=== PATIENT | male | born 1955 | race Caucasian/White ===

== ENCOUNTER 2017-06-11 03:39 | Emergency (ER) | payer OTHER ==
[~2017-06-11] VITALS: Ht 165.1 cm; Wt 54.0 kg
[2017-06-11 03:49] VITALS: TEMP 36.5; Ht 165.1 cm; Wt 54.0 kg
[2017-06-11] MEDS ORDERED: ASPCH81X PO (04:34)
[2017-06-11] MEDS ORDERED: [UNRECOGNIZED DRUG - CODE] PO (04:34)
[2017-06-11] MEDS ORDERED: BND25 PO (04:35)
[2017-06-11] MEDS ORDERED: ATOR10TA88 PO (04:35)
[2017-06-11] MEDS ORDERED: ALBUT/IPRATROP 3MG/0.5MG NEB 3 ML VIAL INH STA (04:45)
[2017-06-11 05:01] VITALS: O2SAT 94
[2017-06-11] MEDS ORDERED: [UNRECOGNIZED DRUG - CODE] IV (05:02)
[2017-06-11] MEDS ORDERED: SPRIN/30 INH (05:06)
[2017-06-11] MEDS ORDERED: VNTHFA/IN INH (05:06)
[2017-06-11] MEDS ORDERED: RISP1TAB68 PO (05:06)
[2017-06-11] MEDS ORDERED: IPRASOL4 INH (05:07)
[2017-06-11 05:33] LABS: COMPLETE YES; HEMATOCRIT 39.1 % (42-52); IG% 0.2 %; LYMPH % 8.8 %; LYMPH ABS # 0.38 K/uL (1.2-3.4); MEAN CELL VOLUME 86.1 fL (80-100); MEAN CORPUSCULAR HEMOGLOBIN 30.2 pg (25-34); MEAN PLATELET VOLUME 10.6 fL (7.4-10.4); MONO % 1.6 %; NEUT % 89.4 %; PLATELET COUNT 135 K/uL (130-400); RED BLOOD COUNT 4.54 M/uL (4.7-6.1); WHITE BLOOD COUNT 4.34 K/uL (4.8-10.8)
[2017-06-11 05:40] LABS: ALT/SGPT 36 U/L (12-78); AST/SGOT 21 U/L (15-37); BLOOD UREA NITROGEN 17 mg/dl (7-18); BUN/CREATININE RATIO 24.4 (10-20); CALCIUM 8.3 mg/dl (8.5-10.1); CARBON DIOXIDE 24 mmol/L (21-32); CHLORIDE 104 mmol/L (98-107); CREATININE 0.68 mg/dl (0.60-1.40); GLUCOSE 225 mg/dl (70-99); INR 1.1 (0.9-1.1); PARTIAL THROMBOPLASTIN RATIO 1.2; POTASSIUM 4.2 mmol/L (3.5-5.1); PROTHROMBIN TIME (PATIENT) 11.4 SECONDS (9.0-12.0); SODIUM 135 mmol/L (136-145)
[2017-06-11 05:47] LABS: ALB/GLOB RATIO 0.7 (0.9-2); ALKALINE PHOSPHATASE 70 U/L (45-117); CKMB/CK RATIO 1.5 (0-3.0)
--- NOTE | 2017-06-11 06:32 | EMERGENCY ROOM VISIT NOTE ---
History Report prepared by Burke: Gavin Gilman Under the Supervision of: Dr. Zhang Velazquez D.O. First contact with patient: 03:48 Chief Complaint: RESPIRATORY PROBLEMS Stated Complaint: BREATHING DIFFICULTY Nursing Triage Summary: Patient arrived via EMS from [facility]. EMS reports patient complaining of SOB and difficulty breathing with cough. Patient has hx of copd, asthma, and is a current smoker. Patient given duoneb and solumedrol in the [facility] prior to ems arrival. History of Present Illness The patient is a 62 year old male who presents to the Emergency Room with complaints of worsening shortness of breath beginning two days ago. The patient states that he also is experiencing right arm discomfort and a rough cough. He denies any other symptoms. Nursing staff states the patient has a history of asthma and COPD. They report the patient still smokes and received Duoneb and Solu-Medrol in the ambulance. Source of History: patient Onset: two days ago Position: chest Quality: other (SOB) Timing: worsening Associated Symptoms: + cough Note: Associated symptoms: right arm pain Denies all other symptoms Review of Systems See HPI for pertinent positives & negatives. A total of 10 systems reviewed and were otherwise negative. Past Medical & Surgical Medical Problems: (1) Asthma (2) COPD (chronic obstructive pulmonary disease) Family History Patient reports no known family medical history. Social History Smoking Status: Current Every Day Smoker Housing Status: other (shelter) Current/Historical Medications Scheduled Albuterol Sulf (Albuterol Sulfate), 2 MG PO TID Aspirin (Aspirin Chewable), 162 MG PO DAILY Atorvastatin (Lipitor), 10 MG PO HS Diphenhydramine Hcl (Benadryl), 50 MG PO HS Methylprednisolone Sod Succ (Solu-Medrol), 125 MG IV Q6 Risperidone (Risperdal), 1 MG PO HS Tiotropium [place] (Spiriva Handihaler), 1 CAP INH DAILY Scheduled PRN Albuterol Hfa (Ventolin Hfa), 2 PUFFS INH QID PRN for Shortness of Breath Ipratropium-Albuterol (Duoneb), 1 TREATMENT INH QID PRN for UNDECIDED Allergies Coded Allergies: No Known Allergies (Unverified , 06/11/17) Physical Exam Vital Signs Date Time Temp Pulse Resp B/P (MAP) Pulse Ox O2 Delivery O2 Flow Rate FiO2 06/11/17 06:00 71 20 113/62 94 Nasal Cannula 4.0 06/11/17 05:01 94 Nasal Cannula 2.0 06/11/17 03:53 92 Room Air 06/11/17 03:49 92 Room Air 06/11/17 03:49 88 06/11/17 03:49 36.5 86 20 162/106 92 Room Air Physical Exam CONSTITUTIONAL/VITAL SIGNS: Reviewed / noted above. GENERAL: Non-toxic in appearance. INTEGUMENTARY: Warm, dry, and Sells. HEAD: Normocephalic. EYES: without scleral icterus or trauma. ENT/OROPHARYNX: clear and moist. LYMPHADENOPATHY/NECK: Is supple without lymphadenopathy or meningismus. RESPIRATORY: Lungs clear and equal. CARDIOVASCULAR: Regular rate and rhythm. GI/ABDOMEN: Soft and nontender. No organomegaly or pulsatile mass. No rebound or guarding. Normal bowel sounds. EXTREMITIES: Warm and well perfused. BACK: No CVA tenderness. NEUROLOGICAL: Intact without focal deficits. PSYCHIATRIC: normal affect. MUSCULOSKELETAL: Normally developed with good muscle tone. Medical Decision & Procedures ER Provider Diagnostic Interpretation: X ray results and stated below per my interpretation and radiology interpretation. One view chest: Diffuse interstitial changes might be related to chronic lung disease, less likely CHF or diffuse pneumonia. No previous available for comparison. Laboratory Results 06/11/17 04:02 Red Blood Count 4.54, Mean Corpuscular Volume 86.1, Mean Corpuscular Hemoglobin 30.2, Mean Corpuscular Hemoglobin Concent 35.0, Mean Platelet Volume 10.6, Neutrophils (%) (Auto) 89.4, Lymphocytes (%) (Auto) 8.8, Monocytes (%) (Auto) 1.6, Eosinophils (%) (Auto) 0.0, Basophils (%) (Auto) 0.0, Neutrophils # (Auto) 3.88, Lymphocytes # (Auto) 0.38, Monocytes # (Auto) 0.07, Eosinophils # (Auto) 0.00, Basophils # (Auto) 0.00 06/11/17 04:02 Test 06/11/17 04:02 White Blood Count 4.34 K/uL (4.8-10.8) Red Blood Count 4.54 M/uL (4.7-6.1) Hemoglobin 13.7 g/dL (14.0-18.0) Hematocrit 39.1 % (42-52) Mean Corpuscular Volume 86.1 fL (80-100) Mean Corpuscular Hemoglobin 30.2 pg (25-34) Mean Corpuscular Hemoglobin Concent 35.0 g/dl (32-36) Platelet Count 135 K/uL (130-400) Mean Platelet Volume 10.6 fL (7.4-10.4) Neutrophils (%) (Auto) 89.4 % Lymphocytes (%) (Auto) 8.8 % Monocytes (%) (Auto) 1.6 % Eosinophils (%) (Auto) 0.0 % Basophils (%) (Auto) 0.0 % Neutrophils # (Auto) 3.88 K/uL (1.4-6.5) Lymphocytes # (Auto) 0.38 K/uL (1.2-3.4) Monocytes # (Auto) 0.07 K/uL (0.11-0.59) Eosinophils # (Auto) 0.00 K/uL (0-0.5) Basophils # (Auto) 0.00 K/uL (0-0.2) RDW Standard Deviation 43.6 fL (36.4-46.3) RDW Coefficient of Variation 13.9 % (11.5-14.5) Immature Granulocyte % (Auto) 0.2 % Immature Granulocyte # (Auto) 0.01 K/uL (0.00-0.02) Prothrombin Time 11.4 SECONDS (9.0-12.0) Prothromb Time International Ratio 1.1 (0.9-1.1) Activated Partial Thromboplast Time 31.1 SECONDS (21.0-31.0) Partial Thromboplastin Ratio 1.2 Anion Gap 7.0 mmol/L (3-11) Est Creatinine Clear Calc Drug Dose 84.9 ml/min Estimated GFR () 117.8 Estimated GFR (Non- 101.6 BUN/Creatinine Ratio 24.4 (10-20) Calcium Level 8.3 mg/dl (8.5-10.1) Total Bilirubin 0.4 mg/dl (0.2-1) Aspartate Amino Transf (AST/SGOT) 21 U/L (15-37) Alanine Aminotransferase (ALT/SGPT) 36 U/L (12-78) Alkaline Phosphatase 70 U/L (45-117) Total Creatine Kinase 133 U/L (39-308) Creatine Kinase MB 2.0 ng/ml (0.5-3.6) Creatine Kinase MB Ratio 1.5 (0-3.0) Troponin I < 0.015 ng/ml (0-0.045) Total Protein 7.2 gm/dl (6.4-8.2) Albumin 2.9 gm/dl (3.4-5.0) Globulin 4.3 gm/dl (2.5-4.0) Albumin/Globulin Ratio 0.7 (0.9-2) Laboratory results as stated above per my review. Medications Administered Medications (Trade) Dose Ordered Sig/Princess Route Start Time Stop Time Status Last Admin Dose Admin Albuterol/ Ipratropium (Duoneb) 3 ml NOW STAT INH 06/11/17 04:45 06/11/17 04:47 DC 06/11/17 05:04 3 ML ECG Indication: SOB/dyspnea Rate (beats per minute): 77 Rhythm: sinus with SA Findings: T-wave inversion (Anterior), no acute ischemic change ED Course 0352: Previous medical records were reviewed. The patient was evaluated in room B08. A complete history and physical examination was performed. 0445: Ordered Duoneb 3ml INH 0626: On reevaluation, the patient is resting. I discussed the results and findings with the patient. He verbalized agreement of the treatment plan. The patient was discharged. Medical Decision Differentials considered include acute myocardial infarction, acute coronary syndrome, myocarditis, pericarditis, pericardial effusions /tamponade, esophageal perforation, pulmonary embolism, pneumonia, pneumothorax, cardiomyopathy, congestive heart, anemia, and COPD/asthma exacerbation. This is a 62-year-old male who presents to the ED with a chief complaint of shortness of breath. The patient is a poor historian. He states that he has had the symptoms for the couple days. EMS provided DuoNeb treatment and some Solu-Medrol. He also reported some right arm pain. The patient's vital signs are stable. He is afebrile. Lungs reveal some scattered wheezes. The patient is a chronic smoker. A chest x-ray reveals what I believe are likely chronic interstitial changes. His exam does not suggest acute process such as CHF or acute pneumonia. He has not had symptoms of a cough or fever. An EKG shows a normal sinus rhythm at a rate of 77 with T-wave inversions. Troponin was negative. Glucose is 225. CBC is normal. The patient was treated with a DuoNeb treatment. He was resting comfortably at this time and disposition and discharge. He is felt to be stable for discharge back to shelter for continued assessment. Impression Primary Impression: COPD (chronic obstructive pulmonary disease) Scribe Attestation The scribe's documentation has been prepared under my direction and personally reviewed by me in its entirety. I confirm that the note above accurately reflects all work, treatment, procedures, and medical decision making performed by me. Departure Information Dispostion Home / Self-Care Referrals Magnus PARDO (PCP) Forms HOME CARE DOCUMENTATION FORM, IMPORTANT VISIT INFORMATION, WORK / SCHOOL INSTRUCTIONS Patient Instructions My [facility] Additional Instructions Follow-up with your doctor for further care and evaluation in 1-2 days. Return to the emergency department for worsening or new symptoms or any concerns. You have been examined and treated today on an emergency basis only. This is not a substitute for, or an effort to provide, complete comprehensive medical care. It is impossible to recognize and treat all injuries or illnesses in a single emergency department visit. It is therefore important that you follow up closely with your doctor. Call as soon as possible for an appointment.
[2017-06-11 06:42] VITALS: BP 100/68; PULSE 60; O2SAT 98
--- NOTE | 2017-06-11 07:39 | DIAGNOSTIC IMAGING REPORT ---
CHEST ONE VIEW PORTABLE HISTORY: Short of breath. COMPARISON: None. FINDINGS: No pneumothorax. No pleural effusions. The heart is mildly enlarged with prominence of the central pulmonary arteries suggesting pulmonary arterial hypertension. There is diffuse interstitial thickening. This is consistent with chronic interstitial lung disease. IMPRESSION: 1. Diffuse interstitial thickening consistent with a chronic interstitial lung disease. 2. Mild cardiomegaly. 3. Pulmonary arterial hypertension. Electronically signed by: Garrett Taveras M.D. 06/11/2017 7:38 AM Dictated Date/Time: 06/11/2017 7:36 AM
== END 2017-06-11 06:38 | disposition home or self-care (01) ==
LOC: C.EDB 03:45
DX: J44.9 Chronic obstructive pulmonary disease, unspecified (principal); R06.00 Dyspnea, unspecified; F17.210 Nicotine dependence, cigarettes, uncomplicated

== ENCOUNTER 2017-08-12 10:45 | Inpatient (IN) | payer OTHER ==
[~2017-08-12] VITALS: Ht 160 cm; Wt 130.2 kg
[2017-08-12] VITALS (8 sets, daily range): BP systolic 91–106; BP diastolic 52–67; PULSE 74–122; TEMP 34.7–36.7; O2SAT 94–98; Ht 160 cm; Wt 130.2 kg
[~2017-08-12 10:45] MED LIST: ASPCH81X PO; ATOR10TA82 PO; DIPH25CA5 PO; IPRASOL4 INH; RISP1TAB68 PO; SPRIN/30 INH; VNTHFA/IN INH; [UNRECOGNIZED DRUG - CODE] IV; [UNRECOGNIZED DRUG - CODE] PO
[2017-08-12] MEDS ORDERED: SODIUM CHLORIDE 0.9% 1000ML 1,000 ML IV STA (10:58)
--- NOTE | 2017-08-12 11:11 | DIAGNOSTIC IMAGING REPORT ---
SINGLE VIEW CHEST CLINICAL HISTORY: Generalized weakness. FINDINGS: An AP, portable, upright chest radiograph is compared to study dated 06/11/2017. The examination is degraded by portable technique and patient rotation. The heart is enlarged and there is atherosclerotic calcification of the thoracic aorta. The pulmonary vasculature is noncongested. Enlargement of the central pulmonary arteries suggests pulmonary artery hypertension. Extensive/diffuse chronic interstitial thickening is similar to previous. There is no convincing evidence of superimposed airspace consolidation. No large pleural effusion or pneumothorax is seen. The skeletal structures are osteopenic. The bony thorax is grossly intact. IMPRESSION: 1. Cardiomegaly without radiographic evidence of congestive failure. 2. Changes of chronic interstitial lung disease are similar to previous. No superimposed airspace consolidation or large pleural effusion is identified. Electronically signed by: Samir Monet M.D. 08/12/2017 11:09 AM Dictated Date/Time: 08/12/2017 11:07 AM
[2017-08-12 11:15] LABS: BASO % 0.1 %; BASO ABS # 0.01 K/uL (0-0.2); COMPLETE YES; IG% 0.4 %; LYMPH % 1.9 %; LYMPH ABS # 0.19 K/uL (1.2-3.4); MEAN CELL VOLUME 89.3 fL (80-100); MEAN CORPUSCULAR HEMOGLOBIN 29.8 pg (25-34); MEAN CORPUSCULAR HGB CONC 33.4 g/dl (32-36); MEAN PLATELET VOLUME 10.9 fL (7.4-10.4); MONO % 3.2 %; NEUT % 94.4 %; PLATELET COUNT 127 K/uL (130-400); RED BLOOD COUNT 4.59 M/uL (4.7-6.1); WHITE BLOOD COUNT 10.24 K/uL (4.8-10.8)
[2017-08-12 11:24] LABS: INR 1.1 (0.9-1.1); PARTIAL THROMBOPLASTIN RATIO 1.1; PROTHROMBIN TIME (PATIENT) 11.9 SECONDS (9.0-12.0)
[2017-08-12 11:29] LABS: BUN/CREATININE RATIO 34.1 (10-20); CREATININE 0.87 mg/dl (0.60-1.40); POTASSIUM 3.8 mmol/L (3.5-5.1)
[2017-08-12] MEDS ORDERED: PRED10TA PO (11:29)
[2017-08-12] MEDS ORDERED: AMOX875T PO (11:29)
[2017-08-12] MEDS ORDERED: IPRASOL4 INH (11:30)
--- NOTE | 2017-08-12 11:30 | EMERGENCY ROOM VISIT NOTE ---
History Report prepared by Burke: Gordon Hensley Under the Supervision of: Dr. Sheng Shepard M.D. First contact with patient: 10:51 Chief Complaint: RAPID HEART RATE Stated Complaint: TACHYCARDIA History of Present Illness The patient is a 62 year old white male with a past medical history of COPD, asthma who presents to the ED with a cc of persistent heart palpitations beginning today. He is a prisoner. COPD currently being treated with high dose steroids. Found to be in atrial fibrillation at the assisted today. Positive SOB and chest pain. He is on a mood stabilizer and Statin. Denies passing out. Source of History: patient Onset: Today Quality: other (heart palpitations) Timing: other (persistent) Associated Symptoms: + chest pain, + SOB, No LOC Note: The patient denies passing out. Review of Systems See HPI for pertinent positives and negatives. A total of ten systems were reviewed and were otherwise negative. Past Medical & Surgical Medical Problems: (1) Asthma (2) COPD (chronic obstructive pulmonary disease) (3) New onset a-fib Family History Patient reports no known family medical history. Social History Smoking Status: Current Every Day Smoker Housing Status: other Current/Historical Medications Scheduled Amoxicillin & Pot Clavulanate (Augmentin 875-125 mg), 1 TAB PO BID Aspirin (Aspirin Chewable), 162 MG PO DAILY Atorvastatin (Lipitor), 10 MG PO HS Diphenhydramine Hcl (Benadryl), 50 MG PO HS Methylprednisolone Sod Succ (Solu-Medrol), 125 MG IV Q6 Prednisone (Prednisone), 10 MG PO DIRECTED Risperidone (Risperdal), 1 MG PO HS Tiotropium [place] (Spiriva Handihaler), 1 CAP INH DAILY Scheduled PRN Albuterol Hfa (Ventolin Hfa), 2 PUFFS INH QID PRN for Shortness of Breath Ipratropium-Albuterol (Duoneb), 1 TREATMENT INH Q4H PRN for Shortness of Breath Allergies Coded Allergies: No Known Allergies (Unverified , 08/12/17) Physical Exam Vital Signs Date Time Temp Pulse Resp B/P (MAP) Pulse Ox O2 Delivery O2 Flow Rate FiO2 08/12/17 14:15 113 24 90/61 97 Nasal Cannula 3.0 08/12/17 13:12 128 20 96/63 96 Nasal Cannula 4.0 08/12/17 13:00 102 20 81/60 96 Nasal Cannula 3.0 08/12/17 12:45 101 24 97/57 97 Nasal Cannula 3.0 08/12/17 12:30 120 20 82/68 97 Nasal Cannula 3.0 08/12/17 12:15 87 26 97/60 97 Nasal Cannula 3.0 08/12/17 12:00 90 24 95/64 97 Room Air 08/12/17 11:45 117 24 84/64 97 Nasal Cannula 3.0 08/12/17 11:30 117 24 112/54 Nasal Cannula 3.0 08/12/17 11:19 95 22 91/64 99 Nasal Cannula 3.0 08/12/17 11:17 99 Nasal Cannula 3.0 08/12/17 11:13 36.7 129 24 78/60 99 Nasal Cannula 3.0 08/12/17 11:13 99 Nasal Cannula 3.0 08/12/17 11:00 119 Physical Exam GENERAL: Awake, alert, well-appearing, NAD HENT: Normocephalic, atraumatic. EYES: Normal conjunctiva. Sclera non-icteric. NECK: Supple. No nuchal rigidity. FROM. RESPIRATORY: rhonchus breath sounds in left chest. Wheezing in the right lung huang. CARDIAC: Tachycardic, irregular heart rhythm. ABDOMEN: Soft, NTND, BS+ MSK: No chest wall TTP, no LE edema, no calf pain. Incisional scar to the distal RUE. NEURO: GCS 15, CN 2-12 intact, moves all 4s on command SKIN: No rash or jaundice noted. Excoriations to the skin. Medical Decision & Procedures ER Provider Diagnostic Interpretation: X-ray: Per my interpretation, radiologist review. SINGLE VIEW CHEST FINDINGS: An AP, portable, upright chest radiograph is compared to study dated 06/11/2017. The examination is degraded by portable technique and patient rotation. The heart is enlarged and there is atherosclerotic calcification of the thoracic aorta. The pulmonary vasculature is noncongested. Enlargement of the central pulmonary arteries suggests pulmonary artery hypertension. Extensive/diffuse chronic interstitial thickening is similar to previous. There is no convincing evidence of superimposed airspace consolidation. No large pleural effusion or pneumothorax is seen. The skeletal structures are osteopenic. The bony thorax is grossly intact. IMPRESSION: 1. Cardiomegaly without radiographic evidence of congestive failure. 2. Changes of chronic interstitial lung disease are similar to previous. No superimposed airspace consolidation or large pleural effusion is identified. Electronically signed by: Samir Monet M.D. 08/12/2017 11:09 AM Laboratory Results 08/12/17 11:00 Red Blood Count 4.59, Mean Corpuscular Volume 89.3, Mean Corpuscular Hemoglobin 29.8, Mean Corpuscular Hemoglobin Concent 33.4, Mean Platelet Volume 10.9, Neutrophils (%) (Auto) 94.4, Lymphocytes (%) (Auto) 1.9, Monocytes (%) (Auto) 3.2, Eosinophils (%) (Auto) 0.0, Basophils (%) (Auto) 0.1, Neutrophils # (Auto) 9.67, Lymphocytes # (Auto) 0.19, Monocytes # (Auto) 0.33, Eosinophils # (Auto) 0.00, Basophils # (Auto) 0.01 08/12/17 11:00 Test 08/12/17 11:00 08/12/17 13:40 White Blood Count 10.24 K/uL (4.8-10.8) Red Blood Count 4.59 M/uL (4.7-6.1) Hemoglobin 13.7 g/dL (14.0-18.0) Hematocrit 41.0 % (42-52) Mean Corpuscular Volume 89.3 fL (80-100) Mean Corpuscular Hemoglobin 29.8 pg (25-34) Mean Corpuscular Hemoglobin Concent 33.4 g/dl (32-36) Platelet Count 127 K/uL (130-400) Mean Platelet Volume 10.9 fL (7.4-10.4) Neutrophils (%) (Auto) 94.4 % Lymphocytes (%) (Auto) 1.9 % Monocytes (%) (Auto) 3.2 % Eosinophils (%) (Auto) 0.0 % Basophils (%) (Auto) 0.1 % Neutrophils # (Auto) 9.67 K/uL (1.4-6.5) Lymphocytes # (Auto) 0.19 K/uL (1.2-3.4) Monocytes # (Auto) 0.33 K/uL (0.11-0.59) Eosinophils # (Auto) 0.00 K/uL (0-0.5) Basophils # (Auto) 0.01 K/uL (0-0.2) RDW Standard Deviation 46.7 fL (36.4-46.3) RDW Coefficient of Variation 14.3 % (11.5-14.5) Immature Granulocyte % (Auto) 0.4 % Immature Granulocyte # (Auto) 0.04 K/uL (0.00-0.02) Prothrombin Time 11.9 SECONDS (9.0-12.0) Prothromb Time International Ratio 1.1 (0.9-1.1) Activated Partial Thromboplast Time 28.3 SECONDS (21.0-31.0) Partial Thromboplastin Ratio 1.1 Anion Gap 6.0 mmol/L (3-11) Est Creatinine Clear Calc Drug Dose 72.8 ml/min Estimated GFR () 106.5 Estimated GFR (Non- 91.9 BUN/Creatinine Ratio 34.1 (10-20) Calcium Level 8.0 mg/dl (8.5-10.1) Magnesium Level 2.0 mg/dl (1.8-2.4) Total Bilirubin 0.3 mg/dl (0.2-1) Direct Bilirubin 0.1 mg/dl (0-0.2) Aspartate Amino Transf (AST/SGOT) 25 U/L (15-37) Alanine Aminotransferase (ALT/SGPT) 44 U/L (12-78) Alkaline Phosphatase 57 U/L (45-117) Troponin I 0.017 ng/ml (0-0.045) Pro-B-Type Natriuretic Peptide 3849 pg/ml (0-900) Total Protein 6.4 gm/dl (6.4-8.2) Albumin 2.7 gm/dl (3.4-5.0) Lipase 85 U/L (73-393) Thyroid Stimulating Hormone (TSH) 0.726 uIu/ml (0.300-4.500) Urine Color YELLOW Urine Appearance CLEAR (CLEAR) Urine pH 6.0 (4.5-7.5) Urine Specific [place] 1.029 (1.000-1.030) Urine Protein NEG (NEG) Urine Glucose (UA) NEG (NEG) Urine Ketones NEG (NEG) Urine Occult Blood NEG (NEG) Urine Nitrite NEG (NEG) Urine Bilirubin NEG (NEG) Urine Urobilinogen NEG (NEG) Urine Leukocyte Esterase NEG (NEG) Laboratory results reviewed by dc Medications Administered Medications (Trade) Dose Ordered Sig/Princess Route Start Time Stop Time Status Last Admin Dose Admin Sodium Chloride 1,000 ml @ 999 mls/hr Q1H1M STAT IV 08/12/17 10:58 08/12/17 11:58 DC 08/12/17 10:58 999 MLS/HR Sodium Chloride 1,000 ml @ 100 mls/hr Q10H IV 08/12/17 14:25 09/11/17 14:24 08/12/17 15:38 100 MLS/HR ECG Indication: palpitations Rate (beats per minute): 126 Rhythm: atrial fibrillation (RVR) Findings: other (RAD. T-wave flattening inferiorly. No other STS or TWI. ) ED Course 1052: The patient was evaluated in room C4. A complete history and physical exam was performed. 1220: I reassessed the patient. He feels better, but would like something to drink. 1310: Upon reexamination, the patient was resting comfortably. I discussed the test results and treatment plan with him. The patient will be evaluated for further management. Medical Decision The patient is a 62 year old white male with a past medical history of COPD, asthma who presents to the ED with a cc of persistent heart palpitations beginning today. Differential diagnosis includes etiologies such as premature contractions, electrolyte abnormality, cardiac dysrhythmia, thyroid dysfunction , pulmonary embolism, infection, gastrointestinal, as well as others were entertained. Patient was seen and evaluated at the bedside. Patient does have a known history of COPD and was being given high-dose steroids. Patient was complaining of a fast heart rate in addition to some shortness of breath and mild chest pain. Patient is no documented prior history of DVT or PE. Patient is a known prisoner [facility]. On exam patient did have some mild wheezing as well as some rhonchorous sounds in the right chest. Patient denied any recent cough. Patient's EKG did show some atrial fibrillation with RVR although the patient may have some P waves is difficult to tell. Patient did have a chest x- ray and blood work that was completed. Patient's blood pressure was a little soft and thus pads were placed on the chest although the patient was not have any altered mental status at this time. Patient was given IV fluids. Patient' s heart rate improved after being being given IV fluids. Patient's labwork fairly unremarkable. Patient did have trace elevations in BMP and this shows some cardiomegaly but without any overt additional pulmonary edema on chest x-ray. The patient is otherwise a symptomatically is been able to get up and walk to the bathroom without feeling dizzy. I believe the patient is very dehydrated and dry and that he would most benefit from fluids given his softer blood pressures and thus now rate medication was given at the time of admission. Patient also has been getting Solu-Medrol 150 every 8 which may also be contributory. I did speak with the hospitalist who agreed to admit the patient for further workup and treatment. Medication Reconcilliation Current Medication List: was personally reviewed by me Blood Pressure Screening Patient's blood pressure: Low blood pressure Blood pressure disposition: Did not require urgent referral Consults Time Called: 1300 Consulting Physician: Dr. Tere MENDIETA Returned Call: 1310 Discussed the patient's case. The patient will be evaluated for further treatment and disposition. Impression Primary Impression: COPD (chronic obstructive pulmonary disease) Additional Impression: A-fib Scribe Attestation The scribe's documentation has been prepared under my direction and personally reviewed by me in its entirety. I confirm that the note above accurately reflects all work, treatment, procedures, and medical decision making performed by me. Departure Information Dispostion Being Evaluated By Hospitalist Referrals Magnus PARDO (PCP) Patient Instructions My [facility] Problem Qualifiers Primary Impression: COPD (chronic obstructive pulmonary disease) COPD type: unspecified COPD Qualified Codes: J44.9 - Chronic obstructive pulmonary disease, unspecified Additional Impression: A-fib Atrial fibrillation type: paroxysmal Qualified Codes: I48.0 - Paroxysmal atrial fibrillation
[2017-08-12 11:40] LABS: THYROID STIMULATING HORMONE 0.726 uIu/ml (0.300-4.500)
[2017-08-12 13:50] LABS: URINE APPEARANCE CLEAR (CLEAR); URINE BILIRUBIN NEG (NEG); URINE COLOR YELLOW; URINE NITRITE NEG (NEG); URINE SPECIFIC GRAVITY 1.029 (1.000-1.030); UROBILINOGEN NEG (NEG)
[2017-08-12 13:54] LABS: MANUAL MICROSCOPIC REQUIRED? NO; REVIEW REQ? NO
[2017-08-12] MEDS ORDERED: ONDANSETRON INJ 2 MG/ML 2 ML VIAL IV PRN (14:30)
[2017-08-12] MEDS ORDERED: MAGNESIUM HYDROXIDE SUSP 30 ML UDC PO PRN (14:30)
[2017-08-12] MEDS ORDERED: ALUMINUM/MAGNESIUM/SIMETH (MAALOX MAX) 30 ML UDC PO PRN (14:30)
[2017-08-12] MEDS ORDERED: POLYETHYLENE (MIRALAX) 17 GM PACK PO PRN (14:30)
[2017-08-12] MEDS ORDERED: ACETAMINOPHEN 325 MG TAB PO PRN (14:30)
[2017-08-12] MEDS ORDERED: METOPROLOL TARTRATE 1 MG/ML VIAL IV PRN (14:30)
[2017-08-12] MEDS ORDERED: DIGOXIN 0.125 MG TAB PO ONE (14:45)
[2017-08-12] MEDS ORDERED: LEVALBUTEROL/IPRATROPIUM NEB INH SCH (15:00)
[2017-08-12] MEDS ORDERED: GLUCOSE 40% GEL 15 GM TUBE PO PRN (15:00)
[2017-08-12] MEDS ORDERED: GLUCOSE 10 TABS/TUBE PO PRN (15:00)
[2017-08-12] MEDS ORDERED: DEXTROSE 50% 50 ML SYR IV PRN (15:00)
[2017-08-12] MEDS ORDERED: GLUCAGON FOR INJ 1 MG VIAL SQ PRN (15:00)
--- NOTE | 2017-08-12 15:01 | History and Physical ---
History & Physical Date & Time of Service: Aug 12, 2017 at 14:43 Chief Complaint: Tachycardia Primary Care Physician: Magnus PARDO History of Present Illness Source: patient, hospital records, other ([facility] records) This is a 62 y/o male with a history of COPD, asthma, HLD, schizophrenia, anxiety, and HCV who presented to the ED on 08/12 from [facility] with palpitations, shortness of breath and chest pain. The patient states that his symptoms started today. He was seen in the [facility] and was found to be in a- fib with RVR, with HR in 130s. This is a new diagnosis. The patient complains of a sharp pain in the center of his chest but is unable to quantify the pain intensity. He also complains of a productive cough and wheezing. The patient was being treated for a COPD exacerbation/bronchitis at [facility] with Augmentin (08/09-08/16) and Solu-Medrol 125 mg IV QID with Prednisone 60 mg taper. The patient denies fevers, chills, sweats, claudication, nausea, vomiting, abdominal pain, dysuria, hematuria, urinary retention, paralysis, weakness, numbness and tingling. Past Medical/Surgical History Medical Problems: (1) Asthma Status: Chronic (2) COPD (chronic obstructive pulmonary disease) Status: Chronic HLD Schizophrenia Anxiety HCV Family History Patient reports no known family medical history. Patient denies any known family history. Social History Smoking Status: Current Every Day Smoker (chain smoker) Alcohol Use: none Drug Use: none Marital Status: single Housing status: other (half-way) Occupational Status: other (prisoner) Allergies Coded Allergies: No Known Allergies (Unverified , 08/12/17) Home Medications Scheduled Amoxicillin & Pot Clavulanate (Augmentin 875-125 mg), 1 TAB PO BID Aspirin (Aspirin Chewable), 162 MG PO DAILY Atorvastatin (Lipitor), 10 MG PO HS Diphenhydramine Hcl (Benadryl), 50 MG PO HS Methylprednisolone Sod Succ (Solu-Medrol), 125 MG IV Q6 Prednisone (Prednisone), 10 MG PO DIRECTED Risperidone (Risperdal), 1 MG PO HS Tiotropium [place] (Spiriva [place]), 1 CAP INH DAILY Scheduled PRN Albuterol Hfa (Ventolin Hfa), 2 PUFFS INH QID PRN for Shortness of Breath Ipratropium-Albuterol (Duoneb), 1 TREATMENT INH Q4H PRN for Shortness of Breath Review of Systems Constitutional: No fever, No chills, No sweats Eyes: No worsening of vision, No eye pain, No diplopia ENT: No hearing loss, No nasal symptoms, No trouble swallowing Respiratory: +Productive cough. Wheezing. Shortness of breath. Cardiovascular: +Chest pain. Palpitations. No claudication Abdomen: No pain, No nausea, No vomiting Musculoskeletal: No joint pain, No muscle pain, No swelling Genitourinary - Male: +Trouble starting stream. No dysuria, No urinary retention, No hematuria Neurologic: No paralysis, No weakness, No numbness/tingling Integumentary: No rash, No itch, No color change Physical Exam Vital Signs Date Time Temp Pulse Resp B/P (MAP) Pulse Ox O2 Delivery O2 Flow Rate FiO2 08/12/17 14:15 113 24 90/61 97 Nasal Cannula 3.0 08/12/17 13:12 128 20 96/63 96 Nasal Cannula 4.0 08/12/17 13:00 102 20 81/60 96 Nasal Cannula 3.0 08/12/17 12:45 101 24 97/57 97 Nasal Cannula 3.0 08/12/17 12:30 120 20 82/68 97 Nasal Cannula 3.0 08/12/17 12:15 87 26 97/60 97 Nasal Cannula 3.0 08/12/17 12:00 90 24 95/64 97 Room Air 08/12/17 11:45 117 24 84/64 97 Nasal Cannula 3.0 08/12/17 11:30 117 24 112/54 Nasal Cannula 3.0 08/12/17 11:19 95 22 91/64 99 Nasal Cannula 3.0 08/12/17 11:17 99 Nasal Cannula 3.0 08/12/17 11:13 36.7 129 24 78/60 99 Nasal Cannula 3.0 08/12/17 11:13 99 Nasal Cannula 3.0 08/12/17 11:00 119 General appearance: +Appears disheveled. Well-developed, well-nourished, no apparent distress Head: Normocephalic, atraumatic Eyes: Normal inspection, PERRL, EOMI ENT: +Dry oral mucosa. Very hard of hearing. Normal ENT inspection, pharynx normal Neck: Supple, no JVD, trachea midline Respiratory/Chest: +Wheezing. Normal breath sounds, no respiratory distress Cardiovascular: +Irregularly irregular, tachycardic. No gallop, no murmur Abdomen/GI: +Mild diffuse tenderness. Normal bowel sounds, soft Extremities/Musculoskeletal: Normal inspection, no calf tenderness, no pedal edema Neurological/Psych: Alert, normal mood/affect, oriented x 3 Skin: Normal color, warm/dry, no rash Diagnostics Laboratory Results Results Past 24 Hours Test 08/12/17 11:00 08/12/17 13:40 Range/Units White Blood Count 10.24 4.8-10.8 K/uL Red Blood Count 4.59 4.7-6.1 M/uL Hemoglobin 13.7 14.0-18.0 g/dL Hematocrit 41.0 42-52 % Mean Corpuscular Volume 89.3 80-100 fL Mean Corpuscular Hemoglobin 29.8 25-34 pg Mean Corpuscular Hemoglobin Concent 33.4 32-36 g/dl Platelet Count 127 130-400 K/uL Mean Platelet Volume 10.9 7.4-10.4 fL Neutrophils (%) (Auto) 94.4 % Lymphocytes (%) (Auto) 1.9 % Monocytes (%) (Auto) 3.2 % Eosinophils (%) (Auto) 0.0 % Basophils (%) (Auto) 0.1 % Neutrophils # (Auto) 9.67 1.4-6.5 K/uL Lymphocytes # (Auto) 0.19 1.2-3.4 K/uL Monocytes # (Auto) 0.33 0.11-0.59 K/uL Eosinophils # (Auto) 0.00 0-0.5 K/uL Basophils # (Auto) 0.01 0-0.2 K/uL RDW Standard Deviation 46.7 36.4-46.3 fL RDW Coefficient of Variation 14.3 11.5-14.5 % Immature Granulocyte % (Auto) 0.4 % Immature Granulocyte # (Auto) 0.04 0.00-0.02 K/uL Prothrombin Time 11.9 9.0-12.0 SECONDS Prothromb Time International Ratio 1.1 0.9-1.1 Activated Partial Thromboplast Time 28.3 21.0-31.0 SECONDS Partial Thromboplastin Ratio 1.1 Sodium Level 136 136-145 mmol/L Potassium Level 3.8 3.5-5.1 mmol/L Chloride Level 104 98-107 mmol/L Carbon Dioxide Level 26 21-32 mmol/L Anion Gap 6.0 3-11 mmol/L Blood Urea Nitrogen 30 7-18 mg/dl Creatinine 0.87 0.60-1.40 mg/dl Est Creatinine Clear Calc Drug Dose 72.8 ml/min Estimated GFR () 106.5 Estimated GFR (Non- 91.9 BUN/Creatinine Ratio 34.1 10-20 Random Glucose 290 70-99 mg/dl Calcium Level 8.0 8.5-10.1 mg/dl Magnesium Level 2.0 1.8-2.4 mg/dl Total Bilirubin 0.3 0.2-1 mg/dl Direct Bilirubin 0.1 0-0.2 mg/dl Aspartate Amino Transf (AST/SGOT) 25 15-37 U/L Alanine Aminotransferase (ALT/SGPT) 44 12-78 U/L Alkaline Phosphatase 57 45-117 U/L Troponin I 0.017 0-0.045 ng/ml Pro-B-Type Natriuretic Peptide 3849 0-900 pg/ml Total Protein 6.4 6.4-8.2 gm/dl Albumin 2.7 3.4-5.0 gm/dl Lipase 85 73-393 U/L Thyroid Stimulating Hormone (TSH) 0.726 0.300-4.500 uIu/ml Urine Color YELLOW Urine Appearance CLEAR CLEAR Urine pH 6.0 4.5-7.5 Urine Specific [place] 1.029 1.000-1.030 Urine Protein NEG NEG Urine Glucose (UA) NEG NEG Urine Ketones NEG NEG Urine Occult Blood NEG NEG Urine Nitrite NEG NEG Urine Bilirubin NEG NEG Urine Urobilinogen NEG NEG Urine Leukocyte Esterase NEG NEG Microbiology Results 08/12/17 Urine Culture, Received Pending Diagnostic Radiology Reviewed the following studies and agree with interpretation as follows: SINGLE VIEW CHEST CLINICAL HISTORY: Generalized weakness. FINDINGS: An AP, portable, upright chest radiograph is compared to study dated 06/11/2017. The examination is degraded by portable technique and patient rotation. The heart is enlarged and there is atherosclerotic calcification of the thoracic aorta. The pulmonary vasculature is noncongested. Enlargement of the central pulmonary arteries suggests pulmonary artery hypertension. Extensive/diffuse chronic interstitial thickening is similar to previous. There is no convincing evidence of superimposed airspace consolidation. No large pleural effusion or pneumothorax is seen. The skeletal structures are osteopenic. The bony thorax is grossly intact. IMPRESSION: 1. Cardiomegaly without radiographic evidence of congestive failure. 2. Changes of chronic interstitial lung disease are similar to previous. No superimposed airspace consolidation or large pleural effusion is identified. EKG Reviewed EKG and agree with interpretation as follows: 126 bpm, a-fib with RVR Impression Assessment and Plan 62 y/o male with a history of COPD, asthma, HLD, schizophrenia, anxiety, and HCV who presented to the ED on 08/12 from [facility] with palpitations, shortness of breath and chest pain. Patient found to have new onset of a-fib with RVR. HR up to 129 in ED. Pt hypotensive, BP down to 78/60. BP improved after receiving 1L NSS bolus. Potassium and magnesium WNL. TSH WNL. BSG 290, no history of DM. Labs otherwise grossly unremarkable. New onset a-fib with RVR -Admit to telemetry -Consult cardiology, appreciate recs -Lopressor 5 mg IV q4h prn HR > 120. Hold if SBP less than 100 -Digoxin 0.125 mg PO x 1 now -Echo ordered -Continue aspirin -May be related to hypotension and/or very high dose IV steroids he was receiving in [facility] Chest pain -Trend cardiac enzymes q8h x 3. First troponin negative COPD w/recent exacerbation/bronchitis -D/C outpt Solu-Medrol -Prednisone 60 mg PO taper. Pt had received 2 days prednisone 60 mg qd (on top of Solu-Medrol). Give one more dose 60 mg 08/13, then decrease by 20 mg q 3 days -Continue Augmentin BID. Started 08/09, last dose 08/16 morning -Xopenex/Atrovent nebs QIDR -O2 by protocol. Pt is supposed to be on O2 as outpt but non-compliant due to heavy smoking -Nicoderm patch -Hold Spiriva due to Atrovent nebs Hyperglycemia -BSG 290. No known history of diabetes -Insulin sliding scale -Check BSGs q ac and qhs -Check HgbA1c HLD -Continue Lipitor 10 mg PO qd Schizophrenia -Continue Risperdal 1 mg PO hs DVT prophylaxis -Enoxaparin 40 mg SC q24h -RONEY reese and JERRYs Code Status -Level I, FULL RESUSCITATION STATUS Level of Care Telemetry Resuscitation Status FULL RESUSCITATION VTE Prophylaxis VTE Risk Assessment Done? Y/N: Yes Risk Level: High Given or contraindicated: Enoxaparin (Lovenox)SQ, T.E.D. Stockings, SCD's
[2017-08-12] MEDS ORDERED: ALBUT/IPRATROP 3MG/0.5MG NEB 3 ML VIAL ONE (15:30)
[2017-08-12] MEDS: SODIUM CHLORIDE 0.9% 1000ML 1,000 ML IV SCH (15:38)
[2017-08-12] MEDS: LEVALBUTEROL 1.25MG/0.5ML NEB INH SCH ×2 (15:38→20:51)
[2017-08-12] MEDS: IPRATROPIUM BROMIDE NEB SOLN 0.02% 2.5 ML VIAL INH SCH ×2 (15:43→20:51)
[2017-08-12] MEDS: NICOTINE 21 MG/24 HR TDSY TD SCH (15:44)
[2017-08-12] MEDS ORDERED: ALBUT/IPRATROP 3MG/0.5MG NEB 3 ML VIAL INH SCH (16:00)
[2017-08-12] MEDS: INSULIN ASPART 100 UNITS/ML 3 ML PEN SC SCH ×2 (17:06→20:40)
[2017-08-12] MEDS: AMOXICILLIN/CLAVULANATE TAB 875 MG TAB PO SCH (17:56)
[2017-08-12] MEDS ORDERED: ENOXAPARIN 40 MG/0.4 ML SYR SC SCH (18:00)
[2017-08-12 19:28] LABS: CKMB/CK RATIO 4.2 (0-3.0)
[2017-08-12] MEDS ORDERED: PNEUMOCOCCAL ADMINISTRATION CHARGE ONE (19:45)
[2017-08-12] MEDS ORDERED: PNEUMOCOCCAL POLYSACCHARIDES 25 MCG/0.5 ML VIAL/SYR IM. ONE (19:45)
[2017-08-12] MEDS: RISPERIDONE 1 MG TAB PO SCH (21:10)
[2017-08-12] MEDS: ATORVASTATIN 10 MG TAB PO SCH (21:10)
[2017-08-13] VITALS (17 sets, daily range): BP systolic 72–119; BP diastolic 39–73; PULSE 58–128; TEMP 36.3–37.1; O2SAT 91–100
[2017-08-13] MEDS: SODIUM CHLORIDE 0.9% 1000ML 1,000 ML IV SCH ×3 (00:26→22:56)
[2017-08-13] MEDS: IPRATROPIUM BROMIDE NEB SOLN 0.02% 2.5 ML VIAL INH SCH ×4 (02:12→19:35)
[2017-08-13] MEDS: LEVALBUTEROL 1.25MG/0.5ML NEB INH SCH ×4 (02:12→19:34)
[2017-08-13 03:16] LABS: HEMATOCRIT 40.3 % (42-52); MEAN CORPUSCULAR HEMOGLOBIN 29.2 pg (25-34); MEAN CORPUSCULAR HGB CONC 32.5 g/dl (32-36); MEAN PLATELET VOLUME 10.9 fL (7.4-10.4); PLATELET COUNT 113 K/uL (130-400); RED BLOOD COUNT 4.48 M/uL (4.7-6.1); WHITE BLOOD COUNT 10.69 K/uL (4.8-10.8)
[2017-08-13] MEDS ORDERED: SODIUM CHLORIDE 0.9% 500ML 500 ML IV STA (03:28)
[2017-08-13 03:33] LABS: CALCIUM 7.8 mg/dl (8.5-10.1); CREATININE 0.76 mg/dl (0.60-1.40); MAGNESIUM 1.9 mg/dl (1.8-2.4); POTASSIUM 3.9 mmol/L (3.5-5.1)
[2017-08-13 03:38] LABS: CKMB/CK RATIO 4.5 (0-3.0)
[2017-08-13 07:19] LABS: ESTIMATED AVERAGE GLUCOSE 134 mg/dl; HA1C FLAG Normal (Normal)
[2017-08-13] MEDS: ASPIRIN 81 MG CHEW PO SCH (08:00)
[2017-08-13] MEDS: INSULIN ASPART 100 UNITS/ML 3 ML PEN SC SCH ×4 (08:02→21:00)
[2017-08-13] MEDS: AMOXICILLIN/CLAVULANATE TAB 875 MG TAB PO SCH ×2 (09:32→17:53)
[2017-08-13] MEDS ORDERED: METOPROLOL TARTRATE 25 MG TAB PO SCH ×2 (09:45→21:00)
[2017-08-13] MEDS ORDERED: SODIUM CHLORIDE 0.9% 1000ML 1,000 ML IV SCH (10:00)
--- NOTE | 2017-08-13 10:47 | ECHOCARDIOGRAM REPORT ---
*NOTICE TO RECEIVING [employer] This information is strictly Confidential and protected under [place] law. [place] law prohibits you from making any further disclosure of this information unless further disclosure is expressly permitted by the written consent of the person to whom it pertains or is authorized by law. A general authorization for the release of medical or other information is not sufficient for this purpose. Hospital accepts no responsibility if the information is made available to any other person, INCLUDING THE PATIENT. Interpretation Summary * Name: LUCILA ONTIVEROS [id number] Study Date: 08/13/2017 07:31 AM BP: 105/61 mmHg * Patient Location: C.2T\S\S232\S\1 HR: 65 * : 1955 (M/d/yyyy) Gender: Male Height: 64 in * Age: 62 yrs Ethnicity: CA Weight: 132 lb * Ordering Physician: Iwona Rodriguez * Referring Physician: Magnus PARDO * Performed By: Jessica Javier RDCS * * Reason For Study: Atrial Fibrillation * BSA: 1.6 m2 * -- Conclusions -- * 1. Normal LV size and borderline LVH. * 2. Normal LV systolic function. LVEF 55-60%. Flattened septum consistent with RV volume overload. * 3. Mild RV dilation, normal RV function. * 4. Severe anterior leaflet mitral valve prolapse with eccentric suspected moderate mitral regurgitation. * 5. Normal estimated PA and RA pressures. * 6. No prior studies for comparison. Procedure Details * A complete two-dimensional transthoracic echocardiogram was performed (2D, M-mode, Doppler and color flow Doppler). Left Ventricle * The left ventricle is grossly normal size. * There is borderline concentric left ventricular hypertrophy. * Ejection Fraction = 55-60%. * Flattened septum is consistent with RV volume overload. Right Ventricle * The right ventricle is mildly dilated. * The right ventricular systolic function is normal as assessed by tricuspid annular plane systolic excursion (TAPSE) (normal >1.5 cm). Atria * The left atrial size is normal. * The right atrium is mildly dilated. * No ASD detected; PFO is not assessed. Mitral Valve * Prolapse of the anterior mitral leaflet. * The mitral regurgitant jet is eccentrically directed. Tricuspid Valve * The tricuspid valve is not well visualized, but is grossly normal. * There is trace tricuspid regurgitation. Aortic Valve * The aortic valve opens well. * The aortic valve is trileaflet. * No hemodynamically significant valvular aortic stenosis. * There is no significant aortic regurgitation. Pulmonic Valve * The pulmonic valve is not well seen, but is grossly normal. * There is no pulmonic valvular stenosis. * Trace pulmonic valvular regurgitation. Great Vessels * The aortic root and proximal ascending aorta are normal sized. Pericardium/Pleural * There is no pericardial effusion. Great Vessels * Normal inferior vena cava size and collapsability with sniff indicates a normal right atrial pressure of 3 mmHg * There is no evidence of pulmonary hypertension. The PA systolic pressure is less than 36 mmHg. MMode 2D Measurements and Calculations IVSd 0.88 cm IVSs 1.3 cm LVIDd 5.0 cm LVIDs 3.4 cm LVPWd 1.2 cm LVPWs 2.2 cm IVS/LVPW 0.76 FS 32.1 % EDV(Teich) 118.0 ml ESV(Teich) 47.1 ml EF(Teich) 60.1 % EDV(cubed) 124.7 ml ESV(cubed) 39.0 ml EF(cubed) 68.7 % % IVS thick 45.9 % % LVPW thick 93.2 % LV mass(C)d 185.7 grams LV mass(C)dI 113.3 grams/m\S\2 LV mass(C)s 241.7 grams LV mass(C)sI 147.4 grams/m\S\2 SV(Teich) 70.9 ml SI(Teich) 43.2 ml/m\S\2 SV(cubed) 85.7 ml SI(cubed) 52.3 ml/m\S\2 Ao root diam 3.2 cm Ao root area 7.9 cm\S\2 ACS 2.0 cm LA dimension 4.0 cm LA/Ao 1.3 LVAd ap4 26.3 cm\S\2 LVLd ap4 7.7 cm EDV(MOD-sp4) 75.8 ml EDV(sp4-el) 77.0 ml LVAs ap4 16.9 cm\S\2 LVLs ap4 7.2 cm ESV(MOD-sp4) 35.2 ml ESV(sp4-el) 33.7 ml EF(MOD-sp4) 53.6 % EF(sp4-el) 56.2 % LVAd ap2 21.2 cm\S\2 LVLd ap2 6.5 cm EDV(MOD-sp2) 61.3 ml EDV(sp2-el) 58.5 ml LVAs ap2 13.6 cm\S\2 LVLs ap2 6.6 cm ESV(MOD-sp2) 27.8 ml ESV(sp2-el) 23.8 ml EF(MOD-sp2) 54.6 % EF(sp2-el) 59.3 % LVLd %diff -17.14 % EDV(MOD-bp) 71.7 ml LVLs %diff -8.63 % ESV(MOD-bp) 31.4 ml EF(MOD-bp) 56.3 % SV(MOD-sp4) 40.6 ml SI(MOD-sp4) 24.8 ml/m\S\2 SV(MOD-sp2) 33.4 ml SI(MOD-sp2) 20.4 ml/m\S\2 SV(MOD-bp) 40.3 ml SI(MOD-bp) 24.6 ml/m\S\2 SV(sp4-el) 43.2 ml SI(sp4-el) 26.4 ml/m\S\2 SV(sp2-el) 34.7 ml SI(sp2-el) 21.1 ml/m\S\2 Doppler Measurements and Calculations MV E max herve 107.0 cm/sec MV dec time 0.20 sec Ao V2 max 122.9 cm/sec Ao max PG 6.0 mmHg Ao max PG (full) 3.5 mmHg LV V1 max PG 2.6 mmHg LV V1 max 80.2 cm/sec PA V2 max 73.3 cm/sec PA max PG 2.2 mmHg PI max herve 178.6 cm/sec PI max PG 12.8 mmHg PI dec slope 226.9 cm/sec\S\2 PI P1/2t 230.6 msec TR max herve 189.2 cm/sec
[2017-08-13] MEDS ORDERED: DIGOXIN 0.25 MG TAB PO ONE (11:00)
--- NOTE | 2017-08-13 11:28 | Cardiology Consultation ---
Cardiology Consultation Date of Consultation: Aug 13, 2017. Requesting Physician: Dr. Rodriguez Reason for Consultation: New-onset atrial fibrillation Pt evaluation today including: conversation w/ patient, physical exam, lab review, review of studies, review of inpatient medication list History of Present Illness This is a 62-year-old incarcerated gentleman who has a history of COPD and asthma as well as schizophrenia who presented to the emergency room on 2016 with palpitations, shortness of breath and chest discomfort. The symptoms evidently started on that day. At [facility] [place] he was found to be in atrial fibrillation with a rapid heart rate in the 130s, he evidently does not have a history of that. He was describing sharp central chest discomfort and also a productive cough and wheezing. He had been treated for a COPD exacerbation from August 09 through August 16 with antibiotics, as well as IV steroids subsequently switched to oral. He was observed to be in rapid atrial fibrillation and was given metoprolol, he also seems to have a labile blood pressure and currently that is discontinued and he is on digoxin. Today he has no complaints. He is lying supine in bed, he denies shortness of breath or chest discomfort. He does not have palpitations currently. Past Medical/Surgical History (1) COPD (chronic obstructive pulmonary disease) (2) Asthma Family History Patient reports no known family medical history. Social History Smoking Status: Current Every Day Smoker History of Alcohol Use: No Review of Systems Constitutional: No fever, No weight loss, No weakness Respiratory: + see HPI, No cough, No wheezing, No shortness of breath, No dyspnea on exertion Cardiac: + see HPI, + palpitations, No chest pain, No orthopnea, No PND, No edema Abdomen: No pain, No nausea, No vomiting, No diarrhea, No GI bleeding Male : No urinary frequency, No nocturia more than once/night, No slowing stream, No sexual dysfunction Neurologic: No paralysis, No weakness, No numbness/tingling, No balance problems Heme: No abnormal bleeding/bruising, No clotting problems Endo: No fatigue Skin: No problem reported All Other Systems: Reviewed and Negative Allergies Coded Allergies: No Known Allergies (Unverified , 08/12/17) Medications Current Inpatient Medications Medications (Trade) Dose Ordered Sig/Princess Route Start Time Stop Time Status Last Admin Dose Admin Sodium Chloride 1,000 ml @ 100 mls/hr Q10H IV 08/12/17 14:25 09/11/17 14:24 08/13/17 09:32 100 MLS/HR Acetaminophen (Tylenol Tab) 650 mg Q4H PRN PO 08/12/17 14:30 09/11/17 14:29 Al Hydrox/Mg Hydrox/Simethicone (Maalox Max Susp) 15 ml Q4H PRN PO 08/12/17 14:30 09/11/17 14:29 Magnesium Hydroxide (Milk Of Magnesia Susp) 30 ml Q12H PRN PO 08/12/17 14:30 09/11/17 14:29 Ondansetron HCl (Zofran Inj) 4 mg Q6H PRN IV 08/12/17 14:30 09/11/17 14:29 Polyethylene (Miralax Powder Packet) 17 gm DAILY PRN PO 08/12/17 14:30 09/11/17 14:29 Metoprolol Tartrate (Lopressor Iv) 5 mg Q4 PRN IV 08/12/17 14:30 09/11/17 14:29 08/12/17 17:55 5 MG Prednisone (PredniSONE TAB) 40 mg DAILY PO 08/14/17 09:00 08/16/17 09:01 Prednisone (PredniSONE TAB) 20 mg DAILY PO 08/17/17 09:00 08/19/17 09:01 Nicotine (Nicoderm Cq 21MG Patch) 1 patch QAM TD 08/13/17 09:00 09/12/17 08:59 08/12/17 15:44 1 PATCH Miscellaneous (Remove Nicoderm Patch) 1 ea HS N/A 08/12/17 21:00 09/11/17 20:59 08/12/17 21:11 1 EA Amoxicillin/ Clavulanate Potassium (Augmentin Tab) 875 mg BIDM PO 08/12/17 17:30 08/16/17 09:01 08/13/17 09:32 875 MG Aspirin (Aspirin Chew) 162 mg DAILY PO 08/13/17 09:00 09/12/17 08:59 08/13/17 08:00 162 MG Atorvastatin Calcium (Lipitor Tab) 10 mg HS PO 08/12/17 21:00 09/11/17 20:59 08/12/17 21:10 10 MG Diphenhydramine HCl (Benadryl Cap) 50 mg HS PO 08/12/17 21:00 09/11/17 20:59 08/12/17 21:11 50 MG Risperidone (Risperdal Tab) 1 mg HS PO 08/12/17 21:00 09/11/17 20:59 08/12/17 21:10 1 MG Glucose (Glucose 40% Gel) 15-30 GRAMS 15 GRAMS... UD PRN PO 08/12/17 15:00 09/11/17 14:59 Glucose (Glucose Chew Tab) 4-8 Tablets 4 Tabl... UD PRN PO 08/12/17 15:00 09/11/17 14:59 Dextrose (Dextrose 50% 50ML Syringe) 25-50ML OF 50% DW IV FOR... UD PRN IV 08/12/17 15:00 09/11/17 14:59 Glucagon (Glucagon Inj) 1 mg UD PRN SQ 08/12/17 15:00 09/11/17 14:59 Insulin Aspart (novoLOG ASPART) SLIDING SCALE G... ACHS SC 08/12/17 16:00 09/11/17 15:59 08/13/17 08:02 1 UNITS Ipratropium [place] (Atrovent 0.02% 0.5MG/2.5ML Neb) 0.5 mg Q6R INH 08/12/17 16:00 09/11/17 15:59 08/13/17 06:57 0.5 MG Levalbuterol (Xopenex 1.25MG/ 0.5ML Neb) 1.25 mg Q6R INH 08/12/17 16:00 09/11/17 15:59 08/13/17 06:57 1.25 MG Enoxaparin Sodium (Lovenox Inj) 60 mg Q12H SQ 08/13/17 11:00 09/12/17 09:44 Digoxin (Lanoxin Tab) 0.25 mg DAILY@16 PO 08/13/17 16:00 09/12/17 15:59 Sodium Chloride 1,000 ml @ 500 mls/hr Q2H IV 08/13/17 10:00 08/13/17 11:59 08/13/17 10:32 500 MLS/HR Physical Exam Vital Signs Past 12 Hours Date Time Temp Pulse Resp B/P (MAP) Pulse Ox O2 Delivery O2 Flow Rate FiO2 08/13/17 08:35 94 Room Air 2.0 08/13/17 08:12 128 101/61 (74) 08/13/17 07:14 36.3 78 19 72/39 (50) 94 Room Air 08/13/17 06:57 74 18 99 Room Air 08/13/17 04:34 65 105/61 (76) 08/13/17 03:26 Nasal Cannula 2.0 08/13/17 03:16 36.4 70 20 77/52 (60) 98 Nasal Cannula 2.0 08/13/17 02:13 58 18 96 Nasal Cannula 2.0 08/13/17 00:00 Nasal Cannula 2.0 08/12/17 23:51 36.4 89 18 91/61 (71) 97 Nasal Cannula 2.0 Constitutional: General Apperance: heathly-appearing Level of Distress: NAD Psychiatric: Mental Status: active & alert Head: normocephalic Eyes: EOM: EOMI ENMT: normal ENT inspection, pertinent finding (hard of hearing) Neck: supple, no masses Lungs: Respiratory effort: no dyspnea, good air movement Auscultation: expiratory wheezing Cardiovascular: Heart Auscultation: no rubs, no gallops, II/ WSM, irregular rate rhythm Peripheral Pulses: Bruits: none appreciated Abdomen: Bowel Sounds: normal Inspection & Palpation: soft, no tenderness, guarding & rebound, no masses Musculoskeletal: normal strength (5/5 throughout) Extremities: no edema Neurologic: Cranial Nerves: grossly intact Sensation: grossly intact Data Laboratory Results: Last 24 Hours Test 08/12/17 13:40 08/12/17 16:45 08/12/17 18:38 08/12/17 20:38 Urine Color YELLOW Urine Appearance CLEAR Urine pH 6.0 Urine Specific [place] 1.029 Urine Protein NEG Urine Glucose (UA) NEG Urine Ketones NEG Urine Occult Blood NEG Urine Nitrite NEG Urine Bilirubin NEG Urine Urobilinogen NEG Urine Leukocyte Esterase NEG Bedside Glucose 123 mg/dl 151 mg/dl Total Creatine Kinase 45 U/L Creatine Kinase MB 1.9 ng/ml Creatine Kinase MB Ratio 4.2 Troponin I 0.021 ng/ml Test 08/13/17 03:03 08/13/17 07:09 White Blood Count 10.69 K/uL Red Blood Count 4.48 M/uL Hemoglobin 13.1 g/dL Hematocrit 40.3 % Mean Corpuscular Volume 90.0 fL Mean Corpuscular Hemoglobin 29.2 pg Mean Corpuscular Hemoglobin Concent 32.5 g/dl RDW Standard Deviation 47.8 fL RDW Coefficient of Variation 14.5 % Platelet Count 113 K/uL Mean Platelet Volume 10.9 fL Sodium Level 138 mmol/L Potassium Level 3.9 mmol/L Chloride Level 105 mmol/L Carbon Dioxide Level 28 mmol/L Anion Gap 5.0 mmol/L Blood Urea Nitrogen 25 mg/dl Creatinine 0.76 mg/dl Est Creatinine Clear Calc Drug Dose 80.0 ml/min Estimated GFR () 112.5 Estimated GFR (Non- 97.1 BUN/Creatinine Ratio 33.0 Random Glucose 133 mg/dl Calcium Level 7.8 mg/dl Magnesium Level 1.9 mg/dl Total Creatine Kinase 49 U/L Creatine Kinase MB 2.2 ng/ml Creatine Kinase MB Ratio 4.5 Troponin I 0.024 ng/ml Bedside Glucose 186 mg/dl Imaging: Chest x-ray shows COPD, no congestive heart failure EKG: An electrocardiogram on arrival yesterday shows atrial fibrillation with a heart rate of 126 bpm, right axis deviation. An electrocardiogram this morning shows atrial fibrillation heart rate of 80 bpm, right axis deviation. No acute changes. Echocardiography: An echocardiogram done this morning shows normal left ventricular size and function with ejection fraction of 55-60%. Mild right ventricular dilatation, severe mitral valve prolapse of the anterior leaflet with moderate mitral regurgitation. The left atrial size however is normal. Telemetry reviewed: Atrial fibrillation, rate better controlled than on admission but still elevated at times. Assessment & Plan #1. Atrial fibrillation: This appears to be of new onset, his symptoms started yesterday and is likely that the rhythm started yesterday. Today he does not feel it however so it is possible he had it longer and only became aware of it yesterday. He has mitral regurgitation is left atrial size is normal, this could be contributing however. He should be anticoagulated, for the moment I would consider heart rate management and anticoagulation, for the future we may want to consider cardioversion if he remains in atrial fibrillation. Digoxin by itself is probably not adequate for rate control. Beta blockade may not be a good idea with his lung disease as well as his hypotension. I will add a low dose of diltiazem as well, hopefully his blood pressure can support that. #2. Mitral regurgitation: He seems to have quite severe mitral valve prolapse and significant MR, a transesophageal echocardiogram should be considered. This is not necessarily need to be done this admission (this is not an acute process ) and could be done as an outpatient. The mitral regurgitation might contribute to his atrial fibrillation although his left atrial size remains normal. #3. Elevated BNP: I don't believe he has significant congestive heart failure although he could've had a little bit of elevated pressures with his rapid heart rate and his MR. I would not pursue further evaluation. Thank you for allowing me to participate in his care.
[2017-08-13] MEDS ORDERED: DILTIAZEM SR 60 MG CAP PO STA (11:29)
--- NOTE | 2017-08-13 11:45 | Progress Note ---
Subjective Date of Service: Aug 13, 2017. Subjective pt is laying in bed covered with a blanket, upon awakening his he says hes tired. he offers no complaints, although his blood pressure being low may account for his fatigue, Problem List Medical Problems: (1) A-fib Status: Acute (2) COPD (chronic obstructive pulmonary disease) Status: Chronic Review of Systems Constitutional: + fatigue, No fever, No chills, No weakness Respiratory: No cough, No sputum, No shortness of breath, No dyspnea on exertion Cardiac: No chest pain, No orthopnea, No edema, No palpitations Abdomen: No pain, No nausea, No vomiting, No diarrhea Neurologic: No memory loss, No weakness Objective Vital Signs Date Time Temp Pulse Resp B/P (MAP) Pulse Ox O2 Delivery O2 Flow Rate FiO2 08/13/17 08:12 128 101/61 (74) 08/13/17 07:14 36.3 78 19 72/39 (50) 94 Room Air 08/13/17 06:57 74 18 99 Room Air 08/13/17 04:34 65 105/61 (76) 08/13/17 03:26 Nasal Cannula 2.0 08/13/17 03:16 36.4 70 20 77/52 (60) 98 Nasal Cannula 2.0 08/13/17 02:13 58 18 96 Nasal Cannula 2.0 08/13/17 00:00 Nasal Cannula 2.0 08/12/17 23:51 36.4 89 18 91/61 (71) 97 Nasal Cannula 2.0 08/12/17 20:54 77 24 98 Nasal Cannula 2.0 08/12/17 20:40 74 26 106/52 (70) 96 Room Air 08/12/17 19:11 36.7 122 16 95/58 (70) 94 Room Air 08/12/17 19:10 Room Air 08/12/17 17:55 130 103/73 08/12/17 17:32 96 Nasal Cannula 4.0 08/12/17 17:22 34.7 96 18 103/67 08/12/17 17:00 96 Nasal Cannula 4.0 08/12/17 17:00 34.7 95 18 103/67 (79) 96 Nasal Cannula 4.0 08/12/17 17:00 96 Nasal Cannula 08/12/17 16:33 36.7 110 24 81/60 97 08/12/17 16:24 110 24 81/60 97 Nasal Cannula 3.0 08/12/17 15:53 91 18 96 Nasal Cannula 4.0 08/12/17 15:37 123 08/12/17 15:15 118 24 97/69 97 Nasal Cannula 3.0 08/12/17 14:15 113 24 90/61 97 Nasal Cannula 3.0 08/12/17 13:12 128 20 96/63 96 Nasal Cannula 4.0 08/12/17 13:00 102 20 81/60 96 Nasal Cannula 3.0 08/12/17 12:45 101 24 97/57 97 Nasal Cannula 3.0 08/12/17 12:30 120 20 82/68 97 Nasal Cannula 3.0 08/12/17 12:15 87 26 97/60 97 Nasal Cannula 3.0 08/12/17 12:00 90 24 95/64 97 Room Air 08/12/17 11:45 117 24 84/64 97 Nasal Cannula 3.0 08/12/17 11:30 117 24 112/54 Nasal Cannula 3.0 08/12/17 11:19 95 22 91/64 99 Nasal Cannula 3.0 08/12/17 11:17 99 Nasal Cannula 3.0 08/12/17 11:13 36.7 129 24 78/60 99 Nasal Cannula 3.0 08/12/17 11:13 99 Nasal Cannula 3.0 08/12/17 11:00 119 Physical Exam General Appearance: no apparent distress, + thin Eyes: PERRL, EOMI Neck: supple, no JVD Respiratory/Chest: chest non-tender, lungs clear, normal breath sounds Cardiovascular: no murmur, + irregularly irregular Abdomen: normal bowel sounds, non tender, soft Extremities: no pedal edema, no calf tenderness Laboratory Results Last 24 Hours Test 08/12/17 11:00 08/12/17 13:40 08/12/17 16:45 08/12/17 18:38 White Blood Count 10.24 K/uL Red Blood Count 4.59 M/uL Hemoglobin 13.7 g/dL Hematocrit 41.0 % Mean Corpuscular Volume 89.3 fL Mean Corpuscular Hemoglobin 29.8 pg Mean Corpuscular Hemoglobin Concent 33.4 g/dl Platelet Count 127 K/uL Mean Platelet Volume 10.9 fL Neutrophils (%) (Auto) 94.4 % Lymphocytes (%) (Auto) 1.9 % Monocytes (%) (Auto) 3.2 % Eosinophils (%) (Auto) 0.0 % Basophils (%) (Auto) 0.1 % Neutrophils # (Auto) 9.67 K/uL Lymphocytes # (Auto) 0.19 K/uL Monocytes # (Auto) 0.33 K/uL Eosinophils # (Auto) 0.00 K/uL Basophils # (Auto) 0.01 K/uL RDW Standard Deviation 46.7 fL RDW Coefficient of Variation 14.3 % Immature Granulocyte % (Auto) 0.4 % Immature Granulocyte # (Auto) 0.04 K/uL Prothrombin Time 11.9 SECONDS Prothromb Time International Ratio 1.1 Activated Partial Thromboplast Time 28.3 SECONDS Partial Thromboplastin Ratio 1.1 Sodium Level 136 mmol/L Potassium Level 3.8 mmol/L Chloride Level 104 mmol/L Carbon Dioxide Level 26 mmol/L Anion Gap 6.0 mmol/L Blood Urea Nitrogen 30 mg/dl Creatinine 0.87 mg/dl Est Creatinine Clear Calc Drug Dose 72.8 ml/min Estimated GFR () 106.5 Estimated GFR (Non- 91.9 BUN/Creatinine Ratio 34.1 Random Glucose 290 mg/dl Estimated Average Glucose 134 mg/dl Hemoglobin A1c 6.3 % Calcium Level 8.0 mg/dl Magnesium Level 2.0 mg/dl Total Bilirubin 0.3 mg/dl Direct Bilirubin 0.1 mg/dl Aspartate Amino Transf (AST/SGOT) 25 U/L Alanine Aminotransferase (ALT/SGPT) 44 U/L Alkaline Phosphatase 57 U/L Troponin I 0.017 ng/ml 0.021 ng/ml Pro-B-Type Natriuretic Peptide 3849 pg/ml Total Protein 6.4 gm/dl Albumin 2.7 gm/dl Lipase 85 U/L Thyroid Stimulating Hormone (TSH) 0.726 uIu/ml Urine Color YELLOW Urine Appearance CLEAR Urine pH 6.0 Urine Specific [place] 1.029 Urine Protein NEG Urine Glucose (UA) NEG Urine Ketones NEG Urine Occult Blood NEG Urine Nitrite NEG Urine Bilirubin NEG Urine Urobilinogen NEG Urine Leukocyte Esterase NEG Bedside Glucose 123 mg/dl Total Creatine Kinase 45 U/L Creatine Kinase MB 1.9 ng/ml Creatine Kinase MB Ratio 4.2 Test 08/12/17 20:38 08/13/17 03:03 08/13/17 07:09 Bedside Glucose 151 mg/dl 186 mg/dl White Blood Count 10.69 K/uL Red Blood Count 4.48 M/uL Hemoglobin 13.1 g/dL Hematocrit 40.3 % Mean Corpuscular Volume 90.0 fL Mean Corpuscular Hemoglobin 29.2 pg Mean Corpuscular Hemoglobin Concent 32.5 g/dl RDW Standard Deviation 47.8 fL RDW Coefficient of Variation 14.5 % Platelet Count 113 K/uL Mean Platelet Volume 10.9 fL Sodium Level 138 mmol/L Potassium Level 3.9 mmol/L Chloride Level 105 mmol/L Carbon Dioxide Level 28 mmol/L Anion Gap 5.0 mmol/L Blood Urea Nitrogen 25 mg/dl Creatinine 0.76 mg/dl Est Creatinine Clear Calc Drug Dose 80.0 ml/min Estimated GFR () 112.5 Estimated GFR (Non- 97.1 BUN/Creatinine Ratio 33.0 Random Glucose 133 mg/dl Calcium Level 7.8 mg/dl Magnesium Level 1.9 mg/dl Total Creatine Kinase 49 U/L Creatine Kinase MB 2.2 ng/ml Creatine Kinase MB Ratio 4.5 Troponin I 0.024 ng/ml Assessment and Plan 62 y/o male presents with new onset Afib RVR, some associated chest pain although sharp, history of COPD, asthma, HLD, schizophrenia, anxiety, and HCV New onset a-fib with RVR-Consult cardiology, -Lopressor 5 mg IV q4h prn HR > 120. Hold if SBP less than 100 will attempt to use diltiazem and digoxin, full AC with lovenox and consider coumadin -Echo with preserved EF, MR but also preserved LA size, continue aspirin Chest pain cardiac enzymes negative, doubt CP is cardiac ischemia COPD w/recent exacerbation/bronchitis was on high dose steroids prehospital-D/C outpt Solu-Medrol -Prednisone 60 mg PO taper, had received 2 days prednisone 60 mg qd (on top of Solu-Medrol). -Augmentin BID. Started 08/09, last dose 08/16 morning -Xopenex/Atrovent nebs QIDR -O2 by protocol. Pt is supposed to be on O2 as outpt but non-compliant due to heavy smoking -Nicoderm patch -Hold Spiriva due to Atrovent nebs Hyperglycemia-BSG 290. No known history of diabetes, a1c is 6.3, likely from steroids, will add carb count also -Insulin sliding scale HLD Lipitor 10 mg PO qd Schizophrenia Risperdal 1 mg PO hs DVT prophylaxis-Enoxaparin 40 mg SC q24h -RONEY Fermin Code Status -Level I, FULL RESUSCITATION STATUS
[2017-08-13] MEDS: ENOXAPARIN 60 MG/0.6 ML SYR SQ SCH ×2 (11:59→22:57)
[2017-08-13] MEDS ORDERED: DIGOXIN 0.25 MG TAB PO SCH (16:00)
[2017-08-13] MEDS ORDERED: NURSING VERBAL MED ORDER ONE (17:15)
[2017-08-13] MEDS ORDERED: INSULIN GLARGINE SOLOSTAR 100 UNITS/ML 3 ML PEN SC ONE (17:30)
[2017-08-13] MEDS: RISPERIDONE 1 MG TAB PO SCH (21:29)
[2017-08-13] MEDS: ATORVASTATIN 10 MG TAB PO SCH (21:30)
[2017-08-13] MEDS: DILTIAZEM SR 60 MG CAP PO SCH (22:12)
[2017-08-14] VITALS (8 sets, daily range): BP systolic 100–118; BP diastolic 52–64; PULSE 60–74; TEMP 36.8–36.9; O2SAT 91–99
[2017-08-14] MEDS: LEVALBUTEROL 1.25MG/0.5ML NEB INH SCH ×2 (01:55→07:10)
[2017-08-14] MEDS: IPRATROPIUM BROMIDE NEB SOLN 0.02% 2.5 ML VIAL INH SCH ×2 (01:55→07:10)
[2017-08-14 06:14] LABS: HEMATOCRIT 37.6 % (42-52); MEAN CELL VOLUME 88.5 fL (80-100); MEAN CORPUSCULAR HEMOGLOBIN 29.4 pg (25-34); MEAN CORPUSCULAR HGB CONC 33.2 g/dl (32-36); MEAN PLATELET VOLUME 11.4 fL (7.4-10.4); PLATELET COUNT 108 K/uL (130-400); RED BLOOD COUNT 4.25 M/uL (4.7-6.1)
[2017-08-14 07:40] LABS: CREATININE 0.57 mg/dl (0.60-1.40); POTASSIUM 3.8 mmol/L (3.5-5.1)
[2017-08-14 07:41] LABS: BUN/CREATININE RATIO 34.7 (10-20); CALCIUM 7.5 mg/dl (8.5-10.1); MAGNESIUM 1.9 mg/dl (1.8-2.4)
[2017-08-14] MEDS: ASPIRIN 81 MG CHEW PO SCH (08:13)
[2017-08-14] MEDS: AMOXICILLIN/CLAVULANATE TAB 875 MG TAB PO SCH (08:13)
[2017-08-14] MEDS: NICOTINE 21 MG/24 HR TDSY TD SCH (08:16)
[2017-08-14] MEDS: INSULIN ASPART 100 UNITS/ML 3 ML PEN SC SCH ×2 (08:22→12:28)
[2017-08-14] MEDS: SODIUM CHLORIDE 0.9% 1000ML 1,000 ML IV SCH (09:11)
[2017-08-14] MEDS: DILTIAZEM SR 60 MG CAP PO SCH (09:12)
[2017-08-14] MEDS ORDERED: LNX25 PO (11:20)
[2017-08-14] MEDS ORDERED: CRDSR60 PO (11:20)
[2017-08-14] MEDS ORDERED: CMD5 PO (11:20)
[2017-08-14] MEDS ORDERED: PRED10TA PO (11:20)
--- NOTE | 2017-08-14 11:25 | Discharge Instructions ---
Discharge Instructions Date of Service Aug 14, 2017. Admission Reason for Admission: New Onset A-Fib Discharge Discharge Diagnosis / Problem: afib RVR, diabetes Discharge Goals Goal(s): Diagnostic testing, Therapeutic intervention Activity Recommendations Activity Limitations: resume your previous activity . Current Hospital Diet Patient's current hospital diet: AHA Diet (Heart Healthy) Discharge Diet Recommended Diet: Diabetes Type 2 Diet Pending Studies Studies pending at discharge: no Laboratory Results Hemoglobin A1c Test 08/12/17 11:00 Range/Units Estimated Average Glucose 134 mg/dl Hemoglobin A1c 6.3 H 4.5-5.6 % Medical Emergencies . Who to Call and When: Medical Emergencies: If at any time you feel your situation is an emergency, please call 911 immediately. . Non-Emergent Contact Non-Emergency issues call your: Primary Care Provider, Transcribing Operators Supervisor (follow up for outpt SPENSER) . . "Provider Documentation" section prepared by Antoni Werner. . Signal Inspector Recommendations Signal Inspector Recommendations: 62 y/o male presents with new onset Afib RVR, some associated chest pain although sharp, history of COPD, asthma, HLD, schizophrenia, anxiety, and HCV New onset a-fib with RVR-Consult cardiology,recommends use of diltiazem and digoxin, full AC with new start coumadin -Echo with preserved EF, significant MR but also preserved LA size, continue aspirin Cardiology recommends outpt Trans esophageal echo and cardiology follow up for mitral regurgitation COPD w/recent exacerbation/bronchitis was on high dose steroids prehospital-D/C outpt Solu-Medrol -Prednisone taper, augmentin thru this week -Nicoderm patch if able continue to reinforce smoking cessation spiriva and combivent Hyperglycemia- No known history of diabetes, a1c is 6.3, will use insulin sliding scale but hopes that glucose will improve as steroids are tapered HLD Lipitor 10 mg PO qd Schizophrenia Risperdal 1 mg PO hs VTE Core Measure Inpt VTE Proph given/why not?: Enoxaparin (Lovenox)SQ, Warfarin (Coumadin), SCD 's
--- NOTE | 2017-08-14 11:27 | Discharge Summary ---
Discharge Summary Date of Service Aug 14, 2017. Discharge Summary Admission Date: Aug 12, 2017 at 14:39 Discharge Date: Aug 14, 2017 Discharge Disposition: Home Principal Diagnosis: afib rvr, elevated glucose, copd Problems/Secondary Diagnoses: (1) COPD (chronic obstructive pulmonary disease) Status: Chronic Consultations: Dr Shah did see for afib Medication Reconciliation New Medications: Digoxin (Digoxin) 0.25 Mg Tab 0.25 MG PO DAILY@16, #30 TAB this is a new start levels need to be followed Diltiazem HCl (Diltiazem HCl ER) 60 Mg Capcr 60 MG PO BID, #60 DOSE 6 Refills Insulin Aspart (Novolog Flexpen) 100 Units/Ml Inj 0 UNITS SC ACHS, #1 PEN Warfarin Sod (Coumadin) 5 Mg Tab 5 MG PO DAILY@16, #0.5 TAB please follow INR closely this is a new start Changed Medications: Prednisone (Prednisone) 10 Mg Tab 10 MG PO DIRECTED, #42 TAB (Medication details modified) 4 a day for 4 days then 3 a day for 4 days then 2 a day for 4 days then 1 a day Continued Medications: Albuterol Hfa (Ventolin Hfa) 200 Puffs/12051 Mcg Aers 2 PUFFS INH QID PRN for Shortness of Breath Amoxicillin & Pot Clavulanate (Augmentin 875-125 mg) 1 Tab Tab 1 TAB PO BID, #14 TAB Aspirin (Aspirin Chewable) 81 Mg Chew 162 MG PO DAILY Atorvastatin (Lipitor) 10 Mg Tab 10 MG PO HS Diphenhydramine Hcl (Benadryl) 25 Mg Cap 50 MG PO HS Ipratropium-Albuterol (Duoneb) 3 Ml Nebu 1 TREATMENT INH Q4H PRN for Shortness of Breath, INHA Risperidone (Risperdal) 1 Mg Tab 1 MG PO HS Tiotropium [place] (Spiriva Handihaler) 30 Puff/540 Mcg Aerp 1 CAP INH DAILY 1 capsule = 2 inhalations Discontinued Medications: Methylprednisolone Sod Succ (Solu-Medrol) 125 Mg Inj 125 MG IV Q6 last dose on 06/17/17 @ 0030 Discharge Exam Review of Systems: Constitutional: No fever, No chills Respiratory: No cough, No sputum, No shortness of breath Cardiovascular: No chest pain, No orthopnea, No edema Musculoskeletal: No joint pain, No muscle pain, No swelling Physical Exam: General Appearance: + mild distress, + thin Eyes: PERRL, EOMI Neck: supple, no JVD Respiratory/Chest: chest non-tender, lungs clear, normal breath sounds Cardiovascular: regular rate, rhythm (converted to sinus), no murmur Abdomen / GI: normal bowel sounds, non tender, soft Neurologic/Psychiatric: alert, oriented x 3 Hospital Course 62 y/o male presents with new onset Afib RVR, some associated chest pain although sharp, history of COPD, asthma, HLD, schizophrenia, anxiety, and HCV New onset a-fib with RVR-Consult cardiology,recommends use of diltiazem and digoxin, full AC with new start coumadin -Echo with preserved EF, significant MR but also preserved LA size, continue aspirin Cardiology recommends outpt Trans esophageal echo and cardiology follow up for mitral regurgitation COPD w/recent exacerbation/bronchitis was on high dose steroids prehospital-D/C outpt Solu-Medrol -Prednisone taper, augmentin thru this week -Nicoderm patch if able continue to reinforce smoking cessation spiriva and combivent Hyperglycemia- No known history of diabetes, a1c is 6.3, will use insulin sliding scale but hopes that glucose will improve as steroids are tapered HLD Lipitor 10 mg PO qd Schizophrenia Risperdal 1 mg PO hs Total Time Spent: Greater than 30 minutes This includes examination of the patient, discharge planning, medication reconciliation, and communication with other providers. Discharge Instructions Please refer to the electronic Patient Visit Report (Discharge Instructions) for additional information.
[2017-08-14] MEDS ORDERED: NVLGIPEN SC (11:28)
[2017-08-14] MEDS: ENOXAPARIN 60 MG/0.6 ML SYR SQ SCH (12:28)
[2017-08-14] MEDS ORDERED: DILTIAZEM SR 60 MG CAP PO SCH (14:00)
[2017-08-14] MEDS ORDERED: WARFARIN SOD 5 MG TAB PO SCH (16:00)
== END 2017-08-14 13:30 | disposition home or self-care (01) | DRG 310 ==
LOC: EDBD 10:45 → C.EDC 10:46 → C.2T 14:39 → ENRESERV 14:51
PROVIDERS: ADMIT Hospitalist; ATTEND Internal Medicine
DX: I48.0 Paroxysmal atrial fibrillation (principal); J44.9 Chronic obstructive pulmonary disease, unspecified; J45.909 Unspecified asthma, uncomplicated; F20.9 Schizophrenia, unspecified; R73.9 Hyperglycemia, unspecified; F17.200 Nicotine dependence, unspecified, uncomplicated; Z79.82 Long term (current) use of aspirin

== ENCOUNTER → 2017-09-29 | Outpatient (CLI) | payer OTHER ==
[~2017-09-29] MED LIST changes: +AMOX875T PO; +CMD5 PO; +CRDSR60 PO; +LNX25 PO; +NVLGIPEN SC; +PRED10TA PO; -[UNRECOGNIZED DRUG - CODE] IV; -[UNRECOGNIZED DRUG - CODE] PO
== END | disposition home or self-care (01) ==
LOC: C.MAMM 08:22
PROVIDERS: ATTEND Family Medicine
DX: M85.80 Other specified disorders of bone density and structure, unspecified site (principal); M81.0 Age-related osteoporosis without current pathological fracture

== ENCOUNTER → 2017-10-18 | Outpatient (CLI) | payer OTHER ==
[~2017-10-18] VITALS: Ht 165.1 cm; Wt 62.0 kg
[~2017-10-18] MED LIST changes: -AMOX875T PO; +BENZOCAIN/TETRACA/BUTAM SPRAY 200 APPLN/20 GM SPRY ONE; +CANNULA ONE; +CICL160A INH; +FENTANYL CITRATE INJ 50 MCG/1 ML 2 ML VIAL ONE; +MIDAZOLAM HCL 1 MG/ML 2ML VIAL ONE
[2017-10-18 07:45] VITALS: BP 122/68; PULSE 72; TEMP 36.6; O2SAT 92; Ht 165.1 cm; Wt 62.0 kg
--- NOTE | 2017-10-18 08:01 | Pre Sedation Assessment ---
Pre Sedation Assessment General Date of Sedation: Oct 18, 2017. Review Cardiovascular: regular rate, rhythm, no edema Lungs: normal breath sounds, no respiratory distress Pre-Sedation Airway Assessment Smoking Status: Current Every Day Smoker Hx of Sleep Apnea: No Hx of difficult intubation: No Short Thick Neck: No Thyro-mental Distance: > 3 Finger Breadths Mallampati Classification: Class II ASA Classification: Class III Procedure Planning Contraindications for Sedation: None Current Medications Reviewed: Yes Notes The planned sedation has been discussed with the patient. Informed Consent was obtained. I have identified the patient, determined the appropriateness of sedation and have assessed the patient immediately prior to the procedure. All medicine(s) and interventions are by my order.
[2017-10-18 08:21] VITALS: BP 120/69; PULSE 58; O2SAT 95
[2017-10-18 08:25] VITALS: BP 112/60; PULSE 59; O2SAT 97
[2017-10-18 08:30] VITALS: BP 111/60; PULSE 60; O2SAT 95
[2017-10-18 08:35] VITALS: BP 111/63; PULSE 63; O2SAT 96
--- NOTE | 2017-10-18 08:46 | Discharge Instructions ---
Discharge Instructions Procedure Procedure Date: Oct 18, 2017. Reason for Visit: Mitrovalve Regurgitation *. Discharge Discharge Date: Oct 18, 2017. Discharge Diagnosis: Mitral regurgitation Last Recorded Wt (Kilograms): 62 Anesthesia Post Anesthesia Instructions: If you have had General Anesthesia or IV Sedation: * Do not drive today. * Resume driving when surgeon permits. * Do not make important decisions or sign legal documents today. * Call surgeon for: 1. Temperature elevations greater than 101 degrees F. 2. Uncontrollable pain. 3. Excessive bleeding. 4. Persistent nausea and vomiting. 5. Medication intolerance (nausea, vomiting or rash). * For nausea and vomiting use only clear liquids such as: tea, soda, bouillon until nausea subsides, then gradually increase diet as tolerated. * If you have any concerns or questions, call your surgeon's office. If physician is unavailable and it is an emergency, call 911 or go to the nearest emergency room. Instructions Activity Recommendations: driving or machine use limit Return to School/Work: with the following limitations Recommended Home Diet: resume previous diet Allergies: Coded Allergies: No Known Allergies (Unverified , 08/12/17) Provider Instructions No operating equipment for 24 hours. Follow Up [facility] Recommendations: Call your doctor if: * Temperature above 101 degrees * Pain not relieved by pain medicine ordered * There is increased drainage or redness from any incision * You have any unanswered questions or concerns. Your Doctors Instructions noted above were prepared by provider Jose Carlos Thibodeaux. Patient Signature Section: Patient Instructions Signature Page Victor Hugo Graham Patient (or Guardian) Signature/Date: I have read and understand the instructions given to me by my caregivers. Caregiver/RN/Doctor Signature/Date: The above-named patient and/or guardian has received patient instructions on this date. + Original Patient Signature Page (only) stays with chart. Please make copy for patient.
[2017-10-18 09:19] VITALS: BP 110/56; PULSE 59; O2SAT 92
--- NOTE | 2017-10-23 14:26 | TEE ---
*NOTICE TO RECEIVING [employer]Y This information is strictly Confidential and protected under [place] law. [place] law prohibits you from making any further disclosure of this information unless further disclosure is expressly permitted by the written consent of the person to whom it pertains or is authorized by law. A general authorization for the release of medical or other information is not sufficient for this purpose. Hospital accepts no responsibility if the information is made available to any other person, INCLUDING THE PATIENT. Interpretation Summary * Name: LUCILA ONTIVEROS [id number] Study Date: 10/18/2017 07:48 AM BP: 120/69 mmHg * Patient Location: [facility] HR: 70 * : 1955 (M/d/yyyy) Gender: Male Height: 65 in * Age: 62 yrs Ethnicity: CA Weight: 135 lb * Ordering Physician: Christopher. Thibodeaux MD * Performed By: Danica Riddle RCS * * Reason For Study: MITRAL VALVE REGURGITATION * BSA: 1.7 m2 * -- Conclusions -- * There is moderate mitral regurgitation. * There is a prolapsed segment of the anterior mitral leaflet with very eccentric mitral regurgitation Procedure Details * SPENSER Probe #2 utilized for procedure. * The study was performed in Cardiopulmonary Department. * Time out was conducted by the physician, nurse, and cath lab radiological technologist with positive identification of patient and procedure. * Informed consent for Transesophageal Echocardiogram was obtained prior to the procedure. * An intravenous line was placed. A topical anesthetic agent was used for oropharangeal anesthesia. A bite block was inserted. * Fentanyl 50 mcg was administered for procedural sedation. * Midazolam 2 mg administered for sedation. * The posterior oropharynx was anesthetized using a topical anesthetic spray. A bite guard was inserted. * A multifrequency, multiplane transesopheageal echocardiographic endoscope was inserted and manipulated in the standard fashion to achieve multiplane views. * The transesophageal probe was passed without difficulty. * The usual views were obtained; basal, mid-esophageal, transgastric and aortic views. * The patient tolerated the procedure well without evidence of orophangeal or esophageal trauma. * A 2D transesophageal echocardiogram with spectral and color flow Doppler was performed. * START TIME: 820 END TIME: 836 * A 2D transesophageal echocardiogram with Doppler and color flow Doppler was performed. Left Ventricle * The left ventricle is grossly normal size. Atria * The left atrium is mildly dilated. Mitral Valve * There is moderate mitral regurgitation. * There is a prolapsed segment of the anterior mitral leaflet with very eccentric mitral regurgitation Aortic Valve * The aortic valve is normal in structure and function. * The aortic valve is trileaflet. * There is no significant aortic regurgitation. Pericardium * There is no pericardial effusion.
== END | disposition home or self-care (01) ==
LOC: C.CPL 07:08
PROVIDERS: ATTEND Internal Medicine Clinical Cardiac Electrophysiology
DX: I48.91 Unspecified atrial fibrillation (principal); Z79.01 Long term (current) use of anticoagulants; R01.1 Cardiac murmur, unspecified; I34.0 Nonrheumatic mitral (valve) insufficiency; E78.5 Hyperlipidemia, unspecified; F29 Unspecified psychosis not due to a substance or known physiological condition; J44.9 Chronic obstructive pulmonary disease, unspecified; M81.0 Age-related osteoporosis without current pathological fracture

== ENCOUNTER 2018-04-22 12:39 | Inpatient (IN) | payer OTHER ==
[~2018-04-22] VITALS: Ht 160 cm; Wt 47.8 kg
[~2018-04-22 12:39] MED LIST changes: -BENZOCAIN/TETRACA/BUTAM SPRAY 200 APPLN/20 GM SPRY ONE; -CANNULA ONE; -FENTANYL CITRATE INJ 50 MCG/1 ML 2 ML VIAL ONE; +IPRA-64 INH; -IPRASOL4 INH; -MIDAZOLAM HCL 1 MG/ML 2ML VIAL ONE
[2018-04-22] MEDS ORDERED: METHYLPREDNISOLONE 125 MG VIAL IV STA (12:50)
[2018-04-22] MEDS ORDERED: MAGNESIUM SULFATE 1GM / D5W 1 GM BAG IV STA (12:56)
[2018-04-22] MEDS ORDERED: SODIUM CHLORIDE 0.9% 500ML 500 ML IV STA (12:56)
[2018-04-22 12:59] VITALS: PULSE 101; O2SAT 94
[2018-04-22 13:00] VITALS: PULSE 101; O2SAT 92
[2018-04-22] MEDS ORDERED: ALBUT/IPRATROP 3MG/0.5MG NEB 3 ML VIAL INH ONE (13:00)
--- NOTE | 2018-04-22 13:00 | EMERGENCY ROOM VISIT NOTE ---
History Report prepared by Burke: Antoni Ge Under the Supervision of: Dr. Gorge Rowland M.D. First contact with patient: 12:44 Stated Complaint: RESPIRATORY DISTRESS / [place] History of Present Illness The patient is a 62 year old male who presents to the Emergency Room via EMS with complaints of worsening SOB that began 5 hours ago. EMS states the patient normally eats his breakfast but didn't touch it this morning. They state the patient's oxygen saturation levels were in the "60's" when they then used a DuoNeb treatment and albuterol which brought the patient up to the "80's". EMS adds the patient was then placed on BiPAP which brought his oxygen levels up to "95". EMS states the patient is on oxygen chronically. Patient states that he has had similar symptoms for the past couple of days. Past medical history includes asthma, COPD, and anxiety. Patient states his symptoms feel like a COPD flare. Patient adds he is a former smoker. Source of History: patient, EMS Onset: 5 hours ago Position: chest Timing: worsening Modifying Factors (Worsening): other (None) Modifying Factors (Relieving): other (duoneb, albuterol, BiPAP) Associated Symptoms: + fatigue Review of Systems See HPI for pertinent positives and negatives. A total of ten systems were reviewed and were otherwise negative. Past Medical & Surgical Medical Problems: (1) Acute and chronic respiratory failure (2) ADRIANO (acute kidney injury) (3) Asthma (4) COPD (chronic obstructive pulmonary disease) (5) New onset a-fib Family History Patient reports no known family medical history. Social History Smoking Status: Former Smoker Drug Use: none Marital Status: single Housing Status: other Occupation Status: other Current/Historical Medications Scheduled Alendronate Sodium (Alendronate Sodium), 70 MG PO WK Aspirin (Aspirin Chewable), 162 MG PO DAILY Atorvastatin (Lipitor), 10 MG PO HS Calcium Carbonate-Vitamin D (Calcium + D), 1 TAB PO BID Ciclesonide (Alvesco), 1 PUFF INH BID Digoxin (Digox), 250 MCG PO DAILY Diltiazem Hcl (Diltiazem Hcl Er), 60 MG PO TID Diphenhydramine Hcl (Diphenhydramine Hcl), 50 MG PO HS Hydrocortisone (Topical) (Hydrocortisone), 1 APPLN TOP TID Ipratropium-Albuterol (Duoneb), 1 TREATMENT INH Q4HWA Risperidone (Risperdal), 1 MG PO HS Tiotropium [place] (Spiriva Handihaler), 1 CAP INH DAILY Warfarin Sod (Jantoven), 5 MG PO HS Scheduled PRN Levalbuterol Tartrate (Levalbuterol Tartrate Hfa), 2 PUFFS INH QID PRN for Shortness of Breath Allergies Coded Allergies: No Known Allergies (Unverified , 04/22/18) Physical Exam Vital Signs Date Time Temp Pulse Resp B/P (MAP) Pulse Ox O2 Delivery O2 Flow Rate FiO2 04/22/18 16:07 97 18 101/72 94 CPAP 04/22/18 14:32 88 18 105/70 95 Room Air 04/22/18 13:54 90 04/22/18 13:09 94 CPAP 04/22/18 13:09 36.6 101 24 103/76 95 CPAP 04/22/18 13:09 95 CPAP 04/22/18 13:09 94 CPAP 04/22/18 13:00 101 92 40 04/22/18 12:59 101 28 94 BiPAP/CPAP 40 Physical Exam GENERAL: Awake, alert, fatigued, uncomfortable, anxious-appearing, in no distress HENT: Normocephalic, atraumatic. Oropharynx unremarkable. Mucous membranes are dry. EYES: Normal conjunctiva. Sclera non-icteric. NECK: Supple. No nuchal rigidity. FROM. No JVD. RESPIRATORY: Diffuse wheezing throughout otherwise clear to auscultation. CARDIAC: Regular rate, normal rhythm. Extremities warm and well perfused. Pulses equal. ABDOMEN: Soft, non-distended. No tenderness to palpation. No rebound or guarding. No masses. RECTAL: Deferred. MUSCULOSKELETAL: Chest examination reveals no tenderness. The back is symmetrical on inspection without obvious abnormality. There is no CVA tenderness to palpation. No joint edema. LOWER EXTREMITIES: Calves are equal size bilaterally and non-tender. No edema. No discoloration. NEURO: Normal sensorium. No sensory or motor deficits noted. SKIN: No rash or jaundice noted. Medical Decision & Procedures ER Provider Diagnostic Interpretation: Radiology results as stated below per my review and radiologist interpretation: CT ANGIOGRAM OF THE CHEST CLINICAL HISTORY: Atypical chest pain. Dyspnea. COMPARISON STUDY: Chest x-ray dated 04/22/2018 and 08/12/2017. TECHNIQUE: Following the IV administration of 91 cc of Optiray 320, CT angiogram of the chest was performed from the upper abdomen to the thoracic inlet utilizing the pulmonary embolus protocol. Images are reviewed in the axial, sagittal, and coronal planes. 3-D MIPS images are created and assessed. IV contrast was administered without complication. A dose lowering technique was utilized adhering to the principles of ALARA. The examination is significantly compromised by motion artifact. CT DOSE: 203.09 mGy.cm FINDINGS: Thyroid: Imaged portions of the thyroid gland are normal in size and attenuation. Thoracic aorta: There is mild atherosclerotic calcification of the thoracic aorta, which is normal in caliber and demonstrates standard 3-vessel arch anatomy. The thoracic aorta is not well opacified. Pulmonary vasculature: The pulmonary trunk is markedly dilated measuring 4.2 cm in transverse diameter. This indicates pulmonary artery hypertension. There are linear filling defects identified within the right lower lobar pulmonary artery which extensive into subsegmental branches. This is seen on axial image #138 and #103. The remainder of the central pulmonary vessels are clear. Evaluation of the peripheral vessels is severely compromised by motion artifact. Heart: The heart is markedly enlarged and there is a small pericardial effusion. There are scattered coronary artery calcifications. Reflux of contrast into the IVC and hepatic veins suggests cardiac dysfunction. Lungs and pleural spaces: There are findings of advanced chronic interstitial lung disease, likely with superimposed emphysematous change. Diffuse subpleural reticulation is identified and there is honeycombing with an upper lobe predominance. There is associated traction bronchiectasis. Mild diffuse groundglass change is noted. There is a 1.6 cm pleural-based nodule in the anterior right middle lobe seen on image #113. The trachea and central airways are patent. No pleural effusion is seen. Mediastinum: There are mildly enlarged mediastinal lymph nodes. Lisa: There are prominent hilar lymph nodes. Axillae: There is no axillary lymphadenopathy. Upper abdomen: Partially visualized upper abdominal viscera is within normal limits. Skeletal structures: The skeletal structures are osteopenic. No lytic or blastic bony lesions are seen. There is a mild and age indeterminant superior endplate compression deformity of T10. Degenerative change is noted in the shoulders. There are healed bilateral rib fractures. IMPRESSION: 1. Severely motion compromised examination. 2. Cardiomegaly and small pericardial effusion. Marked dilatation of the pulmonary trunk indicates pulmonary artery hypertension. 3. There are linear filling defects identified within the right lower lobe pulmonary artery which extend into segmental branches. Although some of this could represent mixing artifact, this is concerning for age indeterminant and likely chronic pulmonary embolus. 4. The remaining central pulmonary vessels are clear. Evaluation of the peripheral vessels is severely degraded by motion artifact. 5. There are changes of advanced chronic interstitial lung disease, likely with superimposed emphysema. 6. Diffuse groundglass change is noted. This has worsened between today's x-ray and the 08/12/2017 examination, and this could represent a component of superimposed congestive failure versus and/or an infectious/inflammatory pneumonitis. Clinical correlation will be required. 7. There is a 1.6 cm pleural-based nodule in the anterior right middle lobe. This is pathologically indeterminant, and although this could be on an inflammatory basis neoplasm is the diagnosis of exclusion. A 2-3 month follow-up chest CT is recommended for reassessment. 8. Additional findings as above. Electronically signed by: Samir Monet M.D. 04/22/2018 3:11 PM SINGLE VIEW CHEST CLINICAL HISTORY: Atypical chest pain. Respiratory distress. FINDINGS: An AP, portable, upright chest radiograph is compared to study dated 08/12/2017. The examination is degraded by portable technique and patient rotation. The heart is enlarged and there is atherosclerotic calcification of the thoracic aorta. There is prominence of the pulmonary vasculature. Enlargement of the central pulmonary arteries suggests pulmonary artery hypertension. Extensive/diffuse chronic interstitial thickening is similar to previous. There are diffusely increased airspace opacities throughout both lungs as compared to 08/12/2017. No large pleural effusion or pneumothorax is seen. The skeletal structures are osteopenic. The bony thorax is grossly intact. IMPRESSION: 1. Cardiomegaly. The pulmonary vessels appear engorged. Correlate clinically for evidence of congestive failure. 2. Changes of chronic interstitial lung disease are similar to previous. 3. There are increased bilateral airspace opacities throughout both lungs as compared to 08/12/2017. Differential considerations include pulmonary interstitial edema and/or multifocal pneumonia. Clinical correlation will be essential. Radiographic follow-up to resolution is recommended. 4. No large pleural effusion is identified Electronically signed by: Samir Monet M.D. 04/22/2018 2:17 PM Laboratory Results 04/22/18 13:20 Red Blood Count 5.27, Mean Corpuscular Volume 84.1, Mean Corpuscular Hemoglobin 28.1, Mean Corpuscular Hemoglobin Concent 33.4, Mean Platelet Volume 10.2, Neutrophils (%) (Auto) 79.3, Lymphocytes (%) (Auto) 9.7, Monocytes (%) (Auto) 10.1, Eosinophils (%) (Auto) 0.1, Basophils (%) (Auto) 0.3, Neutrophils # (Auto ) 7.57, Lymphocytes # (Auto) 0.93, Monocytes # (Auto) 0.96, Eosinophils # (Auto ) 0.01, Basophils # (Auto) 0.03 04/22/18 13:02 Test 04/22/18 13:00 04/22/18 13:02 04/22/18 13:17 04/22/18 13:20 Prothrombin Time > 100.0 SECONDS Prothromb Time International Ratio > 10.0 (0.9-1.1) Activated Partial Thromboplast Time 83.9 SECONDS (21.0-31.0) Partial Thromboplastin Ratio 3.2 Anion Gap 7.0 mmol/L (3-11) Est Creatinine Clear Calc Drug Dose 57.5 ml/min Estimated GFR () 73.4 Estimated GFR (Non- 63.3 BUN/Creatinine Ratio 25.4 (10-20) Calcium Level 8.7 mg/dl (8.5-10.1) Magnesium Level 2.0 mg/dl (1.8-2.4) Total Bilirubin 1.0 mg/dl (0.2-1) Direct Bilirubin mg/dl (0-0.2) Aspartate Amino Transf (AST/SGOT) 30 U/L (15-37) Alanine Aminotransferase (ALT/SGPT) 24 U/L (12-78) Alkaline Phosphatase 61 U/L (45-117) Pro-B-Type Natriuretic Peptide > 72277 pg/ml (0-900) Total Protein 8.0 gm/dl (6.4-8.2) Albumin 2.9 gm/dl (3.4-5.0) Lipase 76 U/L (73-393) Chemistry Specimen Hemolysis Venous Blood pH 7.40 (7.36-7.41) Venous Blood Partial Pressure CO2 37 mmHg (38.0-50.0) Venous Blood Partial Pressure O2 37 mmHg Venous Blood HCO3 22 mmol/L Venous Blood Oxygen Saturation 66.2 % Venous Blood Base Excess -2.1 mEq/L White Blood Count 9.55 K/uL (4.8-10.8) Red Blood Count 5.27 M/uL (4.7-6.1) Hemoglobin 14.8 g/dL (14.0-18.0) Hematocrit 44.3 % (42-52) Mean Corpuscular Volume 84.1 fL (80-100) Mean Corpuscular Hemoglobin 28.1 pg (25-34) Mean Corpuscular Hemoglobin Concent 33.4 g/dl (32-36) Platelet Count 253 K/uL (130-400) Mean Platelet Volume 10.2 fL (7.4-10.4) Neutrophils (%) (Auto) 79.3 % Lymphocytes (%) (Auto) 9.7 % Monocytes (%) (Auto) 10.1 % Eosinophils (%) (Auto) 0.1 % Basophils (%) (Auto) 0.3 % Neutrophils # (Auto) 7.57 K/uL (1.4-6.5) Lymphocytes # (Auto) 0.93 K/uL (1.2-3.4) Monocytes # (Auto) 0.96 K/uL (0.11-0.59) Eosinophils # (Auto) 0.01 K/uL (0-0.5) Basophils # (Auto) 0.03 K/uL (0-0.2) RDW Standard Deviation 48.5 fL (36.4-46.3) RDW Coefficient of Variation 16.0 % (11.5-14.5) Immature Granulocyte % (Auto) 0.5 % Immature Granulocyte # (Auto) 0.05 K/uL (0.00-0.02) Digoxin Level 2.1 ng/ml (0.8-2.0) Laboratory results reviewed by me Medications Administered Medications (Trade) Dose Ordered Sig/Princess Route Start Time Stop Time Status Last Admin Dose Admin Albuterol/ Ipratropium (Duoneb) 12 ml ONE ONCE INH 04/22/18 13:00 04/22/18 13:01 DC 04/22/18 12:59 12 ML Methylprednisolone Sodium Succinate (Solu-Medrol IV) 125 mg NOW STAT IV 04/22/18 12:50 8/4/18 12:53 DC 04/22/18 13:18 125 MG Sodium Chloride 500 ml @ 999 mls/hr Q31M STAT IV 04/22/18 12:56 04/22/18 13:26 DC 04/22/18 13:20 999 MLS/HR Magnesium Sulfate (Magnesium Sulfate 1gm / D5W) 2 gm NOW STAT IV 04/22/18 12:56 04/22/18 12:58 DC 04/22/18 13:19 2 GM Aspirin (Aspirin Chew) 162 mg NOW STAT PO 04/22/18 15:02 04/22/18 15:03 DC 04/22/18 15:02 162 MG ECG Per My Interpretation Indication: SOB/dyspnea Rate (beats per minute): 101 Rhythm: sinus tachycardia Findings: PAC, T-wave inversion (Lead 3 and AVF), other (Right axis deviation) Comparison ECG Date: 08/14/2017 Change: T-wave inversion in lead 3 and AVF is new compared to prior. ED Course 1245: The patient was evaluated in room B7. A complete history and physical exam was performed. 1400: I performed a bedside echo. 1552: Upon reexamination, the patient will be further evaluated. I discussed the test results and treatment plan with him. The patient will be evaluated for further management. Medical Decision I reviewed the patient's past medical history, medications, and the nursing notes as described above. Differential diagnosis: Etiologies such as infections, reactive airway disease, pneumonia, pneumothorax , COPD, CHF, cardiac ischemia, pulmonary embolism, musculoskeletal, gastrointestinal, as well as others were entertained. 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 On arrival the patient is fatigued and uncomfortable dyspneic, anxious appearing but no acute distress, afebrile stable vital signs. Continued on Bipap on arrival. On exam the patient has diffuse wheezes throughout. EKG demonstrates sinus tachycardia with T-wave inversions 3 and aVF that are new from July 2017. Troponin 0.1 newly elevated from prior baseline of 0.02, BNP greater than 35,000 increased from 3800 in July 2017. WBC and H/H within normal limits. VBG unremarkable. No evidence of acidosis at this time, although patient was tachypneic on arrival possibly compensating. Bedside echo performed and demonstrates gross RV dilation with septum bulging into LV. Otherwise LV and RV size and function appear grossly normal. Chest x- ray with question new pulmonary vascular congestion. CT PE performed and limited due to artifact from motion however with linear filling defects that could be consistent with chronic PE. Round glass opacities equivocal between pulmonary edema versus infection. Given that the patient's WBC is within normal limits and he is afebrile with clear new right heart failure, will defer antibiotics at this time. Otherwise the patient is feeling improved after steroids, DuoNeb's, magnesium, IV fluid hydration. INR supratherapeutic greater than 10 and so will defer heparin at this time. No evidence of acute bleeding in the setting of question PEs will allow to drift for now and defer any reversal to admitting team. Case was discussed with [facility] [place] hospitalist, will evaluate the patient for admission. Medication Reconcilliation Current Medication List: was personally reviewed by me Blood Pressure Screening Patient's blood pressure: Normal blood pressure Blood pressure disposition: Did not require urgent referral Consults Time Called: 1518 Consulting Physician: Dr. Tere ROBLES Returned Call: 1521 I discussed the patient with Dr. Tere ROBLES will evaluate the patient for further treatment. Impression Primary Impression: Acute and chronic respiratory failure with hypoxia Additional Impressions: Chronic pulmonary embolism CHF (congestive heart failure) Critical Care I have personally spent greater than 35 minutes of critical care time in the direct management of this patient. This includes bedside care, interpretation of diagnostic studies, and testing, discussion with consultants, patient, and family members, and other required patient management activities. This 35 minutes is in excess of all separately billable procedures. Scribe Attestation The scribe's documentation has been prepared under my direction and personally reviewed by me in its entirety. I confirm that the note above accurately reflects all work, treatment, procedures, and medical decision making performed by me. Departure Information Dispostion Being Evaluated By Hospitalist Referrals Magnus PARDO (PCP) Forms HOME CARE DOCUMENTATION FORM, IMPORTANT VISIT INFORMATION Patient Instructions Asthma - [facility], COPD - [facility], Croup - [facility], My [facility] Problem Qualifiers
[2018-04-22 13:18] LABS: BASO % 0.3 %; BASO ABS # 0.03 K/uL (0-0.2); EOS % 0.1 %; EOS ABS # 0.01 K/uL (0-0.5); HEMATOCRIT 44.3 % (42-52); HEMOGLOBIN 14.8 g/dL (14.0-18.0); IG# 0.05 K/uL (0.00-0.02); LYMPH % 9.7 %; LYMPH ABS # 0.93 K/uL (1.2-3.4); MEAN CELL VOLUME 84.1 fL (80-100); MEAN CORPUSCULAR HEMOGLOBIN 28.1 pg (25-34); MEAN CORPUSCULAR HGB CONC 33.4 g/dl (32-36); MEAN PLATELET VOLUME 10.2 fL (7.4-10.4); MONO % 10.1 %; MONO ABS # 0.96 K/uL (0.11-0.59); NEUT % 79.3 %; NEUT ABS # 7.57 K/uL (1.4-6.5); PLATELET COUNT 253 K/uL (130-400); RED CELL DISTRIBUTION WIDTH SD 48.5 fL (36.4-46.3); WHITE BLOOD COUNT 9.55 K/uL (4.8-10.8)
[2018-04-22] MEDS ORDERED: FSM70 PO (13:35)
[2018-04-22] MEDS ORDERED: RISP1TAB68 PO (13:35)
[2018-04-22] MEDS ORDERED: DIPH1CAP34 PO (13:35)
[2018-04-22] MEDS ORDERED: CALC600T9 PO (13:35)
[2018-04-22] MEDS ORDERED: CICL160A INH (13:35)
[2018-04-22] MEDS ORDERED: IPRA-64 INH (13:35)
[2018-04-22] MEDS ORDERED: DILT60CA PO (13:35)
[2018-04-22] MEDS ORDERED: WARF5TAB7 PO (13:35)
[2018-04-22] MEDS ORDERED: ASPCH81X PO (13:35)
[2018-04-22] MEDS ORDERED: LEVA45AE INH (13:35)
[2018-04-22] MEDS ORDERED: DIGO0.2519 PO (13:35)
[2018-04-22] MEDS ORDERED: SPRIN/30 INH (13:35)
[2018-04-22] MEDS ORDERED: HYDR2.5L TOP (13:35)
[2018-04-22] MEDS ORDERED: ATOR10TA82 PO (13:35)
--- NOTE | 2018-04-22 13:43 | DIAGNOSTIC IMAGING REPORT ---
ADDENDUM DISREGARD THIS REPORT. THIS WAS PLACED UNDER THE WRONG PATIENT'S JACKET. Electronically signed by: Samir Monet M.D. 04/22/2018 2:13 PM Dictated Date/Time: 04/22/2018 2:12 PM ORIGINAL REPORT SINGLE VIEW CHEST CLINICAL HISTORY: Atypical chest pain. FINDINGS: 2 AP, portable, upright chest radiographs are compared to study dated 08/12/2017. The examination is degraded by portable technique and patient rotation. The cardiomediastinal silhouette is unremarkable noting mild atherosclerotic calcification of the thoracic aorta. There is mild elevation of left hemidiaphragm. No airspace consolidation or pleural effusion is identified. A nipple shadow projects over the left lung base. No pneumothorax is seen. The bony thorax is grossly intact. IMPRESSION: No acute cardiopulmonary abnormality. Electronically signed by: Samir Monet M.D. 04/22/2018 1:42 PM Dictated Date/Time: 04/22/2018 1:41 PM
[2018-04-22 13:50] LABS: ALBUMIN 2.9 gm/dl (3.4-5.0); ALKALINE PHOSPHATASE 61 U/L (45-117); ALT/SGPT 24 U/L (12-78); AST/SGOT 30 U/L (15-37); BLOOD UREA NITROGEN 31 mg/dl (7-18); CALCIUM 8.7 mg/dl (8.5-10.1); CARBON DIOXIDE 23 mmol/L (21-32); CREATININE 1.21 mg/dl (0.60-1.40); GLUCOSE 195 mg/dl (70-99); LIPASE 76 U/L (73-393); POTASSIUM 4.5 mmol/L (3.5-5.1); SODIUM 136 mmol/L (136-145)
--- NOTE | 2018-04-22 14:19 | DIAGNOSTIC IMAGING REPORT ---
SINGLE VIEW CHEST CLINICAL HISTORY: Atypical chest pain. Respiratory distress. FINDINGS: An AP, portable, upright chest radiograph is compared to study dated 08/12/2017. The examination is degraded by portable technique and patient rotation. The heart is enlarged and there is atherosclerotic calcification of the thoracic aorta. There is prominence of the pulmonary vasculature. Enlargement of the central pulmonary arteries suggests pulmonary artery hypertension. Extensive/diffuse chronic interstitial thickening is similar to previous. There are diffusely increased airspace opacities throughout both lungs as compared to 08/12/2017. No large pleural effusion or pneumothorax is seen. The skeletal structures are osteopenic. The bony thorax is grossly intact. IMPRESSION: 1. Cardiomegaly. The pulmonary vessels appear engorged. Correlate clinically for evidence of congestive failure. 2. Changes of chronic interstitial lung disease are similar to previous. 3. There are increased bilateral airspace opacities throughout both lungs as compared to 08/12/2017. Differential considerations include pulmonary interstitial edema and/or multifocal pneumonia. Clinical correlation will be essential. Radiographic follow-up to resolution is recommended. 4. No large pleural effusion is identified Electronically signed by: Samir Monet M.D. 04/22/2018 2:17 PM Dictated Date/Time: 04/22/2018 2:15 PM
[2018-04-22] MEDS ORDERED: OPTIRAY 320 IV PRN (14:30)
[2018-04-22] MEDS ORDERED: ASPIRIN 81 MG CHEW PO STA (15:02)
--- NOTE | 2018-04-22 15:12 | DIAGNOSTIC IMAGING REPORT ---
CT ANGIOGRAM OF THE CHEST CLINICAL HISTORY: Atypical chest pain. Dyspnea. COMPARISON STUDY: Chest x-ray dated 04/22/2018 and 08/12/2017. TECHNIQUE: Following the IV administration of 91 cc of Optiray 320, CT angiogram of the chest was performed from the upper abdomen to the thoracic inlet utilizing the pulmonary embolus protocol. Images are reviewed in the axial, sagittal, and coronal planes. 3-D MIPS images are created and assessed. IV contrast was administered without complication. A dose lowering technique was utilized adhering to the principles of ALARA. The examination is significantly compromised by motion artifact. CT DOSE: 203.09 mGy.cm FINDINGS: Thyroid: Imaged portions of the thyroid gland are normal in size and attenuation. Thoracic aorta: There is mild atherosclerotic calcification of the thoracic aorta, which is normal in caliber and demonstrates standard 3-vessel arch anatomy. The thoracic aorta is not well opacified. Pulmonary vasculature: The pulmonary trunk is markedly dilated measuring 4.2 cm in transverse diameter. This indicates pulmonary artery hypertension. There are linear filling defects identified within the right lower lobar pulmonary artery which extensive into subsegmental branches. This is seen on axial image #138 and #103. The remainder of the central pulmonary vessels are clear. Evaluation of the peripheral vessels is severely compromised by motion artifact. Heart: The heart is markedly enlarged and there is a small pericardial effusion. There are scattered coronary artery calcifications. Reflux of contrast into the IVC and hepatic veins suggests cardiac dysfunction. Lungs and pleural spaces: There are findings of advanced chronic interstitial lung disease, likely with superimposed emphysematous change. Diffuse subpleural reticulation is identified and there is honeycombing with an upper lobe predominance. There is associated traction bronchiectasis. Mild diffuse groundglass change is noted. There is a 1.6 cm pleural-based nodule in the anterior right middle lobe seen on image #113. The trachea and central airways are patent. No pleural effusion is seen. Mediastinum: There are mildly enlarged mediastinal lymph nodes. Lisa: There are prominent hilar lymph nodes. Axillae: There is no axillary lymphadenopathy. Upper abdomen: Partially visualized upper abdominal viscera is within normal limits. Skeletal structures: The skeletal structures are osteopenic. No lytic or blastic bony lesions are seen. There is a mild and age indeterminant superior endplate compression deformity of T10. Degenerative change is noted in the shoulders. There are healed bilateral rib fractures. IMPRESSION: 1. Severely motion compromised examination. 2. Cardiomegaly and small pericardial effusion. Marked dilatation of the pulmonary trunk indicates pulmonary artery hypertension. 3. There are linear filling defects identified within the right lower lobe pulmonary artery which extend into segmental branches. Although some of this could represent mixing artifact, this is concerning for age indeterminant and likely chronic pulmonary embolus. 4. The remaining central pulmonary vessels are clear. Evaluation of the peripheral vessels is severely degraded by motion artifact. 5. There are changes of advanced chronic interstitial lung disease, likely with superimposed emphysema. 6. Diffuse groundglass change is noted. This has worsened between today's x-ray and the 08/12/2017 examination, and this could represent a component of superimposed congestive failure versus and/or an infectious/inflammatory pneumonitis. Clinical correlation will be required. 7. There is a 1.6 cm pleural-based nodule in the anterior right middle lobe. This is pathologically indeterminant, and although this could be on an inflammatory basis neoplasm is the diagnosis of exclusion. A 2-3 month follow-up chest CT is recommended for reassessment. 8. Additional findings as above. Electronically signed by: Samir Monet M.D. 04/22/2018 3:11 PM Dictated Date/Time: 04/22/2018 2:59 PM
[2018-04-22 15:24] LABS: INR > 10.0 (0.9-1.1); PTT PATIENT 83.9 SECONDS (21.0-31.0)
[2018-04-22] MEDS ORDERED: ALUMINUM/MAGNESIUM/SIMETH (MAALOX MAX) 30 ML UDC PO PRN (16:30)
[2018-04-22] MEDS ORDERED: POLYETHYLENE (MIRALAX) 17 GM PACK PO PRN (16:30)
[2018-04-22] MEDS ORDERED: ACETAMINOPHEN 325 MG TAB PO PRN (16:30)
[2018-04-22] MEDS ORDERED: ONDANSETRON INJ 2 MG/ML 2 ML VIAL IV PRN (16:30)
[2018-04-22] MEDS ORDERED: MAGNESIUM HYDROXIDE SUSP 30 ML UDC PO PRN (16:30)
--- NOTE | 2018-04-22 17:00 | History and Physical ---
History & Physical Date & Time of Service: Apr 22, 2018 at 16:56 Chief Complaint: Respiratory Distress / Sci [facility] Primary Care Physician: Magnus PARDO History of Present Illness Source: patient, clinic records, other ([facility] records) This is a 62 y/o male with a history of a-fib, HLD, asthma/COPD, prediabetes, schizophrenia, anxiety, intellectual disability, HCV and osteoporosis who presented to the ED from [facility] on 04/22 with acute on chronic hypoxic respiratory failure. The patient is currently on BiPAP and very difficult to understand. He has intellectual disability at baseline, and per guards at bedside is not a reliable historian. Per [facility] records, pt wears 2L NC continuously. He developed acute shortness of breath this morning during breakfast and became hypoxic. The patient was escorted back to room and oxygen increased up to 5L NC but no relief. DuoNeb attempted but pt could not keep in mouth. Pt placed on non-rebreather at 10L and sats were back in 90s. Per EMS, pt desated as low as 60s but improved with more nebs, and back to 90s with CPAP. The patient states currently that his SOB feels improved. Past Medical/Surgical History Medical Problems: (1) A-fib (2) Acute and chronic respiratory failure (3) Asthma (4) COPD (chronic obstructive pulmonary disease) (5) New onset a-fib A-fib HLD Asthma/COPD Prediabetes Schizophrenia Anxiety Intellectual disability HCV Osteoporosis Family History Patient reports no known family medical history. Unable to obtain family history due to pt condition. Social History Smoking Status: Former Smoker Drug Use: none Marital Status: single Housing status: other ([facility]) Occupational Status: other (inmate) Allergies Coded Allergies: No Known Allergies (Unverified , 04/22/18) Home Medications Scheduled Alendronate Sodium (Alendronate Sodium), 70 MG PO WK Aspirin (Aspirin Chewable), 162 MG PO DAILY Atorvastatin (Lipitor), 10 MG PO HS Calcium Carbonate-Vitamin D (Calcium + D), 1 TAB PO BID Ciclesonide (Alvesco), 1 PUFF INH BID Digoxin (Digox), 250 MCG PO DAILY Diltiazem Hcl (Diltiazem Hcl Er), 60 MG PO TID Diphenhydramine Hcl (Diphenhydramine Hcl), 50 MG PO HS Hydrocortisone (Topical) (Hydrocortisone), 1 APPLN TOP TID Ipratropium-Albuterol (Duoneb), 1 TREATMENT INH Q4HWA Risperidone (Risperdal), 1 MG PO HS Tiotropium [place] (Spiriva [place]), 1 CAP INH DAILY Warfarin Sod (Jantoven), 5 MG PO HS Scheduled PRN Levalbuterol Tartrate (Levalbuterol Tartrate Hfa), 2 PUFFS INH QID PRN for Shortness of Breath Review of Systems Unable to obtain reliable, comprehensive ROS due to pt condition. Pt very hard of hearing, also unable to understand speech with BiPAP in place. Per guards, not reliable historian. Physical Exam Vital Signs Date Time Temp Pulse Resp B/P (MAP) Pulse Ox O2 Delivery O2 Flow Rate FiO2 04/22/18 16:07 97 18 101/72 94 CPAP 04/22/18 14:32 88 18 105/70 95 Room Air 04/22/18 13:54 90 04/22/18 13:09 94 CPAP 04/22/18 13:09 36.6 101 24 103/76 95 CPAP 04/22/18 13:09 95 CPAP 04/22/18 13:09 94 CPAP 04/22/18 13:00 101 92 40 04/22/18 12:59 101 28 94 BiPAP/CPAP 40 General appearance: Well-developed, well-nourished, no apparent distress Head: Normocephalic, atraumatic Eyes: Normal inspection, PERRL, EOMI ENT: +Hard of hearing. Exam limited by BiPAP Normal ENT inspection, pharynx normal Neck: Supple, no JVD, trachea midline Respiratory/Chest: +Crackles in bases bilaterally. Currently on BiPAP. Normal breath sounds, no respiratory distress Cardiovascular: +Systolic murmur. Regular rate & rhythm, no gallop Abdomen/GI: Normal bowel sounds, non-tender, soft Extremities/Musculoskeletal: Normal inspection, no calf tenderness, no pedal edema Neurological/Psych: +Unable to assess orientation. Alert, normal mood/affect Skin: Normal color, warm/dry, no rash Diagnostics Laboratory Results Results Past 24 Hours Test 04/22/18 13:00 04/22/18 13:02 04/22/18 13:17 04/22/18 13:20 Range/Units Prothrombin Time > 100.0 9.0-12.0 SECONDS Prothromb Time International Ratio > 10.0 0.9-1.1 Activated Partial Thromboplast Time 83.9 21.0-31.0 SECONDS Partial Thromboplastin Ratio 3.2 Sodium Level 136 136-145 mmol/L Potassium Level 4.5 3.5-5.1 mmol/L Chloride Level 106 98-107 mmol/L Carbon Dioxide Level 23 21-32 mmol/L Anion Gap 7.0 3-11 mmol/L Blood Urea Nitrogen 31 7-18 mg/dl Creatinine 1.21 0.60-1.40 mg/dl Est Creatinine Clear Calc Drug Dose 57.5 ml/min Estimated GFR () 73.4 Estimated GFR (Non- 63.3 BUN/Creatinine Ratio 25.4 10-20 Random Glucose 195 70-99 mg/dl Calcium Level 8.7 8.5-10.1 mg/dl Magnesium Level 2.0 1.8-2.4 mg/dl Total Bilirubin 1.0 0.2-1 mg/dl Direct Bilirubin 0-0.2 mg/dl Aspartate Amino Transf (AST/SGOT) 30 15-37 U/L Alanine Aminotransferase (ALT/SGPT) 24 12-78 U/L Alkaline Phosphatase 61 45-117 U/L Troponin I 0.102 0-0.045 ng/ml Pro-B-Type Natriuretic Peptide > 39627 0-900 pg/ml Total Protein 8.0 6.4-8.2 gm/dl Albumin 2.9 3.4-5.0 gm/dl Lipase 76 73-393 U/L Chemistry Specimen Hemolysis Venous Blood pH 7.40 7.36-7.41 Venous Blood Partial Pressure CO2 37 38.0-50.0 mmHg Venous Blood Partial Pressure O2 37 mmHg Venous Blood HCO3 22 mmol/L Venous Blood Oxygen Saturation 66.2 % Venous Blood Base Excess -2.1 mEq/L White Blood Count 9.55 4.8-10.8 K/uL Red Blood Count 5.27 4.7-6.1 M/uL Hemoglobin 14.8 14.0-18.0 g/dL Hematocrit 44.3 42-52 % Mean Corpuscular Volume 84.1 80-100 fL Mean Corpuscular Hemoglobin 28.1 25-34 pg Mean Corpuscular Hemoglobin Concent 33.4 32-36 g/dl Platelet Count 253 130-400 K/uL Mean Platelet Volume 10.2 7.4-10.4 fL Neutrophils (%) (Auto) 79.3 % Lymphocytes (%) (Auto) 9.7 % Monocytes (%) (Auto) 10.1 % Eosinophils (%) (Auto) 0.1 % Basophils (%) (Auto) 0.3 % Neutrophils # (Auto) 7.57 1.4-6.5 K/uL Lymphocytes # (Auto) 0.93 1.2-3.4 K/uL Monocytes # (Auto) 0.96 0.11-0.59 K/uL Eosinophils # (Auto) 0.01 0-0.5 K/uL Basophils # (Auto) 0.03 0-0.2 K/uL RDW Standard Deviation 48.5 36.4-46.3 fL RDW Coefficient of Variation 16.0 11.5-14.5 % Immature Granulocyte % (Auto) 0.5 % Immature Granulocyte # (Auto) 0.05 0.00-0.02 K/uL Digoxin Level 2.1 0.8-2.0 ng/ml Test 04/22/18 15:52 Range/Units Arterial Blood pH 7.41 7.35-7.45 Arterial Blood Partial Pressure CO2 33 35-46 mmHg Arterial Blood Partial Pressure O2 78 80-95 mm/Hg Arterial Blood HCO3 20 19-24 mmol/L Arterial Blood Oxygen Saturation 94.8 90-95 % Arterial Blood Base Excess -3.4 -9-1.8 mEq/L Arterial Blood Gas Delivery 40% Cedric Test POS POS Diagnostic Radiology Reviewed the following studies and agree with interpretation as follows: SINGLE VIEW CHEST CLINICAL HISTORY: Atypical chest pain. Respiratory distress. FINDINGS: An AP, portable, upright chest radiograph is compared to study dated 08/12/2017. The examination is degraded by portable technique and patient rotation. The heart is enlarged and there is atherosclerotic calcification of the thoracic aorta. There is prominence of the pulmonary vasculature. Enlargement of the central pulmonary arteries suggests pulmonary artery hypertension. Extensive/diffuse chronic interstitial thickening is similar to previous. There are diffusely increased airspace opacities throughout both lungs as compared to 08/12/2017. No large pleural effusion or pneumothorax is seen. The skeletal structures are osteopenic. The bony thorax is grossly intact. IMPRESSION: 1. Cardiomegaly. The pulmonary vessels appear engorged. Correlate clinically for evidence of congestive failure. 2. Changes of chronic interstitial lung disease are similar to previous. 3. There are increased bilateral airspace opacities throughout both lungs as compared to 08/12/2017. Differential considerations include pulmonary interstitial edema and/or multifocal pneumonia. Clinical correlation will be essential. Radiographic follow-up to resolution is recommended. 4. No large pleural effusion is identified CT ANGIOGRAM OF THE CHEST CLINICAL HISTORY: Atypical chest pain. Dyspnea. COMPARISON STUDY: Chest x-ray dated 04/22/2018 and 08/12/2017. TECHNIQUE: Following the IV administration of 91 cc of Optiray 320, CT angiogram of the chest was performed from the upper abdomen to the thoracic inlet utilizing the pulmonary embolus protocol. Images are reviewed in the axial, sagittal, and coronal planes. 3-D MIPS images are created and assessed. IV contrast was administered without complication. A dose lowering technique was utilized adhering to the principles of ALARA. The examination is significantly compromised by motion artifact. CT DOSE: 203.09 mGy.cm FINDINGS: Thyroid: Imaged portions of the thyroid gland are normal in size and attenuation. Thoracic aorta: There is mild atherosclerotic calcification of the thoracic aorta, which is normal in caliber and demonstrates standard 3-vessel arch anatomy. The thoracic aorta is not well opacified. Pulmonary vasculature: The pulmonary trunk is markedly dilated measuring 4.2 cm in transverse diameter. This indicates pulmonary artery hypertension. There are linear filling defects identified within the right lower lobar pulmonary artery which extensive into subsegmental branches. This is seen on axial image #138 and #103. The remainder of the central pulmonary vessels are clear. Evaluation of the peripheral vessels is severely compromised by motion artifact. Heart: The heart is markedly enlarged and there is a small pericardial effusion. There are scattered coronary artery calcifications. Reflux of contrast into the IVC and hepatic veins suggests cardiac dysfunction. Lungs and pleural spaces: There are findings of advanced chronic interstitial lung disease, likely with superimposed emphysematous change. Diffuse subpleural reticulation is identified and there is honeycombing with an upper lobe predominance. There is associated traction bronchiectasis. Mild diffuse groundglass change is noted. There is a 1.6 cm pleural-based nodule in the anterior right middle lobe seen on image #113. The trachea and central airways are patent. No pleural effusion is seen. Mediastinum: There are mildly enlarged mediastinal lymph nodes. Lisa: There are prominent hilar lymph nodes. Axillae: There is no axillary lymphadenopathy. Upper abdomen: Partially visualized upper abdominal viscera is within normal limits. Skeletal structures: The skeletal structures are osteopenic. No lytic or blastic bony lesions are seen. There is a mild and age indeterminant superior endplate compression deformity of T10. Degenerative change is noted in the shoulders. There are healed bilateral rib fractures. IMPRESSION: 1. Severely motion compromised examination. 2. Cardiomegaly and small pericardial effusion. Marked dilatation of the pulmonary trunk indicates pulmonary artery hypertension. 3. There are linear filling defects identified within the right lower lobe pulmonary artery which extend into segmental branches. Although some of this could represent mixing artifact, this is concerning for age indeterminant and likely chronic pulmonary embolus. 4. The remaining central pulmonary vessels are clear. Evaluation of the peripheral vessels is severely degraded by motion artifact. 5. There are changes of advanced chronic interstitial lung disease, likely with superimposed emphysema. 6. Diffuse groundglass change is noted. This has worsened between today's x-ray and the 08/12/2017 examination, and this could represent a component of superimposed congestive failure versus and/or an infectious/inflammatory pneumonitis. Clinical correlation will be required. 7. There is a 1.6 cm pleural-based nodule in the anterior right middle lobe. This is pathologically indeterminant, and although this could be on an inflammatory basis neoplasm is the diagnosis of exclusion. A 2-3 month follow-up chest CT is recommended for reassessment. 8. Additional findings as above. EKG Reviewed EKG and agree with interpretation as follows: 101 bpm, sinus tachycardia with PACs with aberrant conduction, possible left atrial enlargement, right axis deviation, new inferior TWI in leads III and aVF compared to previous Impression Assessment and Plan 62 y/o male with a history of a-fib, HLD, asthma/COPD, prediabetes, schizophrenia, anxiety, intellectual disability, HCV and osteoporosis who presented to the ED from [facility] on 04/22 with acute on chronic hypoxic respiratory failure. Pt tachycardic and tachypneic on arrival, improved on BiPAP. Saturating in 90s. CXR showed engorged pulmonary vessels suggestive for congestive failure, chronic stable interstitial lung disease, and increased bilateral airspace opacities likely representing pulmonary edema and/or multifocal PNA. CTA of chest compromised by motion but is concerning for an age indeterminant but likely chronic PE, a 1.6 cm pleural based nodule in RML, as well as worsening diffuse ground glass changes which could represent superimposed CHF and/or infectious/inflammatory pneumonitis. ABG grossly unremarkable. Troponin mildly elevated at 0.102. BNP over 35,000. Acute on chronic hypoxic respiratory failure -Admit to telemetry -Continue BiPAP for now -Consult dsp engineer for ICU evaluation, although pt currently stable enough for PCU -CTA shows possible chronic PE but study compromised by pt motion -Pt appears to be in acute CHF Acute congestive heart failure, unknown diastolic vs systolic--no h/o this -Daily weights, strict I's & O's -Lasix 40 mg IV BID -Echocardiogram ordered -Consult cardiology Supratherapeutic INR, PAF--currently in sinus -INR over 10 -Due to possible age indeterminate PE, will hold off on INR reversal at this time. No signs of bleeding -Check head CT to r/o hemorrhage. Pt not reliably providing history at this time, may be at baseline but could have some element AMS -Hold warfarin, continue to monitor -Hold ASA for now -Continue diltiazem 60 mg PO TID and digoxin 250 mcg PO qd -Digoxin level very mildly elevated at 2.1, repeat in am ?Age indeterminate PE, likely chronic -Hold anticoagulation due to supratherapeutic INR as above, continue to monitor Pulmonary nodule -1.6 cm pleural based nodule anterior right middle lobe. Recommend f/u chest CT in 2-3 months Elevated troponin, likely demand ischemia or related to possible PE -Pt denies chest pain to me but unreliable. New TWI on EKG -Trend cardiac enzymes q8h x 2 more set -EKG q am and prn HLD -Continue Lipitor 10 mg PO qd Asthma/COPD, ILD--no wheezing heard on my exam Continue Alvesco BID, Spiriva, DuoNebs q4hWA Prediabetes--last HgbA1c was 6.3 on 08/12/17 -BSG 195 -Insulin sliding scale -Check BSGs q ac and qhs -Recheck HgbA1c Schizophrenia -Continue Risperdal 1 mg PO hs DVT prophylaxis -Warfarin supratherapeutic -RONEY hose and SCDs Code Status -Level I, FULL RESUSCITATION STATUS Resuscitation Status VTE Prophylaxis Will order VTE Prophylaxis: Yes Reason for no VTE drug order: Contraindicated (INR over 10)
[2018-04-22 17:30] VITALS: BP 96/62; PULSE 100; TEMP 36.5; O2SAT 85; Ht 160 cm; Wt 47.8 kg
[2018-04-22] MEDS ORDERED: GLUCAGON FOR INJ 1 MG VIAL SQ PRN (18:15)
[2018-04-22] MEDS ORDERED: DEXTROSE 50% 50 ML SYR IV PRN (18:15)
[2018-04-22] MEDS ORDERED: GLUCOSE 10 TABS/TUBE PO PRN (18:15)
[2018-04-22] MEDS ORDERED: GLUCOSE 40% GEL 15 GM TUBE PO PRN (18:15)
[2018-04-22] MEDS ORDERED: CARBOHYDRATES FOR HYPOGLYCEMIA PO PRN (18:15)
[2018-04-22] MEDS: FUROSEMIDE INJ 40 MG in SYRINGE 0 ML IV SCH (18:37)
[2018-04-22 18:58] VITALS: PULSE 97; O2SAT 92
[2018-04-22] MEDS: ALBUT/IPRATROP 3MG/0.5MG NEB 3 ML VIAL INH SCH (18:58)
[2018-04-22 19:32] VITALS: BP 97/63; PULSE 101; TEMP 36.6; O2SAT 92
[2018-04-22 20:00] VITALS: O2SAT 92
[2018-04-22] MEDS ORDERED: PHYTONADIONE 5 MG TAB PO STA (20:09)
--- NOTE | 2018-04-22 20:18 | DIAGNOSTIC IMAGING REPORT ---
CT SCAN OF THE BRAIN WITHOUT IV CONTRAST CLINICAL HISTORY: Change in mental status. COMPARISON STUDY: No priors. TECHNIQUE: Unenhanced axial CT scan of the brain is performed from the vertex to the skull base. A dose lowering technique was utilized adhering to the principles of ALARA. CT DOSE: 844.62 mGy.cm FINDINGS: Brain parenchyma: There are age-related involutional changes noting mild subcortical and periventricular microangiopathic change. Left temporal encephalomalacia is consistent with a remote insult. There is no hemorrhage, mass effect, or evidence of acute territorial ischemia by CT criteria. Simms-white matter is preserved. No extra-axial fluid collection is seen. Ventricles, sulci, cisterns: Prominent secondary to involutional change. Intracranial vasculature: There is atherosclerotic calcification of the cavernous carotid arteries. Calvarium: The calvarium appears intact. A metallic foreign body is noted in the left frontal bone. There are chronic-appearing nasal bone fractures. Soft tissues: Metallic foreign bodies are present in the right occipital and suboccipital scalp. Sinuses and mastoids: There is trace mucosal thickening in the right maxillary antrum. The remaining visualized paranasal sinuses are clear. The mastoid air cells are well pneumatized. Orbits: The bony orbits are grossly intact. IMPRESSION: There is no hemorrhage, mass effect, or evidence of acute territorial ischemia by CT criteria. Electronically signed by: Samir Monet M.D. 04/22/2018 8:16 PM Dictated Date/Time: 04/22/2018 8:13 PM
[2018-04-22] MEDS: ATORVASTATIN 10 MG TAB PO SCH (21:03)
[2018-04-22] MEDS: RISPERIDONE 1 MG TAB PO SCH (21:03)
[2018-04-22] MEDS: DILTIAZEM SR 60 MG CAP PO SCH (21:03)
[2018-04-22] MEDS: INSULIN ASPART 100 UNITS/ML 3 ML PEN SC SCH (21:07)
[2018-04-22 22:00] LABS: CKMB 3.9 ng/ml (0.5-3.6)
[2018-04-22] MEDS ORDERED: AZITHROMYCIN 250 MG TAB PO ONE (23:00)
--- NOTE | 2018-04-22 23:05 | Critical Care Consultation ---
Critical Care Consultation Date of Consultation: Apr 22, 2018. Attending Physician: Isaiah Carranza MD, PhD Reason for Consultation: Acute on chronic hypoxic respiratory failure History of Present Illness Patient is a 62-year-old male who has a significant past medical history for severe COPD, atrial fibrillation, long-term anticoagulation use, reported developmental disabilities confirmed by Mary Kate who works at the [facility], purported pulmonary embolism: I am unable to find the definitive diagnosis at this time who presents with increasing exertional dyspnea and shortness of breath. Patient was started on BiPAP via EMS and brought his oxygen saturation from the 80s into the 90s. The ED he was found to have EKG changes compared to prior, his BNP is significantly increased from prior. Patient underwent CT scan with limited results secondary to motion artifact however there were filling defects that could be consistent with chronic pulmonary emboli. Groundglass opacities were noted. Patient was also found to be supratherapeutic and his INR and he was admitted to the hospital for further evaluation and treatment. During my evaluation the patient is having subjective dyspnea in the room. He denies chest pain. He is able to speak in 4-5 word sentences. He does exhibit pursed lip breathing. Past Medical/Surgical History As noted above Family History Patient reports no known family medical history. Social History Smoking Status: Former Smoker Drug Use: none Marital Status: single Housing Status: other Occupation Status: other (inmate) Allergies Coded Allergies: No Known Allergies (Unverified , 04/22/18) Home Medications Scheduled Alendronate Sodium (Alendronate Sodium), 70 MG PO WK Aspirin (Aspirin Chewable), 162 MG PO DAILY Atorvastatin (Lipitor), 10 MG PO HS Calcium Carbonate-Vitamin D (Calcium + D), 1 TAB PO BID Ciclesonide (Alvesco), 1 PUFF INH BID Digoxin (Digox), 250 MCG PO DAILY Diltiazem Hcl (Diltiazem Hcl Er), 60 MG PO TID Diphenhydramine Hcl (Diphenhydramine Hcl), 50 MG PO HS Hydrocortisone (Topical) (Hydrocortisone), 1 APPLN TOP TID Ipratropium-Albuterol (Duoneb), 1 TREATMENT INH Q4HWA Risperidone (Risperdal), 1 MG PO HS Tiotropium [place] (Spiriva Handihaler), 1 CAP INH DAILY Warfarin Sod (Jantoven), 5 MG PO HS Scheduled PRN Levalbuterol Tartrate (Levalbuterol Tartrate Hfa), 2 PUFFS INH QID PRN for Shortness of Breath Current Inpatient Medications Current Inpatient Medications Medications (Trade) Dose Ordered Sig/Princess Route Start Time Stop Time Status Last Admin Dose Admin Ioversol (Optiray 320) 100 ml UD PRN IV 04/22/18 14:30 04/26/18 14:29 Acetaminophen (Tylenol Tab) 650 mg Q4H PRN PO 04/22/18 16:30 05/22/18 16:29 Al Hydrox/Mg Hydrox/Simethicone (Maalox Max Susp) 15 ml Q4H PRN PO 04/22/18 16:30 05/22/18 16:29 Magnesium Hydroxide (Milk Of Magnesia Susp) 30 ml Q12H PRN PO 04/22/18 16:30 05/22/18 16:29 Ondansetron HCl (Zofran Inj) 4 mg Q6H PRN IV 04/22/18 16:30 05/22/18 16:29 Polyethylene (Miralax Powder Packet) 17 gm DAILY PRN PO 04/22/18 16:30 05/22/18 16:29 Furosemide 40 mg/ Syringe 4 ml @ 4 mls/min BID17 IV 04/22/18 19:00 05/22/18 18:59 04/22/18 18:37 4 MLS/MIN Atorvastatin Calcium (Lipitor Tab) 10 mg HS PO 04/22/18 21:00 05/22/18 20:59 04/22/18 21:03 10 MG Digoxin (Lanoxin Tab) 0.25 mg DAILY@1600 PO 04/23/18 16:00 05/23/18 15:59 Diltiazem HCl (Cardizem Sr) 60 mg TID PO 04/22/18 21:00 05/22/18 20:59 04/22/18 21:03 60 MG Albuterol/ Ipratropium (Duoneb) 3 ml Q4RWA INH 04/22/18 20:00 05/22/18 19:59 04/22/18 18:58 3 ML Risperidone (Risperdal Tab) 1 mg HS PO 04/22/18 21:00 05/22/18 20:59 04/22/18 21:03 1 MG Tiotropium [place] (Spiriva Handihaler Inhaler) 1 puff DAILY INH 04/23/18 09:00 05/23/18 08:59 Miscellaneous Information (Order Awaiting Action) 1 ea BID N/A 04/22/18 21:00 05/22/18 20:59 Insulin Aspart (novoLOG ASPART) SLIDING SCALE G... ACHS SC 04/22/18 21:00 05/22/18 20:59 04/22/18 21:07 2 UNITS Glucose (Glucose 40% Gel) 15-30 GRAMS 15 GRAMS... UD PRN PO 04/22/18 18:15 05/22/18 18:14 Glucose (Glucose Chew Tab) 4-8 Tablets 4 Tabl... UD PRN PO 04/22/18 18:15 05/22/18 18:14 Dextrose (Dextrose 50% 50ML Syringe) 25-50ML 25ML FOR ... UD PRN IV 04/22/18 18:15 05/22/18 18:14 Glucagon (Glucagon Inj) 1 mg UD PRN SQ 04/22/18 18:15 05/22/18 18:14 Carbohydrates (Carbohydrates For Hypoglycemia) 15-30 GRAMS 15 grams if BSG 54-69... UD PRN PO 04/22/18 18:15 05/22/18 18:14 Review of Systems A 10 point review of systems has been obtained and is otherwise negative. Constitutional: No fever, No weight loss, No weakness Respiratory: + cough, + wheezing, + shortness of breath, + dyspnea on exertion , + dyspnea at rest, No sputum, No hemoptysis Cardiovascular: No chest pain, No orthopnea Abdomen: No pain, No nausea, No problem reported Genitourinary - Male: No hematuria Physical Exam Date Time Temp Pulse Resp B/P (MAP) Pulse Ox O2 Delivery O2 Flow Rate FiO2 04/22/18 19:32 36.6 101 28 97/63 (74) 92 High Flow Oxygen 04/22/18 18:58 97 30 92 Nasal Cannula 45.0 60 04/22/18 17:30 36.5 100 20 96/62 85 Mask 13.0 04/22/18 16:07 97 18 101/72 94 CPAP 04/22/18 14:32 88 18 105/70 95 Room Air 04/22/18 13:54 90 04/22/18 13:09 94 CPAP 04/22/18 13:09 36.6 101 24 103/76 95 CPAP 04/22/18 13:09 95 CPAP 04/22/18 13:09 94 CPAP 04/22/18 13:00 101 92 40 04/22/18 12:59 101 28 94 BiPAP/CPAP 40 General Appearance: thin, cachetic Head: normocephalic Eyes: PERRLA Neck: normal range of motion, no tenderness, trachea midline Respiratory: rhonchi (Scattered bilaterally), wheezing (Occasional wheezes), other (Mild pursed lip breathing) Cardiovasular: systolic murmur Abdomen: non tender, normal bowel sounds Back: normal inspection Upper Extremities: no edema, other (Significant clubbing) Pulses: radial (R) (2+), radial (L) (2+) Neuro: alert Laboratory Results Last 24 Hours Test 04/22/18 13:00 04/22/18 13:02 04/22/18 13:17 04/22/18 13:20 Prothrombin Time > 100.0 SECONDS Prothromb Time International Ratio > 10.0 Activated Partial Thromboplast Time 83.9 SECONDS Partial Thromboplastin Ratio 3.2 Sodium Level 136 mmol/L Potassium Level 4.5 mmol/L Chloride Level 106 mmol/L Carbon Dioxide Level 23 mmol/L Anion Gap 7.0 mmol/L Blood Urea Nitrogen 31 mg/dl Creatinine 1.21 mg/dl Est Creatinine Clear Calc Drug Dose 57.5 ml/min Estimated GFR () 73.4 Estimated GFR (Non- 63.3 BUN/Creatinine Ratio 25.4 Random Glucose 195 mg/dl Calcium Level 8.7 mg/dl Magnesium Level 2.0 mg/dl Total Bilirubin 1.0 mg/dl Direct Bilirubin mg/dl Aspartate Amino Transf (AST/SGOT) 30 U/L Alanine Aminotransferase (ALT/SGPT) 24 U/L Alkaline Phosphatase 61 U/L Troponin I 0.102 ng/ml Pro-B-Type Natriuretic Peptide > 75072 pg/ml Total Protein 8.0 gm/dl Albumin 2.9 gm/dl Lipase 76 U/L Chemistry Specimen Hemolysis Venous Blood pH 7.40 Venous Blood Partial Pressure CO2 37 mmHg Venous Blood Partial Pressure O2 37 mmHg Venous Blood HCO3 22 mmol/L Venous Blood Oxygen Saturation 66.2 % Venous Blood Base Excess -2.1 mEq/L White Blood Count 9.55 K/uL Red Blood Count 5.27 M/uL Hemoglobin 14.8 g/dL Hematocrit 44.3 % Mean Corpuscular Volume 84.1 fL Mean Corpuscular Hemoglobin 28.1 pg Mean Corpuscular Hemoglobin Concent 33.4 g/dl Platelet Count 253 K/uL Mean Platelet Volume 10.2 fL Neutrophils (%) (Auto) 79.3 % Lymphocytes (%) (Auto) 9.7 % Monocytes (%) (Auto) 10.1 % Eosinophils (%) (Auto) 0.1 % Basophils (%) (Auto) 0.3 % Neutrophils # (Auto) 7.57 K/uL Lymphocytes # (Auto) 0.93 K/uL Monocytes # (Auto) 0.96 K/uL Eosinophils # (Auto) 0.01 K/uL Basophils # (Auto) 0.03 K/uL RDW Standard Deviation 48.5 fL RDW Coefficient of Variation 16.0 % Immature Granulocyte % (Auto) 0.5 % Immature Granulocyte # (Auto) 0.05 K/uL Digoxin Level 2.1 ng/ml Test 04/22/18 15:52 04/22/18 17:50 04/22/18 18:13 04/22/18 20:41 Arterial Blood pH 7.41 7.43 Arterial Blood Partial Pressure CO2 33 mmHg 31 mmHg Arterial Blood Partial Pressure O2 78 mm/Hg 74 mm/Hg Arterial Blood HCO3 20 mmol/L 20 mmol/L Arterial Blood Oxygen Saturation 94.8 % 93.9 % Arterial Blood Base Excess -3.4 mEq/L -3.1 mEq/L Arterial Blood Gas Delivery 40% 10L Cedric Test POS POS Bedside Glucose 166 mg/dl 237 mg/dl Test 04/22/18 21:11 Total Creatine Kinase 42 U/L Creatine Kinase MB 3.9 ng/ml Creatine Kinase MB Ratio 9.3 Troponin I 0.082 ng/ml Diagnostic Results Reviewing prior records, obtained from department of corrections: Prior x-ray demonstrating extensive bilateral interstitial fibrosis and changes consistent with chronic obstructive pulmonary disease, patient previously seen for atrial fibrillation with rapid ventricular response. Baseline mitral regurgitation: Severe Echocardiogram from August 13, 2017 reviewed Reviewed preop cardiology evaluation dated October 18, 2017 patient did not demonstrate insight into the significance of heart surgery,, there was a plan to perform a transesophageal echo and discussion about possible surgical correction however patient was at significantly increased risk for aspects of pulmonary disease. I have reviewed all scripts as well as [employer] insert of evaluation of pulmonary disease. Assessment & Plan PLAN: Neuro: Developmental disabilities -Reaching out to [facility] for information regarding additional family members who can help with end-of-life medical decision-making Resp: Acute on chronic hypoxic respiratory failure Changes suggestive of chronic interstitial fibrosis -High flow nasal cannula for goal oxygen saturation 88-92 -IV steroids -Aggressive pulmonary toilet CV: History atrial fibrillation Significant mitral valve regurgitation -Echo pending -Cardiology consult pending Significantly elevated BNP -Likely secondary to progression of MR as well as significant pulmonary hypertension secondary to underlying structural lung disease Elevated troponins -Currently decreasing -Could be related to sub-endocardial ischemia secondary to volume overload versus significant pulmonary hypertension versus pulmonary embolism -I think a more likely diagnosis is progression of pulmonary disease as well as motion artifact, patient has significantly supratherapeutic INR however chronic thromboembolic disease would be a diagnosis of exclusion Fluids/Renal: Acute kidney injury -Baseline creatinine ranging 0.6-0.8 on last admission, currently 1.21 -Aggressive diuresis, follow-up creatinine Elevated digoxin level -Holding digoxin in setting of ADRIANO ID: 5 day course of Zithromax for COPD exacerbation -QTc 386 -Check pro-Bang GI/Nutrition: Regular diet Heme: Long-term use of anticoagulation -Secondary to atrial fibrillation Filling defect seen on CT scan concerning for possible pulmonary embolism -Venous duplex Supratherapeutic INR -INR greater than 10, no evidence of acute bleeding at this time -5 mg vitamin K orally Endocrine: Elevated blood sugar -Glycemic control Vascular access: Peripheral IVs Code Status: Full code I believe the patient has significant underlying structural lung disease and probable interstitial fibrosis. Patient has significant clinical signs of clubbing and chronic cyanosis. Additionally he has significant valvular disease. I am not able to find formal PFTs, however I believe the patient is an end-stage COPD. I would consider to be very prudent to discuss end-of-life decision-making. Patient is purported to have developmental disabilities, I contacted the [facility] [place] and spoke to Mary Kate, she will be attempting to find a healthcare surrogate. Additionally I would place a social service liaison consult to assist in finding his healthcare surrogate and whether that is a court appointed surrogate or additional family members. I would also consult pulmonology. I believe the patient is in an end-stage terminal condition without meaningful chance of recovery of lung function. If it was felt in the best interests of the patient to not undergo intubation and mechanical ventilation in event of respiratory insufficiency I would be in agreement with this. I would consider pulmonary consultation as the patient will require a second physician to certify an end-stage medical condition. At the present time the patient has adequate blood pressure, is saturating adequately on high flow nasal cannula and is rate controlled. I would continue to treat him as a COPD exacerbation and agree with cardiology consultation as there may be a significant valvular component as well. A significant question will be is would surgical correction of this valvular component produce any significant change given the chronicity of the underlying valvular issues as well as his underlying pulmonary disease. Please reconsult if the patient requires additional aggressive interventions or should he decompensate.
[2018-04-23] VITALS (13 sets, daily range): BP systolic 88–105; BP diastolic 59–69; PULSE 80–94; TEMP 36.3–37.1; O2SAT 88–100
[2018-04-23 05:42] LABS: HEMATOCRIT 41.4 % (42-52); HEMOGLOBIN 13.7 g/dL (14.0-18.0); MEAN CELL VOLUME 83.6 fL (80-100); MEAN CORPUSCULAR HEMOGLOBIN 27.7 pg (25-34); MEAN CORPUSCULAR HGB CONC 33.1 g/dl (32-36); MEAN PLATELET VOLUME 10.8 fL (7.4-10.4); PLATELET COUNT 221 K/uL (130-400); RED CELL DISTRIBUTION WIDTH CV 15.9 % (11.5-14.5); RED CELL DISTRIBUTION WIDTH SD 48.2 fL (36.4-46.3); WHITE BLOOD COUNT 7.73 K/uL (4.8-10.8)
[2018-04-23 06:18] LABS: CALCIUM 7.3 mg/dl (8.5-10.1); CKMB 2.7 ng/ml (0.5-3.6); CREATININE 0.79 mg/dl (0.60-1.40); POTASSIUM 3.8 mmol/L (3.5-5.1)
[2018-04-23] MEDS: ALBUT/IPRATROP 3MG/0.5MG NEB 3 ML VIAL INH SCH ×4 (07:03→20:11)
[2018-04-23] MEDS: FUROSEMIDE INJ 40 MG in SYRINGE 0 ML IV SCH ×2 (08:09→16:44)
[2018-04-23] MEDS: TIOTROPIUM BROMIDE 5 PUFF/90 MCG INH INH SCH (08:09)
[2018-04-23] MEDS: DILTIAZEM SR 60 MG CAP PO SCH ×3 (08:09→20:58)
[2018-04-23] MEDS: INSULIN ASPART 100 UNITS/ML 3 ML PEN SC SCH ×4 (08:12→20:57)
[2018-04-23 09:16] LABS: INR 8.1 (0.9-1.1)
--- NOTE | 2018-04-23 09:42 | Critical Care Progress Note ---
Critical Care Progress Note Date of Service Apr 23, 2018. Critical Care Progress Note I discussed the case with Dr. Enrique Walls press room supervisor of the ethics committee. [facility] staff reported to nursing staff the patient does not have family nor healthcare appointed surrogate. In summary the patient lacks capacity and medical decision making patient does not have a healthcare surrogate nor healthcare agent nor living will. I believe from a cardio-pulmonary status the patient is an end-stage medical condition that if the patient were to have respiratory insufficiency would require intubation and permanent mechanical ventilation with subsequent tracheostomy, and would prolong a dying process. The risks and benefits of mechanical ventilation and its associated complications and morbidity and mortality of surgical tracheostomy need to be weighed against the patient's dignity, autonomy, equality, while also acknowledging the principles of autonomy, beneficence, non-maleficence, and Justice. Mechanical ventilation poses increased risk of infections and likely dramatically changes the patient's functional status to the point of being bedridden which the patient has had an active life for the last 63 years. Accordingly I believe intubation and mechanical ventilation would likely be futile as the patient would gain minimal benefit and drastically change the patient's functional status to one that he has not experienced throughout his life and thus poses significant mental and physical duress to the patient. Dr. Walls is in agreement and in the immediate setting it appears that intubation mechanical ventilation would be contraindicated for the patient. Concomitantly we are arranging an ethics committee meeting to fully vet the patient's situation and also engage the long-term system and hospital administration to move towards court appointed healthcare surrogate.
--- NOTE | 2018-04-23 11:47 | Pulmonary Consultation ---
History General Date of Service: Apr 23, 2018. Stated Complaint: Acute And Chronic Respiratory Failure,Chf HPI The patient is a 62 year old male who presents to [facility] with complaints of Acute And Chronic Respiratory Failure,Chf. The patient's primary care provider is Magnus PARDO. 62-year-old male admitted with acute on chronic hypoxic respiratory insufficiency. He has a significant PmHx: COPD, asthma, atrial fibrillation/ RVR, possible ILD, mitral regurgitation, diabetes, hyperlipidemia, history of hepatitis C virus infection, history of schizophrenia and chronic oxygen dependence. He was admitted through the emergency room brought in by EMS from [facility]. My interview was obtained through the EMS system as the patient was notably non compliant during my interview. The EMS system did report that the patient has been complaining of increasing respiratory insufficiency for multiple days but notably progressed 5 hours prior to his ED presentation. EMS notes state that his saturations initially were in the 60s but after treatment with duo nebs, albuterol his saturations increased into the 80s and started on BiPAP at that time with his SaO2 levels at 95%. Patient does have a long history of smoking but I am unable to obtain full details. In the emergency room department the patient was notably tachypneic with an FiO2 support up to 60 % and respiratory rate up to 30 breaths per minute with pulse oximetry ranging between 90-97%. In the emergency room the patient was started on duo nebs, methylprednisolone 125mg IV as well as magnesium 2 grams IV and chewable aspirin 162 mg. He was then transferred to the floor on high-flow oxygen supplementation system. Current inpatient work-up EKG: Sinus tachycardia rate 101, P-wave enlargement, PAC, right axis deviation, anterior T-wave flattening EKG: Sinus rhythm rate 82, P-wave enlargement, right axis deviation, possible RBBB WBC10K (Neutro#: >7.57)8K VB.40/37 corrected to 7.44/31 AB.41/33/78/20 (FiO2: 40%) A-a: 166 AB.43/31/74/20 (FiO2: 50%) A-a: 244 INR: >10--8.1 Troponin: 0.102--0.082--0.076 Procalcitonin: 0.05 Pro=BNP: >94570 BUN/Cr: 31/1.21 Albumin: 2.9 Digoxin: 2.1--1.7 CXR: Cardiomegaly, hilar fullness, cephalization, peribronchial cuffing, chronic ILD changes, increased bilateral airspace opacifications CTA: Increased BOBBIN WINDER TENDER ratio, diffuse traction bronchiectasis, possible honeycombing, possible mosaic pattern but notable motion artifact appreciated, possible chronic pulmonary emboli appreciated right lower lobe, 1.6 cm pleural based nodule RML CT head: No acute intracranial process noted Pending: Venous Dopplers Weight history 06/11/2017: 54 kilograms 08/12/2017: 60.2 kilograms 08/13/2017: 56.7 kilograms 08/14/2017: 130.2 kilograms 10/18/2017: 62 kilograms 04/22/2018: 65.1 kilogram Patient's weight is up 3.1 kilograms or 6.8 pounds Previous workup: Echocardiogram 08/13/2017 LV: EF=55-60%, borderline LVH, flattened septum consistent with RV volume of RV: Mildly dilated, TAPSE > 1.5cm Right atrium: Mildly dilated Mitral valve: Prolapse of the anterior leaflet/from mitral regurgitation eccentrically directed IVC: Normal sniff PASP: 36mmHg Echocardiogram 10/18/2017 (SPENSER) LV: Grossly within normal limits Left atrium: Mildly dilated MV: Moderate regurgitation, prolapse segment of the anterior mitral leaflet with very eccentric mitral regurgitation CXR 06/11/2017: Diffuse interstitial changes, cardiomegaly, hilar fullness PmHx: 1. Asthma 2. COPD 3. Atrial fibrillation/RVR/paroxysmal atrial fibrillation 4. Mitral regurgitation 5. Diabetes mellitus 6. Hyperlipidemia 7. History of adult idiopathic generalized osteoporosis 8. History of hepatitis C virus infection 9. History of schizophrenia 10. History of pulmonary interstitial fibrosis 11. Oxygen-dependent PsHx: Social History: Tobacco: Alcohol: Mental status: Living situation: Prisoner at [facility] Family History: Patient reports no known family medical history Current Outpatient Medications: Alendronate Sodium (Alendronate Sodium), 70 MG PO WK Aspirin (Aspirin Chewable), 162 MG PO DAILY Atorvastatin (Lipitor), 10 MG PO HS Calcium Carbonate-Vitamin D (Calcium + D), 1 TAB PO BID Ciclesonide (Alvesco), 1 PUFF INH BID Digoxin (Digox), 250 MCG PO DAILY Diltiazem Hcl (Diltiazem Hcl Er), 60 MG PO TID Diphenhydramine Hcl (Diphenhydramine Hcl), 50 MG PO HS Hydrocortisone (Topical) (Hydrocortisone), 1 APPLN TOP TID Ipratropium-Albuterol (Duoneb), 1 TREATMENT INH Q4HWA Risperidone (Risperdal), 1 MG PO HS Tiotropium [place] (Spiriva Handihaler), 1 CAP INH DAILY Warfarin Sod (Jantoven), 5 MG PO HS Levalbuterol Tartrate (Levalbuterol Tartrate Hfa), 2 PUFFS INH QID PRN for Shortness of Breath Allergies: No known drug allergies Historian: police, EMS Review of Systems Patient was uncooperative at this time and I was unable to perform proper 15 point review of systems Past Medical History Past Medical History: Please refer to HPI Past Surgical History: Please refer to HPI Family History Patient reports no known family medical history. Please refer to HPI Social History Please refer to HPI Hx Tobacco Use In Past Year?: Yes Smoking Status: Former Smoker Marital status: single Housing status: other ([facility]) Occupational Status: other (inmate) Allergies Coded Allergies: No Known Allergies (Unverified , 04/22/18) Current Medications Reported Home Medications Medications Dose Route/Sig Max Daily Dose Days Date Category Dose Instructions Levalbuterol Tartrate Hfa (Levalbuterol Tartrate) 45 Mcg/Act Aer 2 Puffs INH QID PRN 04/22/18 Reported Jantoven (Warfarin Sodium) 5 Mg Tab 5 Mg PO HS 04/22/18 Reported Spiriva Handihaler (Tiotropium [place]) 30 Puff/540 Mcg Aerp 1 Cap INH DAILY 04/22/18 Reported Risperdal (Risperidone) 1 Mg Tab 1 Mg PO HS 04/22/18 Reported Duoneb (Ipratropium-Albuterol) 3 Ml Nebu 1 Treatment INH Q4HWA 04/22/18 Reported Hydrocortisone (Hydrocortisone (Topical)) 2.5 % Lot 1 Appln TOP TID 04/22/18 Reported Diphenhydramine Hcl 50 Mg Cap 50 Mg PO HS 04/22/18 Reported Diltiazem Hcl Er (Diltiazem Hcl) 60 Mg Cap 60 Mg PO TID 04/22/18 Reported Digox (Digoxin) 250 Mcg Tab 250 Mcg PO DAILY 04/22/18 Reported Calcium + D (Calcium Carbonate-Vitamin D) 1 Tab Tab 1 Tab PO BID 04/22/18 Reported Lipitor (Atorvastatin Calcium) 10 Mg Tab 10 Mg PO HS 04/22/18 Reported Aspirin Chewable (Aspirin) 81 Mg Chew 162 Mg PO DAILY 04/22/18 Reported Alvesco (Ciclesonide) 160 Mcg/Act Aer 1 Puff INH BID 04/22/18 Reported Alendronate Sodium 70 Mg Tab 70 Mg PO WK 04/22/18 Reported TAKES ON THURSDAYS Physical Physical Exam Vital Signs: Date Time Temp Pulse Resp B/P (MAP) Pulse Ox O2 Delivery O2 Flow Rate FiO2 04/23/18 10:44 80 28 92 Nasal Cannula 45.0 60 04/23/18 08:00 90 High Flow Oxygen 04/23/18 07:40 36.4 80 20 103/65 (78) 91 High Flow Oxygen 04/23/18 07:03 80 24 90 Nasal Cannula 45.0 60 04/23/18 00:08 36.5 91 18 88/61 (70) 97 04/22/18 20:00 92 High Flow Oxygen 04/22/18 19:32 36.6 101 28 97/63 (74) 92 High Flow Oxygen 04/22/18 18:58 97 30 92 Nasal Cannula 45.0 60 04/22/18 17:30 36.5 100 20 96/62 85 Mask 13.0 04/22/18 16:07 97 18 101/72 94 CPAP 04/22/18 14:32 88 18 105/70 95 Room Air 04/22/18 13:54 90 04/22/18 13:09 94 CPAP 04/22/18 13:09 36.6 101 24 103/76 95 CPAP 04/22/18 13:09 95 CPAP 04/22/18 13:09 94 CPAP 04/22/18 13:00 101 92 40 04/22/18 12:59 101 28 94 BiPAP/CPAP 40 General Appearance: severe distress, cachetic Head: NORMOCEPHALIC, ATRAUMATIC Eyes: PERRLA, NO DISCHARGE, EOMI, SCLERAE NORMAL ENT: NORMAL EAR EXAM, NORMAL NASAL EXAM, other (Dry mucous membranes) Neck: NORMAL RANGE OF MOTION, NO TENDERNESS, TRACHEA MIDLINE, NO STRIDOR Respiratory: other (Tachypneic with decreased breath sounds bilaterally Velcro rales appreciated on expiration bilaterally) Cardiovasular: other (S1-S2 tachycardiac, systolic murmur best appreciated left upper sternal border) Abdomen: NON TENDER, NORMAL BOWEL SOUNDS, NO REBOUND, NO MASSES, NO GUARDING, NO ORGANOMEGALY Genitourinary - Male: EXTERNAL GENITALIA NORMAL Back: NORMAL INSPECTION, NO MIDLINE TENDERNESS, NO CVA TENDERNESS, NO PARAVERTEBRAL TTP Upper Extremities: NO EDEMA, NORMAL ROM, other (Bilateral digital clubbing) Lower Extremities: NO EDEMA, NO DEFORMITY, NORMAL ROM Pulses: carotid (R) (1+), carotid (L) (1+), dorsalis pedis (R) (1+), dorsalis pedis (L) (1+) Neuro: confused, other Reflexes: biceps (R) (2+), bicpes (L) (2+), patellar (R) (2+), patellar (L) (2+ ) Babinski Testing: right (downgoing), left (downgoing) Psychiatric: other (Patient notably removing his high-flow oxygen supplementation showing signs of confusion verses combative nature difficult to determine) Diagnostics Labs Results Past 24 Hours Test 04/22/18 13:00 04/22/18 13:02 04/22/18 13:17 04/22/18 13:20 Range/Units Prothrombin Time > 100.0 9.0-12.0 SECONDS Prothromb Time International Ratio > 10.0 0.9-1.1 Activated Partial Thromboplast Time 83.9 21.0-31.0 SECONDS Partial Thromboplastin Ratio 3.2 Sodium Level 136 136-145 mmol/L Potassium Level 4.5 3.5-5.1 mmol/L Chloride Level 106 98-107 mmol/L Carbon Dioxide Level 23 21-32 mmol/L Anion Gap 7.0 3-11 mmol/L Blood Urea Nitrogen 31 7-18 mg/dl Creatinine 1.21 0.60-1.40 mg/dl Est Creatinine Clear Calc Drug Dose 57.5 ml/min Estimated GFR () 73.4 Estimated GFR (Non- 63.3 BUN/Creatinine Ratio 25.4 10-20 Random Glucose 195 70-99 mg/dl Calcium Level 8.7 8.5-10.1 mg/dl Magnesium Level 2.0 1.8-2.4 mg/dl Total Bilirubin 1.0 0.2-1 mg/dl Direct Bilirubin 0-0.2 mg/dl Aspartate Amino Transf (AST/SGOT) 30 15-37 U/L Alanine Aminotransferase (ALT/SGPT) 24 12-78 U/L Alkaline Phosphatase 61 45-117 U/L Troponin I 0.102 0-0.045 ng/ml Pro-B-Type Natriuretic Peptide > 76012 0-900 pg/ml Total Protein 8.0 6.4-8.2 gm/dl Albumin 2.9 3.4-5.0 gm/dl Lipase 76 73-393 U/L Chemistry Specimen Hemolysis Venous Blood pH 7.40 7.36-7.41 Venous Blood Partial Pressure CO2 37 38.0-50.0 mmHg Venous Blood Partial Pressure O2 37 mmHg Venous Blood HCO3 22 mmol/L Venous Blood Oxygen Saturation 66.2 % Venous Blood Base Excess -2.1 mEq/L White Blood Count 9.55 4.8-10.8 K/uL Red Blood Count 5.27 4.7-6.1 M/uL Hemoglobin 14.8 14.0-18.0 g/dL Hematocrit 44.3 42-52 % Mean Corpuscular Volume 84.1 80-100 fL Mean Corpuscular Hemoglobin 28.1 25-34 pg Mean Corpuscular Hemoglobin Concent 33.4 32-36 g/dl Platelet Count 253 130-400 K/uL Mean Platelet Volume 10.2 7.4-10.4 fL Neutrophils (%) (Auto) 79.3 % Lymphocytes (%) (Auto) 9.7 % Monocytes (%) (Auto) 10.1 % Eosinophils (%) (Auto) 0.1 % Basophils (%) (Auto) 0.3 % Neutrophils # (Auto) 7.57 1.4-6.5 K/uL Lymphocytes # (Auto) 0.93 1.2-3.4 K/uL Monocytes # (Auto) 0.96 0.11-0.59 K/uL Eosinophils # (Auto) 0.01 0-0.5 K/uL Basophils # (Auto) 0.03 0-0.2 K/uL RDW Standard Deviation 48.5 36.4-46.3 fL RDW Coefficient of Variation 16.0 11.5-14.5 % Immature Granulocyte % (Auto) 0.5 % Immature Granulocyte # (Auto) 0.05 0.00-0.02 K/uL Digoxin Level 2.1 0.8-2.0 ng/ml Test 04/22/18 15:52 04/22/18 17:50 04/22/18 18:13 04/22/18 20:41 Range/Units Arterial Blood pH 7.41 7.43 7.35-7.45 Arterial Blood Partial Pressure CO2 33 31 35-46 mmHg Arterial Blood Partial Pressure O2 78 74 80-95 mm/Hg Arterial Blood HCO3 20 20 19-24 mmol/L Arterial Blood Oxygen Saturation 94.8 93.9 90-95 % Arterial Blood Base Excess -3.4 -3.1 -9-1.8 mEq/L Arterial Blood Gas Delivery 40% 10L Cedric Test POS POS POS Bedside Glucose 166 237 70-99 mg/dl Test 04/22/18 21:11 04/23/18 05:22 04/23/18 07:39 04/23/18 08:12 Range/Units Total Creatine Kinase 42 35 39-308 U/L Creatine Kinase MB 3.9 2.7 0.5-3.6 ng/ml Creatine Kinase MB Ratio 9.3 7.7 0-3.0 Troponin I 0.082 0.076 0-0.045 ng/ml White Blood Count 7.73 4.8-10.8 K/uL Red Blood Count 4.95 4.7-6.1 M/uL Hemoglobin 13.7 14.0-18.0 g/dL Hematocrit 41.4 42-52 % Mean Corpuscular Volume 83.6 80-100 fL Mean Corpuscular Hemoglobin 27.7 25-34 pg Mean Corpuscular Hemoglobin Concent 33.1 32-36 g/dl RDW Standard Deviation 48.2 36.4-46.3 fL RDW Coefficient of Variation 15.9 11.5-14.5 % Platelet Count 221 130-400 K/uL Mean Platelet Volume 10.8 7.4-10.4 fL Sodium Level 135 136-145 mmol/L Potassium Level 3.8 3.5-5.1 mmol/L Chloride Level 104 98-107 mmol/L Carbon Dioxide Level 24 21-32 mmol/L Anion Gap 7.0 3-11 mmol/L Blood Urea Nitrogen 26 7-18 mg/dl Creatinine 0.79 0.60-1.40 mg/dl Est Creatinine Clear Calc Drug Dose 77.0 ml/min Estimated GFR () 110.8 Estimated GFR (Non- 95.6 BUN/Creatinine Ratio 33.1 10-20 Random Glucose 156 70-99 mg/dl Calcium Level 7.3 8.5-10.1 mg/dl Procalcitonin 0.05 0-0.5 ng/ml Digoxin Level 1.7 0.8-2.0 ng/ml Bedside Glucose 180 70-99 mg/dl Prothrombin Time 81.6 9.0-12.0 SECONDS Prothromb Time International Ratio 8.1 0.9-1.1 Test 04/23/18 11:21 Range/Units Bedside Glucose 205 70-99 mg/dl Diagnostic Radiology Please refer to HPI EKG Please refer to HPI Impression Assessment and Plan 62-year-old gentleman admitted with acute on chronic hypoxic respiratory insufficiency: 1. Hypoxemia: Patient's hypoxemia is most likely primarily secondary to his underlying interstitial lung disease based off CT findings at this time. I do believe he is having an acute onset secondary to volume overload status with acute on chronic CHF exacerbation. Patient should continue on high-flow system. 2. ILD: Patient will require repeat CT evaluation after his acute respiratory distress has resolved as there is a great deal of motion artifact on his current CTA. It is highly likely that the patient has an underlying ILD but of unknown etiology/origin at this time. To be aggressive I would like to start the patient on prednisone 1.0 mg/kg daily which would be approximately 48 mg of methylprednisolone daily. Do this I will place the patient on 20 mg methylprednisolone IV t.i.d.. After the patient's stable eyes further workup with surgical lung biopsy may be warranted. I will send off for a QuantiFERON GOLD level on this patient as well as an Zenon level. As the patient is currently been treated with steroids sending off for a connective tissue disease and/or vasculitic panel for etiology of as ILD would be less sensitive. Further workup/serum workup is warranted when the patient is off steroids. 3. COPD: Patient has no defined history of COPD but I do believe we should continue his current nebulizer treatment and I will discontinue his inhalers as I do not believe the patient could possibly perform proper inhaler technique at this time. 4. Patient Care: Patient will require advanced nursing level of care as he is continually removing his high-flow oxygen system lipases him at risk for possible mechanical intubation. As the patient has elevated right ventricular pressures/pulmonary hypertension secondary to group 2 group 3 intubating this patient will increases his intra-thoracic pressure possibly decreasing his preload and create hemodynamic instability. To avoid this possibility at all cost increasing the patient's nursing care would be appropriate. I have spoken to the dye house vat worker and she is taking appropriate matters/steps at this time. 5. Infectious Disease: This time I will stop the patient's antibiotics as he has notably etiologies for shortness of breath and is procalcitonin was within normal limits. 6. VTE: I have discontinued the venous Doppler study as this patient's INR was greater than 10. Is highly unlikely that a venous thrombosis could occur with such an elevated INR level. Further evaluation with repeat CT angiogram/high- resolution CT scan to determine if the right lower lobe occlusive areas actually chronic clot and/or artifact will be warranted. Keeping the patient chronically anticoagulated at a therapeutic dose with either Lovenox or a NOAQ will be appropriate for long-term care. Would not initiate therapy at this time until his INR is less than 2.5. 7. Pulmonary Nodule: From the history I can gather would have to place this patient had a high risk for primary lung CA. He does have a 1.6 cm nodule pleural based in the right middle lobe. When the patient is stable repeat high- resolution CT scan as well as further evaluation is warranted. This may be via PET scan, bronchoscopy ache and/or transthoracic needle aspiration.
--- NOTE | 2018-04-23 11:53 | Cardiology Consultation ---
Cardiology Consultation Date of Consultation: Apr 23, 2018. Requesting Physician: Dr. Montoya Reason for Consultation: SOB Pt evaluation today including: conversation w/ patient, physical exam, lab review, review of studies, review of inpatient medication list, conversation w/ attending History of Present Illness This is a 62-year-old incarcerated gentleman who has a history of hypoxia as well as schizophrenia who presented to the emergency room on 08/12/2017 with palpitations, shortness of breath and chest discomfort. The symptoms evidently started on that day. At [facility] he was found to be in atrial fibrillation with a rapid heart rate in the 130s, he evidently did not have a history of that. He was describing sharp central chest discomfort and also a productive cough and wheezing. He had been treated for a COPD exacerbation from August 09 through August 16 with antibiotics, as well as IV steroids subsequently switched to oral. He was observed to be in rapid atrial fibrillation and was given metoprolol, he also seems to have a labile blood pressure and the beta-ayala was discontinued and he was started on digoxin. By August 14, 2017 he had return to sinus rhythm. Echocardiography that admission shows normal left ventricular size and function with mild right ventricular dilatation and severe mitral valve prolapse with moderate MR. A transesophageal echocardiogram was then performed to evaluate his mitral valve, that was done on October 18, 2017 and showed moderate mitral regurgitation with anterior mitral leaflet prolapse and eccentric mitral regurgitation. He now presents with acute respiratory distress, he presented to the emergency room and was placed on BiPAP. Apparently he wears oxygen continuously at the present, but continues to smoke. When he developed shortness of breath at the present initially attempts were made to control that they are however he continued to have low oxygen saturation and he was brought to the emergency room. At the time of my evaluation he is clearly uncomfortable, he is communicative but difficult to talk to (in part due to his mental status baseline and in part due to his respiratory distress) although he does not seem to be complaining much about shortness of breath. He is mostly complaining about his shackles, etc. and he keeps tugging at his pulmonary apparatus and disconnecting it. He denies chest discomfort. He is alert and awake. Past Medical/Surgical History (1) COPD (chronic obstructive pulmonary disease) (2) Asthma (3) A-fib Family History Patient reports no known family medical history. Social History Smoking Status: Former Smoker History of Alcohol Use: No Review of Systems Constitutional: No fever, No weight loss, No weakness Respiratory: + see HPI, + shortness of breath, + dyspnea on exertion, No cough , No wheezing Cardiac: No chest pain, No orthopnea, No PND, No edema, No palpitations Abdomen: No pain, No nausea, No vomiting, No diarrhea, No GI bleeding Male : No urinary frequency, No nocturia more than once/night, No slowing stream, No sexual dysfunction Neurologic: No paralysis, No weakness, No numbness/tingling, No balance problems Heme: No abnormal bleeding/bruising, No clotting problems Endo: No fatigue Skin: No problem reported All Other Systems: Reviewed and Negative Allergies Coded Allergies: No Known Allergies (Unverified , 04/22/18) Medications Current Inpatient Medications Medications (Trade) Dose Ordered Sig/Princess Route Start Time Stop Time Status Last Admin Dose Admin Ioversol (Optiray 320) 100 ml UD PRN IV 04/22/18 14:30 04/26/18 14:29 Acetaminophen (Tylenol Tab) 650 mg Q4H PRN PO 04/22/18 16:30 05/22/18 16:29 Al Hydrox/Mg Hydrox/Simethicone (Maalox Max Susp) 15 ml Q4H PRN PO 04/22/18 16:30 05/22/18 16:29 Magnesium Hydroxide (Milk Of Magnesia Susp) 30 ml Q12H PRN PO 04/22/18 16:30 05/22/18 16:29 Ondansetron HCl (Zofran Inj) 4 mg Q6H PRN IV 04/22/18 16:30 05/22/18 16:29 Polyethylene (Miralax Powder Packet) 17 gm DAILY PRN PO 04/22/18 16:30 05/22/18 16:29 Furosemide 40 mg/ Syringe 4 ml @ 4 mls/min BID17 IV 04/22/18 19:00 05/22/18 18:59 04/23/18 08:09 4 MLS/MIN Atorvastatin Calcium (Lipitor Tab) 10 mg HS PO 04/22/18 21:00 05/22/18 20:59 04/22/18 21:03 10 MG Digoxin (Lanoxin Tab) 0.25 mg DAILY@1600 PO 04/23/18 16:00 05/23/18 15:59 Future Hold Diltiazem HCl (Cardizem Sr) 60 mg TID PO 04/22/18 21:00 05/22/18 20:59 04/23/18 08:09 60 MG Albuterol/ Ipratropium (Duoneb) 3 ml Q4RWA INH 04/22/18 20:00 05/22/18 19:59 04/23/18 10:53 3 ML Risperidone (Risperdal Tab) 1 mg HS PO 04/22/18 21:00 05/22/18 20:59 04/22/18 21:03 1 MG Tiotropium [place] (Spiriva Handihaler Inhaler) 1 puff DAILY INH 04/23/18 09:00 05/23/18 08:59 Miscellaneous Information (Order Awaiting Action) 1 ea BID N/A 04/22/18 21:00 05/22/18 20:59 Insulin Aspart (novoLOG ASPART) SLIDING SCALE G... ACHS SC 04/22/18 21:00 05/22/18 20:59 04/23/18 08:12 5 UNITS Glucose (Glucose 40% Gel) 15-30 GRAMS 15 GRAMS... UD PRN PO 04/22/18 18:15 05/22/18 18:14 Glucose (Glucose Chew Tab) 4-8 Tablets 4 Tabl... UD PRN PO 04/22/18 18:15 05/22/18 18:14 Dextrose (Dextrose 50% 50ML Syringe) 25-50ML 25ML FOR ... UD PRN IV 04/22/18 18:15 05/22/18 18:14 Glucagon (Glucagon Inj) 1 mg UD PRN SQ 04/22/18 18:15 05/22/18 18:14 Carbohydrates (Carbohydrates For Hypoglycemia) 15-30 GRAMS 15 grams if BSG 54-69... UD PRN PO 04/22/18 18:15 05/22/18 18:14 Azithromycin (Zithromax Tab) 250 mg QD@16 PO 04/23/18 16:00 04/26/18 16:01 Physical Exam Vital Signs Past 12 Hours Date Time Temp Pulse Resp B/P (MAP) Pulse Ox O2 Delivery O2 Flow Rate FiO2 04/23/18 10:44 80 28 92 Nasal Cannula 45.0 60 04/23/18 08:00 90 High Flow Oxygen 04/23/18 07:40 36.4 80 20 103/65 (78) 91 High Flow Oxygen 04/23/18 07:03 80 24 90 Nasal Cannula 45.0 60 04/23/18 00:08 36.5 91 18 88/61 (70) 97 Constitutional: General Apperance: cachectic Level of Distress: moderate distress Psychiatric: Mental Status: active & alert Head: normocephalic Eyes: EOM: EOMI ENMT: normal ENT inspection, hearing grossly normal Neck: supple, no masses Lungs: Respiratory effort: dyspneic Auscultation: no wheezing, dry rales/crackles Cardiovascular: Heart Auscultation: RRR, no murmurs, no rubs, no gallops Peripheral Pulses: Bruits: none appreciated Abdomen: Bowel Sounds: normal Inspection & Palpation: soft, no tenderness, guarding & rebound, no masses Musculoskeletal: normal strength (5/5 throughout) Extremities: no edema Neurologic: Cranial Nerves: grossly intact Sensation: grossly intact Data Laboratory Results: Last 24 Hours Test 04/22/18 13:00 04/22/18 13:02 04/22/18 13:17 04/22/18 13:20 Prothrombin Time > 100.0 SECONDS Prothromb Time International Ratio > 10.0 Activated Partial Thromboplast Time 83.9 SECONDS Partial Thromboplastin Ratio 3.2 Sodium Level 136 mmol/L Potassium Level 4.5 mmol/L Chloride Level 106 mmol/L Carbon Dioxide Level 23 mmol/L Anion Gap 7.0 mmol/L Blood Urea Nitrogen 31 mg/dl Creatinine 1.21 mg/dl Est Creatinine Clear Calc Drug Dose 57.5 ml/min Estimated GFR () 73.4 Estimated GFR (Non- 63.3 BUN/Creatinine Ratio 25.4 Random Glucose 195 mg/dl Calcium Level 8.7 mg/dl Magnesium Level 2.0 mg/dl Total Bilirubin 1.0 mg/dl Direct Bilirubin mg/dl Aspartate Amino Transf (AST/SGOT) 30 U/L Alanine Aminotransferase (ALT/SGPT) 24 U/L Alkaline Phosphatase 61 U/L Troponin I 0.102 ng/ml Pro-B-Type Natriuretic Peptide > 64620 pg/ml Total Protein 8.0 gm/dl Albumin 2.9 gm/dl Lipase 76 U/L Chemistry Specimen Hemolysis Venous Blood pH 7.40 Venous Blood Partial Pressure CO2 37 mmHg Venous Blood Partial Pressure O2 37 mmHg Venous Blood HCO3 22 mmol/L Venous Blood Oxygen Saturation 66.2 % Venous Blood Base Excess -2.1 mEq/L White Blood Count 9.55 K/uL Red Blood Count 5.27 M/uL Hemoglobin 14.8 g/dL Hematocrit 44.3 % Mean Corpuscular Volume 84.1 fL Mean Corpuscular Hemoglobin 28.1 pg Mean Corpuscular Hemoglobin Concent 33.4 g/dl Platelet Count 253 K/uL Mean Platelet Volume 10.2 fL Neutrophils (%) (Auto) 79.3 % Lymphocytes (%) (Auto) 9.7 % Monocytes (%) (Auto) 10.1 % Eosinophils (%) (Auto) 0.1 % Basophils (%) (Auto) 0.3 % Neutrophils # (Auto) 7.57 K/uL Lymphocytes # (Auto) 0.93 K/uL Monocytes # (Auto) 0.96 K/uL Eosinophils # (Auto) 0.01 K/uL Basophils # (Auto) 0.03 K/uL RDW Standard Deviation 48.5 fL RDW Coefficient of Variation 16.0 % Immature Granulocyte % (Auto) 0.5 % Immature Granulocyte # (Auto) 0.05 K/uL Digoxin Level 2.1 ng/ml Test 04/22/18 15:52 04/22/18 17:50 04/22/18 18:13 04/22/18 20:41 Arterial Blood pH 7.41 7.43 Arterial Blood Partial Pressure CO2 33 mmHg 31 mmHg Arterial Blood Partial Pressure O2 78 mm/Hg 74 mm/Hg Arterial Blood HCO3 20 mmol/L 20 mmol/L Arterial Blood Oxygen Saturation 94.8 % 93.9 % Arterial Blood Base Excess -3.4 mEq/L -3.1 mEq/L Arterial Blood Gas Delivery 40% 10L Cedric Test POS POS Bedside Glucose 166 mg/dl 237 mg/dl Test 04/22/18 21:11 04/23/18 05:22 04/23/18 07:39 04/23/18 08:12 Total Creatine Kinase 42 U/L 35 U/L Creatine Kinase MB 3.9 ng/ml 2.7 ng/ml Creatine Kinase MB Ratio 9.3 7.7 Troponin I 0.082 ng/ml 0.076 ng/ml White Blood Count 7.73 K/uL Red Blood Count 4.95 M/uL Hemoglobin 13.7 g/dL Hematocrit 41.4 % Mean Corpuscular Volume 83.6 fL Mean Corpuscular Hemoglobin 27.7 pg Mean Corpuscular Hemoglobin Concent 33.1 g/dl RDW Standard Deviation 48.2 fL RDW Coefficient of Variation 15.9 % Platelet Count 221 K/uL Mean Platelet Volume 10.8 fL Sodium Level 135 mmol/L Potassium Level 3.8 mmol/L Chloride Level 104 mmol/L Carbon Dioxide Level 24 mmol/L Anion Gap 7.0 mmol/L Blood Urea Nitrogen 26 mg/dl Creatinine 0.79 mg/dl Est Creatinine Clear Calc Drug Dose 77.0 ml/min Estimated GFR () 110.8 Estimated GFR (Non- 95.6 BUN/Creatinine Ratio 33.1 Random Glucose 156 mg/dl Calcium Level 7.3 mg/dl Procalcitonin 0.05 ng/ml Digoxin Level 1.7 ng/ml Bedside Glucose 180 mg/dl Prothrombin Time 81.6 SECONDS Prothromb Time International Ratio 8.1 Test 04/23/18 11:21 Bedside Glucose 205 mg/dl Imaging: chest x-ray shows chronic interstitial lung disease EKG: Sinus rhythm, nonspecific ST-T abnormalities Telemetry reviewed: Sinus rhythm and sinus tachycardia Echocardiogram: I reviewed his echocardiogram, it will be formally read later. He has a very enlarged right heart, with evidence of pressure overload with left ventricular septal collapse. The left ventricle appears to function well. Assessment & Plan 1. Shortness of breath: This appears to be primary pulmonary process, I suspect he does have elevated left ventricular end-diastolic pressures due to mitral regurgitation and right ventricular pressure overload collapsing his left ventricle. I do not think there is much we can do about it, he certainly is not a candidate for surgical intervention and I do not think he is in a lot of heart failure although gentle diuresis may be in order. Gentle diuresis to see whether we can remove some fluid (he is very thin and he does not seem to have a lot of excess fluid) could be performed, closely watching for signs of poor cardiac output from decreased preload (low blood pressure and elevated creatinine). I have not attempted to do this. 2. Atrial fibrillation: We have not observed atrial fibrillation this visit but I would continue digoxin and diltiazem if possible, if he becomes hypotensive we could discontinue the diltiazem but he may decompensate if he goes into atrial fibrillation at a rapid heart rate. 3. Elevated troponin: He did have a slightly elevated troponin on admission with a descending pattern, this is consistent with demand ischemia and I would not pursue coronary evaluation. Thank you for allowing me to participate in his care.
--- NOTE | 2018-04-23 14:13 | Progress Note ---
Subjective Date of Service: Apr 23, 2018. Subjective Pt evaluation today including: conversation w/ patient, physical exam, chart review, lab review, review of studies, conversation w/ system sales consultant, review of inpatient medication list Mildly anxious, urination by himself , awake and alert orientated, know name, birthday, and place, Problem List Medical Problems: (1) Acute and chronic respiratory failure with hypoxia Status: Acute (2) CHF (congestive heart failure) Status: Acute (3) Chronic pulmonary embolism Status: Acute (4) Pulmonary embolism Status: Acute Review of Systems Constitutional: + weakness, + fatigue ENT: No hearing loss, No unusual epistaxis Respiratory: + shortness of breath, + dyspnea at rest (Mild), No cough, No sputum Cardiac: No chest pain, No orthopnea Abdomen: No see HPI, No pain, No nausea, No vomiting, No diarrhea, No constipation, No GI bleeding, No problem reported Male : No see HPI, No dysuria, No urinary frequency, No incontinence, No nocturia more than once/night, No slowing stream, No hematuria, No sexual dysfunction, No problem reported Psychiatric: No see HPI, No depression symptoms, No anhedonism, No anxiety, No insomnia, No substance abuse, No problem reported Heme: No see HPI, No abnormal bleeding/bruising, No clotting problems, No swollen lymph nodes, No night sweats, No problem reported Endo: No see HPI, No fatigue, No excessive thirst, No excessive urination, No problem reported Objective Vital Signs Date Time Temp Pulse Resp B/P (MAP) Pulse Ox O2 Delivery O2 Flow Rate FiO2 04/23/18 12:00 91 High Flow Oxygen 04/23/18 12:00 36.6 94 28 105/67 (80) 91 High Flow Oxygen 45.0 65 04/23/18 11:22 36.3 91 20 99/65 (76) 92 Room Air 04/23/18 10:44 80 28 92 Nasal Cannula 45.0 60 04/23/18 08:00 90 High Flow Oxygen 04/23/18 07:40 36.4 80 20 103/65 (78) 91 High Flow Oxygen 04/23/18 07:03 80 24 90 Nasal Cannula 45.0 60 04/23/18 00:08 36.5 91 18 88/61 (70) 97 04/22/18 20:00 92 High Flow Oxygen 04/22/18 19:32 36.6 101 28 97/63 (74) 92 High Flow Oxygen 04/22/18 18:58 97 30 92 Nasal Cannula 45.0 60 04/22/18 17:30 36.5 100 20 96/62 85 Mask 13.0 04/22/18 16:07 97 18 101/72 94 CPAP 04/22/18 14:32 88 18 105/70 95 Room Air Physical Exam General Appearance: WD/WN, + thin, + pertinent finding (Pale frail, chronically ill looking,) Eyes: normal inspection, PERRL, EOMI, sclerae normal ENT: normal ENT inspection, hearing grossly normal, pharynx normal Neck: supple, no adenopathy, thyroid normal, no JVD, no carotid bruits, trachea midline Respiratory/Chest: normal breath sounds, no respiratory distress, no accessory muscle use, + decreased breath sounds Cardiovascular: regular rate, rhythm, no edema, no gallop, no JVD, no murmur Abdomen: normal bowel sounds, non tender, soft, no organomegaly, no pulsatile mass Extremities: normal range of motion, non-tender, normal inspection, no pedal edema, no calf tenderness, normal capillary refill, pelvis stable Neurologic/Psychiatric: division operations specialist II-XII nml as tested, no motor/sensory deficits Skin: normal color, warm/dry, no rash Laboratory Results Last 24 Hours Test 04/22/18 15:52 04/22/18 17:50 04/22/18 18:13 04/22/18 20:41 Arterial Blood pH 7.41 7.43 Arterial Blood Partial Pressure CO2 33 mmHg 31 mmHg Arterial Blood Partial Pressure O2 78 mm/Hg 74 mm/Hg Arterial Blood HCO3 20 mmol/L 20 mmol/L Arterial Blood Oxygen Saturation 94.8 % 93.9 % Arterial Blood Base Excess -3.4 mEq/L -3.1 mEq/L Arterial Blood Gas Delivery 40% 10L Cedric Test POS POS Bedside Glucose 166 mg/dl 237 mg/dl Test 04/22/18 21:11 04/23/18 05:22 04/23/18 07:39 04/23/18 08:12 Total Creatine Kinase 42 U/L 35 U/L Creatine Kinase MB 3.9 ng/ml 2.7 ng/ml Creatine Kinase MB Ratio 9.3 7.7 Troponin I 0.082 ng/ml 0.076 ng/ml White Blood Count 7.73 K/uL Red Blood Count 4.95 M/uL Hemoglobin 13.7 g/dL Hematocrit 41.4 % Mean Corpuscular Volume 83.6 fL Mean Corpuscular Hemoglobin 27.7 pg Mean Corpuscular Hemoglobin Concent 33.1 g/dl RDW Standard Deviation 48.2 fL RDW Coefficient of Variation 15.9 % Platelet Count 221 K/uL Mean Platelet Volume 10.8 fL Sodium Level 135 mmol/L Potassium Level 3.8 mmol/L Chloride Level 104 mmol/L Carbon Dioxide Level 24 mmol/L Anion Gap 7.0 mmol/L Blood Urea Nitrogen 26 mg/dl Creatinine 0.79 mg/dl Est Creatinine Clear Calc Drug Dose 77.0 ml/min Estimated GFR () 110.8 Estimated GFR (Non- 95.6 BUN/Creatinine Ratio 33.1 Random Glucose 156 mg/dl Calcium Level 7.3 mg/dl Procalcitonin 0.05 ng/ml Digoxin Level 1.7 ng/ml Bedside Glucose 180 mg/dl Prothrombin Time 81.6 SECONDS Prothromb Time International Ratio 8.1 Test 04/23/18 11:21 04/23/18 12:12 Bedside Glucose 205 mg/dl Assessment and Plan 62 y/o male admitted on April 22, 2018 because of hypoxia acute on chronic respiratory failure, History of a-fib, HLD, asthma/COPD, prediabetes, schizophrenia, anxiety, intellectual disability, HCV and osteoporosis pt came to the ED from [facility] on 04/22 with acute on chronic hypoxic respiratory failure. was tachycardic and tachypneic on arrival, improved on BiPAP and hour-long nebulizer treatment Acute on chronic hypoxic respiratory failure, ILD, COPD Acute congestive heart failure, unknown diastolic vs systolic Severe interstitial lung disease, possible chronic PE Supratherapeutic INR, hx of PAF, upon admission upon admission due to possible age indeterminate PE, will hold off on INR reversal , today's INR is 8.1, patient continues no sign of bleeding Chest CT was done that reportedly:. Cardiomegaly and small pericardial effusion. Marked dilatation of the pulmonary trunk indicates pulmonary artery hypertension. There are linear filling defects identified within the right lower lobe pulmonary artery which extend into segmental branches. Although some of this could represent mixing artifact, this is concerning for age indeterminant and likely chronic pulmonary embolus. 1.6 cm pleural-based nodule in the anterior right middle lobe, A 2-3 month follow-up chest CT is recommended for reassessment. end-stage medical condition, express clerk saw patient, through no benefit for aggressive CPR or ventilator support, recommend palliative care consult and arranging an ethics committee meeting to also to have the alf system and hospital administration involved to move towards court appointed healthcare surrogate. cont telemetry, high flow oxygen support, Daily weights, strict I's & O's, Lasix 40 mg IV BID Continue diltiazem and digoxin Pulmonary nodule, 1.6 cm pleural based nodule anterior right middle lobe. Recommend f/u chest CT in 2-3 months Elevated troponin, likely demand ischemia or related to possible PE, Asthma/COPD , ILD, Continue [place] BID, Spiriva, DuoNebs q4hWA Schizophrenia, Continue Risperdal 1 mg PO hs Continue above current care, possible poor prognosis, DVT prophylaxis, Warfarin supratherapeutic , Level I, FULL RESUSCITATION STATUS Continued [facility] stay due to: multiple IV medications needed Discharge planning: home
--- NOTE | 2018-04-23 15:34 | ECHOCARDIOGRAM REPORT ---
*NOTICE TO RECEIVING CONSTITUTION PARTY AGENCY This information is strictly Confidential and protected under [place] law. [place] law prohibits you from making any further disclosure of this information unless further disclosure is expressly permitted by the written consent of the person to whom it pertains or is authorized by law. A general authorization for the release of medical or other information is not sufficient for this purpose. Hospital accepts no responsibility if the information is made available to any other person, INCLUDING THE PATIENT. Interpretation Summary * Name: LUCILA ONTIVEROS [id number] Study Date: 04/23/2018 06:59 AM BP: 88/61 mmHg * Patient Location: C.2T\S\S237\S\1 HR: 91 * : 1955 (M/d/yyyy) Gender: Male Height: 70 in * Age: 62 yrs Ethnicity: CA Weight: 143 lb * Ordering Physician: Iwona Rodriguez * Referring Physician: Magnus PARDO * Performed By: Kirsten Toro RDCS * * Reason For Study: CHF * BSA: 1.8 m2 * -- Conclusions -- * 1. Normal LV size. Mild concentric LVH. * 2. Normal LV systolic function. LVEF 65-70 %. Flattened septum consistent with RV volume/pressure overload. * 3. Severely dilated RV with mild RV dysfunction. * 4. Severe anterior leaflet prolapse with moderate eccentric mitral regurgitation. * 5. Severe pulmonary hypertension. Estimated PASP 65-70. Estimated RA 8 mmHg. * 6. Compared with prior study on 08/13/2017: Severe pulmonary hypertension and severely dilated RV are new. Procedure Details * A complete two-dimensional transthoracic echocardiogram was performed (2D, M-mode, Doppler and color flow Doppler). Left Ventricle * The left ventricle is grossly normal size. * There is mild concentric left ventricular hypertrophy. * Ejection Fraction = 65-70%. * Flattened septum is consistent with RV pressure/volume overload. Right Ventricle * The right ventricle is severely dilated. * The right ventricular systolic function is mildly reduced. Atria * The left atrium is mildly dilated. * The right atrium is severely dilated. * No ASD detected; PFO is not assessed. Mitral Valve * Prolapse of the anterior mitral leaflet. * There is no mitral valve stenosis. * The mitral regurgitant jet is eccentrically directed. * There is moderate mitral regurgitation. Tricuspid Valve * There is mild tricuspid regurgitation. * Right ventricular systolic pressure is elevated at >60mmHg. Aortic Valve * The aortic valve opens well. * The aortic valve is trileaflet. * No hemodynamically significant valvular aortic stenosis. * There is no significant aortic regurgitation. Pulmonic Valve * The pulmonary valve is inadequately visualized, but the Doppler data is adequate for interpretation. * Pulmonic stenosis is absent. * There is no significant pulmonary regurgitation. Great Vessels * The aortic root and proximal ascending aorta are normal sized. Pericardium/Pleural * There is no pericardial effusion. Great Vessels * Est RA 8mmHg (IVC >2.1, >50% change with respiration) MMode 2D Measurements and Calculations IVSd 1.3 cm IVSs 1.7 cm LVIDd 4.4 cm LVIDs 2.4 cm LVPWd 1.4 cm LVPWs 2.6 cm IVS/LVPW 0.94 FS 46.6 % EDV(Teich) 87.9 ml ESV(Teich) 19.2 ml EF(Teich) 78.2 % EDV(cubed) 85.4 ml ESV(cubed) 13.0 ml EF(cubed) 84.7 % % IVS thick 32.2 % % LVPW thick 80.6 % LV mass(C)d 232.2 grams LV mass(C)dI 128.3 grams/m\S\2 LV mass(C)s 234.8 grams LV mass(C)sI 129.7 grams/m\S\2 SV(Teich) 68.7 ml SI(Teich) 37.9 ml/m\S\2 SV(cubed) 72.4 ml SI(cubed) 40.0 ml/m\S\2 ACS 1.5 cm LA dimension 3.5 cm asc Aorta Diam 3.1 cm LVOT diam 2.0 cm LVOT area 3.3 cm\S\2 LVAd ap4 20.8 cm\S\2 LVLd ap4 7.1 cm EDV(MOD-sp4) 51.7 ml EDV(sp4-el) 51.8 ml LVAs ap4 9.0 cm\S\2 LVLs ap4 6.0 cm ESV(MOD-sp4) 10.8 ml ESV(sp4-el) 11.4 ml EF(MOD-sp4) 79.0 % EF(sp4-el) 78.1 % LVAd ap2 29.6 cm\S\2 LVLd ap2 8.3 cm EDV(MOD-sp2) 86.6 ml EDV(sp2-el) 89.7 ml LVAs ap2 10.6 cm\S\2 LVLs ap2 5.6 cm ESV(MOD-sp2) 16.0 ml ESV(sp2-el) 17.1 ml EF(MOD-sp2) 81.6 % EF(sp2-el) 81.0 % LVLd %diff 14.4 % EDV(MOD-bp) 72.1 ml LVLs %diff -7.39 % ESV(MOD-bp) 13.2 ml EF(MOD-bp) 81.7 % SV(MOD-sp4) 40.8 ml SI(MOD-sp4) 22.6 ml/m\S\2 SV(MOD-sp2) 70.6 ml SI(MOD-sp2) 39.0 ml/m\S\2 SV(MOD-bp) 58.9 ml SI(MOD-bp) 32.6 ml/m\S\2 SV(sp4-el) 40.4 ml SI(sp4-el) 22.3 ml/m\S\2 SV(sp2-el) 72.7 ml SI(sp2-el) 40.2 ml/m\S\2 Doppler Measurements and Calculations MV E max herve 72.8 cm/sec MV A max herve 78.7 cm/sec MV E/A 0.92 MV dec time 0.14 sec Ao V2 max 126.2 cm/sec Ao max PG 6.4 mmHg Ao max PG (full) 3.1 mmHg PARTHA(V,A) 2.3 cm\S\2 PARTHA(V,D) 2.3 cm\S\2 LV V1 max PG 3.3 mmHg LV V1 max 90.6 cm/sec MR max herve 221.8 cm/sec MR max PG 19.7 mmHg PA V2 max 43.1 cm/sec PA max PG 0.74 mmHg TR max herve 362.9 cm/sec
[2018-04-23] MEDS ORDERED: DIGOXIN 0.25 MG TAB PO SCH (16:00)
[2018-04-23] MEDS: AZITHROMYCIN 250 MG TAB PO SCH (16:44)
[2018-04-23] MEDS: RISPERIDONE 1 MG TAB PO SCH (20:58)
[2018-04-23] MEDS: ATORVASTATIN 10 MG TAB PO SCH (20:58)
[2018-04-24] VITALS (11 sets, daily range): BP systolic 91–100; BP diastolic 60–66; PULSE 80–92; TEMP 36.3–36.8; O2SAT 86–99
[2018-04-24] MEDS: ALBUT/IPRATROP 3MG/0.5MG NEB 3 ML VIAL INH SCH ×5 (01:53→18:51)
[2018-04-24 05:47] LABS: HEMOGLOBIN A1C 6.3 % (4.5-5.6)
[2018-04-24 06:34] LABS: HEMATOCRIT 40.6 % (42-52); HEMOGLOBIN 13.6 g/dL (14.0-18.0); MEAN CELL VOLUME 84.2 fL (80-100); MEAN CORPUSCULAR HEMOGLOBIN 28.2 pg (25-34); MEAN CORPUSCULAR HGB CONC 33.5 g/dl (32-36); MEAN PLATELET VOLUME 10.9 fL (7.4-10.4); PLATELET COUNT 232 K/uL (130-400); RED CELL DISTRIBUTION WIDTH CV 15.7 % (11.5-14.5); WHITE BLOOD COUNT 12.35 K/uL (4.8-10.8)
[2018-04-24 06:59] LABS: INR 1.5 (0.9-1.1)
[2018-04-24 07:10] LABS: CALCIUM 7.2 mg/dl (8.5-10.1); CREATININE 0.7 mg/dl (0.60-1.40); POTASSIUM 3.6 mmol/L (3.5-5.1)
[2018-04-24] MEDS: DILTIAZEM SR 60 MG CAP PO SCH ×4 (08:06→21:34)
[2018-04-24] MEDS: TIOTROPIUM BROMIDE 5 PUFF/90 MCG INH INH SCH (08:12)
[2018-04-24] MEDS: FUROSEMIDE INJ 40 MG in SYRINGE 0 ML IV SCH ×2 (08:13→17:15)
[2018-04-24] MEDS: INSULIN ASPART 100 UNITS/ML 3 ML PEN SC SCH ×4 (08:16→21:33)
--- NOTE | 2018-04-24 08:18 | Progress Note ---
Subjective Date of Service: Apr 24, 2018. Subjective Pt appears short of breath and anxious, has no other immediate issues Problem List Medical Problems: (1) Acute and chronic respiratory failure with hypoxia Status: Acute (2) CHF (congestive heart failure) Status: Acute (3) Chronic pulmonary embolism Status: Acute (4) Pulmonary embolism Status: Acute Review of Systems Constitutional: + weakness, + fatigue, No fever, No chills Respiratory: + cough, + shortness of breath, + dyspnea on exertion, + dyspnea at rest, No sputum, No wheezing Abdomen: No pain, No nausea, No vomiting, No diarrhea Male : No dysuria, No incontinence Psychiatric: + anxiety, No depression symptoms Objective Vital Signs Date Time Temp Pulse Resp B/P (MAP) Pulse Ox O2 Delivery O2 Flow Rate FiO2 04/24/18 07:42 36.6 80 22 97/61 (73) 93 High Flow Oxygen 04/24/18 07:00 80 22 96 Nasal Cannula 50.0 60 04/24/18 04:09 36.7 80 21 91/60 (70) 96 04/24/18 01:54 82 22 91 Nasal Cannula 50.0 60 04/23/18 23:42 37.1 87 19 90/59 (69) 100 04/23/18 22:38 High Flow Oxygen 50.0 80 04/23/18 20:12 85 22 91 Nasal Cannula 45.0 60 04/23/18 20:01 36.6 91 28 102/66 (78) 90 High Flow Oxygen 04/23/18 20:00 High Flow Oxygen 50.0 80 04/23/18 16:00 36.6 90 22 101/69 (80) 91 High Flow Oxygen 04/23/18 14:40 87 22 91 Nasal Cannula 45.0 60 04/23/18 14:00 87 24 95/63 (74) 88 High Flow Oxygen 04/23/18 12:00 91 High Flow Oxygen 04/23/18 12:00 36.6 94 28 105/67 (80) 91 High Flow Oxygen 45.0 65 04/23/18 11:22 36.3 91 20 99/65 (76) 92 Room Air 04/23/18 10:44 80 28 92 Nasal Cannula 45.0 60 Physical Exam General Appearance: + mild distress, + thin Eyes: normal inspection, sclerae normal Respiratory/Chest: + respiratory distress, + decreased breath sounds, + accessory muscle use, + rales Cardiovascular: regular rate, rhythm, + systolic murmur Abdomen: normal bowel sounds, non tender, soft Extremities: no pedal edema, no calf tenderness Neurologic/Psychiatric: alert, oriented x 3 Skin: normal color, no rash Laboratory Results Last 24 Hours Test 04/23/18 11:21 04/23/18 12:12 04/23/18 15:48 04/23/18 20:55 Bedside Glucose 205 mg/dl 143 mg/dl 116 mg/dl Test 04/24/18 05:40 04/24/18 07:25 White Blood Count 12.35 K/uL Red Blood Count 4.82 M/uL Hemoglobin 13.6 g/dL Hematocrit 40.6 % Mean Corpuscular Volume 84.2 fL Mean Corpuscular Hemoglobin 28.2 pg Mean Corpuscular Hemoglobin Concent 33.5 g/dl RDW Standard Deviation 48.0 fL RDW Coefficient of Variation 15.7 % Platelet Count 232 K/uL Mean Platelet Volume 10.9 fL Prothrombin Time 15.2 SECONDS Prothromb Time International Ratio 1.5 Sodium Level 135 mmol/L Potassium Level 3.6 mmol/L Chloride Level 102 mmol/L Carbon Dioxide Level 27 mmol/L Anion Gap 6.0 mmol/L Blood Urea Nitrogen 30 mg/dl Creatinine 0.70 mg/dl Est Creatinine Clear Calc Drug Dose 86.9 ml/min Estimated GFR () 116.4 Estimated GFR (Non- 100.4 BUN/Creatinine Ratio 42.3 Random Glucose 99 mg/dl Calcium Level 7.2 mg/dl Pro-B-Type Natriuretic Peptide 4135 pg/ml Bedside Glucose 97 mg/dl Assessment and Plan (1) Acute and chronic respiratory failure with hypoxia Assessment & Plan: this pt has multiple reasons for SOB There is some discussion for ILD on a baseline of COPD, severe pulmonary hypertension seen on ECHO Still requiring high flow oxygen there was some discussion with patient about if he wanted aggressive management into this problem and after this information was presented all he said was " I want ice water" (2) COPD (chronic obstructive pulmonary disease) Assessment & Plan: question if a mild exacerbation, on azithro and spiriva, started in iv solumedrol 04/24 (3) Atrial fibrillation Assessment & Plan: Was seen by cardiology, in NSR at this time, recommendation to continue Digoxin, diltiazem (4) Elevated troponin Assessment & Plan: cardiology does not feel is nstemi or type 2 ME, likely influenced by hypoxia (5) Prothrombin time increased due to coumadin Assessment & Plan: Initially was with INR>10, now normalized (6) Chronic diastolic heart failure due to valvular disease Assessment & Plan: as in acute phase early, now with IV lasix is compensated but still with high oxygen requirements Continued [facility] stay due to: multiple IV medications needed Discharge planning: home Problem Qualifiers (1) Atrial fibrillation: Atrial fibrillation type: chronic Qualified Codes: I48.2 - Chronic atrial fibrillation
--- NOTE | 2018-04-24 15:07 | Pulmonology Progress Note ---
Pulmonary Progress Note Date of Service Apr 24, 2018. Attending Dr. Junior Subjective The patient continued to be short of breath, continue to require high FiO2 via heated oxygen. Patient did not have any chest pain. Patient is very poor historian, apparently has been short of breath for the past 3 and half years according to the guards who are with him. He has been incarcerated for over 30 years in assisted. The patient was admitted to the hospital with diagnosis of pulmonary fibrosis, pulmonary hypertension, possible PE in the right pulmonary artery. Objective Physical exam on 04/24/2018 showed cachectic gentleman, somewhat confused, O2 saturation registered at 88% on high flow nasal cannula with heated oxygen, no JVP, S1-S2 regular rate and rhythm with tachycardia, bilateral diffuse crackles , abdomen is benign, no edema. Cachexia. Neurologically he is nonfocal. But overall weak. His CAT scan of the chest was reviewed personally which showed bilateral honeycombing which affect every single segment of his lungs bilaterally. Severe dilation of the pulmonary arteries noted. The patient had echocardiogram which revealed PA pressure of 75 with normal ejection fraction. The patient had pulmonary function test with diffusion capacity of 27% and his FEV1 is also 27%. Assessment & Plan 1. Acute on chronic hypoxic respiratory failure. 2. IPF with exacerbation. 3. Congestive heart failure likely diastolic due to above. 4. Severe pulmonary hypertension with PA pressure of 75 on recent echo. 5. Given the above findings in a patient who does not have any industrial exposures, the likelihood of idiopathic pulmonary fibrosis versus other entities such as connective tissue disease or HIV-induced interstitial pulmonary fibrosis. Plan: 1. Continue with high flow oxygen. 2. Evaluation with serology is warranted. 3. Obtain HIV status. 4. I will start the patient on systemic steroids. Although the benefit could be very marginal. 5. Continue bronchodilator given his history of smoking, according to the cause , he has been smoking several material other than just tobacco. 6. PA catheter with vasodilator trial is warranted as well, however the patient is incarcerated, and likely will be difficult to manage his pulmonary hypertension. 7. The patient does not have a guardian, ethics committee consult is highly appreciated. 8. Palliative care consult. 9. Address CODE STATUS. 10. Discussed with Dr. Werner. Appreciate his input. Data Medications: Current Inpatient Medications Medications (Trade) Dose Ordered Sig/Pricness Route Start Time Stop Time Status Last Admin Dose Admin Ioversol (Optiray 320) 100 ml UD PRN IV 04/22/18 14:30 04/26/18 14:29 Acetaminophen (Tylenol Tab) 650 mg Q4H PRN PO 04/22/18 16:30 05/22/18 16:29 Al Hydrox/Mg Hydrox/Simethicone (Maalox Max Susp) 15 ml Q4H PRN PO 04/22/18 16:30 05/22/18 16:29 Magnesium Hydroxide (Milk Of Magnesia Susp) 30 ml Q12H PRN PO 04/22/18 16:30 05/22/18 16:29 Ondansetron HCl (Zofran Inj) 4 mg Q6H PRN IV 04/22/18 16:30 05/22/18 16:29 Polyethylene (Miralax Powder Packet) 17 gm DAILY PRN PO 04/22/18 16:30 05/22/18 16:29 Furosemide 40 mg/ Syringe 4 ml @ 4 mls/min BID17 IV 04/22/18 19:00 05/22/18 18:59 04/24/18 08:13 4 MLS/MIN Atorvastatin Calcium (Lipitor Tab) 10 mg HS PO 04/22/18 21:00 05/22/18 20:59 04/23/18 20:58 10 MG Digoxin (Lanoxin Tab) 0.25 mg DAILY@1600 PO 04/23/18 16:00 05/23/18 15:59 Future Hold Diltiazem HCl (Cardizem Sr) 60 mg TID PO 04/22/18 21:00 05/22/18 20:59 04/24/18 08:17 60 MG Albuterol/ Ipratropium (Duoneb) 3 ml Q4RWA INH 04/22/18 20:00 05/22/18 19:59 04/24/18 11:11 3 ML Risperidone (Risperdal Tab) 1 mg HS PO 04/22/18 21:00 05/22/18 20:59 04/23/18 20:58 1 MG Tiotropium [place] (Spiriva Handihaler Inhaler) 1 puff DAILY INH 04/23/18 09:00 05/23/18 08:59 04/24/18 08:12 1 PUFF Miscellaneous Information (Order Awaiting Action) 1 ea BID N/A 04/22/18 21:00 05/22/18 20:59 Insulin Aspart (novoLOG ASPART) SLIDING SCALE G... ACHS SC 04/22/18 21:00 05/22/18 20:59 04/24/18 11:56 8 UNITS Glucose (Glucose 40% Gel) 15-30 GRAMS 15 GRAMS... UD PRN PO 04/22/18 18:15 05/22/18 18:14 Glucose (Glucose Chew Tab) 4-8 Tablets 4 Tabl... UD PRN PO 04/22/18 18:15 05/22/18 18:14 Dextrose (Dextrose 50% 50ML Syringe) 25-50ML 25ML FOR ... UD PRN IV 04/22/18 18:15 05/22/18 18:14 Glucagon (Glucagon Inj) 1 mg UD PRN SQ 04/22/18 18:15 05/22/18 18:14 Carbohydrates (Carbohydrates For Hypoglycemia) 15-30 GRAMS 15 grams if BSG 54-69... UD PRN PO 04/22/18 18:15 05/22/18 18:14 Azithromycin (Zithromax Tab) 250 mg QD@16 PO 04/23/18 16:00 04/26/18 16:01 04/23/18 16:44 250 MG I & O: 24-Hour Column 04/25/18 08:00 Intake Total 1210 ml Output Total 700 ml Balance 510 ml Vital Signs: Date Time Temp Pulse Resp B/P (MAP) Pulse Ox O2 Delivery O2 Flow Rate FiO2 04/24/18 11:44 36.5 84 20 100/62 (75) 92 High Flow Oxygen 04/24/18 11:12 92 22 86 Nasal Cannula 45.0 55 04/24/18 08:00 High Flow Oxygen 04/24/18 07:42 36.6 80 22 97/61 (73) 93 High Flow Oxygen 04/24/18 07:00 80 22 96 Nasal Cannula 50.0 60 04/24/18 04:09 36.7 80 21 91/60 (70) 96 04/24/18 01:54 82 22 91 Nasal Cannula 50.0 60 04/23/18 23:42 37.1 87 19 90/59 (69) 100 04/23/18 22:38 High Flow Oxygen 50.0 80 04/23/18 20:12 85 22 91 Nasal Cannula 45.0 60 04/23/18 20:01 36.6 91 28 102/66 (78) 90 High Flow Oxygen 04/23/18 20:00 High Flow Oxygen 50.0 80 04/23/18 16:00 36.6 90 22 101/69 (80) 91 High Flow Oxygen Laboratory Results: Last 24 Hours Test 04/23/18 15:48 04/23/18 20:55 04/24/18 05:40 04/24/18 07:25 Bedside Glucose 143 mg/dl 116 mg/dl 97 mg/dl White Blood Count 12.35 K/uL Red Blood Count 4.82 M/uL Hemoglobin 13.6 g/dL Hematocrit 40.6 % Mean Corpuscular Volume 84.2 fL Mean Corpuscular Hemoglobin 28.2 pg Mean Corpuscular Hemoglobin Concent 33.5 g/dl RDW Standard Deviation 48.0 fL RDW Coefficient of Variation 15.7 % Platelet Count 232 K/uL Mean Platelet Volume 10.9 fL Prothrombin Time 15.2 SECONDS Prothromb Time International Ratio 1.5 Sodium Level 135 mmol/L Potassium Level 3.6 mmol/L Chloride Level 102 mmol/L Carbon Dioxide Level 27 mmol/L Anion Gap 6.0 mmol/L Blood Urea Nitrogen 30 mg/dl Creatinine 0.70 mg/dl Est Creatinine Clear Calc Drug Dose 86.9 ml/min Estimated GFR () 116.4 Estimated GFR (Non- 100.4 BUN/Creatinine Ratio 42.3 Random Glucose 99 mg/dl Calcium Level 7.2 mg/dl Pro-B-Type Natriuretic Peptide 4135 pg/ml
--- NOTE | 2018-04-24 15:41 | Palliative Care Consultation ---
Consultation Date of Consultation: Apr 24, 2018. Requesting Physician: Dr. Romero Attending Physician: Dr. Werner Reason for Consultation: Goals of care History of Present Illness This 62 year old male patient with PMH interstitial lung disease, Afib, advanced COPD with chronic respiratory failure on intermittent oxygen at [facility], schizophrenia, anxiety, intellectual disability, HCV, osteoporosis, and others listed below, presented to the hospital two days ago with c/o respiratory distress and hypoxia. History obtained from record and report as patient is poor historian. Records indicate that patient suddenly c/o SOB at the long-term. He was placed on oxygen and given a neb treatment with no improvement. HIs oxygen needs increased to 10L mask, but no improvement, so he was transferred to ED. CTA was obtained-- report reads cardiomegaly and small pericardial effusion, RLL concerning for chronic PE, advanced chronic ILD, likely with superimposed emphysema, diffuse groundglass change, 1.6cm pleural based nodule in anterior right middle lobe. CT head negative for anything acute. CXR report shows evidence of congestive failure, ILD, increased bilateral airspace opacities throughout both lungs as compared to July 2017. Echocardiogram was performed which shows preserved EF at 65-70%, but severely dilated RV, severe pulmonary htn, and moderate mitral regurgitation. Grinder Operator physician was consulted over weekend for the respiratory failure. Bipap had been started by EMS which did bring patient's O2 saturation from 80s to 90s. Patient was stable at the time of evaluation by ICU doctor. Grinder Operator did think that intubating patient would be borderline futile care as patient has multiple end-stage diseases between the ILD and COPD, and now the right sided heart failure, and weaning patient from ventilator would be incredibly difficult. Patient unfortunately is intellectually disabled and is not capable of understanding condition or making medical decisions. Palliative care and Ethics committee consulted to establish a surrogate decision maker and discuss goals of care. I met with the patient in room 231. He is awake, alert and oriented to person and place but not event. Patient is thing, frail, chronically ill appearing and appears to be older than stated age. His speech is difficult to understand. He remains on high-flow nasal cannula at 50LPM and 70% FiO2. He really had little knowledge whatsoever about his condition. He said, "I really don't know what's going on. There's no problem here." He is unable to make medical decisions or discuss goals of care. Ethics committee met today around noon. The committee determined that patient should be DNR/DNI as to avoid any futile care in the setting of end stage pulmonary disease. See Dr. Enrique Walls's note. Therefore, patient will also need to undergo legal process of obtaining a surrogate decision maker through the state. Director of disease case manager rn is aware and following case. For now, continue current medical care until decision maker is established. Once that is done, can discuss options for transitioning to a more comfort/palliative- focused plan of care. Past Medical/Surgical History Medical History: Afib Acute on chronic respiratory failure COPD Asthma HLD Schizophrenia Anxiety Intellectual disability HCV Osteoporosis Family History unable to assess Social History Smoking Status: Former Smoker History of Alcohol Use: No Drug Use: none Marital Status: single Housing Status: other ([facility]) Occupation Status: other (inmate) Review of Systems Constitutional: + weakness ENT: + problem reported (dry mouth), No trouble swallowing Respiratory: + shortness of breath, + dyspnea on exertion Cardiac: No chest pain, No edema Male : No problem reported Psychiatric: No anxiety (none at this time) Allergies Coded Allergies: No Known Allergies (Unverified , 04/22/18) Medications Current Inpatient Medications Medications (Trade) Dose Ordered Sig/Princess Route Start Time Stop Time Status Last Admin Dose Admin Ioversol (Optiray 320) 100 ml UD PRN IV 04/22/18 14:30 04/26/18 14:29 Acetaminophen (Tylenol Tab) 650 mg Q4H PRN PO 04/22/18 16:30 05/22/18 16:29 Al Hydrox/Mg Hydrox/Simethicone (Maalox Max Susp) 15 ml Q4H PRN PO 04/22/18 16:30 05/22/18 16:29 Magnesium Hydroxide (Milk Of Magnesia Susp) 30 ml Q12H PRN PO 04/22/18 16:30 05/22/18 16:29 Ondansetron HCl (Zofran Inj) 4 mg Q6H PRN IV 04/22/18 16:30 05/22/18 16:29 Polyethylene (Miralax Powder Packet) 17 gm DAILY PRN PO 04/22/18 16:30 05/22/18 16:29 Furosemide 40 mg/ Syringe 4 ml @ 4 mls/min BID17 IV 04/22/18 19:00 05/22/18 18:59 04/24/18 08:13 4 MLS/MIN Atorvastatin Calcium (Lipitor Tab) 10 mg HS PO 04/22/18 21:00 05/22/18 20:59 04/23/18 20:58 10 MG Digoxin (Lanoxin Tab) 0.25 mg DAILY@1600 PO 04/23/18 16:00 05/23/18 15:59 Future Hold Diltiazem HCl (Cardizem Sr) 60 mg TID PO 04/22/18 21:00 05/22/18 20:59 04/24/18 14:46 60 MG Albuterol/ Ipratropium (Duoneb) 3 ml Q4RWA INH 04/22/18 20:00 05/22/18 19:59 04/24/18 15:22 3 ML Risperidone (Risperdal Tab) 1 mg HS PO 04/22/18 21:00 05/22/18 20:59 04/23/18 20:58 1 MG Tiotropium [place] (Spiriva Handihaler Inhaler) 1 puff DAILY INH 04/23/18 09:00 05/23/18 08:59 04/24/18 08:12 1 PUFF Miscellaneous Information (Order Awaiting Action) 1 ea BID N/A 04/22/18 21:00 05/22/18 20:59 Insulin Aspart (novoLOG ASPART) SLIDING SCALE G... ACHS SC 04/22/18 21:00 05/22/18 20:59 04/24/18 11:56 8 UNITS Glucose (Glucose 40% Gel) 15-30 GRAMS 15 GRAMS... UD PRN PO 04/22/18 18:15 05/22/18 18:14 Glucose (Glucose Chew Tab) 4-8 Tablets 4 Tabl... UD PRN PO 04/22/18 18:15 05/22/18 18:14 Dextrose (Dextrose 50% 50ML Syringe) 25-50ML 25ML FOR ... UD PRN IV 04/22/18 18:15 05/22/18 18:14 Glucagon (Glucagon Inj) 1 mg UD PRN SQ 04/22/18 18:15 05/22/18 18:14 Carbohydrates (Carbohydrates For Hypoglycemia) 15-30 GRAMS 15 grams if BSG 54-69... UD PRN PO 04/22/18 18:15 05/22/18 18:14 Azithromycin (Zithromax Tab) 250 mg QD@16 PO 04/23/18 16:00 04/26/18 16:01 04/23/18 16:44 250 MG Physical Exam Date Time Temp Pulse Resp B/P (MAP) Pulse Ox O2 Delivery O2 Flow Rate FiO2 04/24/18 15:27 36.8 85 16 93/60 (71) 99 High Flow Oxygen 04/24/18 15:23 84 20 92 Nasal Cannula 50.0 60 04/24/18 11:44 36.5 84 20 100/62 (75) 92 High Flow Oxygen 04/24/18 11:12 92 22 86 Nasal Cannula 45.0 55 04/24/18 08:00 High Flow Oxygen 04/24/18 07:42 36.6 80 22 97/61 (73) 93 High Flow Oxygen 04/24/18 07:00 80 22 96 Nasal Cannula 50.0 60 04/24/18 04:09 36.7 80 21 91/60 (70) 96 04/24/18 01:54 82 22 91 Nasal Cannula 50.0 60 04/23/18 23:42 37.1 87 19 90/59 (69) 100 04/23/18 22:38 High Flow Oxygen 50.0 80 04/23/18 20:12 85 22 91 Nasal Cannula 45.0 60 04/23/18 20:01 36.6 91 28 102/66 (78) 90 High Flow Oxygen 04/23/18 20:00 High Flow Oxygen 50.0 80 04/23/18 16:00 36.6 90 22 101/69 (80) 91 High Flow Oxygen General Appearance: no apparent distress, + cachetic, + pertinent finding ( chronically ill appearing, frail) ENT: hearing grossly normal Neck: supple, no JVD Respiratory: + decreased breath sounds, + accessory muscle use, + rhonchi ( coarse throughout), + wheezing (expiratory) Cardiovascular: regular rate, rhythm, no edema, + tachycardia, + normal peripheral pulses Abdomen: normal bowel sounds, non tender, soft Neurologic/Psychiatric: alert, + pertinent finding (oriented to person and place only) Skin: normal color Laboratory Results Last 24 Hours Test 04/23/18 15:48 04/23/18 20:55 04/24/18 05:40 04/24/18 07:25 Bedside Glucose 143 mg/dl 116 mg/dl 97 mg/dl White Blood Count 12.35 K/uL Red Blood Count 4.82 M/uL Hemoglobin 13.6 g/dL Hematocrit 40.6 % Mean Corpuscular Volume 84.2 fL Mean Corpuscular Hemoglobin 28.2 pg Mean Corpuscular Hemoglobin Concent 33.5 g/dl RDW Standard Deviation 48.0 fL RDW Coefficient of Variation 15.7 % Platelet Count 232 K/uL Mean Platelet Volume 10.9 fL Prothrombin Time 15.2 SECONDS Prothromb Time International Ratio 1.5 Sodium Level 135 mmol/L Potassium Level 3.6 mmol/L Chloride Level 102 mmol/L Carbon Dioxide Level 27 mmol/L Anion Gap 6.0 mmol/L Blood Urea Nitrogen 30 mg/dl Creatinine 0.70 mg/dl Est Creatinine Clear Calc Drug Dose 86.9 ml/min Estimated GFR () 116.4 Estimated GFR (Non- 100.4 BUN/Creatinine Ratio 42.3 Random Glucose 99 mg/dl Calcium Level 7.2 mg/dl Pro-B-Type Natriuretic Peptide 4135 pg/ml Assessment & Plan Palliative Performance Scale: 30 % Problem list: SOB/GILLIS Intellectual disability End-stage COPD, ILD Goals of care Palliative care recs: -Patient is unable to comprehend medical conditions, unable to make medical conditions. -As determined by ethics committee, recommendation is patient should be DNR/ DNI. This will be done by two-physician order. -Legal process of obtaining a surrogate decision maker through the state should be started. -Once decision maker is established, can discuss options of care including palliative/hospice care at the long-term. Patient's end-stage lung disease as well as right sided heart failure would qualify him for hospice care. -For now, full treatment should continue. Thank you kindly for this consult. I will follow as needed. Total time spent 110 minutes with >50% of time spent at bedside with patient discussing goals of care as well as collaborating with attending physician, director of case management, and ethics committee to discuss end of life issues , medical conditions, and plan of care. Supervising Physician Patient seen and examined along with OLIVIA Maravilla PE: No acute distress, on high flow nasal cannula Respiratory, unlabored at rest CV: Regular rate Abdomen: Nondistended Extremities: No edema Agree with above note, exam, assessment and plan as per CARDING MACHINE OPERATOR.
[2018-04-24] MEDS: AZITHROMYCIN 250 MG TAB PO SCH (17:15)
[2018-04-24] MEDS: METHYLPREDNISOLONE IV 40 MG in SYRINGE 0 ML IV SCH (17:16)
--- NOTE | 2018-04-24 17:21 | Progress Note ---
Progress Note Date of Service Apr 24, 2018. Progress Note Ethics committee consult note: I was contacted yesterday by Dr Romero in regards to Mr Graham' case. Discussed situation in detail. concern being: a) acute deterioration would lead to invasive means (ie intubation/tracheostomy) that would have almost no benefit on his prognosis; b) rope tier situation shows such severe cardiopulmonary disease that a palliative approach would be more beneficial to his well-being. -yesterday's discussions ended w Dr Romero and I both in agreement on futility of a code situation - and agreed that based on futility with multiple physicians in agreement, a DNR status would be most appropriate -full ethics committee meeting held today (due to short notice, myself, Dr Luu, Chanel BAKER, Mindy Mathias RN, and Chioma Chamberlain RN were in attendance) -- discussed case at length, in detail, with chart review of all involved. I personally discussed case w pt's primary hospitalist Dr Werner as well. in review of chart and further discussions with his primary hospitalist underscore dr romero's clinical assessment that pt does not have capacity to make decisions. Son BAKER d/w long term team and reiterated that pt does not have any family or close contacts that could act as his surrogate decision maker after careful discussion we came to the following conclusions a) CPR/intubation/code status: full agreement with the above conclusions dr romero and i reached yesterday that a code would be futile, and therefore cause far more harm than good - and that it both legally and ethically is best to change to DNR status b) full agreement in support of a palliative approach to this man's care, given the underlying severity and progression of his cardiopulmonary illness. this recommendation cannot be legally acted upon until/unless he has a court appointed decision maker who agrees with the ethics committee assessment and recommendations.
[2018-04-24] MEDS: RISPERIDONE 1 MG TAB PO SCH (21:34)
[2018-04-24] MEDS: ATORVASTATIN 10 MG TAB PO SCH (21:34)
[2018-04-25] VITALS (12 sets, daily range): BP systolic 92–108; BP diastolic 61–72; PULSE 74–88; TEMP 36.5–36.8; O2SAT 90–98
[2018-04-25] MEDS: METHYLPREDNISOLONE IV 40 MG in SYRINGE 0 ML IV SCH ×3 (00:14→17:05)
[2018-04-25 05:59] LABS: HEMATOCRIT 42.7 % (42-52); HEMOGLOBIN 14.1 g/dL (14.0-18.0); MEAN CELL VOLUME 83.7 fL (80-100); MEAN CORPUSCULAR HEMOGLOBIN 27.6 pg (25-34); MEAN PLATELET VOLUME 10.9 fL (7.4-10.4); PLATELET COUNT 211 K/uL (130-400); RED CELL DISTRIBUTION WIDTH CV 15.3 % (11.5-14.5); RED CELL DISTRIBUTION WIDTH SD 47.2 fL (36.4-46.3); WHITE BLOOD COUNT 6.98 K/uL (4.8-10.8)
[2018-04-25 06:34] LABS: CREATININE 0.64 mg/dl (0.60-1.40); POTASSIUM 3.3 mmol/L (3.5-5.1)
[2018-04-25] MEDS: ALBUT/IPRATROP 3MG/0.5MG NEB 3 ML VIAL INH SCH ×4 (07:02→18:51)
[2018-04-25] MEDS: TIOTROPIUM BROMIDE 5 PUFF/90 MCG INH INH SCH (08:20)
[2018-04-25] MEDS: FUROSEMIDE INJ 40 MG in SYRINGE 0 ML IV SCH ×2 (08:22→17:01)
[2018-04-25] MEDS: DILTIAZEM SR 60 MG CAP PO SCH ×3 (08:24→21:00)
[2018-04-25] MEDS: INSULIN ASPART 100 UNITS/ML 3 ML PEN SC SCH ×4 (08:28→21:14)
[2018-04-25] MEDS: POTASSIUM CHLORIDE 20 MEQ TABCR PO SCH ×2 (10:05→21:07)
[2018-04-25] MEDS: LORAZEPAM 0.5 MG TAB PO PRN (11:02)
--- NOTE | 2018-04-25 14:41 | Palliative Care Progress Note ---
Palliative Care Progress Note Date of Service Apr 25, 2018. Subjective Pt evaluation today including: conversation w/ patient, physical exam, chart review, lab review, review of inpatient medication list Pain: Patient denies pain on exam PO Intake: Good Voiding: no voiding problems Patient seen and examined this afternoon, 2 guards at bedside. No acute changes per nursing. Patient states he feels his breathing is a bit better than when seen yesterday. Patient does appear more comfortable today. Patient' s on high flow O2 at 50 L/min, sats 97%. Patient did require 1 as needed Ativan for anxiety this a.m., patient calm. Review of Systems Constitutional: No fever, No chills Respiratory: + cough Cardiac: No chest pain Abdomen: No pain Neurologic: + memory loss Psychiatric: + anxiety Objective Vital Signs Date Time Temp Pulse Resp B/P (MAP) Pulse Ox O2 Delivery O2 Flow Rate FiO2 04/25/18 11:15 85 18 97 Nasal Cannula 50.0 65 04/25/18 11:11 36.5 83 18 108/62 (77) 97 High Flow Oxygen 65 04/25/18 08:00 High Flow Oxygen 55.0 70 04/25/18 07:02 74 18 93 Nasal Cannula 55.0 65 04/25/18 07:00 36.5 77 18 108/65 (79) 92 High Flow Oxygen 04/25/18 03:48 36.6 81 22 93/61 (72) 92 High Flow Oxygen 04/24/18 23:34 36.3 83 21 99/60 (73) 92 High Flow Oxygen 04/24/18 20:00 High Flow Oxygen 55.0 70 04/24/18 19:31 36.3 83 18 100/66 (77) 96 High Flow Oxygen 70 04/24/18 18:54 80 18 88 Nasal Cannula 50.0 60 04/24/18 15:27 36.8 85 16 93/60 (71) 99 High Flow Oxygen 04/24/18 15:23 84 20 92 Nasal Cannula 50.0 60 Physical Exam General Appearance: + pertinent finding (Patient without respiratory distress, on high flow nasal cannula) Respiratory/Chest: + decreased breath sounds Cardiovascular: regular rate, rhythm, no edema Abdomen: soft Neurologic/Psychiatric: alert, + pertinent finding (Cognitive deficits) Skin: warm/dry Laboratory Results Last 24 Hours Test 04/24/18 16:03 04/24/18 16:20 04/24/18 19:59 04/24/18 20:02 Bedside Glucose 83 mg/dl 334 mg/dl 154 mg/dl Urine Collection Time 24 HOURS Urine Total Volume 2250 mL Urine Calcium mg% 8.1 mg/dl Urine Calcium 24 Hour 182.3 mg/24 HR Test 04/24/18 20:08 04/25/18 05:22 04/25/18 08:06 04/25/18 11:22 Bedside Glucose 162 mg/dl 399 mg/dl 144 mg/dl White Blood Count 6.98 K/uL Red Blood Count 5.10 M/uL Hemoglobin 14.1 g/dL Hematocrit 42.7 % Mean Corpuscular Volume 83.7 fL Mean Corpuscular Hemoglobin 27.6 pg Mean Corpuscular Hemoglobin Concent 33.0 g/dl RDW Standard Deviation 47.2 fL RDW Coefficient of Variation 15.3 % Platelet Count 211 K/uL Mean Platelet Volume 10.9 fL Sodium Level 134 mmol/L Potassium Level 3.3 mmol/L Chloride Level 97 mmol/L Carbon Dioxide Level 31 mmol/L Anion Gap 6.0 mmol/L Blood Urea Nitrogen 32 mg/dl Creatinine 0.64 mg/dl Est Creatinine Clear Calc Drug Dose 95.0 ml/min Estimated GFR () 120.8 Estimated GFR (Non- 104.2 BUN/Creatinine Ratio 49.8 Random Glucose 251 mg/dl Calcium Level 7.0 mg/dl Assessment and Plan - SOB/GILLIS improving on Solu-Medrol, Zithromax, DuoNeb's and high flow O2 - Intellectual disability/schizophrenia-patient does not have capacity to make medical decisions-ethics committee and collaborating physicians have change CODE STATUS to DNR. Patient will need a court appointed surrogate for medical decision-making -ES COPD/ILD-FEV1 27%-agree with DNR for CODE STATUS as patient would not benefit from invasive ,aggressive treatment. Continue medical management -Diastolic CHF-controlled with Lasix -Severe pulmonary hypertension-contributing to patient's shortness of breath We will continue to follow while patient is inpatient for any acute changes in status. Suggest initiating process for court appointed surrogate to assist with future medical decision-making. Total time spent 25 minutes with greater than 50% of the time spent at bedside evaluating patient Palliative Performance Scale: 30 % Continued [facility] stay due to: multiple IV medications needed Discharge planning: home
[2018-04-25] MEDS: AZITHROMYCIN 250 MG TAB PO SCH (15:59)
--- NOTE | 2018-04-25 17:29 | Progress Note ---
Subjective Date of Service: Apr 25, 2018. Subjective pt is acting out and having some behavorial issues, he remains significantly short of breath, he still lacks insight into his condition or plight Problem List Medical Problems: (1) Acute and chronic respiratory failure with hypoxia Status: Acute (2) CHF (congestive heart failure) Status: Acute (3) Chronic pulmonary embolism Status: Acute (4) Pulmonary embolism Status: Acute Review of Systems Constitutional: + weakness, + fatigue, No fever, No chills Respiratory: + cough, + shortness of breath, + dyspnea on exertion, + dyspnea at rest Cardiac: No chest pain, No edema Abdomen: No pain, No nausea Neurologic: + memory loss, + weakness Psychiatric: + depression symptoms, + anxiety Endo: + fatigue Objective Vital Signs Date Time Temp Pulse Resp B/P (MAP) Pulse Ox O2 Delivery O2 Flow Rate FiO2 04/25/18 15:51 36.5 85 16 103/66 (78) 96 High Flow Oxygen 04/25/18 15:45 90 Nasal Cannula 55.0 70 04/25/18 15:07 85 18 91 Nasal Cannula 45.0 55 04/25/18 11:15 85 18 97 Nasal Cannula 50.0 65 04/25/18 11:11 36.5 83 18 108/62 (77) 97 High Flow Oxygen 65 04/25/18 08:00 High Flow Oxygen 55.0 70 04/25/18 07:02 74 18 93 Nasal Cannula 55.0 65 04/25/18 07:00 36.5 77 18 108/65 (79) 92 High Flow Oxygen 04/25/18 03:48 36.6 81 22 93/61 (72) 92 High Flow Oxygen 04/24/18 23:34 36.3 83 21 99/60 (73) 92 High Flow Oxygen 04/24/18 20:00 High Flow Oxygen 55.0 70 04/24/18 19:31 36.3 83 18 100/66 (77) 96 High Flow Oxygen 70 04/24/18 18:54 80 18 88 Nasal Cannula 50.0 60 Physical Exam General Appearance: + moderate distress, + thin Eyes: normal inspection, sclerae normal Neck: supple, no JVD Respiratory/Chest: chest non-tender, + decreased breath sounds, + accessory muscle use, + rales Cardiovascular: regular rate, rhythm, no murmur Abdomen: normal bowel sounds, non tender Extremities: no pedal edema, no calf tenderness, + pertinent finding (obvious finger clubbing) Neurologic/Psychiatric: no motor/sensory deficits, alert Laboratory Results Last 24 Hours Test 04/24/18 19:59 04/24/18 20:02 04/24/18 20:08 04/25/18 05:22 Bedside Glucose 334 mg/dl 154 mg/dl 162 mg/dl White Blood Count 6.98 K/uL Red Blood Count 5.10 M/uL Hemoglobin 14.1 g/dL Hematocrit 42.7 % Mean Corpuscular Volume 83.7 fL Mean Corpuscular Hemoglobin 27.6 pg Mean Corpuscular Hemoglobin Concent 33.0 g/dl RDW Standard Deviation 47.2 fL RDW Coefficient of Variation 15.3 % Platelet Count 211 K/uL Mean Platelet Volume 10.9 fL Sodium Level 134 mmol/L Potassium Level 3.3 mmol/L Chloride Level 97 mmol/L Carbon Dioxide Level 31 mmol/L Anion Gap 6.0 mmol/L Blood Urea Nitrogen 32 mg/dl Creatinine 0.64 mg/dl Est Creatinine Clear Calc Drug Dose 95.0 ml/min Estimated GFR () 120.8 Estimated GFR (Non- 104.2 BUN/Creatinine Ratio 49.8 Random Glucose 251 mg/dl Calcium Level 7.0 mg/dl Test 04/25/18 08:06 04/25/18 11:22 04/25/18 16:25 Bedside Glucose 399 mg/dl 144 mg/dl 155 mg/dl Assessment and Plan (1) Acute and chronic respiratory failure with hypoxia (2) COPD (chronic obstructive pulmonary disease) (3) Atrial fibrillation (4) Elevated troponin (5) Prothrombin time increased due to coumadin (6) Chronic diastolic heart failure due to valvular disease Continued [facility] stay due to: multiple IV medications needed Discharge planning: home Problem Qualifiers (1) Atrial fibrillation: Atrial fibrillation type: chronic Qualified Codes: I48.2 - Chronic atrial fibrillation
--- NOTE | 2018-04-25 20:34 | Pulmonology Progress Note ---
Pulmonary Progress Note Date of Service Apr 25, 2018. Attending Dr. Junior Subjective The patient still short of breath however his oxygen requirement is down from 100% to 60% of the heated high flow. The patient has poor behavioral issues however, his baseline was unpredictable event in the past. Objective Physical exam on 04/24/2018 showed cachectic gentleman, somewhat confused, O2 saturation registered at 88% on high flow nasal cannula with heated oxygen, no JVP, S1-S2 regular rate and rhythm with tachycardia, bilateral diffuse crackles , abdomen is benign, no edema. Cachexia. Neurologically he is nonfocal. But overall weak. His CAT scan of the chest was reviewed personally which showed bilateral honeycombing which affect every single segment of his lungs bilaterally. Severe dilation of the pulmonary arteries noted. The patient had echocardiogram which revealed PA pressure of 75 with normal ejection fraction. The patient had pulmonary function test with diffusion capacity of 27% and his FEV1 is also 27%. Physical exam on 04/25/2018 showed cachectic gentleman, vital signs remains better now with O2 sat 92% on 60%, diffuse crackles bilaterally, S1-S2 regular rate and rhythm, abdomen is benign, no edema. Assessment & Plan 1. Acute on chronic hypoxic respiratory failure. 2. IPF with exacerbation. 3. Congestive heart failure likely diastolic due to above. 4. Severe pulmonary hypertension with PA pressure of 75 on recent echo. 5. Given the above findings in a patient who does not have any industrial exposures, the likelihood of idiopathic pulmonary fibrosis versus other entities such as connective tissue disease or HIV-induced interstitial pulmonary fibrosis. Plan: 1. Continue with high flow oxygen. 2. Evaluation with serology is warranted. 3. Obtain HIV status, obtained although the patient cannot be consented to the test, it is a medical necessity given his severe pulmonary hypertension and pulmonary fibrosis of unknown etiology.. 4. I will start the patient on systemic steroids. Agree with decreasing the dose to 40 mg every 12 due to mood changes and persistent hyperglycemia. 5. Continue bronchodilators. 6. May not be a candidate for PA catheter given his altered mental status. 7. Appreciate palliative care consult. 8. Appreciate Dr. Werner input. 9. Agree with DNR state. Thank you, will follow. Data Medications: Current Inpatient Medications Medications (Trade) Dose Ordered Sig/Princess Route Start Time Stop Time Status Last Admin Dose Admin Ioversol (Optiray 320) 100 ml UD PRN IV 04/22/18 14:30 04/26/18 14:29 Acetaminophen (Tylenol Tab) 650 mg Q4H PRN PO 04/22/18 16:30 05/22/18 16:29 Al Hydrox/Mg Hydrox/Simethicone (Maalox Max Susp) 15 ml Q4H PRN PO 04/22/18 16:30 05/22/18 16:29 Magnesium Hydroxide (Milk Of Magnesia Susp) 30 ml Q12H PRN PO 04/22/18 16:30 05/22/18 16:29 Ondansetron HCl (Zofran Inj) 4 mg Q6H PRN IV 04/22/18 16:30 05/22/18 16:29 Polyethylene (Miralax Powder Packet) 17 gm DAILY PRN PO 04/22/18 16:30 05/22/18 16:29 Furosemide 40 mg/ Syringe 4 ml @ 4 mls/min BID17 IV 04/22/18 19:00 05/22/18 18:59 04/25/18 17:01 4 MLS/MIN Atorvastatin Calcium (Lipitor Tab) 10 mg HS PO 04/22/18 21:00 05/22/18 20:59 04/24/18 21:34 10 MG Digoxin (Lanoxin Tab) 0.25 mg DAILY@1600 PO 04/23/18 16:00 05/23/18 15:59 Future Hold Diltiazem HCl (Cardizem Sr) 60 mg TID PO 04/22/18 21:00 05/22/18 20:59 04/25/18 13:08 60 MG Albuterol/ Ipratropium (Duoneb) 3 ml Q4RWA INH 04/22/18 20:00 05/22/18 19:59 04/25/18 18:51 3 ML Risperidone (Risperdal Tab) 1 mg HS PO 04/22/18 21:00 05/22/18 20:59 04/24/18 21:34 1 MG Tiotropium [place] (Spiriva Handihaler Inhaler) 1 puff DAILY INH 04/23/18 09:00 05/23/18 08:59 04/25/18 08:20 1 PUFF Miscellaneous Information (Order Awaiting Action) 1 ea BID N/A 04/22/18 21:00 05/22/18 20:59 Insulin Aspart (novoLOG ASPART) SLIDING SCALE G... ACHS SC 04/22/18 21:00 05/22/18 20:59 04/25/18 17:04 5 UNITS Glucose (Glucose 40% Gel) 15-30 GRAMS 15 GRAMS... UD PRN PO 04/22/18 18:15 05/22/18 18:14 Glucose (Glucose Chew Tab) 4-8 Tablets 4 Tabl... UD PRN PO 04/22/18 18:15 05/22/18 18:14 Dextrose (Dextrose 50% 50ML Syringe) 25-50ML 25ML FOR ... UD PRN IV 04/22/18 18:15 05/22/18 18:14 Glucagon (Glucagon Inj) 1 mg UD PRN SQ 04/22/18 18:15 05/22/18 18:14 Carbohydrates (Carbohydrates For Hypoglycemia) 15-30 GRAMS 15 grams if BSG 54-69... UD PRN PO 04/22/18 18:15 05/22/18 18:14 Azithromycin (Zithromax Tab) 250 mg QD@16 PO 04/23/18 16:00 04/26/18 16:01 04/25/18 15:59 250 MG Potassium Chloride (Klor-Con Tab) 20 meq BID PO 04/25/18 09:00 04/26/18 09:01 04/25/18 10:05 20 MEQ Methylprednisolone Sodium Succinate 40 mg/Syringe 0.64 ml @ 1.5 mls/min Q12H IV 04/25/18 18:00 05/24/18 17:59 04/25/18 17:05 1.5 MLS/MIN Lorazepam (Ativan Tab) 0.5 mg Q8 PRN PO 04/25/18 11:00 05/25/18 10:59 04/25/18 11:02 0.5 MG I & O: 24-Hour Column 04/26/18 08:00 Intake Total 500 ml Balance 500 ml Vital Signs: Date Time Temp Pulse Resp B/P (MAP) Pulse Ox O2 Delivery O2 Flow Rate FiO2 04/25/18 18:51 84 16 92 Nasal Cannula 45.0 55 04/25/18 15:51 36.5 85 16 103/66 (78) 96 High Flow Oxygen 8/7/18 15:45 90 Nasal Cannula 55.0 70 04/25/18 15:07 85 18 91 Nasal Cannula 45.0 55 04/25/18 11:15 85 18 97 Nasal Cannula 50.0 65 04/25/18 11:11 36.5 83 18 108/62 (77) 97 High Flow Oxygen 65 04/25/18 08:00 High Flow Oxygen 55.0 70 04/25/18 07:02 74 18 93 Nasal Cannula 55.0 65 04/25/18 07:00 36.5 77 18 108/65 (79) 92 High Flow Oxygen 04/25/18 03:48 36.6 81 22 93/61 (72) 92 High Flow Oxygen 04/24/18 23:34 36.3 83 21 99/60 (73) 92 High Flow Oxygen Laboratory Results: Last 24 Hours Test 04/25/18 05:22 04/25/18 08:06 04/25/18 11:22 04/25/18 16:25 White Blood Count 6.98 K/uL Red Blood Count 5.10 M/uL Hemoglobin 14.1 g/dL Hematocrit 42.7 % Mean Corpuscular Volume 83.7 fL Mean Corpuscular Hemoglobin 27.6 pg Mean Corpuscular Hemoglobin Concent 33.0 g/dl RDW Standard Deviation 47.2 fL RDW Coefficient of Variation 15.3 % Platelet Count 211 K/uL Mean Platelet Volume 10.9 fL Sodium Level 134 mmol/L Potassium Level 3.3 mmol/L Chloride Level 97 mmol/L Carbon Dioxide Level 31 mmol/L Anion Gap 6.0 mmol/L Blood Urea Nitrogen 32 mg/dl Creatinine 0.64 mg/dl Est Creatinine Clear Calc Drug Dose 95.0 ml/min Estimated GFR () 120.8 Estimated GFR (Non- 104.2 BUN/Creatinine Ratio 49.8 Random Glucose 251 mg/dl Calcium Level 7.0 mg/dl Bedside Glucose 399 mg/dl 144 mg/dl 155 mg/dl Test 04/25/18 20:12 04/25/18 20:15 04/25/18 20:28 Bedside Glucose 261 mg/dl 254 mg/dl
[2018-04-25] MEDS: ATORVASTATIN 10 MG TAB PO SCH (21:07)
[2018-04-25] MEDS: RISPERIDONE 1 MG TAB PO SCH (21:07)
[2018-04-26] VITALS (14 sets, daily range): BP systolic 91–136; BP diastolic 54–84; PULSE 61–90; TEMP 36.3–36.8; O2SAT 87–97
[2018-04-26] MEDS: METHYLPREDNISOLONE IV 40 MG in SYRINGE 0 ML IV SCH ×2 (05:42→17:54)
[2018-04-26] MEDS: ALBUT/IPRATROP 3MG/0.5MG NEB 3 ML VIAL INH SCH ×4 (07:13→19:36)
[2018-04-26] MEDS: FUROSEMIDE INJ 40 MG in SYRINGE 0 ML IV SCH ×2 (08:56→17:54)
[2018-04-26] MEDS: TIOTROPIUM BROMIDE 5 PUFF/90 MCG INH INH SCH (08:57)
[2018-04-26] MEDS: POTASSIUM CHLORIDE 20 MEQ TABCR PO SCH (08:57)
[2018-04-26] MEDS: DILTIAZEM SR 60 MG CAP PO SCH ×3 (08:57→20:15)
[2018-04-26] MEDS: INSULIN ASPART 100 UNITS/ML 3 ML PEN SC SCH ×4 (09:03→20:15)
[2018-04-26 11:02] LABS: QUANTIF MITOGEN-NIL 6.54 IU/ML; QUANTIFERON NEGATIVE (NEGATIVE); QUANTIFERON NIL 0.01 IU/ML
[2018-04-26] MEDS: AZITHROMYCIN 250 MG TAB PO SCH (15:52)
--- NOTE | 2018-04-26 16:11 | Progress Note ---
Subjective Date of Service: Apr 26, 2018. Subjective this pt is about the same, he has no real complaints outside of remaining short of breath Problem List Medical Problems: (1) Acute and chronic respiratory failure with hypoxia Status: Acute (2) CHF (congestive heart failure) Status: Acute (3) Chronic pulmonary embolism Status: Acute (4) Pulmonary embolism Status: Acute Review of Systems Constitutional: + weakness, + fatigue, No fever, No chills Respiratory: + cough, + shortness of breath, + dyspnea on exertion, + dyspnea at rest, No sputum Cardiac: No chest pain, No edema Abdomen: No pain, No nausea, No vomiting, No diarrhea Neurologic: No memory loss, No weakness Objective Vital Signs Date Time Temp Pulse Resp B/P (MAP) Pulse Ox O2 Delivery O2 Flow Rate FiO2 04/26/18 15:35 36.7 90 18 91/59 (70) 95 Oxymask 13.0 04/26/18 15:34 85 18 91 Diffusion Mask 13.0 04/26/18 12:07 82 18 91 Mask 13.0 04/26/18 11:07 83 18 91 Nasal Cannula 45.0 55 04/26/18 10:58 36.3 88 16 94/54 (67) 94 High Flow Oxygen 04/26/18 08:00 High Flow Oxygen 45.0 55 04/26/18 07:15 79 18 92 Nasal Cannula 45.0 55 04/26/18 07:00 36.3 81 18 113/69 (84) 96 High Flow Oxygen 04/26/18 03:03 36.8 72 18 101/67 (78) 92 04/26/18 00:11 36.5 85 16 92/62 (72) 97 04/25/18 23:20 97 High Flow Oxygen 45.0 55 04/25/18 21:08 88 92/61 (71) 04/25/18 20:31 36.8 85 16 104/72 (83) 98 Room Air 04/25/18 18:51 84 16 92 Nasal Cannula 45.0 55 Physical Exam General Appearance: + moderate distress, + thin Neck: supple, trachea midline Respiratory/Chest: + decreased breath sounds, + accessory muscle use, + rales Cardiovascular: regular rate, rhythm, no murmur Abdomen: normal bowel sounds, non tender, soft Extremities: no pedal edema, no calf tenderness Neurologic/Psychiatric: alert, oriented x 3 Laboratory Results Last 24 Hours Test 04/25/18 16:25 04/25/18 20:12 04/25/18 20:15 04/25/18 21:19 Bedside Glucose 155 mg/dl 261 mg/dl 254 mg/dl HIV (1&2) Ab and P24 Ag, 4th Gener NEG Test 04/26/18 07:25 04/26/18 11:28 Bedside Glucose 200 mg/dl 246 mg/dl Assessment and Plan (1) Acute and chronic respiratory failure with hypoxia Assessment & Plan: this pt has multiple reasons for SOB There is some discussion for ILD on a baseline of COPD, severe pulmonary hypertension seen on ECHO pt is tolerant of oxymask with 13 liters flow, disposition is a challenge as [facility] states can only supply 40% oxygen there was some discussion with patient about if he wanted aggressive management into this problem and he did not ask questions or seem to have insight into his issue (2) COPD (chronic obstructive pulmonary disease) Assessment & Plan: copd exacerbation, on azithro and spiriva, started in iv solumedrol 04/24, will taper and transition to po steroids when able (3) Atrial fibrillation Assessment & Plan: Was seen by cardiology, in NSR at this time, recommendation to continue Digoxin, diltiazem (4) Elevated troponin Assessment & Plan: cardiology does not feel is nstemi or type 2 PA, likely influenced by hypoxia, continue to support good oxygen saturations (5) Prothrombin time increased due to coumadin Assessment & Plan: Initially was with INR>10, now normalized, appears in sinus follow INr every other day (6) Chronic diastolic heart failure due to valvular disease Assessment & Plan: after IV lasix is compensated but still with high oxygen requirements Continued [facility] stay due to: multiple IV medications needed Discharge planning: home Problem Qualifiers (1) Atrial fibrillation: Atrial fibrillation type: chronic Qualified Codes: I48.2 - Chronic atrial fibrillation
--- NOTE | 2018-04-26 18:36 | Pulmonology Progress Note ---
Pulmonary Progress Note Date of Service Apr 26, 2018. Attending Dr. Junior Subjective The patient is a poor historian, he continued to be short of breath, however his oxygen requirement has been decreasing. Currently he is on oxymask but he has not been using it. Objective Physical exam on 04/24/2018 showed cachectic gentleman, somewhat confused, O2 saturation registered at 88% on high flow nasal cannula with heated oxygen, no JVP, S1-S2 regular rate and rhythm with tachycardia, bilateral diffuse crackles , abdomen is benign, no edema. Cachexia. Neurologically he is nonfocal. But overall weak. His CAT scan of the chest was reviewed personally which showed bilateral honeycombing which affect every single segment of his lungs bilaterally. Severe dilation of the pulmonary arteries noted. The patient had echocardiogram which revealed PA pressure of 75 with normal ejection fraction. The patient had pulmonary function test with diffusion capacity of 27% and his FEV1 is also 27%. Physical exam on 04/25/2018 showed cachectic gentleman, vital signs remains better now with O2 sat 92% on 60%, diffuse crackles bilaterally, S1-S2 regular rate and rhythm, abdomen is benign, no edema. Physical exam on 04/26/2018 showed O2 saturation of 92% on a mask oxygen however the mask was above his forehead as he was eating his lunch. Crackles bilaterally, Velcro type. Abdomen is benign, no edema. Labs were consistent with negative HIV testing, and negative QuantiFERON. Assessment & Plan 1. Acute on chronic hypoxic respiratory failure. 2. IPF with exacerbation. 3. Congestive heart failure likely diastolic due to above. 4. Severe pulmonary hypertension with PA pressure of 75 on recent echo. 5. Given the above findings in a patient who does not have any industrial exposures, the likelihood of idiopathic pulmonary fibrosis versus other entities such as connective tissue disease or HIV-induced interstitial pulmonary fibrosis. Plan: 1. Change oxygen to nasal cannula 6 L. Keep his O2 sat above than 85% only. 2. Serology still pending. 3. HIV status is negative. 4. Change Solu-Medrol to prednisone 60 mg p.o. daily in the morning. 5. Continue bronchodilators. 6. May not be a candidate for PA catheter given his altered mental status. Thank you, will follow. Data Medications: Current Inpatient Medications Medications (Trade) Dose Ordered Sig/Princess Route Start Time Stop Time Status Last Admin Dose Admin Acetaminophen (Tylenol Tab) 650 mg Q4H PRN PO 04/22/18 16:30 05/22/18 16:29 Al Hydrox/Mg Hydrox/Simethicone (Maalox Max Susp) 15 ml Q4H PRN PO 04/22/18 16:30 05/22/18 16:29 Magnesium Hydroxide (Milk Of Magnesia Susp) 30 ml Q12H PRN PO 04/22/18 16:30 05/22/18 16:29 Ondansetron HCl (Zofran Inj) 4 mg Q6H PRN IV 04/22/18 16:30 05/22/18 16:29 Polyethylene (Miralax Powder Packet) 17 gm DAILY PRN PO 04/22/18 16:30 05/22/18 16:29 Furosemide 40 mg/ Syringe 4 ml @ 4 mls/min BID17 IV 04/22/18 19:00 05/22/18 18:59 04/26/18 17:54 4 MLS/MIN Atorvastatin Calcium (Lipitor Tab) 10 mg HS PO 04/22/18 21:00 05/22/18 20:59 04/25/18 21:07 10 MG Digoxin (Lanoxin Tab) 0.25 mg DAILY@1600 PO 04/23/18 16:00 05/23/18 15:59 Future Hold Diltiazem HCl (Cardizem Sr) 60 mg TID PO 04/22/18 21:00 05/22/18 20:59 04/26/18 12:54 60 MG Albuterol/ Ipratropium (Duoneb) 3 ml Q4RWA INH 04/22/18 20:00 05/22/18 19:59 04/26/18 15:34 3 ML Risperidone (Risperdal Tab) 1 mg HS PO 04/22/18 21:00 05/22/18 20:59 04/25/18 21:07 1 MG Tiotropium [place] (Spiriva Handihaler Inhaler) 1 puff DAILY INH 04/23/18 09:00 05/23/18 08:59 04/26/18 08:57 1 PUFF Miscellaneous Information (Order Awaiting Action) 1 ea BID N/A 04/22/18 21:00 05/22/18 20:59 Insulin Aspart (novoLOG ASPART) SLIDING SCALE G... ACHS SC 04/22/18 21:00 05/22/18 20:59 04/26/18 18:21 6 UNITS Glucose (Glucose 40% Gel) 15-30 GRAMS 15 GRAMS... UD PRN PO 04/22/18 18:15 05/22/18 18:14 Glucose (Glucose Chew Tab) 4-8 Tablets 4 Tabl... UD PRN PO 04/22/18 18:15 05/22/18 18:14 Dextrose (Dextrose 50% 50ML Syringe) 25-50ML 25ML FOR ... UD PRN IV 04/22/18 18:15 05/22/18 18:14 Glucagon (Glucagon Inj) 1 mg UD PRN SQ 04/22/18 18:15 05/22/18 18:14 Carbohydrates (Carbohydrates For Hypoglycemia) 15-30 GRAMS 15 grams if BSG 54-69... UD PRN PO 04/22/18 18:15 05/22/18 18:14 Methylprednisolone Sodium Succinate 40 mg/Syringe 0.64 ml @ 1.5 mls/min Q12H IV 04/25/18 18:00 05/24/18 17:59 04/26/18 17:54 1.5 MLS/MIN Lorazepam (Ativan Tab) 0.5 mg Q8 PRN PO 04/25/18 11:00 05/25/18 10:59 04/25/18 11:02 0.5 MG I & O: 24-Hour Column 04/27/18 08:00 Intake Total 300 ml Output Total 1000 ml Balance -700 ml Vital Signs: Date Time Temp Pulse Resp B/P (MAP) Pulse Ox O2 Delivery O2 Flow Rate FiO2 04/26/18 15:35 36.7 90 18 91/59 (70) 95 Oxymask 13.0 04/26/18 15:34 85 18 91 Diffusion Mask 13.0 04/26/18 15:30 Mask 13.0 04/26/18 12:07 82 18 91 Mask 13.0 04/26/18 11:07 83 18 91 Nasal Cannula 45.0 55 04/26/18 10:58 36.3 88 16 94/54 (67) 94 High Flow Oxygen 04/26/18 08:00 High Flow Oxygen 45.0 55 04/26/18 07:15 79 18 92 Nasal Cannula 45.0 55 04/26/18 07:00 36.3 81 18 113/69 (84) 96 High Flow Oxygen 04/26/18 03:03 36.8 72 18 101/67 (78) 92 04/26/18 00:11 36.5 85 16 92/62 (72) 97 04/25/18 23:20 97 High Flow Oxygen 45.0 55 04/25/18 21:08 88 92/61 (71) 04/25/18 20:31 36.8 85 16 104/72 (83) 98 Room Air 04/25/18 18:51 84 16 92 Nasal Cannula 45.0 55 Laboratory Results: Last 24 Hours Test 04/25/18 20:12 04/25/18 20:15 04/25/18 21:19 04/26/18 07:25 Bedside Glucose 261 mg/dl 254 mg/dl 200 mg/dl HIV (1&2) Ab and P24 Ag, 4th Gener NEG Test 04/26/18 11:28 04/26/18 16:19 Bedside Glucose 246 mg/dl 115 mg/dl
[2018-04-26] MEDS: RISPERIDONE 1 MG TAB PO SCH (20:10)
[2018-04-26] MEDS: ATORVASTATIN 10 MG TAB PO SCH (20:10)
[2018-04-27] VITALS (10 sets, daily range): BP systolic 98–113; BP diastolic 62–72; PULSE 71–101; TEMP 36.3–36.5; O2SAT 85–96
[2018-04-27] MEDS: METHYLPREDNISOLONE IV 40 MG in SYRINGE 0 ML IV SCH (05:54)
[2018-04-27] MEDS: ALBUT/IPRATROP 3MG/0.5MG NEB 3 ML VIAL INH SCH ×4 (06:57→19:01)
--- NOTE | 2018-04-27 07:45 | Progress Note ---
Subjective Date of Service: Apr 27, 2018. Subjective pt continues with significant oxygen requirements that prohibit return to the skilled nursing Problem List Medical Problems: (1) Acute and chronic respiratory failure with hypoxia Status: Acute (2) CHF (congestive heart failure) Status: Acute (3) Chronic pulmonary embolism Status: Acute (4) Pulmonary embolism Status: Acute Review of Systems Constitutional: + weakness, + fatigue, No fever, No chills Respiratory: + cough, + sputum, + shortness of breath, + dyspnea on exertion Cardiac: No chest pain, No edema Abdomen: No pain, No nausea, No vomiting, No diarrhea Psychiatric: No depression symptoms, No anhedonism, No anxiety Objective Vital Signs Date Time Temp Pulse Resp B/P (MAP) Pulse Ox O2 Delivery O2 Flow Rate FiO2 04/27/18 07:43 36.4 74 18 113/65 (81) 96 Oxymask 10.0 04/27/18 06:57 71 18 90 Mask 13.0 04/27/18 00:45 Oxymask 11.0 04/26/18 23:35 36.3 77 20 104/61 (75) 95 Oxymask 11.0 04/26/18 21:39 102/61 (75) 04/26/18 20:00 91 Diffusion Mask 11.0 04/26/18 19:39 86 18 87 Diffusion Mask 13.0 04/26/18 15:35 36.7 90 18 91/59 (70) 95 Oxymask 13.0 04/26/18 15:34 85 18 91 Diffusion Mask 13.0 04/26/18 15:30 Mask 13.0 04/26/18 12:07 82 18 91 Mask 13.0 04/26/18 11:07 83 18 91 Nasal Cannula 45.0 55 04/26/18 10:58 36.3 88 16 94/54 (67) 94 High Flow Oxygen 04/26/18 08:00 High Flow Oxygen 45.0 55 Physical Exam General Appearance: WD/WN, + mild distress Eyes: normal inspection, sclerae normal Neck: supple, no JVD Respiratory/Chest: + decreased breath sounds, + accessory muscle use, + rales Cardiovascular: regular rate, rhythm, no murmur Abdomen: normal bowel sounds, non tender, soft Extremities: no pedal edema, no calf tenderness Neurologic/Psychiatric: alert, oriented x 3 Laboratory Results Last 24 Hours Test 04/26/18 11:28 04/26/18 16:19 04/26/18 19:58 04/27/18 07:14 Bedside Glucose 246 mg/dl 115 mg/dl 208 mg/dl 169 mg/dl Assessment and Plan (1) Acute and chronic respiratory failure with hypoxia Assessment & Plan: this pt has multiple reasons for SOB There is some discussion for ILD on a baseline of COPD, severe pulmonary hypertension seen on ECHO pt is tolerant of oxymask with 13 liters flow, disposition is a challenge as [facility] can only supply 40% oxygen there was some discussion with patient about if he wanted aggressive management into this problem and he did not ask questions or seem to have insight into his issue we are trying to arrange for a guardian will start some roxinol to try to reduce air hunger (2) COPD (chronic obstructive pulmonary disease) Assessment & Plan: copd exacerbation, on azithro and spiriva, started in iv solumedrol 04/24, will taper and transition to po steroids when able (3) Atrial fibrillation Assessment & Plan: Was seen by cardiology, in NSR at this time, recommendation to continue Digoxin, diltiazem (4) Elevated troponin Assessment & Plan: cardiology does not feel is nstemi or type 2 CO, likely influenced by hypoxia, continue to support good oxygen saturations. no concurrent chest pain (5) Prothrombin time increased due to coumadin Assessment & Plan: Initially was with INR>10, now normalized, appears in sinus follow INr every other day (6) Chronic diastolic heart failure due to valvular disease Assessment & Plan: after IV lasix is compensated but still with high oxygen requirements, change to po lasix 04/27 Continued [facility] stay due to: multiple IV medications needed Discharge planning: home Problem Qualifiers (1) Atrial fibrillation: Atrial fibrillation type: chronic Qualified Codes: I48.2 - Chronic atrial fibrillation
[2018-04-27 08:17] LABS: INR 1.4 (0.9-1.1)
[2018-04-27] MEDS: FUROSEMIDE 40 MG TAB PO SCH ×2 (08:25→17:55)
[2018-04-27] MEDS: DILTIAZEM SR 60 MG CAP PO SCH ×3 (08:25→20:46)
[2018-04-27] MEDS: INSULIN ASPART 100 UNITS/ML 3 ML PEN SC SCH ×4 (08:29→20:41)
[2018-04-27 08:36] LABS: CALCIUM 7.3 mg/dl (8.5-10.1); CREATININE 0.54 mg/dl (0.60-1.40); POTASSIUM 3.8 mmol/L (3.5-5.1)
[2018-04-27] MEDS: TIOTROPIUM BROMIDE 5 PUFF/90 MCG INH INH SCH (09:24)
--- NOTE | 2018-04-27 11:11 | Palliative Care Progress Note ---
Palliative Care Progress Note Date of Service Apr 27, 2018. Subjective Pt evaluation today including: conversation w/ patient, conversation w/ information services consultant (spoke with guards at the bedside) Pain: states no pain PO Intake: minimal Voiding: no voiding problems This patient was evaluated for follow up to discuss GOALS OF CARE and DISCHARGE PLANNING. In discussion with Case Management, the plan is for the patient to return to the long term with a transition to Hospice. Per the long term, they can accept the patient once he is down to 6L of O2 and the patient is currently on 10L of O2. Upon my assessment, the patient stated that his breathing is 'hard' and it 'hurts to breath' - there were one word answers and he then put the blanket over his head and did not want to engage further. Per the guards, he has had minimal conversation with them today as well. The patient does take his OxyMask off and put it on his head which causes his SpO2 to drop rapidly. I would suggest since we are moving towards Hospice, trialing Roxanol for air hunger to see if we could wean him down closer to 6L. The patient continues to receive Solu-Medrol, and DuoNebs. With his schizophrenia and intellectual constriction, his decision making capabilities are limited and a transition to Hospice is recommended per discussion with the Ethics committee previously. Case management is working on securing a court- appointed decision-making surrogate. We will continue to follow through his hospitalization. Review of Systems General: Patient denies pain but states 'it hurts to breathe' HEENT: Patient denies DIANE, dizziness, dysphagia CV: patient denies CP, palpitations Resp: Patient states he is SOB and working 'hard to breathe' GI: Pt denies abdominal pain, N/V/D : pt denies urinary changes Skin: Patient denies edema, new rashes. Objective Vital Signs Date Time Temp Pulse Resp B/P (MAP) Pulse Ox O2 Delivery O2 Flow Rate FiO2 04/27/18 07:43 36.4 74 18 113/65 (81) 96 Oxymask 10.0 04/27/18 06:57 71 18 90 Mask 13.0 04/27/18 00:45 Oxymask 11.0 04/26/18 23:35 36.3 77 20 104/61 (75) 95 Oxymask 11.0 04/26/18 21:39 102/61 (75) 04/26/18 20:00 91 Diffusion Mask 11.0 04/26/18 19:39 86 18 87 Diffusion Mask 13.0 04/26/18 15:35 36.7 90 18 91/59 (70) 95 Oxymask 13.0 04/26/18 15:34 85 18 91 Diffusion Mask 13.0 04/26/18 15:30 Mask 13.0 04/26/18 12:07 82 18 91 Mask 13.0 04/26/18 11:07 83 18 91 Nasal Cannula 45.0 55 04/26/18 10:58 36.3 88 16 94/54 (67) 94 High Flow Oxygen Physical Exam General Appearance: + mild distress (patient sitting at 80 degrees in bed), + cachetic Neck: supple, no adenopathy Respiratory/Chest: + decreased breath sounds, + accessory muscle use (some abdominal muscle use during out conversation with breathing), + crackles Cardiovascular: no edema (RONEY hose on) Abdomen: normal bowel sounds, non tender, soft Extremities: no pedal edema Neurologic/Psychiatric: + pertinent finding (Patient oriented to self and location - unable to comment on complexity of patient disease process. ) Skin: warm/dry Laboratory Results Last 24 Hours Test 04/26/18 11:28 04/26/18 16:19 04/26/18 19:58 04/27/18 07:14 Bedside Glucose 246 mg/dl 115 mg/dl 208 mg/dl 169 mg/dl Test 04/27/18 07:58 Prothrombin Time 14.1 SECONDS Prothromb Time International Ratio 1.4 Sodium Level 134 mmol/L Potassium Level 3.8 mmol/L Chloride Level 96 mmol/L Carbon Dioxide Level 33 mmol/L Anion Gap 5.0 mmol/L Blood Urea Nitrogen 25 mg/dl Creatinine 0.54 mg/dl Est Creatinine Clear Calc Drug Dose 103.8 ml/min Estimated GFR () 129.5 Estimated GFR (Non- 111.7 BUN/Creatinine Ratio 45.2 Random Glucose 179 mg/dl Calcium Level 7.3 mg/dl Assessment and Plan Palliative Care Recommendations: ADVANCED DIRECTIVE: -Per discussion with Ethics Committee, patient changed to DNR status with a transition to hospice which can be done at the long term upon his return. -Continue to suggest a court-appointed surrogate for decision making in the future. COPD: -Patient with a low FEV1 and has been requiring an oxymask for oxygenation, along with Solu-medrol, and Duonebs, and abx. -The long term can accept the patient upon return if his O2 requirements are lessened to 6L. The patient does take his OxyMask off and put it on his head which causes his SpO2 to drop rapidly. I would suggest since we are moving towards Hospice, trialing Roxanol 10mg/mL Administer 5mg po Q3 PRN for air hunger to see if we could wean him down closer to 6L prior to discharge. -Patient does have anxiety with breathing changes - he has Ativan ordered, and has received one dose on 04/25. CHF: -Patient with crackles in his lungs. He continues to receive Lasix, would suggest Atropine gtts 1%. Administer 4 gtts Q2 PRN for secretions. DISCHARGE PLANNING: -The plan is for this patient to return home to the long term. The patient does take his OxyMask off and put it on his head which causes his SpO2 to drop rapidly. I would suggest since we are moving towards Hospice, trialing Roxanol 10mg/mL Administer 5mg po Q3 PRN for air hunger to see if we could wean him down closer to 6L prior to discharge. -Should the patient not tolerate the decrease in oxygen with adding Roxanol, may need to consider reassessing capabilities and look into GIP for this patient. Will defer to case management with regards to logistics with this process. Palliative Performance Scale: 20 % Continued [facility] stay due to: multiple IV medications needed Discharge planning: home (long term) Counseling and Coordination Total time spent 45 minutes with > 50% of that time spent [id number] coordinating patients care, reviewing the chart, and discussing new medication recommendations with the IDT.
--- NOTE | 2018-04-27 11:16 | Pulmonology Progress Note ---
Pulmonary Progress Note Date of Service Apr 27, 2018. Attending Dr. Junior Subjective His respiratory status has improved, however he continued to have lethargy, nonambulatory, O2 saturation has been variable on the oxygen mask. He is currently on 10 L. Objective Physical exam on 04/24/2018 showed cachectic gentleman, somewhat confused, O2 saturation registered at 88% on high flow nasal cannula with heated oxygen, no JVP, S1-S2 regular rate and rhythm with tachycardia, bilateral diffuse crackles , abdomen is benign, no edema. Cachexia. Neurologically he is nonfocal. But overall weak. His CAT scan of the chest was reviewed personally which showed bilateral honeycombing which affect every single segment of his lungs bilaterally. Severe dilation of the pulmonary arteries noted. The patient had echocardiogram which revealed PA pressure of 75 with normal ejection fraction. The patient had pulmonary function test with diffusion capacity of 27% and his FEV1 is also 27%. Physical exam on 04/25/2018 showed cachectic gentleman, vital signs remains better now with O2 sat 92% on 60%, diffuse crackles bilaterally, S1-S2 regular rate and rhythm, abdomen is benign, no edema. Physical exam on 04/26/2018 showed O2 saturation of 92% on a mask oxygen however the mask was above his forehead as he was eating his lunch. Crackles bilaterally, Velcro type. Abdomen is benign, no edema. Labs were consistent with negative HIV testing, and negative QuantiFERON. Physical exam on 04/27/2018 showed O2 saturation of 88% on 10 L, does not appear tachypneic, bilateral crackles diffusely, S1-S2 with split S2, abdomen is benign , no edema. Cachexia. Assessment & Plan 1. Acute on chronic hypoxic respiratory failure. 2. IPF with exacerbation. Improving slowly with oxygen requirement down to 10 L from 60 L. 3. Congestive heart failure likely diastolic due to above in addition to pulmonary hypertension. 4. Severe pulmonary hypertension with PA pressure of 75 on recent echo. Not a candidate for vasodilator trial. Plan: 1. Start oxygen with nasal cannula 8 L/min and keep O2 sat 85% only. 2. HIV status is negative and QuantiFERON appeared negative as well in this patient. 3. Change steroids to prednisone 50 mg p.o. daily. 4. Do not taper the steroids for the next couple of weeks until seen by his own physician. 5. Continue bronchodilators. 6. Cannot start vasodilators to treat his pulmonary hypertension, this will increase his wedge pressure quickly and place the patient at risk of pulmonary edema. 7. Ambulate the patient. 8. Consider palliative care. 9. Disposition plan per hospitalist service. Thank you Thank you, will follow. Data Medications: Current Inpatient Medications Medications (Trade) Dose Ordered Sig/Princess Route Start Time Stop Time Status Last Admin Dose Admin Acetaminophen (Tylenol Tab) 650 mg Q4H PRN PO 04/22/18 16:30 05/22/18 16:29 Al Hydrox/Mg Hydrox/Simethicone (Maalox Max Susp) 15 ml Q4H PRN PO 04/22/18 16:30 05/22/18 16:29 Magnesium Hydroxide (Milk Of Magnesia Susp) 30 ml Q12H PRN PO 04/22/18 16:30 05/22/18 16:29 Ondansetron HCl (Zofran Inj) 4 mg Q6H PRN IV 04/22/18 16:30 05/22/18 16:29 Polyethylene (Miralax Powder Packet) 17 gm DAILY PRN PO 04/22/18 16:30 05/22/18 16:29 Atorvastatin Calcium (Lipitor Tab) 10 mg HS PO 04/22/18 21:00 05/22/18 20:59 04/26/18 20:10 10 MG Digoxin (Lanoxin Tab) 0.25 mg DAILY@1600 PO 04/23/18 16:00 05/23/18 15:59 Future Hold Diltiazem HCl (Cardizem Sr) 60 mg TID PO 04/22/18 21:00 05/22/18 20:59 04/27/18 08:25 60 MG Albuterol/ Ipratropium (Duoneb) 3 ml Q4RWA INH 04/22/18 20:00 05/22/18 19:59 04/27/18 06:57 3 ML Risperidone (Risperdal Tab) 1 mg HS PO 04/22/18 21:00 05/22/18 20:59 04/26/18 20:10 1 MG Tiotropium [place] (Spiriva Handihaler Inhaler) 1 puff DAILY INH 04/23/18 09:00 05/23/18 08:59 04/27/18 09:24 1 PUFF Miscellaneous Information (Order Awaiting Action) 1 ea BID N/A 8/4/18 21:00 05/22/18 20:59 Insulin Aspart (novoLOG ASPART) SLIDING SCALE G... ACHS SC 04/22/18 21:00 05/22/18 20:59 04/27/18 08:29 5 UNITS Glucose (Glucose 40% Gel) 15-30 GRAMS 15 GRAMS... UD PRN PO 04/22/18 18:15 05/22/18 18:14 Glucose (Glucose Chew Tab) 4-8 Tablets 4 Tabl... UD PRN PO 04/22/18 18:15 05/22/18 18:14 Dextrose (Dextrose 50% 50ML Syringe) 25-50ML 25ML FOR ... UD PRN IV 04/22/18 18:15 05/22/18 18:14 Glucagon (Glucagon Inj) 1 mg UD PRN SQ 04/22/18 18:15 05/22/18 18:14 Carbohydrates (Carbohydrates For Hypoglycemia) 15-30 GRAMS 15 grams if BSG 54-69... UD PRN PO 04/22/18 18:15 05/22/18 18:14 Lorazepam (Ativan Tab) 0.5 mg Q8 PRN PO 04/25/18 11:00 05/25/18 10:59 04/25/18 11:02 0.5 MG Furosemide (Lasix Tab) 40 mg BID17 PO 04/27/18 09:00 05/27/18 08:59 04/27/18 08:25 40 MG Vital Signs: Date Time Temp Pulse Resp B/P (MAP) Pulse Ox O2 Delivery O2 Flow Rate FiO2 04/27/18 08:00 Oxymask 10.0 04/27/18 07:43 36.4 74 18 113/65 (81) 96 Oxymask 10.0 04/27/18 06:57 71 18 90 Mask 13.0 04/27/18 00:45 Oxymask 11.0 04/26/18 23:35 36.3 77 20 104/61 (75) 95 Oxymask 11.0 04/26/18 21:39 102/61 (75) 04/26/18 20:00 91 Diffusion Mask 11.0 04/26/18 19:39 86 18 87 Diffusion Mask 13.0 04/26/18 15:35 36.7 90 18 91/59 (70) 95 Oxymask 13.0 04/26/18 15:34 85 18 91 Diffusion Mask 13.0 04/26/18 15:30 Mask 13.0 04/26/18 12:07 82 18 91 Mask 13.0 Laboratory Results: Last 24 Hours Test 04/26/18 11:28 04/26/18 16:19 04/26/18 19:58 04/27/18 07:14 Bedside Glucose 246 mg/dl 115 mg/dl 208 mg/dl 169 mg/dl Test 04/27/18 07:58 Prothrombin Time 14.1 SECONDS Prothromb Time International Ratio 1.4 Sodium Level 134 mmol/L Potassium Level 3.8 mmol/L Chloride Level 96 mmol/L Carbon Dioxide Level 33 mmol/L Anion Gap 5.0 mmol/L Blood Urea Nitrogen 25 mg/dl Creatinine 0.54 mg/dl Est Creatinine Clear Calc Drug Dose 103.8 ml/min Estimated GFR () 129.5 Estimated GFR (Non- 111.7 BUN/Creatinine Ratio 45.2 Random Glucose 179 mg/dl Calcium Level 7.3 mg/dl
[2018-04-27] MEDS ORDERED: MoRPHine SULFATE 5 MG/0.25 ML UDP PO PRN (12:45)
[2018-04-27] MEDS: ATORVASTATIN 10 MG TAB PO SCH (20:46)
[2018-04-27] MEDS: RISPERIDONE 1 MG TAB PO SCH (20:46)
[2018-04-28] VITALS (18 sets, daily range): BP systolic 97–123; BP diastolic 61–74; PULSE 71–94; TEMP 36.3–36.8; O2SAT 83–98
[2018-04-28] MEDS: ALBUT/IPRATROP 3MG/0.5MG NEB 3 ML VIAL INH SCH ×5 (02:02→20:10)
[2018-04-28 07:37] LABS: INR 1.3 (0.9-1.1)
[2018-04-28] MEDS: DILTIAZEM SR 60 MG CAP PO SCH ×3 (07:51→20:32)
[2018-04-28] MEDS: FUROSEMIDE 40 MG TAB PO SCH ×2 (07:52→17:37)
[2018-04-28] MEDS: TIOTROPIUM BROMIDE 5 PUFF/90 MCG INH INH SCH (07:53)
[2018-04-28] MEDS: LORAZEPAM 0.5 MG TAB PO PRN (07:56)
[2018-04-28] MEDS: INSULIN ASPART 100 UNITS/ML 3 ML PEN SC SCH ×4 (08:01→20:35)
[2018-04-28] MEDS ORDERED: HALOPERIDOL LACTATE 5 MG/ML 1 ML VIAL IV STA (08:27)
[2018-04-28] MEDS ORDERED: ACETAMINOPHEN 325 MG TAB PO PRN (08:30)
[2018-04-28] MEDS ORDERED: LORAZEPAM 2 MG/ML 1 ML VIAL IV PRN (08:30)
[2018-04-28] MEDS ORDERED: ONDANSETRON INJ 2 MG/ML 2 ML VIAL IV PRN (08:30)
[2018-04-28] MEDS ORDERED: HALOPERIDOL LACTATE 5 MG/ML 1 ML VIAL IV PRN (08:30)
[2018-04-28] MEDS: LORAZEPAM INJ 1 MG in SYRINGE 0.5 ML IV PRN (10:39)
[2018-04-28] MEDS ORDERED: MoRPHine SULFATE 15 MG/0.75 ML UDP PO PRN (10:45)
--- NOTE | 2018-04-28 14:56 | Pulmonology Progress Note ---
Pulmonary Progress Note Date of Service Apr 28, 2018. Attending Dr. Junior Subjective The patient was agitated earlier, started becoming desaturating, the patient did require Haldol and Ativan to control his symptoms, currently he is sedated and I could not get review of system from him. Objective Physical exam on 04/24/2018 showed cachectic gentleman, somewhat confused, O2 saturation registered at 88% on high flow nasal cannula with heated oxygen, no JVP, S1-S2 regular rate and rhythm with tachycardia, bilateral diffuse crackles , abdomen is benign, no edema. Cachexia. Neurologically he is nonfocal. But overall weak. His CAT scan of the chest was reviewed personally which showed bilateral honeycombing which affect every single segment of his lungs bilaterally. Severe dilation of the pulmonary arteries noted. The patient had echocardiogram which revealed PA pressure of 75 with normal ejection fraction. The patient had pulmonary function test with diffusion capacity of 27% and his FEV1 is also 27%. Physical exam on 04/25/2018 showed cachectic gentleman, vital signs remains better now with O2 sat 92% on 60%, diffuse crackles bilaterally, S1-S2 regular rate and rhythm, abdomen is benign, no edema. Physical exam on 04/26/2018 showed O2 saturation of 92% on a mask oxygen however the mask was above his forehead as he was eating his lunch. Crackles bilaterally, Velcro type. Abdomen is benign, no edema. Labs were consistent with negative HIV testing, and negative QuantiFERON. Physical exam on 04/27/2018 showed O2 saturation of 88% on 10 L, does not appear tachypneic, bilateral crackles diffusely, S1-S2 with split S2, abdomen is benign , no edema. Cachexia. Physical exam 10/06/2017 showed O2 sat of 95% on 5 L, crackles bilaterally, cachexia, S1-S2 regular rate and rhythm. Patient is currently sedated. Assessment & Plan 1. Acute on chronic hypoxic respiratory failure. 2. IPF with exacerbation. Improving slowly with oxygen requirement down to 10 L from 60 L. 3. Diastolic heart failure. 4. Severe pulmonary hypertension with PA pressure of 75 on recent echo. Not a candidate for vasodilator trial. Plan: 1. Continue with oxygen to keep O2 sat above 85%. Oxymizer has been ordered and available. 2. Minimal dose for sedation including benzos, the patient seems to be very sensitive to it. 3. Continue prednisone 50 mg p.o. daily. 4. Do not taper the steroids for the next couple of weeks until seen by his own physician. 5. Continue bronchodilators. 6. Cannot start vasodilators to treat his pulmonary hypertension, this will increase his wedge pressure quickly and place the patient at risk of pulmonary edema. 7. Ambulate the patient. 8. Consider palliative care. 9. His oxygen requirement preventing him from returning back to the facility. Thank you Thank you, will follow. Data Medications: Current Inpatient Medications Medications (Trade) Dose Ordered Sig/Princess Route Start Time Stop Time Status Last Admin Dose Admin Al Hydrox/Mg Hydrox/Simethicone (Maalox Max Susp) 15 ml Q4H PRN PO 04/22/18 16:30 05/22/18 16:29 Magnesium Hydroxide (Milk Of Magnesia Susp) 30 ml Q12H PRN PO 04/22/18 16:30 05/22/18 16:29 Polyethylene (Miralax Powder Packet) 17 gm DAILY PRN PO 04/22/18 16:30 05/22/18 16:29 Atorvastatin Calcium (Lipitor Tab) 10 mg HS PO 04/22/18 21:00 05/22/18 20:59 04/27/18 20:46 10 MG Digoxin (Lanoxin Tab) 0.25 mg DAILY@1600 PO 04/23/18 16:00 05/23/18 15:59 Future Hold Diltiazem HCl (Cardizem Sr) 60 mg TID PO 04/22/18 21:00 05/22/18 20:59 04/28/18 14:04 60 MG Albuterol/ Ipratropium (Duoneb) 3 ml Q4RWA INH 04/22/18 20:00 05/22/18 19:59 04/28/18 11:23 3 ML Risperidone (Risperdal Tab) 1 mg HS PO 04/22/18 21:00 05/22/18 20:59 04/27/18 20:46 1 MG Tiotropium [place] (Spiriva Handihaler Inhaler) 1 puff DAILY INH 04/23/18 09:00 05/23/18 08:59 04/28/18 07:53 1 PUFF Miscellaneous Information (Order Awaiting Action) 1 ea BID N/A 04/22/18 21:00 05/22/18 20:59 Insulin Aspart (novoLOG ASPART) SLIDING SCALE G... ACHS SC 04/22/18 21:00 05/22/18 20:59 04/28/18 08:01 5 UNITS Glucose (Glucose 40% Gel) 15-30 GRAMS 15 GRAMS... UD PRN PO 04/22/18 18:15 05/22/18 18:14 Glucose (Glucose Chew Tab) 4-8 Tablets 4 Tabl... UD PRN PO 04/22/18 18:15 05/22/18 18:14 Dextrose (Dextrose 50% 50ML Syringe) 25-50ML 25ML FOR ... UD PRN IV 04/22/18 18:15 05/22/18 18:14 Glucagon (Glucagon Inj) 1 mg UD PRN SQ 04/22/18 18:15 05/22/18 18:14 Carbohydrates (Carbohydrates For Hypoglycemia) 15-30 GRAMS 15 grams if BSG 54-69... UD PRN PO 04/22/18 18:15 05/22/18 18:14 Lorazepam (Ativan Tab) 0.5 mg Q8 PRN PO 04/25/18 11:00 05/25/18 10:59 04/28/18 07:56 0.5 MG Furosemide (Lasix Tab) 40 mg BID17 PO 04/27/18 09:00 05/27/18 08:59 04/28/18 07:52 40 MG Prednisone (PredniSONE TAB) 50 mg DAILY PO 04/28/18 09:00 05/28/18 08:59 04/28/18 07:51 50 MG Acetaminophen (Tylenol Tab) 650 mg Q4H PRN PO 04/28/18 08:30 05/28/18 08:29 Ondansetron HCl (Zofran Inj) 4 mg Q6H PRN IV 04/28/18 08:30 05/28/18 08:29 Haloperidol Lactate (Haldol Inj) 0.5 mg Q6 PRN IV 04/28/18 08:30 05/28/18 08:29 Lorazepam (Ativan Inj) 1 mg Q4H PRN IV 04/28/18 08:30 05/28/18 08:29 Lorazepam 1 mg/ Syringe 1 ml @ 1 mls/min Q4H PRN IV 04/28/18 08:30 05/28/18 08:29 04/28/18 10:39 1 MLS/MIN Morphine Sulfate (Roxanol Oral Soln) 15 mg TID PRN PO 04/28/18 10:45 05/12/18 10:44 I & O: 24-Hour Column 04/29/18 08:00 Output Total 500 ml Balance -500 ml Vital Signs: Date Time Temp Pulse Resp B/P (MAP) Pulse Ox O2 Delivery O2 Flow Rate FiO2 04/28/18 14:07 83 104/63 (77) 04/28/18 11:43 84 18 92 Nasal Cannula 5.0 04/28/18 11:24 84 16 98 Nasal Cannula 55.0 90 04/28/18 09:55 85 18 108/70 (83) 85 04/28/18 09:50 87 18 110/73 (85) 04/28/18 08:42 87 22 89 Nasal Cannula 55.0 90 04/28/18 08:00 85 Nasal Cannula 8.0 04/28/18 07:53 36.5 79 18 110/74 (86) 97 Nasal Cannula 8.0 04/28/18 07:38 87 22 85 Nasal Cannula 8.0 04/28/18 02:02 94 24 83 Nasal Cannula 8.0 04/28/18 00:38 87 Nasal Cannula 7.0 04/28/18 00:03 Nasal Cannula 7.0 04/27/18 23:50 90 Nasal Cannula 7.0 04/27/18 23:09 36.3 81 20 108/72 (84) 90 Nasal Cannula 8.0 04/27/18 19:01 101 24 87 Nasal Cannula 8.0 04/27/18 16:15 90 22 85 Mask 8.0 04/27/18 16:00 91 Nasal Cannula 8.0 Laboratory Results: Last 24 Hours Test 04/27/18 16:24 04/27/18 19:58 04/28/18 07:15 04/28/18 07:45 Bedside Glucose 307 mg/dl 170 mg/dl 115 mg/dl Prothrombin Time 13.4 SECONDS Prothromb Time International Ratio 1.3 Test 04/28/18 11:19 Bedside Glucose 142 mg/dl
--- NOTE | 2018-04-28 15:38 | Progress Note ---
Subjective Date of Service: Apr 28, 2018. Subjective Patient is significantly agitated this morning he was markedly hypoxemic as attempts were made to reduce his oxygen mask supplementation 8 L. Patient was being restrained by group home guards we help the patient with this air hunger by using opiates and benzodiazepines and transition the patient back to high flow oxygen Problem List Medical Problems: (1) Acute and chronic respiratory failure with hypoxia Status: Acute (2) CHF (congestive heart failure) Status: Acute (3) Chronic pulmonary embolism Status: Acute (4) Pulmonary embolism Status: Acute Review of Systems Constitutional: No fever, No chills, No weakness, No fatigue Respiratory: + sputum, + shortness of breath, + dyspnea on exertion, No cough Cardiac: No chest pain, No edema, No claudication Abdomen: No pain, No nausea, No vomiting, No diarrhea Musculoskeletal: No joint pain, No muscle pain Psychiatric: No depression symptoms, No anxiety Objective Vital Signs Date Time Temp Pulse Resp B/P (MAP) Pulse Ox O2 Delivery O2 Flow Rate FiO2 04/28/18 14:07 83 104/63 (77) 04/28/18 11:43 84 18 92 Nasal Cannula 5.0 04/28/18 11:24 84 16 98 Nasal Cannula 55.0 90 04/28/18 09:55 85 18 108/70 (83) 85 04/28/18 09:50 87 18 110/73 (85) 04/28/18 08:42 87 22 89 Nasal Cannula 55.0 90 04/28/18 08:00 85 Nasal Cannula 8.0 04/28/18 07:53 36.5 79 18 110/74 (86) 97 Nasal Cannula 8.0 04/28/18 07:38 87 22 85 Nasal Cannula 8.0 04/28/18 02:02 94 24 83 Nasal Cannula 8.0 04/28/18 00:38 87 Nasal Cannula 7.0 04/28/18 00:03 Nasal Cannula 7.0 04/27/18 23:50 90 Nasal Cannula 7.0 04/27/18 23:09 36.3 81 20 108/72 (84) 90 Nasal Cannula 8.0 04/27/18 19:01 101 24 87 Nasal Cannula 8.0 04/27/18 16:15 90 22 85 Mask 8.0 04/27/18 16:00 91 Nasal Cannula 8.0 Physical Exam General Appearance: WD/WN, + mild distress Eyes: normal inspection, sclerae normal Neck: supple, no JVD Respiratory/Chest: chest non-tender, lungs clear Cardiovascular: regular rate, rhythm, no murmur Abdomen: normal bowel sounds, soft Extremities: no pedal edema, no calf tenderness Neurologic/Psychiatric: alert, + depressed affect, + disoriented Laboratory Results Last 24 Hours Test 04/27/18 16:24 04/27/18 19:58 04/28/18 07:15 04/28/18 07:45 Bedside Glucose 307 mg/dl 170 mg/dl 115 mg/dl Prothrombin Time 13.4 SECONDS Prothromb Time International Ratio 1.3 Test 04/28/18 11:19 Bedside Glucose 142 mg/dl Assessment and Plan (1) Acute and chronic respiratory failure with hypoxia Assessment & Plan: this pt has multiple reasons for SOB we are trying to proceed with palliative care however he does not have a guardian appointed I do not believe he is of sound mind to make this decision he cannot return back to group home unless he is on less than 5 L of oxygen per we will like likely need to arrange a court-appointed guardian to help evaluate whether he is appropriate for hospice care if he is appropriate for hospice care he could be released from his sentence and change to a fpc on hospice care he does have less than 1 year live based on his multiple pulmonary issues listed below ILD on a baseline of COPD, severe pulmonary hypertension seen on ECHO there was some discussion with patient about if he wanted aggressive management into this problem and he did not ask questions or seem to have insight into his issue will start some roxinol to try to reduce air hunger (2) COPD (chronic obstructive pulmonary disease) Assessment & Plan: copd exacerbation, on azithro and spiriva, started in iv solumedrol 04/24, will taper and transition to po steroids when able, remains with severe sob (3) Atrial fibrillation Assessment & Plan: remains in NSR at this time, recommendation to continue Digoxin, diltiazem (4) Elevated troponin Assessment & Plan: this is not a nstemi but likely type 2 CO, likely influenced by hypoxia, continue to support good oxygen saturations. no concurrent chest pain (5) Prothrombin time increased due to coumadin Assessment & Plan: Initially was with INR>10, now normalized, appears in sinus follow INr every other day (6) Chronic diastolic heart failure due to valvular disease Assessment & Plan: after IV lasix is compensated but still with high oxygen requirements, change to po lasix 04/27 Continued [facility] stay due to: multiple IV medications needed Discharge planning: home (group home) Problem Qualifiers (1) Atrial fibrillation: Atrial fibrillation type: chronic Qualified Codes: I48.2 - Chronic atrial fibrillation
[2018-04-28] MEDS: ATORVASTATIN 10 MG TAB PO SCH (20:32)
[2018-04-28] MEDS: RISPERIDONE 2 MG TAB PO SCH (20:32)
[2018-04-29] VITALS (16 sets, daily range): BP systolic 96–113; BP diastolic 58–76; PULSE 75–94; TEMP 36.4–36.6; O2SAT 87–95
[2018-04-29 06:35] LABS: INR 1.2 (0.9-1.1)
[2018-04-29] MEDS: ALBUT/IPRATROP 3MG/0.5MG NEB 3 ML VIAL INH SCH ×4 (07:09→19:03)
[2018-04-29] MEDS: FUROSEMIDE 40 MG TAB PO SCH ×2 (07:55→17:52)
[2018-04-29] MEDS: TIOTROPIUM BROMIDE 5 PUFF/90 MCG INH INH SCH (07:55)
[2018-04-29] MEDS: DILTIAZEM SR 60 MG CAP PO SCH ×3 (07:55→21:00)
[2018-04-29] MEDS: INSULIN ASPART 100 UNITS/ML 3 ML PEN SC SCH ×4 (08:00→21:13)
--- NOTE | 2018-04-29 12:19 | Progress Note ---
Subjective Date of Service: Apr 29, 2018. Subjective pt appears more comfortable and calm today, less shortness of breath but is resting Problem List Medical Problems: (1) Acute and chronic respiratory failure with hypoxia Status: Acute (2) CHF (congestive heart failure) Status: Acute (3) Chronic pulmonary embolism Status: Acute (4) Pulmonary embolism Status: Acute Review of Systems Constitutional: + weakness, + fatigue, No fever, No chills Respiratory: + dyspnea on exertion, No cough, No shortness of breath Cardiac: No chest pain, No orthopnea, No edema Abdomen: No pain, No nausea, No vomiting, No diarrhea Musculoskeletal: No joint pain, No muscle pain Psychiatric: No depression symptoms, No anhedonism Objective Vital Signs Date Time Temp Pulse Resp B/P (MAP) Pulse Ox O2 Delivery O2 Flow Rate FiO2 04/29/18 11:28 36.5 92 22 106/65 (79) 92 Nasal Cannula 6.0 04/29/18 11:26 82 20 90 Nasal Cannula 6.0 04/29/18 08:00 Nasal Cannula 5.0 04/29/18 08:00 92 Nasal Cannula 5.0 04/29/18 07:55 85 113/76 (88) 04/29/18 07:10 36.4 94 22 96/62 (73) 92 Nasal Cannula 6.0 04/29/18 07:09 75 18 94 Nasal Cannula 6.0 04/29/18 04:24 36.4 80 20 99/68 (78) 94 Nasal Cannula 5.0 04/29/18 00:00 95 Nasal Cannula 5.0 04/29/18 00:00 91 Nasal Cannula 5.0 90 04/28/18 23:04 36.3 81 18 101/64 (76) 96 Nasal Cannula 6.0 04/28/18 20:28 83 107/69 (82) 04/28/18 20:12 82 18 91 Nasal Cannula 6.0 04/28/18 20:00 36.7 71 16 123/68 (86) 95 Room Air 04/28/18 20:00 95 Nasal Cannula 5.0 04/28/18 16:13 36.8 80 16 97/61 (73) 94 Mask 4.5 04/28/18 16:00 90 Nasal Cannula 5.0 04/28/18 15:33 76 16 93 Nasal Cannula 5.0 04/28/18 14:07 83 104/63 (77) Physical Exam General Appearance: + mild distress, + thin Eyes: normal inspection, sclerae normal Neck: supple, no JVD Respiratory/Chest: lungs clear, + respiratory distress, + decreased breath sounds, + accessory muscle use Cardiovascular: regular rate, rhythm, no murmur Abdomen: normal bowel sounds, non tender, soft Extremities: no pedal edema, no calf tenderness Neurologic/Psychiatric: alert, oriented x 3 Laboratory Results Last 24 Hours Test 04/28/18 16:35 04/28/18 20:07 04/29/18 06:00 04/29/18 07:30 Bedside Glucose 233 mg/dl 205 mg/dl 150 mg/dl Prothrombin Time 12.6 SECONDS Prothromb Time International Ratio 1.2 Test 04/29/18 11:27 Bedside Glucose 161 mg/dl Assessment and Plan (1) Acute and chronic respiratory failure with hypoxia Assessment & Plan: this pt has multiple reasons for SOB we are trying to proceed with palliative care however he does not have a guardian appointed I do not believe he is of sound mind to make this decision he cannot return back to jail unless he is on less than 5 L of oxygen per we will like likely need to arrange a court-appointed guardian to help evaluate whether he is appropriate for hospice care if he is appropriate for hospice care he could be released from his sentence and change to a correction on hospice care he does have less than 1 year live based on his multiple pulmonary issues listed below ILD on a baseline of COPD, severe pulmonary hypertension seen on ECHO is tolerant of lower oxygen levels 04/29 there was some discussion with patient about if he wanted aggressive management into this problem and he did not ask questions or seem to have insight into his issue roxinol to try to reduce air hunger increased hs zyprexa (2) COPD (chronic obstructive pulmonary disease) Assessment & Plan: copd exacerbation, on azithro and spiriva, started in iv solumedrol 04/24, will taper and transition to po steroids, remains with severe sob w exertion (3) Atrial fibrillation Assessment & Plan: remains in NSR at this time, recommendation to continue Digoxin, diltiazem (4) Elevated troponin Assessment & Plan: this is not a nstemi but likely type 2 PA, likely influenced by hypoxia, continue to support good oxygen saturations. no concurrent chest pain (5) Prothrombin time increased due to coumadin Assessment & Plan: Initially was with INR>10, now normalized, appears in sinus follow INr every other day (6) Chronic diastolic heart failure due to valvular disease Assessment & Plan: after IV lasix is compensated but still with high oxygen requirements, change to po lasix 04/27 Continued [facility] stay due to: multiple IV medications needed Discharge planning: home (jail) Problem Qualifiers (1) Atrial fibrillation: Atrial fibrillation type: chronic Qualified Codes: I48.2 - Chronic atrial fibrillation
--- NOTE | 2018-04-29 18:22 | Pulmonology Progress Note ---
Pulmonary Progress Note Date of Service Apr 29, 2018. Attending Dr. Junior Subjective The patient is more awake today, agitated at times, his O2 saturation has been maintained at 88% on 5 L only. He overall does not feel well according to him. Objective Physical exam on 04/24/2018 showed cachectic gentleman, somewhat confused, O2 saturation registered at 88% on high flow nasal cannula with heated oxygen, no JVP, S1-S2 regular rate and rhythm with tachycardia, bilateral diffuse crackles , abdomen is benign, no edema. Cachexia. Neurologically he is nonfocal. But overall weak. His CAT scan of the chest was reviewed personally which showed bilateral honeycombing which affect every single segment of his lungs bilaterally. Severe dilation of the pulmonary arteries noted. The patient had echocardiogram which revealed PA pressure of 75 with normal ejection fraction. The patient had pulmonary function test with diffusion capacity of 27% and his FEV1 is also 27%. Physical exam on 04/25/2018 showed cachectic gentleman, vital signs remains better now with O2 sat 92% on 60%, diffuse crackles bilaterally, S1-S2 regular rate and rhythm, abdomen is benign, no edema. Physical exam on 04/26/2018 showed O2 saturation of 92% on a mask oxygen however the mask was above his forehead as he was eating his lunch. Crackles bilaterally, Velcro type. Abdomen is benign, no edema. Labs were consistent with negative HIV testing, and negative QuantiFERON. Physical exam on 04/27/2018 showed O2 saturation of 88% on 10 L, does not appear tachypneic, bilateral crackles diffusely, S1-S2 with split S2, abdomen is benign , no edema. Cachexia. Physical exam 04/28/2018 showed O2 sat of 95% on 5 L, crackles bilaterally, cachexia, S1-S2 regular rate and rhythm. Patient is currently sedated. Physical exam on 04/29/2018 showed O2 sat is 88% on 5 L, diffuse crackles bilaterally, cachexia, S1-S2 not tachycardic, following commands and answering questions. Glucose remains elevated. Assessment & Plan 1. Acute on chronic hypoxic respiratory failure. 2. IPF with exacerbation. Improving slowly with oxygen requirement down to 10 L from 60 L. 3. Diastolic heart failure. 4. Severe pulmonary hypertension with PA pressure of 75 on recent echo. Not a candidate for vasodilator trial. Plan: 1. Continue with oxygen to keep O2 sat above 85%. Oxymizer has been available if needed, his oxygen requirement down to 5 L, likely will hold off on using Oxymizer and his case. 2. Minimal dose for sedation including benzos, the patient seems to be very sensitive to it. 3. Continue with prednisone 40 mg p.o. daily, do not taper for now, I will taper by 10 mg every week. 4. He will need follow-up with pulmonary as an outpatient. 5. Continue bronchodilators. 6. Cannot start vasodilators to treat his pulmonary hypertension, this will increase his wedge pressure quickly and place the patient at risk of pulmonary edema. 7. Ambulate the patient. 8. Consider palliative care. 9. Discussed with the nursing staff at the bedside. Thank you, will follow. Data Medications: Current Inpatient Medications Medications (Trade) Dose Ordered Sig/Princess Route Start Time Stop Time Status Last Admin Dose Admin Al Hydrox/Mg Hydrox/Simethicone (Maalox Max Susp) 15 ml Q4H PRN PO 04/22/18 16:30 05/22/18 16:29 Magnesium Hydroxide (Milk Of Magnesia Susp) 30 ml Q12H PRN PO 04/22/18 16:30 05/22/18 16:29 Polyethylene (Miralax Powder Packet) 17 gm DAILY PRN PO 04/22/18 16:30 05/22/18 16:29 Atorvastatin Calcium (Lipitor Tab) 10 mg HS PO 04/22/18 21:00 05/22/18 20:59 04/28/18 20:32 10 MG Digoxin (Lanoxin Tab) 0.25 mg DAILY@1600 PO 04/23/18 16:00 05/23/18 15:59 Future Hold Diltiazem HCl (Cardizem Sr) 60 mg TID PO 04/22/18 21:00 05/22/18 20:59 04/29/18 13:41 60 MG Albuterol/ Ipratropium (Duoneb) 3 ml Q4RWA INH 04/22/18 20:00 05/22/18 19:59 04/29/18 15:26 3 ML Tiotropium [place] (Spiriva Handihaler Inhaler) 1 puff DAILY INH 04/23/18 09:00 05/23/18 08:59 04/29/18 07:55 1 PUFF Miscellaneous Information (Order Awaiting Action) 1 ea BID N/A 04/22/18 21:00 05/22/18 20:59 Insulin Aspart (novoLOG ASPART) SLIDING SCALE G... ACHS SC 04/22/18 21:00 05/22/18 20:59 04/29/18 17:55 6 UNITS Glucose (Glucose 40% Gel) 15-30 GRAMS 15 GRAMS... UD PRN PO 04/22/18 18:15 05/22/18 18:14 Glucose (Glucose Chew Tab) 4-8 Tablets 4 Tabl... UD PRN PO 04/22/18 18:15 05/22/18 18:14 Dextrose (Dextrose 50% 50ML Syringe) 25-50ML 25ML FOR ... UD PRN IV 04/22/18 18:15 05/22/18 18:14 Glucagon (Glucagon Inj) 1 mg UD PRN SQ 04/22/18 18:15 05/22/18 18:14 Carbohydrates (Carbohydrates For Hypoglycemia) 15-30 GRAMS 15 grams if BSG 54-69... UD PRN PO 04/22/18 18:15 05/22/18 18:14 Lorazepam (Ativan Tab) 0.5 mg Q8 PRN PO 04/25/18 11:00 05/25/18 10:59 04/28/18 07:56 0.5 MG Furosemide (Lasix Tab) 40 mg BID17 PO 04/27/18 09:00 05/27/18 08:59 04/29/18 17:52 40 MG Acetaminophen (Tylenol Tab) 650 mg Q4H PRN PO 04/28/18 08:30 05/28/18 08:29 Ondansetron HCl (Zofran Inj) 4 mg Q6H PRN IV 04/28/18 08:30 05/28/18 08:29 Haloperidol Lactate (Haldol Inj) 0.5 mg Q6 PRN IV 04/28/18 08:30 05/28/18 08:29 Lorazepam (Ativan Inj) 1 mg Q4H PRN IV 04/28/18 08:30 05/28/18 08:29 Lorazepam 1 mg/ Syringe 1 ml @ 1 mls/min Q4H PRN IV 04/28/18 08:30 05/28/18 08:29 04/28/18 10:39 1 MLS/MIN Morphine Sulfate (Roxanol Oral Soln) 15 mg TID PRN PO 04/28/18 10:45 05/12/18 10:44 Risperidone (Risperdal Tab) 2 mg HS PO 04/28/18 21:00 05/22/18 20:59 04/28/18 20:32 2 MG Prednisone (PredniSONE TAB) 40 mg DAILY PO 04/29/18 09:00 05/28/18 08:59 04/29/18 10:05 40 MG Warfarin Sodium (Coumadin Tab) 5 mg HS PO 04/29/18 21:00 05/29/18 20:59 I & O: 24-Hour Column 04/30/18 08:00 Intake Total 270 ml Output Total 825 ml Balance -555 ml Vital Signs: Date Time Temp Pulse Resp B/P (MAP) Pulse Ox O2 Delivery O2 Flow Rate FiO2 04/29/18 16:00 89 Nasal Cannula 6.0 04/29/18 16:00 89 Nasal Cannula 6.0 04/29/18 15:28 91 22 87 Nasal Cannula 6.0 04/29/18 14:18 36.6 89 16 101/66 (78) 90 04/29/18 11:28 36.5 92 22 106/65 (79) 92 Nasal Cannula 6.0 04/29/18 11:26 82 20 90 Nasal Cannula 6.0 04/29/18 08:00 Nasal Cannula 5.0 04/29/18 08:00 92 Nasal Cannula 5.0 04/29/18 07:55 85 113/76 (88) 04/29/18 07:10 36.4 94 22 96/62 (73) 92 Nasal Cannula 6.0 04/29/18 07:09 75 18 94 Nasal Cannula 6.0 04/29/18 04:24 36.4 80 20 99/68 (78) 94 Nasal Cannula 5.0 04/29/18 00:00 95 Nasal Cannula 5.0 04/29/18 00:00 91 Nasal Cannula 5.0 90 04/28/18 23:04 36.3 81 18 101/64 (76) 96 Nasal Cannula 6.0 04/28/18 20:28 83 107/69 (82) 04/28/18 20:12 82 18 91 Nasal Cannula 6.0 04/28/18 20:00 36.7 71 16 123/68 (86) 95 Room Air 04/28/18 20:00 95 Nasal Cannula 5.0 Laboratory Results: Last 24 Hours Test 04/28/18 20:07 04/29/18 06:00 04/29/18 07:30 04/29/18 11:27 Bedside Glucose 205 mg/dl 150 mg/dl 161 mg/dl Prothrombin Time 12.6 SECONDS Prothromb Time International Ratio 1.2 Test 04/29/18 17:47 Bedside Glucose 234 mg/dl
[2018-04-29] MEDS: WARFARIN SOD 5 MG TAB PO SCH ×2 (21:00→22:26)
[2018-04-29] MEDS: ATORVASTATIN 10 MG TAB PO SCH ×2 (21:00→22:26)
[2018-04-29] MEDS: RISPERIDONE 2 MG TAB PO SCH ×2 (21:00→22:25)
[2018-04-29] MEDS: LORAZEPAM INJ 1 MG in SYRINGE 0.5 ML IV PRN (23:45)
[2018-04-30] VITALS (13 sets, daily range): BP systolic 100–118; BP diastolic 55–73; PULSE 74–97; TEMP 36.1–36.5; O2SAT 89–100
[2018-04-30] MEDS: LORAZEPAM 0.5 MG TAB PO PRN ×2 (02:32→18:32)
[2018-04-30 06:16] LABS: HEMATOCRIT 44.3 % (42-52); HEMOGLOBIN 14.8 g/dL (14.0-18.0); MEAN CORPUSCULAR HEMOGLOBIN 27.7 pg (25-34); MEAN CORPUSCULAR HGB CONC 33.4 g/dl (32-36); MEAN PLATELET VOLUME 10.6 fL (7.4-10.4); PLATELET COUNT 193 K/uL (130-400); RED CELL DISTRIBUTION WIDTH SD 45.5 fL (36.4-46.3)
[2018-04-30 06:25] LABS: INR 1.2 (0.9-1.1)
[2018-04-30 06:54] LABS: CALCIUM 7.6 mg/dl (8.5-10.1); CREATININE 0.57 mg/dl (0.60-1.40); POTASSIUM 3.5 mmol/L (3.5-5.1)
[2018-04-30] MEDS: ALBUT/IPRATROP 3MG/0.5MG NEB 3 ML VIAL INH SCH ×4 (07:05→19:36)
[2018-04-30] MEDS: TIOTROPIUM BROMIDE 5 PUFF/90 MCG INH INH SCH (07:42)
[2018-04-30] MEDS: DILTIAZEM SR 60 MG CAP PO SCH ×3 (07:44→20:50)
[2018-04-30] MEDS: FUROSEMIDE 40 MG TAB PO SCH ×2 (07:44→17:11)
[2018-04-30] MEDS: INSULIN ASPART 100 UNITS/ML 3 ML PEN SC SCH ×4 (07:51→20:53)
--- NOTE | 2018-04-30 08:42 | Progress Note ---
Subjective Date of Service: Apr 30, 2018. Subjective pt has much less oxygen requirement when his anxiety is controlled, he still has variable oxygen requirements Problem List Medical Problems: (1) Acute and chronic respiratory failure with hypoxia Status: Acute (2) CHF (congestive heart failure) Status: Acute (3) Chronic pulmonary embolism Status: Acute (4) Pulmonary embolism Status: Acute Review of Systems Constitutional: No fever, No chills, No weakness Respiratory: No cough, No sputum, No shortness of breath Abdomen: No pain, No nausea, No vomiting Neurologic: No memory loss, No weakness Psychiatric: + anxiety, No depression symptoms Objective Vital Signs Date Time Temp Pulse Resp B/P (MAP) Pulse Ox O2 Delivery O2 Flow Rate FiO2 04/30/18 07:55 79 20 100/68 (79) 94 Nasal Cannula 6.0 04/30/18 07:05 74 18 100 Mask 6.0 04/30/18 04:00 36.4 78 20 103/66 (78) 92 Oxymask 6.0 04/29/18 23:59 95 Oxymask 15.0 04/29/18 23:26 36.4 83 20 111/58 (75) 91 Nasal Cannula 6.0 04/29/18 21:05 81 100/60 (73) 04/29/18 19:04 85 22 87 Nasal Cannula 6.0 04/29/18 18:46 36.4 89 24 99/59 (72) 90 Nasal Cannula 6.0 04/29/18 16:00 89 Nasal Cannula 6.0 04/29/18 16:00 89 Nasal Cannula 6.0 04/29/18 15:28 91 22 87 Nasal Cannula 6.0 04/29/18 14:18 36.6 89 16 101/66 (78) 90 04/29/18 11:28 36.5 92 22 106/65 (79) 92 Nasal Cannula 6.0 04/29/18 11:26 82 20 90 Nasal Cannula 6.0 Physical Exam General Appearance: WD/WN, + mild distress Eyes: normal inspection, sclerae normal Respiratory/Chest: chest non-tender, + decreased breath sounds, + accessory muscle use, + rales Cardiovascular: regular rate, rhythm, no murmur Abdomen: normal bowel sounds, soft Extremities: no pedal edema, no calf tenderness Neurologic/Psychiatric: alert, oriented x 3 Laboratory Results Last 24 Hours Test 04/29/18 11:27 04/29/18 17:47 04/29/18 20:04 04/30/18 05:37 Bedside Glucose 161 mg/dl 234 mg/dl 247 mg/dl White Blood Count 11.80 K/uL Red Blood Count 5.34 M/uL Hemoglobin 14.8 g/dL Hematocrit 44.3 % Mean Corpuscular Volume 83.0 fL Mean Corpuscular Hemoglobin 27.7 pg Mean Corpuscular Hemoglobin Concent 33.4 g/dl RDW Standard Deviation 45.5 fL RDW Coefficient of Variation 15.0 % Platelet Count 193 K/uL Mean Platelet Volume 10.6 fL Prothrombin Time 12.7 SECONDS Prothromb Time International Ratio 1.2 Sodium Level 132 mmol/L Potassium Level 3.5 mmol/L Chloride Level 94 mmol/L Carbon Dioxide Level 33 mmol/L Anion Gap 5.0 mmol/L Blood Urea Nitrogen 30 mg/dl Creatinine 0.57 mg/dl Est Creatinine Clear Calc Drug Dose 99.8 ml/min Estimated GFR () 126.7 Estimated GFR (Non- 109.3 BUN/Creatinine Ratio 52.2 Random Glucose 111 mg/dl Calcium Level 7.6 mg/dl Test 04/30/18 07:35 Bedside Glucose 109 mg/dl Assessment and Plan (1) Acute and chronic respiratory failure with hypoxia Assessment & Plan: this pt has multiple reasons for SOB we are trying to proceed with palliative care however he does not have a guardian appointed I do not believe he is of sound mind to make this decision he cannot return back to [facility] unless he is on less than 5 L of oxygen per we will like likely need to arrange a court-appointed guardian to help evaluate whether he is appropriate for hospice care if he is appropriate for hospice care he could be released from his sentence and change to a snf on hospice care he does have less than 1 year live based on his multiple pulmonary issues listed below ILD on a baseline of COPD, severe pulmonary hypertension seen on ECHO is tolerant of lower oxygen levels 04/29 there was some discussion with patient about if he wanted aggressive management into this problem and he did not ask questions or seem to have insight into his issue roxinol to try to reduce air hunger increased hs zyprexa (2) COPD (chronic obstructive pulmonary disease) Assessment & Plan: copd exacerbation, on azithro and spiriva, started in iv solumedrol 04/24, will taper and transition to po steroids, remains with severe sob w exertion (3) Atrial fibrillation Assessment & Plan: remains in NSR at this time, recommendation to continue Digoxin, diltiazem (4) Elevated troponin Assessment & Plan: this is not a nstemi but likely type 2 ID, likely influenced by hypoxia, continue to support good oxygen saturations. no concurrent chest pain (5) Prothrombin time increased due to coumadin Assessment & Plan: Initially was with INR>10, now normalized, appears in sinus follow INr every other day (6) Chronic diastolic heart failure due to valvular disease Assessment & Plan: after IV lasix is compensated but still with high oxygen requirements, change to po lasix 04/27 Continued [facility] stay due to: multiple IV medications needed Discharge planning: home ([facility]pc) Problem Qualifiers (1) Atrial fibrillation: Atrial fibrillation type: chronic Qualified Codes: I48.2 - Chronic atrial fibrillation
--- NOTE | 2018-04-30 17:29 | Pulmonology Progress Note ---
Pulmonary Progress Note Date of Service Apr 30, 2018. Attending Dr. Junior Subjective The patient is poor historian, agitated at times, mental status is not reliable. Review of system was very limited today due to lethargy. The patient continued to have thirst mainly, denies any shortness of breath or pain. Objective Physical exam on 04/24/2018 showed cachectic gentleman, somewhat confused, O2 saturation registered at 88% on high flow nasal cannula with heated oxygen, no JVP, S1-S2 regular rate and rhythm with tachycardia, bilateral diffuse crackles , abdomen is benign, no edema. Cachexia. Neurologically he is nonfocal. But overall weak. His CAT scan of the chest was reviewed personally which showed bilateral honeycombing which affect every single segment of his lungs bilaterally. Severe dilation of the pulmonary arteries noted. The patient had echocardiogram which revealed PA pressure of 75 with normal ejection fraction. The patient had pulmonary function test with diffusion capacity of 27% and his FEV1 is also 27%. Physical exam on 04/25/2018 showed cachectic gentleman, vital signs remains better now with O2 sat 92% on 60%, diffuse crackles bilaterally, S1-S2 regular rate and rhythm, abdomen is benign, no edema. Physical exam on 04/26/2018 showed O2 saturation of 92% on a mask oxygen however the mask was above his forehead as he was eating his lunch. Crackles bilaterally, Velcro type. Abdomen is benign, no edema. Labs were consistent with negative HIV testing, and negative QuantiFERON. Physical exam on 04/27/2018 showed O2 saturation of 88% on 10 L, does not appear tachypneic, bilateral crackles diffusely, S1-S2 with split S2, abdomen is benign , no edema. Cachexia. Physical exam 04/28/2018 showed O2 sat of 95% on 5 L, crackles bilaterally, cachexia, S1-S2 regular rate and rhythm. Patient is currently sedated. Physical exam on 04/29/2018 showed O2 sat is 88% on 5 L, diffuse crackles bilaterally, cachexia, S1-S2 not tachycardic, following commands and answering questions. Glucose remains elevated. Physical exam on 04/30/2018 showed O2 saturation is 95% on 5 L while he is calm and sedated, he goes down to 88% with any kind of activity. Crackles bilaterally. Cachexia. S1-S2 no P2. Labs were consistent with mild leukocytosis likely steroids related. Assessment & Plan 1. Acute on chronic hypoxic respiratory failure. 2. IPF with exacerbation. Improving slowly with oxygen requirement down to 10 L from 60 L. 3. Diastolic heart failure. 4. Severe pulmonary hypertension with PA pressure of 75 on recent echo. Not a candidate for vasodilator trial. 5. Chronic PE. Plan: 1. Continue with oxygen to keep O2 sat above 85%. Oxymizer has been available if needed, his oxygen requirement down to 5 L, likely will hold off on using Oxymizer for now. 2. Minimal dose for sedation including benzos, the patient seems to be very sensitive to it. 3. Continue with prednisone 40 mg p.o. daily, do not taper for now, I will taper by 10 mg every week. 4. He will need follow-up with pulmonary as an outpatient. He will need pulmonary function test if cooperative. 5. Continue bronchodilators. 6. Cannot start vasodilators to treat his pulmonary hypertension, this will increase his wedge pressure quickly and place the patient at risk of pulmonary edema. 7. Ambulate the patient if possible, previous attempts resulted in profound hypoxia. 8. Consider palliative care. 9. Agree with Coumadin for life. 10. Disposition plan per Dr. Werner. Thank you, will follow. Data Medications: Current Inpatient Medications Medications (Trade) Dose Ordered Sig/Princess Route Start Time Stop Time Status Last Admin Dose Admin Al Hydrox/Mg Hydrox/Simethicone (Maalox Max Susp) 15 ml Q4H PRN PO 04/22/18 16:30 05/22/18 16:29 Magnesium Hydroxide (Milk Of Magnesia Susp) 30 ml Q12H PRN PO 04/22/18 16:30 05/22/18 16:29 Polyethylene (Miralax Powder Packet) 17 gm DAILY PRN PO 04/22/18 16:30 05/22/18 16:29 Atorvastatin Calcium (Lipitor Tab) 10 mg HS PO 04/22/18 21:00 05/22/18 20:59 04/29/18 22:26 10 MG Digoxin (Lanoxin Tab) 0.25 mg DAILY@1600 PO 04/23/18 16:00 05/23/18 15:59 Future Hold Diltiazem HCl (Cardizem Sr) 60 mg TID PO 04/22/18 21:00 05/01/18 06:00 04/30/18 13:58 60 MG Albuterol/ Ipratropium (Duoneb) 3 ml Q4RWA INH 04/22/18 20:00 05/22/18 19:59 04/30/18 15:19 3 ML Tiotropium [place] (Spiriva Handihaler Inhaler) 1 puff DAILY INH 04/23/18 09:00 05/23/18 08:59 04/30/18 07:42 1 PUFF Miscellaneous Information (Order Awaiting Action) 1 ea BID N/A 04/22/18 21:00 05/22/18 20:59 Insulin Aspart (novoLOG ASPART) SLIDING SCALE G... ACHS SC 04/22/18 21:00 05/22/18 20:59 04/30/18 17:13 8 UNITS Glucose (Glucose 40% Gel) 15-30 GRAMS 15 GRAMS... UD PRN PO 04/22/18 18:15 05/22/18 18:14 Glucose (Glucose Chew Tab) 4-8 Tablets 4 Tabl... UD PRN PO 04/22/18 18:15 05/22/18 18:14 Dextrose (Dextrose 50% 50ML Syringe) 25-50ML 25ML FOR ... UD PRN IV 04/22/18 18:15 05/22/18 18:14 Glucagon (Glucagon Inj) 1 mg UD PRN SQ 04/22/18 18:15 05/22/18 18:14 Carbohydrates (Carbohydrates For Hypoglycemia) 15-30 GRAMS 15 grams if BSG 54-69... UD PRN PO 04/22/18 18:15 05/22/18 18:14 Lorazepam (Ativan Tab) 0.5 mg Q8 PRN PO 04/25/18 11:00 05/25/18 10:59 04/30/18 02:32 0.5 MG Furosemide (Lasix Tab) 40 mg BID17 PO 04/27/18 09:00 05/27/18 08:59 04/30/18 17:11 40 MG Acetaminophen (Tylenol Tab) 650 mg Q4H PRN PO 04/28/18 08:30 05/28/18 08:29 Ondansetron HCl (Zofran Inj) 4 mg Q6H PRN IV 04/28/18 08:30 05/28/18 08:29 Haloperidol Lactate (Haldol Inj) 0.5 mg Q6 PRN IV 04/28/18 08:30 05/28/18 08:29 Lorazepam (Ativan Inj) 1 mg Q4H PRN IV 04/28/18 08:30 05/28/18 08:29 Lorazepam 1 mg/ Syringe 1 ml @ 1 mls/min Q4H PRN IV 04/28/18 08:30 05/28/18 08:29 04/29/18 23:45 1 MLS/MIN Morphine Sulfate (Roxanol Oral Soln) 15 mg TID PRN PO 04/28/18 10:45 05/12/18 10:44 Risperidone (Risperdal Tab) 2 mg HS PO 04/28/18 21:00 05/22/18 20:59 04/29/18 22:25 2 MG Prednisone (PredniSONE TAB) 40 mg DAILY PO 04/29/18 09:00 05/28/18 08:59 04/30/18 07:45 40 MG Warfarin Sodium (Coumadin Tab) 5 mg HS PO 04/29/18 21:00 05/29/18 20:59 04/29/18 22:26 5 MG Diltiazem HCl (Cardizem Cd Cap) 180 mg QAM PO 05/01/18 09:00 05/31/18 08:59 I & O: 24-Hour Column 05/01/18 08:00 Intake Total 100 ml Output Total 1050 ml Balance -950 ml Vital Signs: Date Time Temp Pulse Resp B/P (MAP) Pulse Ox O2 Delivery O2 Flow Rate FiO2 04/30/18 16:00 91 Oxymask 4.0 04/30/18 16:00 90 Oxyhood 4.0 04/30/18 15:19 86 18 95 Mask 6.0 04/30/18 14:16 36.1 88 20 104/67 (79) 98 6.0 04/30/18 11:38 96 18 111/73 (86) 93 04/30/18 11:20 89 18 97 Mask 6.0 04/30/18 08:00 94 Nasal Cannula 6.0 90 04/30/18 07:55 79 20 100/68 (79) 94 Nasal Cannula 6.0 04/30/18 07:05 74 18 100 Mask 6.0 04/30/18 04:00 36.4 78 20 103/66 (78) 92 Oxymask 6.0 04/29/18 23:59 95 Oxymask 15.0 04/29/18 23:26 36.4 83 20 111/58 (75) 91 Nasal Cannula 6.0 04/29/18 21:05 81 100/60 (73) 04/29/18 19:04 85 22 87 Nasal Cannula 6.0 04/29/18 18:46 36.4 89 24 99/59 (72) 90 Nasal Cannula 6.0 Laboratory Results: Last 24 Hours Test 04/29/18 17:47 04/29/18 20:04 04/30/18 05:37 04/30/18 07:35 Bedside Glucose 234 mg/dl 247 mg/dl 109 mg/dl White Blood Count 11.80 K/uL Red Blood Count 5.34 M/uL Hemoglobin 14.8 g/dL Hematocrit 44.3 % Mean Corpuscular Volume 83.0 fL Mean Corpuscular Hemoglobin 27.7 pg Mean Corpuscular Hemoglobin Concent 33.4 g/dl RDW Standard Deviation 45.5 fL RDW Coefficient of Variation 15.0 % Platelet Count 193 K/uL Mean Platelet Volume 10.6 fL Prothrombin Time 12.7 SECONDS Prothromb Time International Ratio 1.2 Sodium Level 132 mmol/L Potassium Level 3.5 mmol/L Chloride Level 94 mmol/L Carbon Dioxide Level 33 mmol/L Anion Gap 5.0 mmol/L Blood Urea Nitrogen 30 mg/dl Creatinine 0.57 mg/dl Est Creatinine Clear Calc Drug Dose 99.8 ml/min Estimated GFR () 126.7 Estimated GFR (Non- 109.3 BUN/Creatinine Ratio 52.2 Random Glucose 111 mg/dl Calcium Level 7.6 mg/dl Test 04/30/18 11:32 04/30/18 16:43 Bedside Glucose 173 mg/dl 264 mg/dl
[2018-04-30] MEDS: ATORVASTATIN 10 MG TAB PO SCH (18:32)
[2018-04-30] MEDS: WARFARIN SOD 5 MG TAB PO SCH (18:32)
[2018-04-30] MEDS: RISPERIDONE 2 MG TAB PO SCH (20:51)
[2018-05-01] VITALS (17 sets, daily range): BP systolic 91–104; BP diastolic 53–67; PULSE 74–93; TEMP 36.3–36.8; O2SAT 85–98
[2018-05-01] MEDS: ALBUT/IPRATROP 3MG/0.5MG NEB 3 ML VIAL INH SCH ×4 (07:06→18:59)
[2018-05-01 07:31] LABS: INR 1.4 (0.9-1.1)
[2018-05-01] MEDS: INSULIN ASPART 100 UNITS/ML 3 ML PEN SC SCH ×4 (08:14→20:30)
[2018-05-01] MEDS: TIOTROPIUM BROMIDE 5 PUFF/90 MCG INH INH SCH (08:17)
[2018-05-01] MEDS: FUROSEMIDE 40 MG TAB PO SCH ×2 (08:18→16:51)
[2018-05-01] MEDS: DILTIAZEM HCL 180 MG CAPCR PO SCH (08:18)
--- NOTE | 2018-05-01 14:14 | Progress Note ---
Subjective Date of Service: May 01, 2018. Subjective Pt evaluation today including: conversation w/ patient, physical exam, chart review, lab review, review of studies, conversation w/ library consultant, review of inpatient medication list Patient was in rest, comfortable, open eyes after several talking to him, looked lethargic, no acute distress, per nurse patient was eating this morning, Problem List Medical Problems: (1) Acute and chronic respiratory failure with hypoxia Status: Acute (2) CHF (congestive heart failure) Status: Acute (3) Chronic pulmonary embolism Status: Acute (4) Pulmonary embolism Status: Acute Review of Systems Constitutional: + problem reported (Not able to obtain because patient is in rest and lethargic, possible from effect of pain medicine) Objective Vital Signs Date Time Temp Pulse Resp B/P (MAP) Pulse Ox O2 Delivery O2 Flow Rate FiO2 05/01/18 11:41 36.6 81 24 99/61 (74) 98 6.0 05/01/18 11:21 88 18 98 Nasal Cannula 6.0 05/01/18 08:00 97 Nasal Cannula 6.0 05/01/18 07:22 36.4 75 20 104/65 (78) 97 Nasal Cannula 6.0 05/01/18 07:06 88 18 94 Nasal Cannula 6.0 05/01/18 03:58 36.3 78 18 91/53 (66) 92 6.0 05/01/18 00:00 Oxymask 4.0 04/30/18 23:16 36.5 93 18 102/63 (76) 93 6.0 04/30/18 20:49 87 101/55 (70) 89 Nasal Cannula 6.0 04/30/18 19:36 85 18 94 Nasal Cannula 6.0 04/30/18 19:33 36.5 97 16 118/70 (86) 91 6.0 04/30/18 16:00 91 Oxymask 4.0 04/30/18 16:00 90 Oxyhood 4.0 04/30/18 15:19 86 18 95 Mask 6.0 04/30/18 14:16 36.1 88 20 104/67 (79) 98 6.0 Physical Exam General Appearance: + cachetic, + thin, + pertinent finding (Frail, mild labored breathing, 97% on 6 L oxygen,) Eyes: normal inspection ENT: normal ENT inspection Neck: supple Respiratory/Chest: + decreased breath sounds Cardiovascular: regular rate, rhythm Abdomen: soft, no organomegaly Extremities: + pertinent finding (No edema) Neurologic/Psychiatric: + pertinent finding (No facial droop) Skin: normal color, warm/dry Laboratory Results Last 24 Hours Test 04/30/18 16:43 04/30/18 19:57 05/01/18 06:57 05/01/18 07:29 Bedside Glucose 264 mg/dl 195 mg/dl 108 mg/dl Prothrombin Time 14.3 SECONDS Prothromb Time International Ratio 1.4 Test 05/01/18 11:31 Bedside Glucose 185 mg/dl Assessment and Plan (1) Acute and chronic respiratory failure with hypoxia (2) COPD (chronic obstructive pulmonary disease) (3) Atrial fibrillation (4) Elevated troponin (5) Prothrombin time increased due to coumadin (6) Chronic diastolic heart failure due to valvular disease 62 y/o male admitted on April 22, 2018 because of hypoxia acute on chronic respiratory failure, History of a-fib, HLD, asthma/COPD, prediabetes, schizophrenia, anxiety, intellectual disability, HCV and osteoporosis pt came to the ED from [facility] on 04/22 with acute on chronic hypoxic respiratory failure. was tachycardic and tachypneic on arrival, improved on BiPAP and hour-long nebulizer treatment Acute on chronic hypoxic respiratory failure, ILD, COPD Acute congestive heart failure, unknown diastolic vs systolic Severe interstitial lung disease, possible chronic PE The above condition is persistent and not significantly improving, he did 4-5 L oxygen for now, has been trying to proceed with palliative care does not have a guardian appointed, is not of sound mind to make this decision cannot return back to halfway unless he is on less than 5 L of oxygen likely need to arrange a court-appointed guardian to help evaluate whether he is appropriate for hospice care if he is appropriate for hospice care he could be released from his sentence and change to a detention on hospice care ILD on a baseline of COPD, severe pulmonary hypertension seen on ECHO Continue roxinol to try to reduce air hunger increased hs zyprexa Supratherapeutic INR, hx of PAF, upon admission upon admission due to possible age indeterminate PE, Chest CT was done that reportedly:. Cardiomegaly and small pericardial effusion. Marked dilatation of the pulmonary trunk indicates pulmonary artery hypertension 1.6 cm pleural-based nodule in the anterior right middle lobe, end-stage medical condition, head operator sulfide saw patient, Schizophrenia, Continue Risperdal DVT prophylaxis, Patient is do not resuscitation, patient's poor prognosis Continued [facility] stay due to: home environment unsafe for pt Discharge planning: home (halfway) Problem Qualifiers (1) Atrial fibrillation: Atrial fibrillation type: chronic Qualified Codes: I48.2 - Chronic atrial fibrillation
--- NOTE | 2018-05-01 15:44 | PULMONARY PROGRESS NOTE ---
DATE: 05/01/2018 TIME: 3:20 p.m. SUBJECTIVE: The patient is being seen by myself for the first time. He is awake. He did not verbalize to any substantial degree. The guards in his room report that he is somewhat hard of hearing. I asked the patient if his breathing was better and he indicated somewhat. He has very little coughing as per nursing staff. OBJECTIVE: GENERAL: The patient is comfortable at rest. VITAL SIGNS: Temperature is 36.6. HEART: Cardiac rate is 86 per minute. Rhythm was regular. Systolic murmur grade 2/6 was heard best in the mitral region. Blood pressure is 99/61. CHEST: Respiratory rate was 20 breaths per minute. He was not labored at rest. Diffuse rales are heard bilaterally. Saturation is 98% on 5 liters. EXTREMITIES: Shows clubbing. No edema was noted. IMAGING DATA: I did review the patient's CAT scan. This shows very severe diffuse interstitial lung disease. Honeycomb changes were noted. Traction bronchiectasis was present. There is a pleural-based nodule in the right middle lobe anteriorly. The significance is not clear. I believe the patient's overall status is poor; however, he would not tolerate any diagnostic measures or treatment. LABORATORY DATA: White count is 11.8 as of yesterday. Hemoglobin was 14.8. Platelets were 193,000. INR today is 1.4. IMPRESSION: 1. Acute on chronic respiratory failure with hypoxia. 2. Idiopathic pulmonary fibrosis. 3. Pulmonary hypertension. 4. Diastolic congestive heart failure. 5. Chronic pulmonary emboli. COMMENTS AND RECOMMENDATIONS: The patient appears to have end-stage lung disease. His oxygenation seems to be improving somewhat. I am going to ask nursing to keep his saturation above 90%, but it does not need to be maintained at high levels where he is currently. Hopefully, this will allow us to taper the nasal cannula a bit and assist with having the patient subsequently discharged. He is on warfarin, but as noted, his INR is not prolonged. We will defer this to medicine as to whether they feel an adjustment should be made. Would maintain him on now with prednisone 40 mg per day. The patient would seem to be a candidate for comfort care.
[2018-05-01] MEDS: LORAZEPAM 0.5 MG TAB PO PRN (16:09)
[2018-05-01] MEDS: RISPERIDONE 2 MG TAB PO SCH (20:25)
[2018-05-01] MEDS: WARFARIN SOD 5 MG TAB PO SCH (20:26)
[2018-05-01] MEDS: ATORVASTATIN 10 MG TAB PO SCH (20:26)
[2018-05-01] MEDS: LORAZEPAM INJ 1 MG in SYRINGE 0.5 ML IV PRN (22:29)
[2018-05-01] MEDS ORDERED: IV FLUIDS COMPLETED PRN (23:15)
[2018-05-02] VITALS (13 sets, daily range): BP systolic 94–112; BP diastolic 59–71; PULSE 77–92; TEMP 36.3–36.7; O2SAT 90–96
[2018-05-02] MEDS: LORAZEPAM INJ 1 MG in SYRINGE 0.5 ML IV PRN (02:43)
[2018-05-02 06:38] LABS: HEMOGLOBIN 15.3 g/dL (14.0-18.0); MEAN CELL VOLUME 83.5 fL (80-100); MEAN CORPUSCULAR HEMOGLOBIN 27.2 pg (25-34); MEAN CORPUSCULAR HGB CONC 32.6 g/dl (32-36); PLATELET COUNT 185 K/uL (130-400); RED CELL DISTRIBUTION WIDTH SD 45.8 fL (36.4-46.3); WHITE BLOOD COUNT 12.63 K/uL (4.8-10.8)
[2018-05-02 06:48] LABS: INR 1.7 (0.9-1.1)
[2018-05-02] MEDS: ALBUT/IPRATROP 3MG/0.5MG NEB 3 ML VIAL INH SCH ×4 (07:06→19:08)
[2018-05-02 07:11] LABS: CALCIUM 8.3 mg/dl (8.5-10.1); CREATININE 0.62 mg/dl (0.60-1.40); POTASSIUM 3.2 mmol/L (3.5-5.1)
[2018-05-02] MEDS: TIOTROPIUM BROMIDE 5 PUFF/90 MCG INH INH SCH (08:26)
[2018-05-02] MEDS: DILTIAZEM HCL 180 MG CAPCR PO SCH (08:27)
[2018-05-02] MEDS: FUROSEMIDE 40 MG TAB PO SCH ×2 (08:27→17:37)
[2018-05-02] MEDS ORDERED: POTASSIUM CHLORIDE 10 MEQ TABCR PO STA (08:27)
[2018-05-02] MEDS: INSULIN ASPART 100 UNITS/ML 3 ML PEN SC SCH ×4 (08:30→21:21)
--- NOTE | 2018-05-02 10:08 | PULMONARY PROGRESS NOTE ---
DATE: 05/02/2018 TIME: 9:35 a.m. SUBJECTIVE: The patient is more awake. He is talking more. He says his breathing is better. He denies significant cough. He eats well by report. OBJECTIVE: GENERAL: The patient was in no distress. VITAL SIGNS: Temperature is 36.3. Heart rate is 79 per minute. Rhythm is regular. Blood pressure 112/71. LUNGS: Lung huang reveal diffuse rales bilaterally. Respiratory rate is 20. Saturation was 92% on 5-liter nasal cannula. Earlier, he had OxyMask on at 5 liters and it was 95%. I am told that when they took the mask off for him to eat, very quickly, he went down into the 70s. Clearly, he needs to have at least nasal cannula on all the time including eating. EXTREMITIES: Showed no cyanosis, clubbing or edema. LABORATORY DATA: White count is 12.63. Hemoglobin 15.3. Platelets 185,000. INR was 1.7. Electrolytes show sodium 135, potassium 3.2, chloride 92, bicarbonate 38. Bicarbonate on his electrolytes has been rising. Previously, it was 33 and on admission had been 27. ASSESSMENT: 1. Acute on chronic respiratory failure with hypoxia. 2. Idiopathic pulmonary fibrosis. 3. Pulmonary hypertension. 4. Diastolic congestive heart failure. 5. Chronic pulmonary embolus. COMMENTS AND RECOMMENDATIONS: The patient seems stable as he is going to be. He appears to have end-stage lung disease. I have no objection to discharge when desired. Would taper his prednisone very slowly, perhaps by 5-10 mg every week. As of now, his oxygenation has been able to be maintained at 5 liters or less. Upon discharge, the OxyMask could be sent back with him to the [facility] in the likelihood they do not have that particular mask available. He could use nasal cannula or OxyMask, whichever helps him the most.
[2018-05-02] MEDS ORDERED: POLYETHYLENE (MIRALAX) 17 GM PACK PO PRN (16:15)
--- NOTE | 2018-05-02 16:34 | Progress Note ---
Subjective Date of Service: May 02, 2018. Subjective Pt evaluation today including: conversation w/ patient, physical exam, chart review, lab review, review of studies, conversation w/ payroll consultant, review of inpatient medication list in rest, comfort, present because report the patient has been eating drinking fair each meals, awake able, awake alert orientated 3, Problem List Medical Problems: (1) Acute and chronic respiratory failure with hypoxia Status: Acute (2) CHF (congestive heart failure) Status: Acute (3) Chronic pulmonary embolism Status: Acute (4) Pulmonary embolism Status: Acute Review of Systems Constitutional: + weakness, + fatigue, + problem reported (Not able to fully obtained because patient not actively answering) Objective Vital Signs Date Time Temp Pulse Resp B/P (MAP) Pulse Ox O2 Delivery O2 Flow Rate FiO2 05/02/18 15:21 36.5 82 18 94/59 (71) 93 Nebulizer 9.0 05/02/18 15:07 79 20 90 Nasal Cannula 4.0 05/02/18 11:26 36.5 88 18 96/60 (72) 91 Nasal Cannula 8.0 Nebulizer 05/02/18 11:16 82 18 93 Nasal Cannula 4.0 05/02/18 09:38 92 Mask 5.0 05/02/18 08:00 95 Oxymask 5.0 05/02/18 07:30 36.3 79 20 112/71 (85) 95 Oxymask 5.0 05/02/18 07:06 92 20 95 Mask 5.0 05/02/18 03:29 36.4 77 20 104/68 (80) 90 Nasal Cannula 5.0 05/02/18 00:00 Nasal Cannula 5.0 05/01/18 23:19 36.8 84 20 99/60 (73) 90 Nasal Cannula 5.0 05/01/18 21:49 93 92 Nasal Cannula 3.0 05/01/18 20:00 90 Nasal Cannula 6.0 05/01/18 19:36 36.7 87 20 100/67 (78) 88 Nasal Cannula 6.0 05/01/18 19:03 86 20 85 Nasal Cannula 6.0 05/01/18 17:47 94 Nasal Cannula 6.0 Physical Exam General Appearance: WD/WN, no apparent distress, + cachetic, + thin Eyes: normal inspection, PERRL, EOMI, sclerae normal ENT: normal ENT inspection, hearing grossly normal, pharynx normal Neck: supple, no adenopathy, thyroid normal, no JVD, no carotid bruits, trachea midline Respiratory/Chest: chest non-tender, normal breath sounds, no respiratory distress, no accessory muscle use, + decreased breath sounds Cardiovascular: regular rate, rhythm, no edema, no gallop, no JVD, no murmur Abdomen: normal bowel sounds, non tender, soft, no organomegaly, no pulsatile mass Extremities: normal range of motion, non-tender, normal inspection, no pedal edema, no calf tenderness, normal capillary refill, pelvis stable Neurologic/Psychiatric: hull molder II-XII nml as tested, no motor/sensory deficits, alert, normal mood/affect, oriented x 3 Skin: normal color, warm/dry, no rash Lymphatic: no adenopathy Laboratory Results Last 24 Hours Test 05/01/18 16:27 05/01/18 20:05 05/02/18 06:18 05/02/18 07:14 Bedside Glucose 211 mg/dl 163 mg/dl 107 mg/dl White Blood Count 12.63 K/uL Red Blood Count 5.63 M/uL Hemoglobin 15.3 g/dL Hematocrit 47.0 % Mean Corpuscular Volume 83.5 fL Mean Corpuscular Hemoglobin 27.2 pg Mean Corpuscular Hemoglobin Concent 32.6 g/dl RDW Standard Deviation 45.8 fL RDW Coefficient of Variation 15.0 % Platelet Count 185 K/uL Mean Platelet Volume 11.0 fL Prothrombin Time 17.8 SECONDS Prothromb Time International Ratio 1.7 Sodium Level 135 mmol/L Potassium Level 3.2 mmol/L Chloride Level 92 mmol/L Carbon Dioxide Level 38 mmol/L Anion Gap 4.0 mmol/L Blood Urea Nitrogen 31 mg/dl Creatinine 0.62 mg/dl Est Creatinine Clear Calc Drug Dose 90.2 ml/min Estimated GFR () 122.4 Estimated GFR (Non- 105.6 BUN/Creatinine Ratio 49.3 Random Glucose 105 mg/dl Calcium Level 8.3 mg/dl Magnesium Level 2.0 mg/dl Test 05/02/18 11:22 Bedside Glucose 149 mg/dl Assessment and Plan (1) Acute and chronic respiratory failure with hypoxia (2) COPD (chronic obstructive pulmonary disease) (3) Atrial fibrillation (4) Elevated troponin (5) Prothrombin time increased due to coumadin (6) Chronic diastolic heart failure due to valvular disease 62 y/o male admitted on April 22, 2018 because of hypoxia acute on chronic respiratory failure, History of a-fib, HLD, asthma/COPD, prediabetes, schizophrenia, anxiety, intellectual disability, HCV and osteoporosis pt came to the ED from [facility] on 04/22 with acute on chronic hypoxic respiratory failure. was tachycardic and tachypneic on arrival, improved on BiPAP and hour-long nebulizer treatment Acute on chronic hypoxic respiratory failure, ILD, COPD Acute congestive heart failure, unknown diastolic vs systolic Severe interstitial lung disease, possible chronic PE The above condition is persistent and not significantly improving, he did 4-5 L oxygen for now, has been trying to proceed with palliative care does not have a guardian appointed, is not of sound mind to make this decision cannot return back to senior care unless he is on less than 5 L of oxygen likely need to arrange a court-appointed guardian to help evaluate whether he is appropriate for hospice care if he is appropriate for hospice care he could be released from his sentence and change to a [facility] on hospice care ILD on a baseline of COPD, severe pulmonary hypertension seen on ECHO Continue roxinol to try to reduce air hunger increased hs zyprexa Supratherapeutic INR, hx of PAF, upon admission upon admission due to possible age indeterminate PE, Chest CT was done that reportedly:. Cardiomegaly and small pericardial effusion. Marked dilatation of the pulmonary trunk indicates pulmonary artery hypertension 1.6 cm pleural-based nodule in the anterior right middle lobe, end-stage medical condition, saddle tree stitcher saw patient, Schizophrenia, Continue Risperdal Constipation with several days no documented bowel movement, start Colace and MiraLAX DVT prophylaxis, Patient is do not resuscitation, patient's poor prognosis Talked to nursing staff want to document well about patient's oxygen need, so far with 4-5 L of oxygen [place] Or Oxymask patient's oxygen level has been more than 90% Talk to senior care physician medical assistant internal medicine, Jacqueline is in charge, he agree Oxymask is available and present, as long as we are able to keep patient's oxygen about 88- 90% will be good enough, and then will go from there Continued [facility] stay due to: home environment unsafe for pt Discharge planning: home (senior care) Problem Qualifiers (1) Atrial fibrillation: Atrial fibrillation type: chronic Qualified Codes: I48.2 - Chronic atrial fibrillation
[2018-05-02] MEDS: WARFARIN SOD 5 MG TAB PO SCH (21:16)
[2018-05-02] MEDS: ATORVASTATIN 10 MG TAB PO SCH (21:16)
[2018-05-02] MEDS: RISPERIDONE 2 MG TAB PO SCH (21:16)
[2018-05-02] MEDS: DOCUSATE SODIUM 100 MG CAP PO SCH (21:18)
[2018-05-03] VITALS (10 sets, daily range): BP systolic 98–108; BP diastolic 60–71; PULSE 72–88; TEMP 36.3–36.7; O2SAT 90–97
[2018-05-03] MEDS: ALBUT/IPRATROP 3MG/0.5MG NEB 3 ML VIAL INH SCH ×4 (06:55→19:38)
[2018-05-03] MEDS: DILTIAZEM HCL 180 MG CAPCR PO SCH (08:53)
[2018-05-03] MEDS: FUROSEMIDE 40 MG TAB PO SCH ×2 (08:53→16:40)
[2018-05-03] MEDS: INSULIN ASPART 100 UNITS/ML 3 ML PEN SC SCH ×4 (08:57→20:52)
[2018-05-03] MEDS: DOCUSATE SODIUM 100 MG CAP PO SCH ×2 (08:57→20:46)
[2018-05-03] MEDS: TIOTROPIUM BROMIDE 5 PUFF/90 MCG INH INH SCH (09:00)
--- NOTE | 2018-05-03 12:04 | PULMONARY PROGRESS NOTE ---
DATE: 05/03/2018 TIME: 11:10 a.m. SUBJECTIVE: The patient is difficult to assess. He does complain of shortness of breath, though he does not appear short of breath. He verbalizes minimally. OBJECTIVE: GENERAL: The patient was comfortable. Temperature is 36.6. He was sleeping when I went into the room, but he did awaken. He verbalized only minimally. VITAL SIGNS: Heart rate is 83 per minute. Rhythm is regular. Blood pressure is 106/65. LUNGS: Lung huang again reveal diffuse rales posteriorly and laterally. Respiratory rate was 16 breaths per minute. Oxygen saturation was 94% on 4 liters. EXTREMITIES: Showed no edema. He does have clubbing. The patient had an overnight pulse oximetry study done last evening. This reportedly was done on 5-liter OxyMask. It was only on for 2 hours and 18 minutes. I do not know why it was taken off. The recorded low was 60.9%, but clearly that was artifactual. It did report saturations less than 88% for 60.9 minutes out of the 2 hours 18 minutes. I could not determine the actual low saturation because of the artifact. ASSESSMENT: 1. Acute on chronic respiratory failure with hypoxia. 2. Idiopathic pulmonary fibrosis. 3. Pulmonary hypertension. 4. Diastolic congestive heart failure. 5. Chronic PE. COMMENTS AND RECOMMENDATIONS: The patient appears to have end-stage chronic lung disease. He is currently a DNR. At this time, he still requires more than 5 liters of oxygen. He saturates well during the day, but has difficulties with some desaturation at night. The patient's CAT scan is severely abnormal throughout and I think it is extremely unlikely he would have any significant recovery from this. Clinically, he does not seem short of breath. Apparently, a problem is the intermediate system does not allow more than 5 liters of oxygen. Consideration could be given to a trial of BiPAP at night to see if this would maintain his saturations better. I am not exactly clear why the intermediate system does not have capabilities of handling more than 5 liters of oxygen. This is regularly done at home if need be. Prognosis is poor.
--- NOTE | 2018-05-03 16:12 | Progress Note ---
Subjective Date of Service: May 03, 2018. Subjective Pt evaluation today including: conversation w/ patient, physical exam, chart review, lab review, review of studies, conversation w/ marine consultant, review of inpatient medication list RN reported patient continue doing fairly okay, eating 3 meals, has urination and bowel movement, He opens eyes, answer simple questions to me, awake alert orientated to name, birthday, place, Problem List Medical Problems: (1) Acute and chronic respiratory failure with hypoxia Status: Acute (2) CHF (congestive heart failure) Status: Acute (3) Chronic pulmonary embolism Status: Acute (4) Pulmonary embolism Status: Acute Review of Systems Constitutional: + problem reported (Not able to obtain because patient not answering back,) Objective Vital Signs Date Time Temp Pulse Resp B/P (MAP) Pulse Ox O2 Delivery O2 Flow Rate FiO2 05/03/18 15:30 36.7 72 18 98/60 (73) 91 Nasal Cannula 4.0 05/03/18 15:08 86 16 93 Nasal Cannula 4.0 05/03/18 11:16 88 16 90 Nasal Cannula 4.0 05/03/18 08:00 94 Nasal Cannula 4.0 05/03/18 08:00 94 Mask 4.0 05/03/18 07:07 36.6 83 20 106/65 (79) 94 Nasal Cannula 4.0 05/03/18 06:55 83 16 94 Mask 4.0 05/03/18 04:42 36.6 77 18 99/64 (76) 95 Nasal Cannula 5.0 05/03/18 00:55 Oxymask 5.0 05/02/18 23:11 36.3 80 18 96/61 (73) 96 Oxymask 5.0 05/02/18 19:34 36.7 87 18 106/68 (81) 94 Nasal Cannula 4.0 05/02/18 19:10 83 16 93 Nasal Cannula 4.0 05/02/18 16:20 93 Nasal Cannula 4.0 Nebulizer Non-Rebreather Physical Exam General Appearance: WD/WN, no apparent distress, + cachetic, + thin, + pertinent finding (Chronically ill looking, mildly lethargic,) Eyes: normal inspection, PERRL, EOMI, sclerae normal ENT: normal ENT inspection, hearing grossly normal, pharynx normal Neck: supple, no adenopathy, thyroid normal, no JVD, no carotid bruits, trachea midline Respiratory/Chest: chest non-tender, normal breath sounds, no respiratory distress, no accessory muscle use, + decreased breath sounds Cardiovascular: regular rate, rhythm, no edema, no gallop, no JVD, no murmur Abdomen: normal bowel sounds, non tender, soft, no organomegaly, no pulsatile mass Extremities: normal range of motion, non-tender, normal inspection, no pedal edema, no calf tenderness, normal capillary refill, pelvis stable Neurologic/Psychiatric: site superintendent II-XII nml as tested, no motor/sensory deficits, alert, normal mood/affect Skin: normal color, warm/dry, no rash Lymphatic: no adenopathy Laboratory Results Last 24 Hours Test 05/02/18 16:21 05/02/18 19:56 05/03/18 07:25 05/03/18 11:37 Bedside Glucose 227 mg/dl 239 mg/dl 109 mg/dl 168 mg/dl Assessment and Plan (1) Acute and chronic respiratory failure with hypoxia (2) COPD (chronic obstructive pulmonary disease) (3) Atrial fibrillation (4) Elevated troponin (5) Prothrombin time increased due to coumadin (6) Chronic diastolic heart failure due to valvular disease 62 y/o male admitted on April 22, 2018 because of hypoxia acute on chronic respiratory failure, History of a-fib, HLD, asthma/COPD, prediabetes, schizophrenia, anxiety, intellectual disability, HCV and osteoporosis pt came to the ED from [facility] on 04/22 with acute on chronic hypoxic respiratory failure. was tachycardic and tachypneic on arrival, improved on BiPAP and hour-long nebulizer treatment Acute on chronic hypoxic respiratory failure, ILD, COPD Acute congestive heart failure, 1.6 cm pleural-based nodule in the anterior right middle lobe, end-stage medical condition, senior business broker saw patient, Schizophrenia, Continue Risperdal Constipation with several days no documented bowel movement, cont Colace and MiraLAX Severe interstitial lung disease, possible chronic PE The above condition is persistent and not significantly improving, he is using 4-5 L oxygen for now, has been trying to proceed with palliative care Per Palliative care note, through etjic committee patient is do not resuscitation in this facility Per Dr. Shepard's note "pt is not of sound mind to make this decision", Per my personal evaluation, the conclusion is the same as Dr. Keyes, ie. although patient awake alert orientated to the place, when talk to him about his end-stage health conditions , he always saying okay all years, not able to read back or commands back. Talked to long term Dr. Bernabe: initially he wanted to have psychiatry evaluation to have pt's competent evaluation, I told him it is not necessary because Dr. Keyes and me both feel patient is not competent to make decisions by himself then Dr. Bernabe mentions that in the long term settings they have difficult to maintain patient's high oxygen need, they are not feeling comfortable to take the patient back I told Dr. Bernabe, Clinically, he does not seem shortof breath, even though he desaturation at nighttime, however it is the best we can do I told Dr. Bernabe that likely need to arrange a court-appointed guardian to help evaluate whether he is appropriate for hospice care he could be released from his sentence and change to a care home on hospice care , Dr. Bernabe told me that because patient now is in [facility] , it is the medical center 's job to request and arrange a court-appointed guardian, I reported this to caser in and they will continue to follow Talked to nursing staff want to document well about patient's oxygen need, so far with 4-5 L of oxygen [place] Or Oxymask patient's oxygen level has been more than 90% at day time will recheck Nocturnal Osat, with 5 L PM oxymask, told Rn really need to complete the evaluation Continued [facility] stay due to: home environment unsafe for pt Discharge planning: home (long term) Problem Qualifiers (1) Atrial fibrillation: Atrial fibrillation type: chronic Qualified Codes: I48.2 - Chronic atrial fibrillation
[2018-05-03] MEDS: RISPERIDONE 2 MG TAB PO SCH (20:46)
[2018-05-03] MEDS: ATORVASTATIN 10 MG TAB PO SCH (20:47)
[2018-05-03] MEDS: WARFARIN SOD 5 MG TAB PO SCH (20:47)
[2018-05-04] VITALS (10 sets, daily range): BP systolic 92–106; BP diastolic 63–70; PULSE 64–86; TEMP 36.3–36.5; O2SAT 86–97
[2018-05-04 07:04] LABS: HEMATOCRIT 47.4 % (42-52); HEMOGLOBIN 16.5 g/dL (14.0-18.0); MEAN CELL VOLUME 82.3 fL (80-100); MEAN CORPUSCULAR HEMOGLOBIN 28.6 pg (25-34); MEAN CORPUSCULAR HGB CONC 34.8 g/dl (32-36); MEAN PLATELET VOLUME 10.4 fL (7.4-10.4); PLATELET COUNT 147 K/uL (130-400); RED CELL DISTRIBUTION WIDTH CV 15.2 % (11.5-14.5); RED CELL DISTRIBUTION WIDTH SD 45.4 fL (36.4-46.3); WHITE BLOOD COUNT 11.91 K/uL (4.8-10.8)
[2018-05-04] MEDS: ALBUT/IPRATROP 3MG/0.5MG NEB 3 ML VIAL INH SCH ×4 (07:13→19:19)
[2018-05-04 07:42] LABS: CALCIUM 8.3 mg/dl (8.5-10.1); CREATININE 0.55 mg/dl (0.60-1.40); POTASSIUM 3.2 mmol/L (3.5-5.1)
[2018-05-04] MEDS: FUROSEMIDE 40 MG TAB PO SCH ×2 (08:09→17:15)
[2018-05-04] MEDS: DILTIAZEM HCL 180 MG CAPCR PO SCH (08:09)
[2018-05-04] MEDS: DOCUSATE SODIUM 100 MG CAP PO SCH ×2 (08:09→20:48)
[2018-05-04] MEDS ORDERED: POTASSIUM CHLORIDE 10 MEQ TABCR PO STA (08:29)
[2018-05-04] MEDS: TIOTROPIUM BROMIDE 5 PUFF/90 MCG INH INH SCH (08:51)
[2018-05-04] MEDS: INSULIN ASPART 100 UNITS/ML 3 ML PEN SC SCH ×4 (08:51→20:55)
[2018-05-04] MEDS ORDERED: MRLP17X PO (13:45)
[2018-05-04] MEDS ORDERED: PRD20 PO (13:45)
[2018-05-04] MEDS ORDERED: ATV1 PO (13:45)
[2018-05-04] MEDS ORDERED: CRDCD180 PO (13:45)
[2018-05-04] MEDS ORDERED: LSX40 PO (13:45)
[2018-05-04] MEDS ORDERED: CLC100 PO (13:45)
[2018-05-04] MEDS ORDERED: LORAZEPAM 1 MG TAB PO PRN (13:45)
[2018-05-04] MEDS ORDERED: MOMLX PO (13:45)
--- NOTE | 2018-05-04 13:46 | Discharge Instructions ---
Discharge Instructions Date of Service May 04, 2018. Admission Reason for Admission: Acute And Chronic Respiratory Failure,Chf Discharge Discharge Diagnosis / Problem: acute on chronic resp failure, ILD Discharge Goals Goal(s): Decrease discomfort Activity Recommendations Activity Limitations: as noted below . Instructions / Follow-Up Instructions / Follow-Up you have Acute congestive heart failure, you have a-fib, HLD, asthma/COPD, prediabetes, schizophrenia, anxiety, intellectual disability, HCV and osteoporosis Acute on chronic hypoxic respiratory failure, ILD, COPD you have 1.6 cm pleural-based nodule in the anterior right middle lobe, you have end-stage medical condition, you have Severe interstitial lung disease, possible chronic PE your oxygen have been doing fairl in day time with using 4-5 L oxygen , osat > 93%, please continue this your oxygen have been doing ok at night time with using 4-5 L oxygen per Oxymask, Pulmonary Dr. Babin and me both feel your oxygen level should be reasonable at high 80% occasionally because we can not doing anything better, need to make sure don't remove Oxymask during sleep with 4-5 LPM Oxygen RN please send one Oxymask with patient upon discharge Per Our Palliative care note, through ethic committee patient is do not resuscitation in [facility] recommend to move toward for palliative care after arriving in your facility, recommend to stop Coumadin , digoxin etc., and change to supportive care only - you need to follow up with your primary care physician 2-3 days - fall precaution - diet as instructed Current Hospital Diet Patient's current hospital diet: AHA Diet (Heart Healthy), Diabetes Type 2 Diet Discharge Diet Recommended Diet: Diabetes Type 2 Diet Pending Studies Studies pending at discharge: no Laboratory Results Hemoglobin A1c Test 04/22/18 13:20 Range/Units Estimated Average Glucose 134 mg/dl Hemoglobin A1c 6.3 H 4.5-5.6 % Medical Emergencies . Who to Call and When: Medical Emergencies: If at any time you feel your situation is an emergency, please call 911 immediately. . Non-Emergent Contact Non-Emergency issues call your: Primary Care Provider . . "Provider Documentation" section prepared by Isaiah Carranza. .
--- NOTE | 2018-05-04 15:53 | Progress Note ---
Subjective Date of Service: May 04, 2018. Subjective Pt evaluation today including: conversation w/ patient, physical exam, chart review, lab review, review of studies, conversation w/ specification consultant, review of inpatient medication list During the same, generalized weakness, no appetite, did not eating lunch, Problem List Medical Problems: (1) Acute and chronic respiratory failure with hypoxia Status: Acute (2) CHF (congestive heart failure) Status: Acute (3) Chronic pulmonary embolism Status: Acute (4) Pulmonary embolism Status: Acute Review of Systems Constitutional: + weakness, + fatigue, No fever, No chills, No sweats, No weight loss, No problem reported Eyes: No worsening of vision, No eye pain, No redness, No discharge, No diplopia ENT: No hearing loss, No unusual epistaxis, No nasal symptoms, No sore throat, No tinnitus, No dental problems, No trouble swallowing Respiratory: + shortness of breath, No cough, No sputum, No wheezing, No dyspnea on exertion, No dyspnea at rest, No hemoptysis Cardiac: No chest pain, No orthopnea, No PND, No edema, No claudication, No palpitations Abdomen: No pain, No nausea, No vomiting, No diarrhea, No constipation Musculoskeletal: No joint pain, No muscle pain, No swelling, No calf pain Male : No dysuria, No urinary frequency, No incontinence, No nocturia more than once/night, No slowing stream, No hematuria Neurologic: No memory loss, No paralysis, No weakness, No numbness/tingling, No vertigo, No balance problems Psychiatric: No depression symptoms, No anhedonism, No anxiety, No insomnia, No substance abuse Heme: No abnormal bleeding/bruising, No clotting problems, No swollen lymph nodes, No night sweats Endo: No fatigue, No excessive thirst, No excessive urination Skin: No rash, No itch, No new/changing skin lesions, No color change, No bleeding Objective Vital Signs Date Time Temp Pulse Resp B/P (MAP) Pulse Ox O2 Delivery O2 Flow Rate FiO2 05/04/18 15:18 64 16 90 Nasal Cannula 5.0 05/04/18 15:10 36.5 86 18 99/63 (75) 86 Nasal Cannula 5.0 05/04/18 14:13 36.4 77 16 95 Nasal Cannula 05/04/18 11:03 77 16 95 Nasal Cannula 5.0 05/04/18 08:00 Oxymask 5.0 05/04/18 07:17 36.4 79 20 106/70 (82) 96 Oxymask 5.0 05/04/18 07:14 74 16 94 Nasal Cannula 5.0 05/04/18 05:14 36.3 76 18 99/63 (75) 97 Oxymask 5.0 05/04/18 00:00 95 Oxymask 5.0 05/03/18 23:18 36.3 82 16 108/71 (83) 96 Oxymask 5.0 05/03/18 19:38 88 16 92 Nasal Cannula 4.0 05/03/18 16:15 97 Nasal Cannula 4.0 05/03/18 16:15 91 Nasal Cannula 4.0 94 Physical Exam General Appearance: WD/WN, no apparent distress, + cachetic, + thin Eyes: normal inspection, PERRL, EOMI, sclerae normal ENT: normal ENT inspection, hearing grossly normal, pharynx normal Neck: supple, no adenopathy, thyroid normal, no JVD, no carotid bruits, trachea midline Respiratory/Chest: chest non-tender, normal breath sounds, no respiratory distress, no accessory muscle use, + decreased breath sounds Cardiovascular: regular rate, rhythm, no edema, no gallop, no JVD, no murmur Abdomen: normal bowel sounds, non tender, soft, no organomegaly, no pulsatile mass Extremities: normal range of motion, non-tender, normal inspection, no pedal edema, no calf tenderness, normal capillary refill, pelvis stable Neurologic/Psychiatric: university manager II-XII nml as tested, + pertinent finding (No facial droop) Skin: normal color, warm/dry, no rash Lymphatic: no adenopathy Laboratory Results Last 24 Hours Test 05/03/18 16:20 05/03/18 20:11 05/04/18 06:47 05/04/18 07:22 Bedside Glucose 194 mg/dl 223 mg/dl 102 mg/dl White Blood Count 11.91 K/uL Red Blood Count 5.76 M/uL Hemoglobin 16.5 g/dL Hematocrit 47.4 % Mean Corpuscular Volume 82.3 fL Mean Corpuscular Hemoglobin 28.6 pg Mean Corpuscular Hemoglobin Concent 34.8 g/dl RDW Standard Deviation 45.4 fL RDW Coefficient of Variation 15.2 % Platelet Count 147 K/uL Mean Platelet Volume 10.4 fL Sodium Level 135 mmol/L Potassium Level 3.2 mmol/L Chloride Level 94 mmol/L Carbon Dioxide Level 36 mmol/L Anion Gap 5.0 mmol/L Blood Urea Nitrogen 30 mg/dl Creatinine 0.55 mg/dl Est Creatinine Clear Calc Drug Dose 101.3 ml/min Estimated GFR () 128.5 Estimated GFR (Non- 110.9 BUN/Creatinine Ratio 55.7 Random Glucose 111 mg/dl Calcium Level 8.3 mg/dl Test 05/04/18 11:35 Bedside Glucose 140 mg/dl Assessment and Plan (1) Acute and chronic respiratory failure with hypoxia (2) COPD (chronic obstructive pulmonary disease) (3) Atrial fibrillation (4) Elevated troponin (5) Prothrombin time increased due to coumadin (6) Chronic diastolic heart failure due to valvular disease 62 y/o male admitted on April 22, 2018 because of hypoxia acute on chronic respiratory failure, History of a-fib, HLD, asthma/COPD, prediabetes, schizophrenia, anxiety, intellectual disability, HCV and osteoporosis pt came to the ED from [facility] on 04/22 with acute on chronic hypoxic respiratory failure. was tachycardic and tachypneic on arrival, improved on BiPAP and hour-long nebulizer treatment Acute on chronic hypoxic respiratory failure, ILD, COPD Acute congestive heart failure, 1.6 cm pleural-based nodule in the anterior right middle lobe, end-stage medical condition, stummel selector saw patient, Hypoxic situations and O2 dependent, possible no able to improving, Schizophrenia, Continue Risperdal Constipation with several days no documented bowel movement, cont Colace and MiraLAX Severe interstitial lung disease, possible chronic PE The above condition is persistent and not significantly improving, he is using 4-5 L oxygen for now, has been trying to proceed with palliative care Per Palliative care note, through etjic committee patient is do not resuscitation in this facility Per Dr. Shepard's note "pt is not of sound mind to make this decision", Per my personal evaluation, the conclusion is the same as Dr. Keyes, ie. although patient awake alert orientated to the place, when talk to him about his end-stage health conditions , he always saying okay all years, not able to read back or commands back. On May 03, [address] [address] Bernabe: initially he wanted to have psychiatry evaluation to have pt's competent evaluation, I told him it is not necessary because Dr. Keyes and me both feel patient is not competent to make decisions by himself then Dr. Bernabe mentions that in the penitentiary settings they have difficult to maintain patient's high oxygen need, they are not feeling comfortable to take the patient back I told Dr. Bernabe, Clinically, he does not seem shortof breath, even though he desaturation at nighttime, however it is the best we can do I told Dr. Bernabe that likely need to arrange a court-appointed guardian to help evaluate whether he is appropriate for hospice care he could be released from his sentence and change to a [facility] on hospice care , Dr. Bernabe told me that because patient now is in [facility] , it is the medical center 's job to request and arrange a court-appointed guardian, I reported this to pillowcase folder and they will continue to follow I talked to nursing staff want to document well about patient's oxygen need, so far with 4-5 L of oxygen NC Or Oxymask patient's oxygen level has been more than 90% at day time had rechecked Nocturnal Osat, with 5 L PM oxymask, told Rn really need to complete the evaluation, his oxygen have been doing ok at night time with using 4-5 L oxygen per Oxymask, Pulmonary Dr. Babin and me both feel his oxygen level should be reasonable at high 80% occasionally because we can not doing anything better, need to make sure don't remove Oxymask during sleep with 4-5 LPM Oxygen , plan to have RN send one Oxymask with patient upon discharge recommend to move toward for palliative care after arriving in your facility, I talked to on-call doctor in presents today he agreed to accept the patient back recommend to stop Coumadin , digoxin etc., and change to supportive care only after arriving to facility Was planning to discharge today, however navigcameron told me that penitentiary would prefer send the patient back to the place 9 AM tomorrow, because they will go to [facility] first thing in the morning and make him a DNR, ok to plan to discharge him tomorrow Continued [facility] stay due to: home environment unsafe for pt Discharge planning: home (penitentiary) Problem Qualifiers (1) Atrial fibrillation: Atrial fibrillation type: chronic Qualified Codes: I48.2 - Chronic atrial fibrillation
[2018-05-04] MEDS: WARFARIN SOD 5 MG TAB PO SCH (20:49)
[2018-05-04] MEDS: RISPERIDONE 2 MG TAB PO SCH (20:50)
[2018-05-04] MEDS: ATORVASTATIN 10 MG TAB PO SCH (20:50)
[2018-05-05 00:30] VITALS: O2SAT 90
[2018-05-05] MEDS: LORAZEPAM 0.5 MG TAB PO PRN (06:11)
[2018-05-05 07:15] VITALS: PULSE 89; O2SAT 96
[2018-05-05] MEDS: ALBUT/IPRATROP 3MG/0.5MG NEB 3 ML VIAL INH SCH (07:15)
[2018-05-05 07:17] VITALS: BP 100/65; PULSE 94; TEMP 36.5; O2SAT 96
[2018-05-05] MEDS: TIOTROPIUM BROMIDE 5 PUFF/90 MCG INH INH SCH (07:53)
[2018-05-05] MEDS: FUROSEMIDE 40 MG TAB PO SCH (07:54)
[2018-05-05] MEDS: DOCUSATE SODIUM 100 MG CAP PO SCH (07:55)
[2018-05-05] MEDS: DILTIAZEM HCL 180 MG CAPCR PO SCH (07:56)
[2018-05-05 08:20] LABS: INR 3.5 (0.9-1.1)
[2018-05-05] MEDS: INSULIN ASPART 100 UNITS/ML 3 ML PEN SC SCH (08:57)
[2018-05-05 09:40] VITALS: O2SAT 94
[2018-05-05 09:42] VITALS: O2SAT 94
--- NOTE | 2018-05-05 10:43 | Discharge Summary ---
Discharge Summary Date of Service May 05, 2018. Discharge Summary Admission Date: Apr 22, 2018 at 16:55 Discharge Date: May 04, 2018 Principal Diagnosis: Acute on chronic hypoxic respiratory failure, ILD, COPD Problems/Secondary Diagnoses: Acute on chronic hypoxic respiratory failure, ILD, COPD Acute congestive heart failure, 1.6 cm pleural-based nodule in the anterior right middle lobe, end-stage medical condition, embedder saw patient, Hypoxic situations and O2 dependent, possible no able to improving, Procedures: see below Consultations: pulm, embedder, palliative care Medication Reconciliation New Medications: Diltiazem HCl (Diltiazem HCl ER) 180 Mg Capcr 180 MG PO QAM for 30 Days Docusate Sodium (Docusate Sodium) 100 Mg Cap 100 MG PO BID for 30 Days, #60 CAP Furosemide (Furosemide) 40 Mg Tab 20 MG PO BID17 for 30 Days, TAB Lorazepam (Lorazepam) 1 Mg Tab 1 MG PO Q8 PRN for Anxiety for 3 Days, #9 TAB Magnesium Hydroxide (Milk of Magnesia) 30 Ml Susp 30 ML PO Q12H PRN for Constipation for 30 Days Polyethylene (Miralax) 17 Gm Pow 17 GM PO DAILY PRN for Constipation for 30 Days Prednisone (Prednisone) 20 Mg Tab 30 MG PO DAILY for 4 Days, #20 TAB 20mg po daily for 2 days then 10mg po daily for 2 days, then stop Continued Medications: Alendronate Sodium (Alendronate Sodium) 70 Mg Tab 70 MG PO WK TAKES ON THURSDAYS Aspirin (Aspirin Chewable) 81 Mg Chew 162 MG PO DAILY Atorvastatin (Lipitor) 10 Mg Tab 10 MG PO HS Calcium Carbonate-Vitamin D (Calcium + D) 1 Tab Tab 1 TAB PO BID Ciclesonide (Alvesco) 160 Mcg/Act Aer 1 PUFF INH BID Digoxin (Digox) 250 Mcg Tab 250 MCG PO DAILY Hydrocortisone (Topical) (Hydrocortisone) 2.5 % Lot 1 APPLN TOP TID Ipratropium-Albuterol (Duoneb) 3 Ml Nebu 1 TREATMENT INH Q4HWA Levalbuterol Tartrate (Levalbuterol Tartrate Hfa) 45 Mcg/Act Aer 2 PUFFS INH QID PRN for Shortness of Breath Risperidone (Risperdal) 1 Mg Tab 1 MG PO HS Tiotropium [place] (Spiriva Handihaler) 30 Puff/540 Mcg Aerp 1 CAP INH DAILY Warfarin Sod (Jantoven) 5 Mg Tab 5 MG PO HS Discontinued Medications: Diltiazem Hcl (Diltiazem Hcl Er) 60 Mg Cap 60 MG PO TID Diphenhydramine Hcl (Diphenhydramine Hcl) 50 Mg Cap 50 MG PO HS Discharge Exam doing the same, eating and voiding, no documented Hypoxia over night on 5-6 L NC O2 or oxymask Review of Systems: Constitutional: + problem reported (not able to obtain, ) Physical Exam: General Appearance: + cachetic, + thin Eyes: normal inspection ENT: normal ENT inspection Neck: supple, no adenopathy Respiratory/Chest: chest non-tender, no respiratory distress, no accessory muscle use, + decreased breath sounds Cardiovascular: regular rate, rhythm, no edema Abdomen / GI: normal bowel sounds, non tender, soft, no organomegaly, no pulsatile mass Extremities: normal inspection, no calf tenderness Neurologic/Psychiatric: aquatic performer II-XII nml as tested, no motor/sensory deficits Hospital Course (1) Acute and chronic respiratory failure with hypoxia (2) COPD (chronic obstructive pulmonary disease) (3) Atrial fibrillation (4) Elevated troponin (5) Prothrombin time increased due to coumadin (6) Chronic diastolic heart failure due to valvular disease 62 y/o male admitted on April 22, 2018 because of hypoxia acute on chronic respiratory failure, History of a-fib, HLD, asthma/COPD, prediabetes, schizophrenia, anxiety, intellectual disability, HCV and osteoporosis pt came [facility] the ED from [facility] on 04[facility]22 with acute on chronic hypoxic respiratory failure. was tachycardic and tachypneic on arrival, improved on BiPAP and hour-long nebulizer treatment Acute on chronic hypoxic respiratory failure, ILD, COPD Acute congestive heart failure, 1.6 cm pleural-based nodule in the anterior right middle lobe, end-stage medical condition, embedder saw patient, Hypoxic situations and O2 dependent, possible no able to improving, Schizophrenia, Continue Risperdal Constipation with several days no documented bowel movement, cont Colace and MiraLAX Severe interstitial lung disease, possible chronic PE The above condition is persistent and not significantly improving, he is using 4-5 L oxygen for now, has been trying to proceed with palliative care Per Palliative care note, through etjic committee patient is do not resuscitation in this facility Per Dr. Shepard's note "pt is not of sound mind to make this decision", Per my personal evaluation, the conclusion is the same as Dr. Keyes, ie. although patient awake alert orientated to the place, when talk to him about his end-stage health conditions , he always saying okay all years, not able to read back or commands back. On May 03, [address] Bernabe: initially he wanted to have psychiatry evaluation to have pt's competent evaluation, I told him it is not necessary because Dr. Keyes and me both feel patient is not competent to make decisions by himself then Dr. Bernabe mentions that in the long term settings they have difficult to maintain patient's high oxygen need, they are not feeling comfortable to take the patient back I told Dr. Bernabe, Clinically, he does not seem shortof breath, even though he desaturation at nighttime, however it is the best we can do I told Dr. Bernabe that likely need to arrange a court-appointed guardian to help evaluate whether he is appropriate for hospice care he could be released from his sentence and change to a [place] [facility] on hospice care , Dr. Beranbe told me that because patient now is in [facility] , it is the [facility] 's job to request and arrange a court-appointed guardian, I reported this to top case assembler and they will continue to follow I talked to nursing staff want to document well about patient's oxygen need, so far with 4-5 L of oxygen NC Or Oxymask patient's oxygen level has been more than 90% at day time had rechecked Nocturnal Osat, with 5 L PM oxymask, told Rn really need to complete the evaluation, his oxygen have been doing ok at night time with using 4-5 L oxygen per Oxymask, Pulmonary Dr. Babin and me both feel his oxygen level should be reasonable at high 80% occasionally because we can not doing anything better, need to make sure don't remove Oxymask during sleep with 4-5 LPM Oxygen , plan to have RN send one Oxymask with patient upon discharge recommend to move toward for palliative care after arriving in your facility, I talked to on-call doctor in long term Dr. Ocasio, I reported to him everything yesterday, he agreed to accept the patient back recommend to stop Coumadin , digoxin etc., and change to supportive care only after arriving to facility Instructions / Follow-Up you have Acute congestive heart failure, you have a-fib, HLD, asthma/COPD, prediabetes, schizophrenia, anxiety, intellectual disability, HCV and osteoporosis Acute on chronic hypoxic respiratory failure, ILD, COPD you have 1.6 cm pleural-based nodule in the anterior right middle lobe, you have end-stage medical condition, you have Severe interstitial lung disease, possible chronic PE your oxygen have been doing fairl in day time with using 4-5 L oxygen , osat > 93%, please continue this your oxygen have been doing ok at night time with using 4-5 L oxygen per Oxymask, Pulmonary Dr. Babin and me both feel your oxygen level should be reasonable at high 80% occasionally because we can not doing anything better, need to make sure don't remove Oxymask during sleep with 4-5 LPM Oxygen RN please send one Oxymask with patient upon discharge Per Our Palliative care note, through ethic committee patient is do not resuscitation in [facility] recommend to move toward for palliative care after arriving in your facility, recommend to stop Coumadin , digoxin etc., and change to supportive care only - you need to follow up with your primary care physician 2-3 days - fall precaution - diet as instructed Total Time Spent: Greater than 30 minutes This includes examination of the patient, discharge planning, medication reconciliation, and communication with other providers. Discharge Instructions Please refer to the electronic Patient Visit Report (Discharge Instructions) for additional information. Additional Copies To [facility] Problem Qualifiers (1) Atrial fibrillation: Atrial fibrillation type: chronic Qualified Codes: I48.2 - Chronic atrial fibrillation
== END 2018-05-05 11:20 | disposition home or self-care (01) | DRG 196 ==
LOC: EDBD 12:39 → C.EDB 12:40 → C.2T 16:55 → ENRESERV 17:04 → C.MSICU 04-23 11:48 → ENRESERV 04-23 22:04 → C.2T 04-23 22:14 → ENRESERV 04-26 12:36 → C.MS2W 04-26 13:09 → ENRESERV 04-28 08:35 → C.MS2W 04-28 08:41
PROVIDERS: ADMIT Hospitalist; ATTEND Hospitalist
DX: J84.112 Idiopathic pulmonary fibrosis (principal); J96.21 Acute and chronic respiratory failure with hypoxia; I27.82 Chronic pulmonary embolism; N17.9 Acute kidney failure, unspecified; J44.1 Chronic obstructive pulmonary disease with (acute) exacerbation; I24.8 Other forms of acute ischemic heart disease; I50.32 Chronic diastolic (congestive) heart failure; R64 Cachexia; J45.909 Unspecified asthma, uncomplicated; R91.8 Other nonspecific abnormal finding of lung field; E78.5 Hyperlipidemia, unspecified; R79.89 Other specified abnormal findings of blood chemistry; R73.03 Prediabetes; F20.9 Schizophrenia, unspecified; I48.2 Chronic atrial fibrillation; F79 Unspecified intellectual disabilities; I27.20 Pulmonary hypertension, unspecified; Z66 Do not resuscitate; Z79.01 Long term (current) use of anticoagulants; Z79.82 Long term (current) use of aspirin; Z79.899 Other long term (current) drug therapy; Z99.81 Dependence on supplemental oxygen; Z87.891 Personal history of nicotine dependence

== ENCOUNTER 2019-01-27 21:37 | Inpatient (IN) ==
--- OUTSIDE RECORDS SUMMARY | 2019-01-27 21:40 | External Medical Summary | Continuity of Care Document ---
:1955 Author Name Maurice Guy, Provider Address Unavailable Unavailable , Care Team Providers Name Role Phone Unavailable Unavailable Unavailable PCP, UNKNOWN Unavailable Unavailable Problems COPD (chronic obstructive pulmonary disease) (496) (J44.9) Asthma (493.90) (J45.909) Hyperlipidemia (272.4) (E78.5) Diabetes mellitus (250.00) (E11.9) Atrial fibrillation (427.31) (I48.91) Mitral valve regurgitation (424.0) (I34.0) Allergies and Adverse Reactions No Known Drug Allergies (Allergy) Medications Ventolin HFA 108 (90 Base) MCG/ACT Inhal ation Aerosol Solution; INHALE 2 PUFFS BY MOUTH 4 TIMES DAILY NEEDED , M.D. 8 GM Inhaler Refills: 5 Aspirin 81 MG TABS; TAKE 2 TABLETS DAILY. , M.D. Refills: 0 Atorvastatin Calcium 10 MG Oral Tablet; TAKE 1 TABLET AT BED TIME. , M.D. Quantity: 90 Refills: 3 Digoxin 250 MCG Oral Tablet; TAKE 1 TABLET BY MOUTH EVERY DA Y , M.D. Refills: 0 dilTIAZem HCl - 60 MG Oral Tablet; TAKE 1 TABLET TWICE DAILY . , M.D. Refills: 0 diphenhydrAMINE HCl - 25 MG Oral Capsule; TAKE 1 CAPSULE AT BEDTIME. , M.D. Refills: 0 NovoLOG FlexPen 100 UNIT/ML SOLN; inject subcutaneousl y ,use sliding scale , M.D. Refills: 0 DuoNeb 0.5-2.5 (3) MG/3ML SOLN; Inhale 1 vial via nebulizer every 4 hours as needed , M.D. Refills: 0 RisperDAL 1 MG Oral Tablet; TAKE 1 TABLET AT BEDTIME. , M.D. Refills: 0 Spiriva HandiHaler CAPS; INHALE CONTENTS OF CAPSULE ONCE DAY , M.D. Refills: 0 Warfarin Sodium 5 MG Oral Tablet; TAKE 1/2 TABLET DAILY. , M .D. 90 Tablet Bottle Refills: 0 Alvesco 160 MCG/ACT Inhalation Aerosol Solution; INHALE 1 PU FFS Daily , M.D. 6.1 GM Inhaler Refills: 0 predniSONE 20 MG Oral Tablet; 3 by mouth daily for 3 days then 2 by mouth daily for 3 days. Then 1 by mouth daily for 3 days then one half daily for 4 days then discontin , M.D. Quantity: 17 Refills: 0 Lovenox 60 MG/0.6ML Subcutaneous Solution; INJECT 60 M G Every twelve hours , M.D. 0.6 ML Syringe Quantity: 8 Refills: 1 Procedures Procedures not documented Immunizations Immunizations not documented Social History - Smoking Status Current every day smoker Plan of Treatment Planned Observations Planned Goals not documented Results No Known Results Results not documented Encounters Appointment; Buddy Thibodeaux M.D. 18-Oct-2017 7:30 Encounter Diagnosis: Problem not documented Appointment; Buddy Thibodeaux M.D. 05-Sep-2017 15:15 Encounter Diagnosis: Problem not documented
[2019-01-27] MEDS ORDERED: LORazepam 1 MG/2 ML VIAL IV STA (21:49)
[2019-01-27] MEDS ORDERED: SODIUM CHLORIDE 0.9% 1000ML 1,000 ML IV ONE (21:49)
--- NOTE | 2019-01-27 22:14 | Emergency Department Note ---
Entered by Blanca Mae acting as a scribe for History of Present Illness General Chief complaint: Shortness of Breath/Dyspnea Time Seen by Provider: 01/27/19 21:41 Source: patient Mode of arrival: other Limitations: altered mental status History of Present Illness Provider complaint: shortness of breath Onset (ago): hour(s) Location: chest Associated symptoms: + chest pain Treatments prior to arrival: other (+steroids) The patient is a 63 year old male who presents to the Emergency Room with complaints of shortness of breath. The patient states that he has chest pain in the center of his chest. The patient states that he takes steroids for his breathing. The patient's HPI is limited due to the patient's altered mental status. Home Medications Home Medications Medication Instructions Recorded Confirmed Type alendronate 70 mg PO WK 01/27/19 01/27/19 History aspirin [Aspir-81] 162 mg PO DAILY 01/27/19 01/27/19 History atorvastatin 10 mg PO HS 01/27/19 01/27/19 History calcium carbonate-vitamin D3 1 tab PO BID 01/27/19 01/27/19 History [Calcium 600 with Vitamin D3] ciclesonide [Alvesco] 1 puff INHALATION BID 01/27/19 01/27/19 History diltiazem HCl 180 mg PO DAILY 01/27/19 01/27/19 History docusate sodium 100 mg PO BID 01/27/19 01/27/19 History furosemide [Lasix] 20 mg PO BID 01/27/19 01/27/19 History hydrocortisone 1 applic TOPICAL TID 01/27/19 01/27/19 History ipratropium-albuterol 1 dose INHALATION Q4 PRN 01/27/19 01/27/19 History levalbuterol tartrate [Xopenex HFA] 2 inh INHALATION Q6H PRN 01/27/19 01/27/19 History risperidone 0.5 mg PO HS 01/27/19 01/27/19 History tiotropium bromide [Spiriva with 1 cap INHALATION DAILY 01/27/19 01/27/19 History HandiHaler] Allergies Allergy/AdvReac Type Severity Reaction Status Date / Time No Known Allergies Allergy Unverified 01/27/19 22:53 Past Med/Surg History Medical History Respiratory failure (Chronic) ADRIANO (acute kidney injury) Asthma Atrial fibrillation COPD (chronic obstructive pulmonary disease) No significant family history No significant past surgical history Social History Preferred Language: Telugu Communication Ability: Impaired Current Living Situation: Other Current Living Situation Comment: [facility] inmate Other Information That Helps Us Care for You: No Feels Safe at Home: Yes Smoking Status: Unknown if ever smoked Review of Systems See HPI for pertinent positives & negatives. and A total of 10 systems reviewed and were otherwise negative Physical Exam Vital Signs Vital Signs - 24 hr 01/27/19 21:41 01/27/19 22:08 01/27/19 22:35 Temperature 36.4 C L Temperature Source Oral Sepsis Recent Fever Within 48 Hours No Sepsis Action Taken by Nursing No Action Required Pulse Rate 81 77 Pulse Rate [Right Finger] 84 Pulse Rate from SpO2 Sensor Pulse Rhythm Regular Pulse Rhythm [Right Finger] Regular Pulse Strength Normal Pulse Strength [Right Finger] Normal Respiratory Rate 28 H 20 22 Respiratory Effort / Characteristics Spontaneous Labored Non-Labored Spontaneous Spontaneous Respiratory Depth Deep Normal Normal Respiratory Pattern Tachypnea Regular Blood Pressure 112/64 Blood Pressure [Right Arm] 112/64 Blood Pressure Mean 80 Blood Pressure Mean [Right Arm] 80 Blood Pressure Position [Right Arm] Pulse Oximetry 82 L 97 96 Oxygen Delivery Method Nasal Cannula BiPAP Oxygen Flow Rate 2 Fraction of Inspired Oxygen 40 SaO2/FiO2 Ratio 01/27/19 23:10 01/27/19 23:14 01/28/19 00:31 Temperature Temperature Source Sepsis Recent Fever Within 48 Hours Sepsis Action Taken by Nursing Pulse Rate 76 Pulse Rate [Right Finger] 80 85 Pulse Rate from SpO2 Sensor 78 Pulse Rhythm Pulse Rhythm [Right Finger] Pulse Strength Pulse Strength [Right Finger] Respiratory Rate 28 H 28 H 26 H Respiratory Effort / Characteristics Non-Labored Spontaneous Non-Labored Spontaneous Respiratory Depth Normal Respiratory Pattern Regular Blood Pressure Blood Pressure [Right Arm] Blood Pressure Mean Blood Pressure Mean [Right Arm] Blood Pressure Position [Right Arm] Lying Pulse Oximetry 97 98 96 Oxygen Delivery Method BiPAP BiPAP BiPAP Oxygen Flow Rate Fraction of Inspired Oxygen 50 SaO2/FiO2 Ratio 01/28/19 00:34 01/28/19 00:35 01/28/19 00:40 Temperature Temperature Source Sepsis Recent Fever Within 48 Hours Sepsis Action Taken by Nursing Pulse Rate 82 81 78 Pulse Rate [Right Finger] Pulse Rate from SpO2 Sensor 82 81 79 Pulse Rhythm Pulse Rhythm [Right Finger] Pulse Strength Pulse Strength [Right Finger] Respiratory Rate 28 H 25 H 23 Respiratory Effort / Characteristics Respiratory Depth Respiratory Pattern Blood Pressure 104/68 Blood Pressure [Right Arm] Blood Pressure Mean 80 Blood Pressure Mean [Right Arm] Blood Pressure Position [Right Arm] Pulse Oximetry 96 97 97 Oxygen Delivery Method BiPAP BiPAP BiPAP Oxygen Flow Rate Fraction of Inspired Oxygen SaO2/FiO2 Ratio 01/28/19 00:50 01/28/19 01:31 01/28/19 03:10 Temperature Temperature Source Sepsis Recent Fever Within 48 Hours Sepsis Action Taken by Nursing Pulse Rate 77 Pulse Rate [Right Finger] 88 Pulse Rate from SpO2 Sensor 76 Pulse Rhythm Pulse Rhythm [Right Finger] Pulse Strength Pulse Strength [Right Finger] Respiratory Rate 23 26 H Respiratory Effort / Characteristics Non-Labored Spontaneous Short of Breath Respiratory Depth Normal Shallow Respiratory Pattern Regular Regular Tachypnea Blood Pressure Blood Pressure [Right Arm] 109/76 Blood Pressure Mean Blood Pressure Mean [Right Arm] 87 Blood Pressure Position [Right Arm] Pulse Oximetry 98 94 Oxygen Delivery Method BiPAP BiPAP CPAP Oxygen Flow Rate Fraction of Inspired Oxygen 40 SaO2/FiO2 Ratio 01/28/19 03:24 01/28/19 03:43 01/28/19 05:33 Temperature 36.4 C L Temperature Source Oral Sepsis Recent Fever Within 48 Hours Sepsis Action Taken by Nursing Pulse Rate 81 77 Pulse Rate [Right Finger] 89 Pulse Rate from SpO2 Sensor Pulse Rhythm Pulse Rhythm [Right Finger] Regular Pulse Strength Pulse Strength [Right Finger] Normal Respiratory Rate 30 H 24 19 Respiratory Effort / Characteristics Non-Labored Spontaneous Spontaneous SOB on Exertion Non-Labored Spontaneous Respiratory Depth Normal Normal Respiratory Pattern Tachypnea Tachypnea Regular Blood Pressure Blood Pressure [Right Arm] 101/70 Blood Pressure Mean Blood Pressure Mean [Right Arm] 80 Blood Pressure Position [Right Arm] Lying Pulse Oximetry 95 95 95 Oxygen Delivery Method BiPAP Oxygen Flow Rate Fraction of Inspired Oxygen 40 40 40 SaO2/FiO2 Ratio 237 01/28/19 06:55 01/28/19 08:00 01/28/19 12:00 Temperature 36.9 C 36.8 C Temperature Source Oral Oral Sepsis Recent Fever Within 48 Hours Sepsis Action Taken by Nursing Pulse Rate 86 73 Pulse Rate [Right Finger] 86 89 83 Pulse Rate from SpO2 Sensor Pulse Rhythm Pulse Rhythm [Right Finger] Pulse Strength Pulse Strength [Right Finger] Respiratory Rate 28 H 18 16 Respiratory Effort / Characteristics Non-Labored Spontaneous Non-Labored Spontaneous Respiratory Depth Normal Normal Respiratory Pattern Tachypnea Regular Blood Pressure Blood Pressure [Right Arm] 110/70 121/61 Blood Pressure Mean Blood Pressure Mean [Right Arm] 83 81 Blood Pressure Position [Right Arm] Pulse Oximetry 92 98 96 Oxygen Delivery Method BiPAP CPAP Oxygen Flow Rate Fraction of Inspired Oxygen 40 SaO2/FiO2 Ratio 01/28/19 14:21 01/28/19 15:09 Temperature 36.8 C Temperature Source Oral Sepsis Recent Fever Within 48 Hours Sepsis Action Taken by Nursing Pulse Rate Pulse Rate [Right Finger] 72 90 Pulse Rate from SpO2 Sensor Pulse Rhythm Pulse Rhythm [Right Finger] Pulse Strength Pulse Strength [Right Finger] Respiratory Rate 18 20 Respiratory Effort / Characteristics Respiratory Depth Normal Respiratory Pattern Blood Pressure Blood Pressure [Right Arm] 97/53 L Blood Pressure Mean Blood Pressure Mean [Right Arm] 67 Blood Pressure Position [Right Arm] Lying Pulse Oximetry 98 91 Oxygen Delivery Method Nasal Cannula Room Air Oxygen Flow Rate 4 Fraction of Inspired Oxygen SaO2/FiO2 Ratio GENERAL: The patient is awake and alert. He is somewhat anxious appearing and appears to be having significant difficulty breathing. EYES: The conjunctivae are clear. The pupils are round and reactive. EARS, NOSE, MOUTH AND THROAT: The nose is without any evidence of any deformity. Mucous members are dry. NECK: The neck is nontender and supple. RESPIRATORY: Diminished breath sounds are noted throughout. There is significant tachypnea. Retractions were noted bilaterally. CARDIOVASCULAR: Regular rate and rhythm noted. There no murmurs rubs or gallops normal S1 normal S2 GASTROINTESTINAL: The abdomen is soft. Bowel sounds are present in all quadrants. Abdomen is nontender. MUSCULOSKELETAL/EXTREMITIES: There is no evidence of gross deformity. Full range of motion is noted in the hips and shoulders. SKIN: There is no obvious evidence of any rash. Clubbing was noted in both upper extremities. Tobacco staining was noted on the fingers. NEUROLOGIC: Patient is awake alert and oriented to person place and situation. Course 2144: The patient was evaluated in room A10, and a complete history and physical examination were performed. 2239: I checked on the patient and updated him on his results. 2324: I checked on the patient and updated him on his results. 54: I [facility] the [facility] will [facility] the patient for further hospitalization. Consultations [facility] Time: 00:55 Administered Medications Albuterol (Duoneb) 3 ml INH Q6R MILAD Stop: 02/27/19 07:59 Last Admin: 01/28/19 14:18 Dose: 3 ml Documented by: [id number] Admin: 01/28/19 06:55 Dose: 3 ml Documented by: [id number] Aspirin (Ecotrin Ectab) 162 mg PO DAILY MILAD Stop: 02/27/19 08:59 Last Admin: 01/28/19 08:22 Dose: 162 mg Documented by: [id number] Azithromycin (Zithromax) 250 mg PO QAM MILAD Stop: 02/04/19 08:59 Last Admin: 01/28/19 08:22 Dose: 250 mg Documented by: [id number] Diltiazem HCl (Dilacor Xr) 180 mg PO DAILY MILAD Stop: 02/27/19 08:59 Last Admin: 01/28/19 08:22 Dose: 180 mg Documented by: [id number] Docusate Sodium (Colace) 100 mg PO BID MILAD Stop: 02/27/19 08:59 Last Admin: 01/28/19 08:22 Dose: 100 mg Documented by: [id number] Enoxaparin Sodium (Lovenox) 40 mg SQ Q24H MILAD Stop: 02/27/19 08:59 Last Admin: 01/28/19 08:22 Dose: 40 mg Documented by: [id number] Furosemide (Lasix) 20 mg PO BID17 MILAD Stop: 02/27/19 08:59 Last Admin: 01/28/19 08:22 Dose: 20 mg Documented by: [id number] Methylprednisolone 30 mg/ (Syringe) 0.48 mls @ 1.5 mls/min IV Q8H MILAD Stop: 02/27/19 06:59 Last Admin: 01/28/19 08:21 Dose: 1.5 mls/min Documented by: [id number] Multivitamins/Minerals (Caltrate Plus) 1 tab PO BID MILAD Stop: 02/27/19 08:59 Last Admin: 01/28/19 08:22 Dose: 1 tab Documented by: [id number] Discontinued Medications Albuterol (Duoneb) 12 ml NEB ONE ONE Stop: 01/27/19 22:22 Last Admin: 01/27/19 23:06 Dose: 12 ml Documented by: [id number] Lorazepam (Ativan) 1 mg in 2 mls @ 2 mls/min IV NOW STA Stop: 01/27/19 21:50 Last Admin: 01/27/19 22:53 Dose: 2 mls/min Documented by: [id number] Sodium Chloride (Nss 1000ml) 1,000 mls @ 999 mls/hr IV .[id number] ONE Stop: 01/27/19 22:49 Last Infusion: 01/27/19 23:56 Dose: 0 mls/hr Documented by: [id number] Admin: 01/27/19 22:54 Dose: 999 mls/hr Documented by: [id number] Levofloxacin/Dextrose (Levaquin/D5w) 750 mg in 150 mls @ 100 mls/hr IV NOW STA Stop: 01/28/19 02:09 Last Infusion: 01/28/19 02:35 Dose: 0 mls/hr Documented by: [id number] Admin: 01/28/19 00:57 Dose: 100 mls/hr Documented by: [id number] Lactated Ringer's (Lr) 1,000 mls @ 80 mls/hr IV .[id number] MILAD Stop: 02/27/19 03:18 Last Infusion: 01/28/19 13:13 Dose: 0 mls/hr Documented by: [id number] Admin: 01/28/19 04:47 Dose: 80 mls/hr Documented by: [id number] Lorazepam (Ativan) 0.5 mg in 1 mls @ 1 mls/min IV NOW STA Stop: 01/28/19 03:20 Last Admin: 01/28/19 03:25 Dose: 1 mls/min Documented by: [id number] Lorazepam (Ativan) Confirm Administered Dose 2 mg .ROUTE .STK-MED ONE Stop: 01/28/19 03:23 Last Admin: 01/28/19 03:59 Dose: Not Given Documented by: [id number] Methylprednisolone (Solumedrol) 125 mg IV NOW STA Stop: 01/27/19 22:22 Last Admin: 01/27/19 22:53 Dose: 125 mg Documented by: [id number] Medical Decision Making Differential Diagnosis Differential diagnoses includes but is not limited to pneumonia, bronchitis, COPD/Asthma exacerbation, pneumothorax, pulmonary embolism, congestive heart failure, acute coronary syndrome. Medical Records Attestation: I reviewed the patient's medical records. Home Medications Current Medication List: was personally reviewed by me Laboratory Data Attestation: I reviewed the patient's lab results. Result diagrams: 01/27/19 22:32 01/27/19 22:32 Lab Results 01/27/19 01/27/19 01/27/19 Range/Units 22:32 22:32 22:32 WBC 12.65 H (4.8-10.8) K/uL RBC 4.99 (4.7-6.1) M/uL Hgb 15.3 (14.0-18.0) g/dL Hct 43.3 (42-52) % MCV 86.8 (80-100) fL MCH 30.7 (25-34) pg MCHC 35.3 (32-36) g/dL RDW Std Deviation 44.0 (36.4-46.3) fL RDW Coeff of Judah 14.0 (11.5-14.5) % Plt Count 188 (130-400) K/uL MPV 10.8 H (7.4-10.4) fL Immature Gran % (Auto) 0.5 % Neut % (Auto) 78.9 % Lymph % (Auto) 12.7 % [place] % (Auto) 5.5 % Eos % (Auto) 2.2 % Baso % (Auto) 0.2 % Immature Gran # (Auto) 0.06 H (0.00-0.02) K/uL Neut # (Auto) 9.98 H (1.4-6.5) K/uL Lymph # (Auto) 1.61 (1.2-3.4) K/uL [place] # (Auto) 0.69 H (0.11-0.59) K/uL Eos # (Auto) 0.28 (0-0.5) K/uL Baso # (Auto) 0.03 (0-0.2) K/uL ESR (0-14) mm/hr PT 10.9 (9.0-12.0) Seconds INR 1.1 (0.9-1.1) APTT 27.3 (21.0-31.0) Seconds PTT Ratio 1.0 D-Dimer 700 H* (0-500) ug/L FEU VBG pH (7.36-7.41) VBG pCO2 (38-50) mmHg VBG pO2 mmHg VBG HCO3 mmol/L VBG O2 Saturation % VBG Base Excess mEq/L Barometric Pressure mm/Hg Sodium 137 (136-145) mmol/L Potassium 3.7 (3.5-5.1) mmol/L Chloride 104 (98-107) mmol/L Carbon Dioxide 28 (21-32) mmol/L Anion Gap 5.0 (3-11) BUN 17 (7-18) mg/dl Creatinine 1.00 (0.6-1.4) mg/dl Est Cr Clr Drug Dosing 62.4 ml/min Est GFR ( Amer) 91.8 Est GFR (Non-Af Amer) 79.2 BUN/Creatinine Ratio 17.2 (10-20) Glucose 97 (70-99) mg/dl Lactate (0.4-2.0) mmol/L Calcium 9.0 (8.5-10.1) mg/dl Magnesium 1.8 (1.8-2.4) mg/dl Total Bilirubin 0.5 (0.2-1) mg/dl AST 42 H (15-37) U/L ALT 49 (12-78) U/L Alkaline Phosphatase 63 (45-117) U/L Troponin I < 0.015 (0-0.045) ng/ml C-Reactive Protein < 0.29 (0-0.29) mg/dl Total Protein 7.9 (6.4-8.2) gm/dl Albumin 3.1 L (3.4-5.0) gm/dl Globulin 4.8 H (2.5-4.0) gm/dl Albumin/Globulin Ratio 0.6 L (0.9-2) Procalcitonin (0-0.5) ng/ml Urine Color Urine Appearance (Clear) Urine pH (4.5-7.5) Ur Specific [place] (1.000-1.030) Urine Protein (Negative) Urine Glucose (UA) (Negative) Urine Ketones (Negative) Urine Blood (Negative) Urine Nitrite (Negative) Urine Bilirubin (Negative) Urine Urobilinogen (Negative) Ur Leukocyte Esterase (Negative) Nasal Screen MRSA (PCR) (Negative) Digoxin (0.8-2.0) ng/ml 01/27/19 01/27/19 01/27/19 Range/Units 22:32 22:32 22:32 WBC (4.8-10.8) K/uL RBC (4.7-6.1) M/uL Hgb (14.0-18.0) g/dL Hct (42-52) % MCV (80-100) fL MCH (25-34) pg MCHC (32-36) g/dL RDW Std Deviation (36.4-46.3) fL RDW Coeff of Judah (11.5-14.5) % Plt Count (130-400) K/uL MPV (7.4-10.4) fL Immature Gran % (Auto) % Neut % (Auto) % Lymph % (Auto) % [place] % (Auto) % Eos % (Auto) % Baso % (Auto) % Immature Gran # (Auto) (0.00-0.02) K/uL Neut # (Auto) (1.4-6.5) K/uL Lymph # (Auto) (1.2-3.4) K/uL [place] # (Auto) (0.11-0.59) K/uL Eos # (Auto) (0-0.5) K/uL Baso # (Auto) (0-0.2) K/uL ESR (0-14) mm/hr PT (9.0-12.0) Seconds INR (0.9-1.1) APTT (21.0-31.0) Seconds PTT Ratio D-Dimer (0-500) ug/L FEU VBG pH (7.36-7.41) VBG pCO2 (38-50) mmHg VBG pO2 mmHg VBG HCO3 mmol/L VBG O2 Saturation % VBG Base Excess mEq/L Barometric Pressure mm/Hg Sodium (136-145) mmol/L Potassium (3.5-5.1) mmol/L Chloride (98-107) mmol/L Carbon Dioxide (21-32) mmol/L Anion Gap (3-11) BUN (7-18) mg/dl Creatinine (0.6-1.4) mg/dl Est Cr Clr Drug Dosing ml/min Est GFR ( Amer) Est GFR (Non-Af Amer) BUN/Creatinine Ratio (10-20) Glucose (70-99) mg/dl Lactate 1.4 (0.4-2.0) mmol/L Calcium (8.5-10.1) mg/dl Magnesium (1.8-2.4) mg/dl Total Bilirubin (0.2-1) mg/dl AST (15-37) U/L ALT (12-78) U/L Alkaline Phosphatase (45-117) U/L Troponin I (0-0.045) ng/ml C-Reactive Protein (0-0.29) mg/dl Total Protein (6.4-8.2) gm/dl Albumin (3.4-5.0) gm/dl Globulin (2.5-4.0) gm/dl Albumin/Globulin Ratio (0.9-2) Procalcitonin < 0.05 (0-0.5) ng/ml Urine Color Urine Appearance (Clear) Urine pH (4.5-7.5) Ur Specific [place] (1.000-1.030) Urine Protein (Negative) Urine Glucose (UA) (Negative) Urine Ketones (Negative) Urine Blood (Negative) Urine Nitrite (Negative) Urine Bilirubin (Negative) Urine Urobilinogen (Negative) Ur Leukocyte Esterase (Negative) Nasal Screen MRSA (PCR) (Negative) Digoxin < 0.1 L (0.8-2.0) ng/ml 01/27/19 01/27/19 01/27/19 Range/Units 22:32 22:38 22:54 WBC (4.8-10.8) K/uL RBC (4.7-6.1) M/uL Hgb (14.0-18.0) g/dL Hct (42-52) % MCV (80-100) fL MCH (25-34) pg MCHC (32-36) g/dL RDW Std Deviation (36.4-46.3) fL RDW Coeff of Judah (11.5-14.5) % Plt Count (130-400) K/uL MPV (7.4-10.4) fL Immature Gran % (Auto) % Neut % (Auto) % Lymph % (Auto) % [place] % (Auto) % Eos % (Auto) % Baso % (Auto) % Immature Gran # (Auto) (0.00-0.02) K/uL Neut # (Auto) (1.4-6.5) K/uL Lymph # (Auto) (1.2-3.4) K/uL [place] # (Auto) (0.11-0.59) K/uL Eos # (Auto) (0-0.5) K/uL Baso # (Auto) (0-0.2) K/uL ESR 29 H (0-14) mm/hr PT (9.0-12.0) Seconds INR (0.9-1.1) APTT (21.0-31.0) Seconds PTT Ratio D-Dimer (0-500) ug/L FEU VBG pH 7.40 (7.36-7.41) VBG pCO2 50 (38-50) mmHg VBG pO2 24 mmHg VBG HCO3 30 mmol/L VBG O2 Saturation < 60.0 % VBG Base Excess 4.2 mEq/L Barometric Pressure 730.1 mm/Hg Sodium (136-145) mmol/L Potassium (3.5-5.1) mmol/L Chloride (98-107) mmol/L Carbon Dioxide (21-32) mmol/L Anion Gap (3-11) BUN (7-18) mg/dl Creatinine (0.6-1.4) mg/dl Est Cr Clr Drug Dosing ml/min Est GFR ( Amer) Est GFR (Non-Af Amer) BUN/Creatinine Ratio (10-20) Glucose (70-99) mg/dl Lactate (0.4-2.0) mmol/L Calcium (8.5-10.1) mg/dl Magnesium (1.8-2.4) mg/dl Total Bilirubin (0.2-1) mg/dl AST (15-37) U/L ALT (12-78) U/L Alkaline Phosphatase (45-117) U/L Troponin I (0-0.045) ng/ml C-Reactive Protein (0-0.29) mg/dl Total Protein (6.4-8.2) gm/dl Albumin (3.4-5.0) gm/dl Globulin (2.5-4.0) gm/dl Albumin/Globulin Ratio (0.9-2) Procalcitonin (0-0.5) ng/ml Urine Color Yellow Urine Appearance Clear (Clear) Urine pH 7.5 (4.5-7.5) Ur Specific [place] 1.010 (1.000-1.030) Urine Protein Negative (Negative) Urine Glucose (UA) Negative (Negative) Urine Ketones Negative (Negative) Urine Blood Negative (Negative) Urine Nitrite Negative (Negative) Urine Bilirubin Negative (Negative) Urine Urobilinogen Negative (Negative) Ur Leukocyte Esterase Negative (Negative) Nasal Screen MRSA (PCR) (Negative) Digoxin (0.8-2.0) ng/ml 01/28/19 Range/Units 05:09 WBC (4.8-10.8) K/uL RBC (4.7-6.1) M/uL Hgb (14.0-18.0) g/dL Hct (42-52) % MCV (80-100) fL MCH (25-34) pg MCHC (32-36) g/dL RDW Std Deviation (36.4-46.3) fL RDW Coeff of Judah (11.5-14.5) % Plt Count (130-400) K/uL MPV (7.4-10.4) fL Immature Gran % (Auto) % Neut % (Auto) % Lymph % (Auto) % [place] % (Auto) % Eos % (Auto) % Baso % (Auto) % Immature Gran # (Auto) (0.00-0.02) K/uL Neut # (Auto) (1.4-6.5) K/uL Lymph # (Auto) (1.2-3.4) K/uL [place] # (Auto) (0.11-0.59) K/uL Eos # (Auto) (0-0.5) K/uL Baso # (Auto) (0-0.2) K/uL ESR (0-14) mm/hr PT (9.0-12.0) Seconds INR (0.9-1.1) APTT (21.0-31.0) Seconds PTT Ratio D-Dimer (0-500) ug/L FEU VBG pH (7.36-7.41) VBG pCO2 (38-50) mmHg VBG pO2 mmHg VBG HCO3 mmol/L VBG O2 Saturation % VBG Base Excess mEq/L Barometric Pressure mm/Hg Sodium (136-145) mmol/L Potassium (3.5-5.1) mmol/L Chloride (98-107) mmol/L Carbon Dioxide (21-32) mmol/L Anion Gap (3-11) BUN (7-18) mg/dl Creatinine (0.6-1.4) mg/dl Est Cr Clr Drug Dosing ml/min Est GFR ( Amer) Est GFR (Non-Af Amer) BUN/Creatinine Ratio (10-20) Glucose (70-99) mg/dl Lactate (0.4-2.0) mmol/L Calcium (8.5-10.1) mg/dl Magnesium (1.8-2.4) mg/dl Total Bilirubin (0.2-1) mg/dl AST (15-37) U/L ALT (12-78) U/L Alkaline Phosphatase (45-117) U/L Troponin I (0-0.045) ng/ml C-Reactive Protein (0-0.29) mg/dl Total Protein (6.4-8.2) gm/dl Albumin (3.4-5.0) gm/dl Globulin (2.5-4.0) gm/dl Albumin/Globulin Ratio (0.9-2) Procalcitonin (0-0.5) ng/ml Urine Color Urine Appearance (Clear) Urine pH (4.5-7.5) Ur Specific [place] (1.000-1.030) Urine Protein (Negative) Urine Glucose (UA) (Negative) Urine Ketones (Negative) Urine Blood (Negative) Urine Nitrite (Negative) Urine Bilirubin (Negative) Urine Urobilinogen (Negative) Ur Leukocyte Esterase (Negative) Nasal Screen MRSA (PCR) Negative (Negative) Digoxin (0.8-2.0) ng/ml Imaging Data Radiologist's Impression: Radiology results as stated below per my review and the radiologist's interpretation: XR chest 1V portable CLINICAL HISTORY: Sepsis sepsis. Dyspnea. COMPARISON STUDY: 04/22/2018 FINDINGS: Moderate stable cardiomegaly. Diffuse interstitial and fibrotic prominence bilaterally consistent with chronic interstitial lung disease. No well-defined evidence for superimposed infiltrate. IMPRESSION: 1. Cardiomegaly. 2. Diffuse chronic interstitial change. 3. No superimposed process. The above report was generated using voice recognition software. It may contain grammatical, syntax or spelling errors. Electronically signed by: Je Chatman M.D. 01/27/2019 10:18 PM CTA of the chest was obtained in the emergency department. The report is reviewed. Preliminary Findings Only See Final Report For Complete Findings CTA CHEST: No PE. Pulmonary fibrosis. No infiltrate, effusion, or pneumothorax. Radiologist: Seferino Callahan MD Study ready at 00:39 and initial results transmitted at 00:46 ECG Data Attestation: I personally reviewed and interpreted this ECG as follows: Indication: SOB/dyspnea Rate (beats per minute): 76 Rhythm: normal sinus Findings: + T-wave inversion (anterior); no ectopy Comparison ECG Date: from (04/24/18) Change: no significant change Blood Pressure Blood Pressure Findings: Normal blood pressure MDM Narrative The patient is a 63-year-old male who presented to the emergency department for an evaluation of shortness of breath. The patient has a history of tobacco use as well as COPD. The patient was noted to have low oxygen saturation at the correction. He was treated with bronchodilator therapy but continued to worsen. He was further treated with bronchodilator therapy en route and was placed on BiPAP and an hour-long DuoNeb prior to arrival peer I discussed the patient's laboratory and radiographic studies with him. Given his symptoms I also discussed his case with the on-call [facility] hospitalist group. They have agreed to evaluate the patient in the emergency department for further management and disposition. The patient was reevaluated multiple times. He was started on IV antibiotics. Impression & Plan Respiratory failure, Hypoxia, Altered mental status, Tobacco abuse Critical Care Time I have personally spent greater than 60 minutes of critical care time in the direct management of this patient. This includes bedside care, interpretation of diagnostic studies, and testing, discussion with consultants, patient, and family members, and other required patient management activities. This 60 minutes is in excess of all separately billable procedures. Critical Care Time: Yes Total Critical Care Time: 60 Discharge Plan Visit Data *Final* Discharge Date/Time: 01/28/19 03:03 Chief Complaint: Shortness of Breath/Dyspnea ED Provider: Bobby Santoyo Discharge Problem: Respiratory failure, Hypoxia, Altered mental status, Tobacco abuse Patient Disposition: Admitted As Inpatient Discharge Instructions Interventions: ED Discharge Assessment Last Done: 01/28/19 03:03 Discharge Problem: Respiratory failure Qualifiers: Chronicity: unspecified Respiratory failure complication: hypoxia Qualified Code(s): J96.91 - Respiratory failure, unspecified with hypoxia Altered mental status Qualifiers: Altered mental status type: unspecified Qualified Code(s): R41.82 - Altered mental status, unspecified The scribe's documentation has been prepared under my direction and personally reviewed by me in its entirety. I confirm that the note above accurately reflects all work, treatment, procedures, and medical decision making performed by me.
--- NOTE | 2019-01-27 22:20 | XRay Report ---
XR chest 1V portable CLINICAL HISTORY: Sepsis sepsis. Dyspnea. COMPARISON STUDY: 04/22/2018 FINDINGS: Moderate stable cardiomegaly. Diffuse interstitial and fibrotic prominence bilaterally cons istent with chronic interstitial lung disease. No well-defined evidence for superimposed infiltrate. IMPRESSION: 1. Cardiomegaly. 2. Diffuse chronic interstitial change. 3. No superimposed process. The above report was generated using voice recognition software. It may contain grammatical, syntax or spelling errors. Electronically signed by: Je Chatman M.D. 01/27/2019 10:18 PM
[2019-01-27] MEDS ORDERED: methylPREDNISolone 125 MG/2 ML VIAL IV STA (22:21)
[2019-01-27] MEDS ORDERED: ALBUT/IPRATROP 3MG/0.5MG NEB 3 ML VIAL NEB ONE (22:21)
[2019-01-27 22:43] LABS: Basophils # (auto) 0.03 K/uL (0-0.2); Basophils % (auto) 0.2 %; Eosinophils # (auto) 0.28 K/uL (0-0.5); Eosinophils % (auto) 2.2 %; Hematocrit (blood only) 43.3 % (42-52); Hemoglobin 15.3 g/dL (14.0-18.0); Immature Granulocytes # (auto) 0.06 K/uL (0.00-0.02); Immature Granulocytes % (auto) 0.5 %; Lymphocytes # (auto) 1.61 K/uL (1.2-3.4); Lymphocytes % (auto) 12.7 %; Mean Corpuscular Hgb Conc 35.3 g/dL (32-36); Mean Corpuscular Volume 86.8 fL (80-100); Mean Platelet Volume 10.8 fL (7.4-10.4); Monocytes # (auto) 0.69 K/uL (0.11-0.59); Monocytes % (auto) 5.5 %; Neutrophils # (auto) 9.98 K/uL (1.4-6.5); Neutrophils % (auto) 78.9 %; Platelet Count 188 K/uL (130-400); Red Blood Count 4.99 M/uL (4.7-6.1); White Blood Count 12.65 K/uL (4.8-10.8)
[2019-01-27 22:46] LABS: Appearance Urine Clear (Clear); Bilirubin Urine Negative (Negative); Blood Urine Negative (Negative); Color Urine Yellow; Glucose Urine UA Negative (Negative); Ketones Urine Negative (Negative); Leukocyte Esterase Urine Negative (Negative); Nitrite Urine Negative (Negative); Protein Urine Negative (Negative); Urobilinogen Urine Negative (Negative); pH Urine 7.5 (4.5-7.5)
[2019-01-27 23:02] LABS: Alanine Aminotransferase 49 U/L (12-78); Albumin Level 3.1 gm/dl (3.4-5.0); Aspartate Aminotransferase 42 U/L (15-37); BUN Creatinine Ratio 17.2 (10-20); Blood Urea Nitrogen 17 mg/dl (7-18); C Reactive Protein < 0.29 mg/dl (0-0.29); Carbon Dioxide 28 mmol/L (21-32); Chloride 104 mmol/L (98-107); Creatinine Clr Calc Pharmacy 62.4 ml/min; Est GFR (African American) 91.8; Est GFR (Non-African American) 79.2; Glucose 97 mg/dl (70-99); Magnesium 1.8 mg/dl (1.8-2.4); Potassium 3.7 mmol/L (3.5-5.1); Sodium 137 mmol/L (136-145)
[2019-01-27 23:03] LABS: Base Excess VBG 4.2 mEq/L; HCO3 VBG 30 mmol/L; PCO2 VBG 50 mmHg (38-50); PO2 VBG 24 mmHg
[2019-01-27 23:04] LABS: Oxygen Saturation VBG < 60.0 %
[2019-01-27 23:07] LABS: Albumin Globulin Ratio 0.6 (0.9-2); Alkaline Phosphatase 63 U/L (45-117); Bilirubin,Total 0.5 mg/dl (0.2-1); Globulin 4.8 gm/dl (2.5-4.0); Total Protein 7.9 gm/dl (6.4-8.2); Troponin I < 0.015 ng/ml (0-0.045)
[2019-01-27 23:08] LABS: INR 1.1 (0.9-1.1); Partial Thromboplastin Time 27.3 Seconds (21.0-31.0); Prothrombin Time 10.9 Seconds (9.0-12.0)
[2019-01-27 23:13] LABS: D Dimer 700 ug/L FEU (0-500)
[2019-01-28] MEDS ORDERED: OPTIRAY 320 125ml IV PRN (00:12)
[2019-01-28] MEDS ORDERED: LEVOFLOXACIN/D5W 750 MG/150 ML BAG IV STA (00:40)
--- NOTE | 2019-01-28 02:19 | History & Physical Report ---
Date of Service January 28, 2019 Assessment & Plan (1) Respiratory failure: 63-year-old male was admitted on 28 Jan 2018 for acute hypoxic respiratory failure. Shortness of breath, acute hypoxic respiratory failure: See extensive pulmonary history below. Was given bronchodilator therapy, BiPAP, and an hour-long DuoNeb prior to arrival. At present, SpO2 is much improved after nebulizing treatments and ongoing BiPAP. His current reluctance to answer questions seems more hearing loss related + personal choice and less so due to overt tachypnea. - In ED, arrived with diminished breath sounds + tachypnea + retractions. Afebrile, not tachycardic, initial SpO2 83% on 2 L nasal cannula with improvement to 98% on BiPAP. WBC 12, lactate 1.4, procalcitonin negative. Electrolytes okay. VBG pH 7.4, CO2 50, bicarb 30. Negative troponin. Positive d-dimer. CTA chest (overnight radiology read) noted no PE, positive pulmonary fibrosis, but no infiltrate or effusion or pneumothorax. Blood cultures were sent. - In ED, treated with another DuoNeb, Solu-Medrol, Ativan, 1 L NS IVF, and Leva elmo. - We will continue with Solu-Medrol 30 mg IV 3 times daily. Switch to azithromycin mostly for anti-inflammatory effect. Scheduled duo nebs. Will defer pulmonology consult initially and see how he does on BiPAP for the rest of the night. Ongoing medical issues: - Asthma, COPD, interstitial lung disease, possible chronic PE: As an outpatient is on Alvesco, ipratropiumalbuterol, Xopenex, and Spiriva. Pulmonology notes in April 2018 noted poor overall prognosis. - Atrial fibrillation, hyperlipidemia: Continue prior aspirin, atorvastatin, diltiazem. - Congestive heart failure: Continue outpatient on Lasix 20 mg twice daily. - Schizophrenia: Continue prior risperidone. - Osteoporosis: Continue prior alendronate. - Hearing loss, constipation. - ? Hepatitis C: HCV [facility] in [facility]. Code status: DO NOT RESUSCITATE. - During admission in April 2018 patient was made DNR as noted in his discharge summary after discussion with palliative care and the ethics committee. There was also a DNR order in his accompanying jail medical records. Diet: Heart healthy. DVT prophy: Lovenox. PT/OT: Deferred. Disbo: Admit to PCU. Patient is an inmate at [facility]. (2) Asthma: (3) COPD (chronic obstructive pulmonary disease): (4) Interstitial lung disease: (5) Atrial fibrillation: (6) Chronic diastolic heart failure due to valvular disease: (7) Schizophrenia: (8) Osteoporosis: (9) Hearing loss: History of Present Illness Primary Care Provider: [facility] 63-year-old male was transferred from [facility] to the emergency department for acute respiratory distress. At present, patient is not volunteering any information. Majority of history is per accompanying brief medical records as well as review of prior medical records. - According to accompanying medical records, patient had increased shortness of breath throughout [facility] the [facility]. His room SpO2 dropped as low as 59%. He was started on breathing treatments and BiPAP with noted improvement in his SpO2. - In the ED, patient is presently on BiPAP. Initially he did not seem to be answering questions, however his bedside guard said that he was just talking a moment ago. Eyes are open but no response to saying "hello". When asked if he had any pain, patient nods his head yes and then says the single word "breathing". When asked if he had any other pains, patient nods his head yes but did not answer further questions. Allergies Allergy/AdvReac Type Severity Reaction Status Date / Time No Known Allergies Allergy Unverified 01/27/19 22:53 Home Medications Home Medications Medication Instructions Recorded Confirmed Type alendronate 70 mg PO WK 01/27/19 01/27/19 History aspirin [Aspir-81] 162 mg PO DAILY 01/27/19 01/27/19 History atorvastatin 10 mg PO HS 01/27/19 01/27/19 History calcium carbonate-vitamin D3 1 tab PO BID 01/27/19 01/27/19 History [Calcium 600 with Vitamin D3] ciclesonide [Alvesco] 1 puff INHALATION BID 01/27/19 01/27/19 History diltiazem HCl 180 mg PO DAILY 01/27/19 01/27/19 History docusate sodium 100 mg PO BID 01/27/19 01/27/19 History furosemide [Lasix] 20 mg PO BID 01/27/19 01/27/19 History hydrocortisone 1 applic TOPICAL TID 01/27/19 01/27/19 History ipratropium-albuterol 1 dose INHALATION Q4 PRN 01/27/19 01/27/19 History levalbuterol tartrate [Xopenex HFA] 2 inh INHALATION Q6H PRN 01/27/19 01/27/19 History risperidone 0.5 mg PO HS 01/27/19 01/27/19 History tiotropium bromide [Spiriva with 1 cap INHALATION DAILY 01/27/19 01/27/19 History HandiHaler] Past Med/Surg History Medical History Respiratory failure (Chronic) ADRIANO (acute kidney injury) Asthma Atrial fibrillation COPD (chronic obstructive pulmonary disease) No significant family history No significant past surgical history Social History Preferred Language: [place] Feels Safe at Home: Yes Smoking Status: Former smoker Review of Systems Review of Systems: Unable to obtain ROS due to patient not answering questions. Physical Exam Physical Exam: GENERAL: Opens his eyes to voice, awake, answers questions with single word answers. With BiPAP in place, he appears in mild respiratory distress but not in overall pain. Relatively thin habitus. HENT: Normocephalic, atraumatic. EYES: Normal conjunctiva. Sclera non-icteric. NECK: Inspection normal. BiPAP in place. CARDIAC: +S1S2 RRR, no murmurs. RESPIRATORY: BiPAP in place. No rales or rhonchi appreciated. Minimal wheezing. No abdominal accessory muscle use. GI: +BS, soft, non-distended. No tenderness to palpation. No rebound or guarding. EXTREMITIES: No pedal edema or calf tenderness. NEURO: No gross neuro deficits, though difficult to fully assess due to patient not responding to commands. Results & Data Vital Signs (Past 12 Hours) Vital Signs Temp Pulse Pulse Resp BP BP Pulse Ox 01/28/19 01:31 88 26 H 109/76 94 01/28/19 00:50 77 23 98 01/28/19 00:40 78 23 97 01/28/19 00:35 81 25 H 97 01/28/19 00:34 82 28 H 104/68 96 01/28/19 00:31 85 26 H 96 01/27/19 23:14 80 28 H 98 01/27/19 23:10 76 28 H 97 01/27/19 22:35 84 22 112/64 96 01/27/19 22:08 77 20 97 01/27/19 21:41 36.4 C L 81 28 H 112/64 82 L Laboratory Results 01/27/19 01/27/19 01/27/19 Range/Units 22:54 22:38 22:32 WBC (4.8-10.8) K/uL RBC (4.7-6.1) M/uL Hgb (14.0-18.0) g/dL Hct (42-52) % MCV (80-100) fL MCH (25-34) pg MCHC (32-36) g/dL RDW Std Deviation (36.4-46.3) fL RDW Coeff of Judah (11.5-14.5) % Plt Count (130-400) K/uL MPV (7.4-10.4) fL Immature Gran % (Auto) % Neut % (Auto) % Lymph % (Auto) % Blanco % (Auto) % Eos % (Auto) % Baso % (Auto) % Immature Gran # (Auto) (0.00-0.02) K/uL Neut # (Auto) (1.4-6.5) K/uL Lymph # (Auto) (1.2-3.4) K/uL Blanco # (Auto) (0.11-0.59) K/uL Eos # (Auto) (0-0.5) K/uL Baso # (Auto) (0-0.2) K/uL ESR 29 H (0-14) mm/hr PT (9.0-12.0) Seconds INR (0.9-1.1) APTT (21.0-31.0) Seconds PTT Ratio D-Dimer (0-500) ug/L FEU VBG pH 7.40 (7.36-7.41) VBG pCO2 50 (38-50) mmHg VBG pO2 24 mmHg VBG HCO3 30 mmol/L VBG O2 Saturation < 60.0 % VBG Base Excess 4.2 mEq/L Barometric Pressure 730.1 mm/Hg Sodium (136-145) mmol/L Potassium (3.5-5.1) mmol/L Chloride (98-107) mmol/L Carbon Dioxide (21-32) mmol/L Anion Gap (3-11) BUN (7-18) mg/dl Creatinine (0.6-1.4) mg/dl Est Cr Clr Drug Dosing ml/min Est GFR ( Amer) Est GFR (Non-Af Amer) BUN/Creatinine Ratio (10-20) Glucose (70-99) mg/dl Lactate (0.4-2.0) mmol/L Calcium (8.5-10.1) mg/dl Magnesium (1.8-2.4) mg/dl Total Bilirubin (0.2-1) mg/dl AST (15-37) U/L ALT (12-78) U/L Alkaline Phosphatase (45-117) U/L Troponin I (0-0.045) ng/ml C-Reactive Protein (0-0.29) mg/dl Total Protein (6.4-8.2) gm/dl Albumin (3.4-5.0) gm/dl Globulin (2.5-4.0) gm/dl Albumin/Globulin Ratio (0.9-2) Procalcitonin (0-0.5) ng/ml Urine Color Yellow Urine Appearance Clear (Clear) Urine pH 7.5 (4.5-7.5) Ur Specific Aurora 1.010 (1.000-1.030) Urine Protein Negative (Negative) Urine Glucose (UA) Negative (Negative) Urine Ketones Negative (Negative) Urine Blood Negative (Negative) Urine Nitrite Negative (Negative) Urine Bilirubin Negative (Negative) Urine Urobilinogen Negative (Negative) Ur Leukocyte Esterase Negative (Negative) Digoxin (0.8-2.0) ng/ml 01/27/19 01/27/19 01/27/19 Range/Units 22:32 22:32 22:32 WBC (4.8-10.8) K/uL RBC (4.7-6.1) M/uL Hgb (14.0-18.0) g/dL Hct (42-52) % MCV (80-100) fL MCH (25-34) pg MCHC (32-36) g/dL RDW Std Deviation (36.4-46.3) fL RDW Coeff of Judah (11.5-14.5) % Plt Count (130-400) K/uL MPV (7.4-10.4) fL Immature Gran % (Auto) % Neut % (Auto) % Lymph % (Auto) % Blanco % (Auto) % Eos % (Auto) % Baso % (Auto) % Immature Gran # (Auto) (0.00-0.02) K/uL Neut # (Auto) (1.4-6.5) K/uL Lymph # (Auto) (1.2-3.4) K/uL Blanco # (Auto) (0.11-0.59) K/uL Eos # (Auto) (0-0.5) K/uL Baso # (Auto) (0-0.2) K/uL ESR (0-14) mm/hr PT (9.0-12.0) Seconds INR (0.9-1.1) APTT (21.0-31.0) Seconds PTT Ratio D-Dimer (0-500) ug/L FEU VBG pH (7.36-7.41) VBG pCO2 (38-50) mmHg VBG pO2 mmHg VBG HCO3 mmol/L VBG O2 Saturation % VBG Base Excess mEq/L Barometric Pressure mm/Hg Sodium (136-145) mmol/L Potassium (3.5-5.1) mmol/L Chloride (98-107) mmol/L Carbon Dioxide (21-32) mmol/L Anion Gap (3-11) BUN (7-18) mg/dl Creatinine (0.6-1.4) mg/dl Est Cr Clr Drug Dosing ml/min Est GFR ( Amer) Est GFR (Non-Af Amer) BUN/Creatinine Ratio (10-20) Glucose (70-99) mg/dl Lactate 1.4 (0.4-2.0) mmol/L Calcium (8.5-10.1) mg/dl Magnesium (1.8-2.4) mg/dl Total Bilirubin (0.2-1) mg/dl AST (15-37) U/L ALT (12-78) U/L Alkaline Phosphatase (45-117) U/L Troponin I (0-0.045) ng/ml C-Reactive Protein (0-0.29) mg/dl Total Protein (6.4-8.2) gm/dl Albumin (3.4-5.0) gm/dl Globulin (2.5-4.0) gm/dl Albumin/Globulin Ratio (0.9-2) Procalcitonin < 0.05 (0-0.5) ng/ml Urine Color Urine Appearance (Clear) Urine pH (4.5-7.5) Ur Specific Aurora (1.000-1.030) Urine Protein (Negative) Urine Glucose (UA) (Negative) Urine Ketones (Negative) Urine Blood (Negative) Urine Nitrite (Negative) Urine Bilirubin (Negative) Urine Urobilinogen (Negative) Ur Leukocyte Esterase (Negative) Digoxin < 0.1 L (0.8-2.0) ng/ml 01/27/19 01/27/19 01/27/19 Range/Units 22:32 22:32 22:32 WBC 12.65 H (4.8-10.8) K/uL RBC 4.99 (4.7-6.1) M/uL Hgb 15.3 (14.0-18.0) g/dL Hct 43.3 (42-52) % MCV 86.8 (80-100) fL MCH 30.7 (25-34) pg MCHC 35.3 (32-36) g/dL RDW Std Deviation 44.0 (36.4-46.3) fL RDW Coeff of Judah 14.0 (11.5-14.5) % Plt Count 188 (130-400) K/uL MPV 10.8 H (7.4-10.4) fL Immature Gran % (Auto) 0.5 % Neut % (Auto) 78.9 % Lymph % (Auto) 12.7 % Blanco % (Auto) 5.5 % Eos % (Auto) 2.2 % Baso % (Auto) 0.2 % Immature Gran # (Auto) 0.06 H (0.00-0.02) K/uL Neut # (Auto) 9.98 H (1.4-6.5) K/uL Lymph # (Auto) 1.61 (1.2-3.4) K/uL Blanco # (Auto) 0.69 H (0.11-0.59) K/uL Eos # (Auto) 0.28 (0-0.5) K/uL Baso # (Auto) 0.03 (0-0.2) K/uL ESR (0-14) mm/hr PT 10.9 (9.0-12.0) Seconds INR 1.1 (0.9-1.1) APTT 27.3 (21.0-31.0) Seconds PTT Ratio 1.0 D-Dimer 700 H* (0-500) ug/L FEU VBG pH (7.36-7.41) VBG pCO2 (38-50) mmHg VBG pO2 mmHg VBG HCO3 mmol/L VBG O2 Saturation % VBG Base Excess mEq/L Barometric Pressure mm/Hg Sodium 137 (136-145) mmol/L Potassium 3.7 (3.5-5.1) mmol/L Chloride 104 (98-107) mmol/L Carbon Dioxide 28 (21-32) mmol/L Anion Gap 5.0 (3-11) BUN 17 (7-18) mg/dl Creatinine 1.00 (0.6-1.4) mg/dl Est Cr Clr Drug Dosing 62.4 ml/min Est GFR ( Amer) 91.8 Est GFR (Non-Af Amer) 79.2 BUN/Creatinine Ratio 17.2 (10-20) Glucose 97 (70-99) mg/dl Lactate (0.4-2.0) mmol/L Calcium 9.0 (8.5-10.1) mg/dl Magnesium 1.8 (1.8-2.4) mg/dl Total Bilirubin 0.5 (0.2-1) mg/dl AST 42 H (15-37) U/L ALT 49 (12-78) U/L Alkaline Phosphatase 63 (45-117) U/L Troponin I < 0.015 (0-0.045) ng/ml C-Reactive Protein < 0.29 (0-0.29) mg/dl Total Protein 7.9 (6.4-8.2) gm/dl Albumin 3.1 L (3.4-5.0) gm/dl Globulin 4.8 H (2.5-4.0) gm/dl Albumin/Globulin Ratio 0.6 L (0.9-2) Procalcitonin (0-0.5) ng/ml Urine Color Urine Appearance (Clear) Urine pH (4.5-7.5) Ur Specific Aurora (1.000-1.030) Urine Protein (Negative) Urine Glucose (UA) (Negative) Urine Ketones (Negative) Urine Blood (Negative) Urine Nitrite (Negative) Urine Bilirubin (Negative) Urine Urobilinogen (Negative) Ur Leukocyte Esterase (Negative) Digoxin (0.8-2.0) ng/ml Medications Administered Discontinued Medications Albuterol (Duoneb) 12 ml NEB ONE ONE Stop: 01/27/19 22:22 Last Admin: 01/27/19 23:06 Dose: 12 ml Documented by: [id number] Lorazepam (Ativan) 1 mg in 2 mls @ 2 mls/min IV NOW STA Stop: 01/27/19 21:50 Last Admin: 01/27/19 22:53 Dose: 2 mls/min Documented by: [id number] Sodium Chloride (Nss 1000ml) 1,000 mls @ 999 mls/hr IV .Q1H1M ONE Stop: 01/27/19 22:49 Last Infusion: 01/27/19 23:56 Dose: 0 mls/hr Documented by: [id number] Admin: 01/27/19 22:54 Dose: 999 mls/hr Documented by: [id number] Levofloxacin/Dextrose (Levaquin/D5w) 750 mg in 150 mls @ 100 mls/hr IV NOW STA Stop: 01/28/19 02:09 Last Admin: 01/28/19 00:57 Dose: 100 mls/hr Documented by: [id number] Methylprednisolone (Solumedrol) 125 mg IV NOW STA Stop: 01/27/19 22:22 Last Admin: 01/27/19 22:53 Dose: 125 mg Documented by: [id number] Code Status & VTE Plan Code Status Do not resuscitate VTE Prophylaxis Plan VTE Prophylaxis will be ordered: Yes Supervising Physician Co-Signing Physician Notes Patient seen and examined, chart reviewed, case discussed with Dr. Ford and I agree with his assessment and plan as above. Briefly, patient is a 63yo male with poor pulmonary function secondary to underlying Asthma/COPD, idiopathic pulmonary fibrosis, pulmonary hypertension and chronic PE, presenting with acute hypoxic respiratory failure. Saturations reported to be in the 60's while outpatient. Patient improved with BiPAP, nebs and steroids adminstered in the ER. Presently he is sleeping, adequate oxygenation on BiPAP On exam he is afebrile, hemodynamically stable, tachypneic, saturating 94% on BiPAP 12/5, 40% FiO2 Equal air entry bilaterally, scattered end-expiratory wheezing Labs and images reviewed. WBC=12.65 which is near prior values. [id number] CTPA with pulmonary fibrosis, no PE or PNA Assessment/Plan: suspect acute hypoxic respiratory failure secondary to COPD, ILD, pulmonary fibrosis. Patient is end-stage chronic lung disease. -Admit to PCU -Nebs -Solumedrol -O2 support with BiPAP -Consider pulmonary consult pending how patient does overnight -Remainder of plan as above Resident Activity Tracking Resident Involvement: Resident Care Provided Care Provided: Adult Hospital Medicine (1) Respiratory failure Chronicity: unspecified Respiratory failure complication: hypoxia Qualified Code(s): J96.91 - Respiratory failure, unspecified with hypoxia
[2019-01-28] MEDS ORDERED: LACTATED RINGER'S 1,000 ML IV SCH (03:19)
[2019-01-28] MEDS ORDERED: LORazepam 0.5 MG/1 ML VIAL IV STA (03:19)
[2019-01-28] MEDS ORDERED: LORazepam 2 MG/4 ML VIAL ONE (03:22)
[2019-01-28] MEDS: ALBUT/IPRATROP 3MG/0.5MG NEB 3 ML VIAL INH SCH ×3 (06:55→18:08)
--- NOTE | 2019-01-28 07:03 | CT Scan Report ---
CT ANGIOGRAM OF THE CHEST CLINICAL HISTORY: Atypical chest pain and shortness of breath. Possible pulmonary embolism. COMPARISON STUDY: 04/22/2018 TECHNIQUE: Following the IV administration of 119 mL of Optiray-320, CT angiogram of the thorax was p erformed from the thoracic inlet to the lung bases utilizing the pulmonary embolus protocol. Images a re reviewed in the axial, sagittal, and coronal planes. IV contrast was administered without complica tion. MIP imaging was performed. A dose lowering technique was utilized adhering to the principles o f ALARA. CT DOSE: 247.26 mGy.cm FINDINGS: There is mild hilar lymph node enlargement. There is mild enlargement of subcarinal lymph nodes. The findings remain unchanged the prior study. There was no evidence of thoracic aortic dilatation. The pulmonary arteries dilated consistent with pulmonary arterial hypertension. There is significant artifact secondary to respiratory motion. No definite emboli are visualized. No pleural effusions are visualized. There are extensive interstitial pulmonary fibrotic changes. There is an old lower thoracic superior endplate compression deformity. IMPRESSION: 1. Severe underlying interstitial lung disease similar to the preceding study, with possible superimp osed emphysema 2. Pulmonary arterial hypertension 3. No evidence of acute pulmonary embolism Electronically signed by: Unruly Greene M.D. 01/28/2019 7:01 AM
[2019-01-28] MEDS: methylPREDNISolone 30 MG in SYRINGE 0 ML IV SCH ×3 (08:21→23:29)
[2019-01-28] MEDS: FUROSEMIDE 20 MG TAB PO SCH ×2 (08:22→16:07)
[2019-01-28] MEDS: ENOXAPARIN INJ 40 MG/0.4 ML SYR SQ SCH (08:22)
[2019-01-28] MEDS: AZITHROMYCIN 250 MG TAB PO SCH (08:22)
[2019-01-28] MEDS: CALCIUM 600MG + VIT D 400 IU TAB PO SCH ×2 (08:22→21:09)
[2019-01-28] MEDS: ASPIRIN 81 MG ECTAB PO SCH (08:22)
[2019-01-28] MEDS: DOCUSATE SODIUM 100 MG CAP PO SCH ×2 (08:22→21:09)
--- NOTE | 2019-01-28 10:03 | Family Medicine Progress Note ---
Date of Service January 28, 2019 Assessment & Plan (1) Respiratory failure: Mr. Graham is a 63-year-old male with a complex past medical history, including end stage chronic lung disease secondary to ILD, emphysema and pulmonary hypertension, schizophrenia, afib, CHF, osteoporosis, and Hep C who was admitted on 28 Jan 2018 for acute hypoxic respiratory failure. Acute hypoxic respiratory failure - In ED, arrived with diminished breath sounds + tachypnea + retractions, with an initial SpO2 83% on 2 L nasal cannula with improvement to 98% on BiPAP - Afebrile, procal negative, CTA showed severe underlying ILD with superimposed emphysema, as well as pulmonary arterial hypertension. No evidence of consolidation or PE. - Continue Solu-Medrol 30 mg IV 3 times daily. - Azithromycin started for anti-inflammatory effect - Scheduled duonebs - wean off bipap when able - per review of chart, pt was seen by palliative care during last admission in 05/06, and an ethics committee was assembled to discuss his prognosis and switching him to DNR/DNI status as he was not deemed to have capacity to make that decision for himself Asthma, COPD, interstitial lung disease - As an outpatient is on Alvesco, ipratropiumalbuterol, Xopenex, and Spiriva. Pulmonology notes in April 2018 noted poor overall prognosis. Atrial fibrillation, hyperlipidemia - Continue prior aspirin, atorvastatin, diltiazem. - called [facility] and they report he is on hospice status there, and was taken off warfarin and digoxin, which he had been on previously Congestive heart failure - Continue outpatient on Lasix 20 mg twice daily. Schizophrenia - Continue prior risperidone. Osteoporosis - Continue prior alendronate. Code status: DO NOT RESUSCITATE. (DNR order in his accompanying [facility] medical records) Diet: Heart healthy. DVT prophy: Lovenox. Disposition: Admit to PCU. Patient is an inmate at [facility]. (2) Asthma: (3) COPD (chronic obstructive pulmonary disease): (4) Interstitial lung disease: (5) Atrial fibrillation: (6) Chronic diastolic heart failure due to valvular disease: (7) Schizophrenia: (8) Osteoporosis: (9) Hearing loss: Supervising Physician Co-Signing Physician Notes Resident Physician Supervision Note: I independently interviewed and examined the patient and verified the chiang history and physical, reviewed labs and image studies, discussed the case with the resident Dr. Siegel and agree with the findings and care plan. Subjective See Dr. Ford's H&P for details on history and physical examination. Results & Data Vital Signs (Past 12 Hours) Vital Signs Temp Pulse Pulse Resp BP BP Pulse Ox 01/28/19 08:00 36.9 C 73 89 18 110/70 98 01/28/19 06:55 86 86 28 H 92 01/28/19 05:33 77 19 95 01/28/19 03:43 36.4 C L 89 24 101/70 95 01/28/19 03:24 81 30 H 95 01/28/19 01:31 88 26 H 109/76 94 01/28/19 00:50 77 23 98 01/28/19 00:40 78 23 97 01/28/19 00:35 81 25 H 97 01/28/19 00:34 82 28 H 104/68 96 01/28/19 00:31 85 26 H 96 01/27/19 23:14 80 28 H 98 01/27/19 23:10 76 28 H 97 01/27/19 22:35 84 22 112/64 96 01/27/19 22:08 77 20 97 Resident Activity Tracking Resident Involvement: Resident Care Provided Care Provided: Adult Hospital Medicine (1) Respiratory failure Chronicity: unspecified Respiratory failure complication: hypoxia Qualified Code(s): J96.91 - Respiratory failure, unspecified with hypoxia
[2019-01-28] MEDS: LACTATED RINGER'S 1,000 ML IV SCH (19:52)
[2019-01-28] MEDS: ATORVASTATIN 10 MG TAB PO SCH (21:09)
[2019-01-28] MEDS: risperiDONE 0.5 MG TABLET PO SCH (21:09)
--- NOTE | 2019-01-28 23:32 | Progress Note ---
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 Apparently patient was also complaining of some chest pain but was unable to localize it. An EKG was performed per protocol. In comparison to about 24 hours previous, there is some ST depression in V3 only. There there is no clear ST elevation in the remaining leads. Vitals reviewed, including improved blood pressure. Saw patient at bedside, which time he was on 4 L nasal cannula oxygen. His BiPAP had been stopped around dinnertime. Patient states he is having some hard time breathing. It is hard to get him to clarify if his chest discomfort is related to his breathing or feels different than this. He is awake, alert, and responding far more than he was at time of admission yesterday. His SpO2 was 88% on 4 L. Plan: - Restarted his BiPAP. - Discussed case with Dr. Keyes. It is not convincing that his current chest discomfort is overtly cardiac related. However, we will recheck an EKG in a couple hours. Did not redraw troponin at this time. Dhruv Ford, PGY2 Overnight call Results & Data Vital Signs (Past 12 Hours) Vital Signs Temp Pulse Resp BP BP Pulse Ox 01/28/19 22:22 100/51 L 01/28/19 21:07 89/39 L 01/28/19 19:32 86/41 L 01/28/19 18:53 36.8 C 90 18 84/32 L 90 01/28/19 18:09 89 20 92 01/28/19 15:09 36.8 C 90 20 97/53 L 91 01/28/19 14:21 72 18 98 01/28/19 12:00 36.8 C 83 16 121/61 96
[2019-01-29] MEDS ORDERED: LORazepam 0.5 MG/1 ML VIAL IV STA (01:23)
[2019-01-29] MEDS: ALBUT/IPRATROP 3MG/0.5MG NEB 3 ML VIAL INH SCH ×4 (01:39→19:03)
[2019-01-29] MEDS: methylPREDNISolone 30 MG in SYRINGE 0 ML IV SCH ×3 (07:35→22:29)
[2019-01-29] MEDS: LACTATED RINGER'S 1,000 ML IV SCH ×2 (07:36→19:50)
[2019-01-29 08:17] LABS: Hematocrit (blood only) 37.7 % (42-52); Hemoglobin 12.8 g/dL (14.0-18.0); Immature Granulocytes # (auto) 0.06 K/uL (0.00-0.02); Immature Granulocytes % (auto) 0.5 %; Lymphocytes # (auto) 0.54 K/uL (1.2-3.4); Lymphocytes % (auto) 4.3 %; Mean Corpuscular Volume 87.7 fL (80-100); Mean Platelet Volume 10.4 fL (7.4-10.4); Neutrophils # (auto) 11.43 K/uL (1.4-6.5); Neutrophils % (auto) 91.2 %; Platelet Count 152 K/uL (130-400); RDW Coefficient of Variation 14.2 % (11.5-14.5); RDW Standard Deviation 45.2 fL (36.4-46.3); White Blood Count 12.53 K/uL (4.8-10.8)
[2019-01-29] MEDS: CALCIUM 600MG + VIT D 400 IU TAB PO SCH ×2 (08:18→19:51)
[2019-01-29] MEDS: DOCUSATE SODIUM 100 MG CAP PO SCH ×2 (08:18→19:52)
[2019-01-29] MEDS: ASPIRIN 81 MG ECTAB PO SCH (08:18)
[2019-01-29] MEDS: AZITHROMYCIN 250 MG TAB PO SCH (08:18)
[2019-01-29] MEDS: ENOXAPARIN INJ 40 MG/0.4 ML SYR SQ SCH (08:19)
[2019-01-29 08:50] LABS: BUN Creatinine Ratio 27.6 (10-20); Calcium 8.9 mg/dl (8.5-10.1); Creatinine Clr Calc Pharmacy 83.7 ml/min; Est GFR (African American) 112.4; Est GFR (Non-African American) 96.9; Potassium 3.8 mmol/L (3.5-5.1)
--- NOTE | 2019-01-29 17:56 | Family Medicine Progress Note ---
Date of Service January 29, 2019 Assessment & Plan (1) Respiratory failure: Mr. Graham is a 63-year-old male with a complex past medical history, including end stage chronic lung disease secondary to ILD, emphysema and pulmonary hypertension, schizophrenia, afib, CHF, osteoporosis, and Hep C who was admitted on 28 Jan 2018 for acute hypoxic respiratory failure. Acute hypoxic respiratory failure - In ED, arrived with diminished breath sounds + tachypnea + retractions, with an initial SpO2 83% on 2 L nasal cannula with improvement to 98% on BiPAP - Afebrile, procal negative, CTA showed severe underlying ILD with superimposed emphysema, as well as pulmonary arterial hypertension. No evidence of consolidation or PE. - Continue Solu-Medrol 30 mg IV 3 times daily. - Azithromycin started for anti-inflammatory effect - Scheduled duonebs - wean off bipap when able - per review of chart, pt was seen by palliative care during last admission in 05/06, and an ethics committee was assembled to discuss his prognosis and switching him to DNR/DNI status as he was not deemed to have capacity to make that decision for himself - Will need to discuss with [facility] if patient's hospice status is considered to be comfort measures or DNR/DNI with "full" treatment. Asthma, COPD, interstitial lung disease - As an outpatient is on Alvesco, ipratropiumalbuterol, Xopenex, and Spiriva. Pulmonology notes in April 2018 noted poor overall prognosis. Atrial fibrillation, hyperlipidemia - Continue prior aspirin, atorvastatin, diltiazem. - called [facility] and they report he is on hospice status there, and was taken off warfarin and digoxin, which he had been on previously Congestive heart failure - Continue outpatient on Lasix 20 mg twice daily. Schizophrenia - Continue prior risperidone. Osteoporosis - Continue prior alendronate. Code status: DO NOT RESUSCITATE. (DNR order in his accompanying [facility] medical records) Diet: Heart healthy. DVT prophy: Lovenox. Disposition: Admit to PCU. Patient is an inmate at [facility]. (2) Asthma: (3) COPD (chronic obstructive pulmonary disease): (4) Interstitial lung disease: (5) Atrial fibrillation: (6) Chronic diastolic heart failure due to valvular disease: (7) Schizophrenia: (8) Osteoporosis: (9) Hearing loss: Supervising Physician Co-Signing Physician Notes I personally examined the patient and verified all chiang points of history and exam, discussed case, and agree with decision making with Dr Gongchristian Seems to be feeling better and breathing better. Very minimal HPI but he does believe he is getting better. Vitals noted, in general he is awake and alert pleasant no distress. Resting comfortably. Lungs slightly coarse without any focal rales rhonchi or wheezes good effort. Skin shows no rashes no pallor or icterus. Respiratory failure/hypoxiaappears to have severe baseline lung disease with a lot of interstitial lung disease. He seems to be improving right now. Continue current care. Likely wean steroids tomorrow. Will need to coordinate with the [facility] physicians about his overall plan of care at disposition. Subjective Limited due to mental status: reports he feels better than last night. Still short of breath. Denies pain. Review of Systems Review of Systems: Unobtainable due to cognitive status Physical Exam Constitutional: WD/WN, vitals as above + ill appearing, + thin and + behavioral limitations Eyes: PERRL, conjunctivae normal, anicteric sclerae ENMT: external ear and nose normal, oropharynx normal Respiratory: + labored breathing Auscultation: + diminished lung sounds and + crackles (scattered) Cardiovascular: RRR, no murmur, no edema Gastrointestinal (Abdomen): normal bowel sounds, soft, nontender, no hepatosplenomegaly Musculoskeletal: Head/Neck/Chest: normocephalic and head atraumatic Neurologic: moves all extremities Psychiatric: Orientation: alert Affect: + flat affect Mood: + irritable mood Insight: + limited insight Results & Data Vital Signs (Past 12 Hours) Vital Signs Temp Pulse Pulse Resp BP BP Pulse Ox 01/29/19 15:12 36.5 C 83 19 99/50 L 91 01/29/19 14:13 80 20 92 01/29/19 11:31 36.8 C 90 22 98/57 L 93 01/29/19 08:19 36.8 C 102 H 20 106/71 90 01/29/19 08:00 84 01/29/19 06:56 71 18 93 Laboratory Results 01/29/19 01/29/19 01/27/19 Range/Units 08:02 08:02 22:32 WBC 12.53 H (4.8-10.8) K/uL RBC 4.30 L (4.7-6.1) M/uL Hgb 12.8 L (14.0-18.0) g/dL Hct 37.7 L (42-52) % MCV 87.7 (80-100) fL MCH 29.8 (25-34) pg MCHC 34.0 (32-36) g/dL RDW Std Deviation 45.2 (36.4-46.3) fL RDW Coeff of Judah 14.2 (11.5-14.5) % Plt Count 152 (130-400) K/uL MPV 10.4 (7.4-10.4) fL Immature Gran % (Auto) 0.5 % Neut % (Auto) 91.2 % Lymph % (Auto) 4.3 % Crenshaw % (Auto) 4.0 % Eos % (Auto) 0.0 % Baso % (Auto) 0.0 % Immature Gran # (Auto) 0.06 H (0.00-0.02) K/uL Neut # (Auto) 11.43 H (1.4-6.5) K/uL Lymph # (Auto) 0.54 L (1.2-3.4) K/uL Crenshaw # (Auto) 0.50 (0.11-0.59) K/uL Eos # (Auto) 0.00 (0-0.5) K/uL Baso # (Auto) 0.00 (0-0.2) K/uL Sodium 141 (136-145) mmol/L Potassium 3.8 (3.5-5.1) mmol/L Chloride 108 H (98-107) mmol/L Carbon Dioxide 26 (21-32) mmol/L Anion Gap 6.0 (3-11) BUN 21 H (7-18) mg/dl Creatinine 0.75 (0.6-1.4) mg/dl Est Cr Clr Drug Dosing 83.7 ml/min Est GFR ( Amer) 112.4 Est GFR (Non-Af Amer) 96.9 BUN/Creatinine Ratio 27.6 H (10-20) Glucose 175 H (70-99) mg/dl Calcium 8.9 (8.5-10.1) mg/dl Bld Cult Staph aureus PCR Negative (Negative) Blood Culture MRSA PCR Negative (Negative) Medications Administered Current Inpatient Medications Albuterol (Duoneb) 3 ml INH Q6R [facility] Stop: 02/27/19 07:59 Last Admin: 01/29/19 14:12 Dose: 3 ml Documented by: Alendronate Sodium (Fosamax) 70 mg PO Th@0630 [facility] Stop: 03/03/19 06:29 Aspirin (Ecotrin Ectab) 162 mg PO DAILY [facility] Stop: 02/27/19 08:59 Last Admin: 01/29/19 08:18 Dose: 162 mg Documented by: Atorvastatin Calcium (Lipitor) 10 mg PO HS [facility] Stop: 02/27/19 20:59 Last Admin: 01/28/19 21:09 Dose: 10 mg Documented by: Azithromycin (Zithromax) 250 mg PO QAM [facility] Stop: 02/04/19 08:59 Last Admin: 01/29/19 08:18 Dose: 250 mg Documented by: Diltiazem HCl (Dilacor Xr) 180 mg PO DAILY [facility] Stop: 02/27/19 08:59 Last Admin: 01/29/19 08:18 Dose: 180 mg Documented by: Docusate Sodium (Colace) 100 mg PO BID [facility] Stop: 02/27/19 08:59 Last Admin: 01/29/19 08:18 Dose: 100 mg Documented by: Enoxaparin Sodium (Lovenox) 40 mg SQ Q24H [facility] Stop: 02/27/19 08:59 Last Admin: 01/29/19 08:19 Dose: 40 mg Documented by: Furosemide (Lasix) 20 mg PO BID17 [facility] Stop: 02/27/19 08:59 Last Admin: 01/28/19 16:07 Dose: 20 mg Documented by: Methylprednisolone 30 mg/ (Syringe) 0.48 mls @ 1.5 mls/min IV Q8H [facility] Stop: 02/27/19 06:59 Last Admin: 01/29/19 15:25 Dose: 1.5 mls/min Documented by: Lactated Ringer's (Lr) 1,000 mls @ 80 mls/hr IV .[id number] [facility] Stop: 02/27/19 19:44 Last Admin: 01/29/19 07:36 Dose: 80 mls/hr Documented by: Multivitamins/Minerals (Caltrate Plus) 1 tab PO BID [facility] Stop: 02/27/19 08:59 Last Admin: 01/29/19 08:18 Dose: 1 tab Documented by: Risperidone (Risperdal) 0.5 mg PO HS [facility] Stop: 02/27/19 20:59 Last Admin: 01/28/19 21:09 Dose: 0.5 mg Documented by: Resident Activity Tracking Resident Involvement: Resident Care Provided Care Provided: Adult Hospital Medicine (1) Respiratory failure Chronicity: unspecified Respiratory failure complication: hypoxia Qualified Code(s): J96.91 - Respiratory failure, unspecified with hypoxia
[2019-01-29] MEDS: ATORVASTATIN 10 MG TAB PO SCH (19:52)
[2019-01-29] MEDS: risperiDONE 0.5 MG TABLET PO SCH (19:52)
[2019-01-30] MEDS: ALBUT/IPRATROP 3MG/0.5MG NEB 3 ML VIAL INH SCH ×4 (01:26→19:32)
[2019-01-30] MEDS: methylPREDNISolone 30 MG in SYRINGE 0 ML IV SCH (06:05)
[2019-01-30] MEDS: LACTATED RINGER'S 1,000 ML IV SCH ×2 (06:05→18:31)
[2019-01-30] MEDS: AZITHROMYCIN 250 MG TAB PO SCH (09:46)
[2019-01-30] MEDS: ASPIRIN 81 MG ECTAB PO SCH (09:46)
[2019-01-30] MEDS: CALCIUM 600MG + VIT D 400 IU TAB PO SCH ×2 (09:46→19:59)
[2019-01-30] MEDS: DOCUSATE SODIUM 100 MG CAP PO SCH ×2 (09:46→19:59)
[2019-01-30] MEDS: ENOXAPARIN INJ 40 MG/0.4 ML SYR SQ SCH (09:47)
[2019-01-30] MEDS: predniSONE 20 MG TAB PO SCH (12:05)
--- NOTE | 2019-01-30 19:05 | Family Medicine Progress Note ---
Date of Service January 30, 2019 Assessment & Plan (1) Respiratory failure: Mr. Graham is a 63-year-old male with a complex past medical history, including end stage chronic lung disease secondary to ILD, emphysema and pulmonary hypertension, schizophrenia, afib, CHF, osteoporosis, and Hep C who was admitted on 28 Jan 2018 for acute hypoxic respiratory failure. Acute hypoxic respiratory failure - In ED, arrived with diminished breath sounds + tachypnea + retractions, initial SpO2 83% on 2L NC, improved to 98% on BiPAP - Afebrile, procal negative, CTA showed severe underlying ILD with superimposed emphysema, as well as pulmonary arterial hypertension. No evidence of consolidation or PE. - Changed solumedrol from 30 TID to 60 prednisone daily, will taper on discharge - Azithromycin started for anti-inflammatory effect, last day 01/31 - Scheduled duonebs - Wean oxymask to resume home NC level - per chart review, pt seen by palliative care during last admission in 05/06, and an ethics committee was assembled to discuss his prognosis and switching him to DNR/DNI status as he was not deemed to have capacity to make that decision for himself - Per [facility], patient is NOT hospice status Asthma, COPD, interstitial lung disease - As an outpatient is on Alvesco, ipratropiumalbuterol, Xopenex, and Spiriva. Pulmonology notes in April 2018 noted poor overall prognosis. Atrial fibrillation, hyperlipidemia - Continue prior aspirin, atorvastatin, diltiazem. - called [facility] and they report he is NOT on hospice status there, - It is unclear why he was taken off warfarin and digoxin, which he had been on previously Congestive heart failure - Continue outpatient on Lasix 20 mg twice daily. Schizophrenia - Continue prior risperidone. Osteoporosis - Continue prior alendronate. Code status: DO NOT RESUSCITATE. (DNR order in his accompanying assisted medical records) Diet: Heart healthy. DVT prophy: Lovenox. Disposition: Med surg. Patient is an inmate at [facility]. (2) Asthma: (3) COPD (chronic obstructive pulmonary disease): (4) Interstitial lung disease: (5) Atrial fibrillation: (6) Chronic diastolic heart failure due to valvular disease: (7) Schizophrenia: (8) Osteoporosis: (9) Hearing loss: Supervising Physician Co-Signing Physician Notes I personally examined the patient and verified all chiang points of history and exam, discussed case, and agree with decision making with Dr Hannah Breathing does not seem to be too bad. He is on nasal cannula and in the mid 80% but its right after he is eating, he does not really appear very dyspneic and he is mixing cream into his coffee. Vitals noted, in general he is awake and alert pleasant no distress. Resting comfortably. Lungs slightly coarse without any focal rales rhonchi or wheezes good effort. Skin shows no rashes no pallor or icterus. Respiratory failure/hypoxiaappears to have severe baseline lung disease with a lot of interstitial lung disease. He seems to be improving right now. In discussion with his physician from the present, it sounds like right now he is back to about his baseline. We will move him to medical tonight observance tomorrow to ensure that his improvement is a trend is not an outlier, and then likely return to present tomorrow. Subjective Patient reports he continues to have difficulties breathing. Review of Systems Constitutional: no fever, no chills and no sweats Respiratory: + cough and + dyspnea Cardiovascular: no chest pain Gastrointestinal: + constipation; no abdominal pain Physical Exam Constitutional: WD/WN, vitals as above + ill appearing, + thin and + behavioral limitations Eyes: PERRL, conjunctivae normal, anicteric sclerae ENMT: external ear and nose normal, oropharynx normal Respiratory: + labored breathing Auscultation: + diminished lung sounds and + crackles (scattered) Cardiovascular: RRR, no murmur, no edema Gastrointestinal (Abdomen): normal bowel sounds, soft, nontender, no hepatosplenomegaly Musculoskeletal: Head/Neck/Chest: normocephalic and head atraumatic Neurologic: moves all extremities Psychiatric: Orientation: alert Affect: + flat affect Mood: + irritable mood Insight: + limited insight Results & Data Vital Signs (Past 12 Hours) Vital Signs Temp Pulse Pulse Resp BP BP Pulse Ox 01/30/19 15:48 36.9 C 68 22 95/53 L 94 01/30/19 13:42 70 16 92 01/30/19 11:43 36.5 C 84 24 107/58 L 01/30/19 08:00 56 L 01/30/19 07:06 59 L 20 94 Medications Administered Current Inpatient Medications Albuterol (Duoneb) 3 ml INH Q6R [facility] Stop: 02/27/19 07:59 Last Admin: 01/30/19 13:42 Dose: 3 ml Documented by: Alendronate Sodium (Fosamax) 70 mg PO Th@0630 [facility] Stop: 03/03/19 06:29 Aspirin (Ecotrin Ectab) 162 mg PO DAILY [facility] Stop: 02/27/19 08:59 Last Admin: 01/30/19 09:46 Dose: 162 mg Documented by: Atorvastatin Calcium (Lipitor) 10 mg PO HS [facility] Stop: 02/27/19 20:59 Last Admin: 01/29/19 19:52 Dose: 10 mg Documented by: Azithromycin (Zithromax) 250 mg PO QAM [facility] Stop: 01/31/19 12:00 Last Admin: 01/30/19 09:46 Dose: 250 mg Documented by: Diltiazem HCl (Dilacor Xr) 180 mg PO DAILY [facility] Stop: 02/27/19 08:59 Last Admin: 01/30/19 09:47 Dose: 180 mg Documented by: Docusate Sodium (Colace) 100 mg PO BID [facility] Stop: 02/27/19 08:59 Last Admin: 01/30/19 09:46 Dose: 100 mg Documented by: Enoxaparin Sodium (Lovenox) 40 mg SQ Q24H [facility] Stop: 02/27/19 08:59 Last Admin: 01/30/19 09:47 Dose: 40 mg Documented by: Furosemide (Lasix) 20 mg PO BID17 [facility] Stop: 02/27/19 08:59 Last Admin: 01/28/19 16:07 Dose: 20 mg Documented by: Lactated Ringer's (Lr) 1,000 mls @ 80 mls/hr IV .[id number] [facility] Stop: 02/27/19 19:44 Last Admin: 01/30/19 18:31 Dose: 80 mls/hr Documented by: Multivitamins/Minerals (Caltrate Plus) 1 tab PO BID [facility] Stop: 02/27/19 08:59 Last Admin: 01/30/19 09:46 Dose: 1 tab Documented by: Prednisone (Prednisone) 60 mg PO DAILY [facility] Stop: 03/01/19 11:29 Last Admin: 01/30/19 12:05 Dose: 60 mg Documented by: Risperidone (Risperdal) 0.5 mg PO HS [facility] Stop: 02/27/19 20:59 Last Admin: 01/29/19 19:52 Dose: 0.5 mg Documented by: Resident Activity Tracking Resident Involvement: Resident Care Provided Care Provided: Adult Hospital Medicine (1) Respiratory failure Chronicity: unspecified Respiratory failure complication: hypoxia Qualified Code(s): J96.91 - Respiratory failure, unspecified with hypoxia
[2019-01-30] MEDS: risperiDONE 0.5 MG TABLET PO SCH (19:59)
[2019-01-30] MEDS: ATORVASTATIN 10 MG TAB PO SCH (19:59)
[2019-01-31] MEDS: ALBUT/IPRATROP 3MG/0.5MG NEB 3 ML VIAL INH SCH ×3 (01:36→14:26)
[2019-01-31 06:23] LABS: Hematocrit (blood only) 37.8 % (42-52); Hemoglobin 13.3 g/dL (14.0-18.0); Mean Corpuscular Hgb Conc 35.2 g/dL (32-36); Mean Corpuscular Volume 85.5 fL (80-100); Mean Platelet Volume 9.9 fL (7.4-10.4); Platelet Count 154 K/uL (130-400); RDW Coefficient of Variation 14.1 % (11.5-14.5); Red Blood Count 4.42 M/uL (4.7-6.1)
--- NOTE | 2019-01-31 08:36 | Discharge Summary ---
Date of Service January 31, 2019 Admission HPI Per Admitting Provider 63-year-old male was transferred from [facility] to the emergency department for acute respiratory distress. At present, patient is not volunteering any information. Majority of history is per accompanying brief medical records as well as review of prior medical records. - According to accompanying medical records, patient had increased shortness of breath throughout [facility] at the [facility]. His room SpO2 dropped as low as 59%. He was started on breathing treatments and BiPAP with noted improvement in his SpO2. - In the ED, patient is presently on BiPAP. Initially he did not seem to be answering questions, however his bedside guard said that he was just talking a moment ago. Eyes are open but no response to saying "hello". When asked if he had any pain, patient nods his head yes and then says the single word "breathing". When asked if he had any other pains, patient nods his head yes but did not answer further questions. Principal Diagnosis Acute Hypoxic Respiratory Failure Discharge Exam Constitutional WD/WN, vitals as above + ill appearing, + thin and + behavioral limitations Eyes PERRL, conjunctivae normal, anicteric sclerae ENMT external ear and nose normal, oropharynx normal Respiratory + labored breathing Auscultation: + diminished lung sounds and + crackles (scattered) Cardiovascular RRR, no murmur, no edema Gastrointestinal (Abdomen) normal bowel sounds, soft, nontender, no hepatosplenomegaly Musculoskeletal Head/Neck/Chest: normocephalic and head atraumatic Neurologic moves all extremities Psychiatric Orientation: alert Affect: + flat affect Insight: + limited insight Discharge Data Allergies Allergy/AdvReac Type Severity Reaction Status Date / Time No Known Allergies Allergy Unverified 01/27/19 22:53 Consultations 01/28/19 00:40 ED Decision to Admit Stat Ordered Studies 01/27/19 23:13 CT angio chest PE protocol Urgent Hospital Course (1) Respiratory failure: Mr. Graham is a 63-year-old male with a complex past medical history, including end stage chronic lung disease secondary to ILD, emphysema and pulmonary hypertension, schizophrenia, afib, CHF, osteoporosis, and Hep C who was admitted on 28 Jan 2018 for acute hypoxic respiratory failure. Acute hypoxic respiratory failure - In ED, arrived with diminished breath sounds + tachypnea + retractions, initial SpO2 83% on 2L NC, improved to 98% on BiPAP - Afebrile, procal negative, CTA showed severe underlying ILD with superimposed emphysema, as well as pulmonary arterial hypertension. No evidence of consolidation or PE. - Changed solumedrol from 30 TID to 60 prednisone daily x 2 days, will taper on discharge to 40 x 2 days, 20x 2 days, stop. - Azithromycin started for anti-inflammatory effect, last day 01/31 - Patient weaned to 5L NC - Per [facility], patient is NOT hospice status Asthma, COPD, interstitial lung disease - As an outpatient is on Alvesco, ipratropiumalbuterol, Xopenex, and Spiriva. Pulmonology notes in April 2018 noted poor overall prognosis. Atrial fibrillation, hyperlipidemia - Continue prior aspirin, atorvastatin, diltiazem. - called [facility] and they report he is NOT on hospice status there, - It is unclear why he was taken off warfarin and digoxin, which he had been on previously - Considering he has been well controlled without digoxin, ok to continue to hold - In light of stroke risk, warfarin has been resumed and will need to titrate for goal INR 2-3 Congestive heart failure - Continue outpatient on Lasix 20 mg twice daily. - Echo 04/2018: EF 65-70. RV pressure/volume overload, severe pulm HTN - Volume status appropriate at present, continue to monitor Schizophrenia - Continue prior risperidone. Osteoporosis - Continue prior alendronate. Code status: DO NOT RESUSCITATE. (DNR order in his accompanying [facility] medical records; per ethics consult) (2) Asthma: (3) COPD (chronic obstructive pulmonary disease): (4) Interstitial lung disease: (5) Atrial fibrillation: (6) Chronic diastolic heart failure due to valvular disease: (7) Schizophrenia: (8) Osteoporosis: (9) Hearing loss: (2) Asthma: (3) COPD (chronic obstructive pulmonary disease): (4) Interstitial lung disease: (5) Atrial fibrillation: (6) Chronic diastolic heart failure due to valvular disease: (7) Schizophrenia: (8) Osteoporosis: (9) Hearing loss: Total Time Total Time Spent Total Time Spent (In Minutes): <30 Discharge Plan Discharge Items [facility] Reason For Visit: ACUTE HYPOXIC RESPIRATORY FAILURE Discharge Diagnosis: Acute hypoxic respiratory failure Discharge Goals: Decrease discomfort and Improve function Activity: Per 'Additional Instructions' section Non-emergency contact: Primary Care Provider Call non-emergency contact if: you have any medication questions and your symptoms worsen Follow-up/Referrals: Magnus PARDO [Primary Care Provider] - Diet: Heart Healthy Addtl Provider Instructions: Mr. Graham is a 63-year-old male with a complex past medical history, including end stage chronic lung disease secondary to ILD, emphysema and pulmonary hypertension, schizophrenia, afib, CHF, osteoporosis, and Hep C who was admitted on 28 Jan 2018 for acute hypoxic respiratory failure. Acute hypoxic respiratory failure - In ED, arrived with diminished breath sounds + tachypnea + retractions, initial SpO2 83% on 2L NC, improved to 98% on BiPAP - Afebrile, procal negative, CTA showed severe underlying ILD with superimposed emphysema, as well as pulmonary arterial hypertension. No evidence of consol idation or PE. - Changed solumedrol from 30 TID to 60 prednisone daily x 2 days, will taper on discharge to 40 x 2 days, 20x 2 days, stop. - Azithromycin started for anti-inflammatory effect, last day 01/31 - Patient weaned to 5L NC - Per [facility], patient is NOT hospice status Asthma, COPD, interstitial lung disease - As an outpatient is on Alvesco, ipratropiumalbuterol, Xopenex, and Spiriva. Pulmonology notes in April 2018 noted poor overall prognosis. Atrial fibrillation, hyperlipidemia - Continue prior aspirin, atorvastatin, diltiazem. - called [facility] and they report he is NOT on hospice status there, - It is unclear why he was taken off warfarin and digoxin, which he had been on previously - Considering he has been well controlled without digoxin, ok to continue to hold - In light of stroke risk, warfarin has been resumed and will need to titrate for goal INR 2-3 Congestive heart failure - Continue outpatient on Lasix 20 mg twice daily. - Echo 04/2018: EF 65-70. RV pressure/volume overload, severe pulm HTN - Volume status appropriate at present, continue to monitor Schizophrenia - Continue prior risperidone. Osteoporosis - Continue prior alendronate. Code status: DO NOT RESUSCITATE. (DNR order in his [facility] medical records; per ethics consult) (2) Asthma: (3) COPD (chronic obstructive pulmonary disease): (4) Interstitial lung disease: (5) Atrial fibrillation: (6) Chronic diastolic heart failure due to valvular disease: (7) Schizophrenia: (8) Osteoporosis: (9) Hearing loss: Prescriptions: New prednisone 20 mg Tablet 20 mg PO DAILY Qty: 6 RF: 0 warfarin 5 mg tablet 5 mg PO DAILY Qty: 30 RF: 0 Continued atorvastatin 10 mg Tablet 10 mg PO HS RF: 0 aspirin [Aspir-81] 81 mg Tablet,Delayed Release (Dr/Ec) 162 mg PO DAILY RF: 0 Alvesco 160 mcg/actuation Hfa Aerosol Inhaler 1 puff INHALATION BID RF: 0 ipratropium-albuterol 0.5 mg-3 mg(2.5 mg base)/3 mL Solution For Nebulization 1 dose INHALATION Q4 PRN (Reason: Shortness Of Breath Or Wheezing) RF: 0 alendronate 70 mg Tablet 70 mg PO WK RF: 0 hydrocortisone 2.5 % Lotion 1 applic TOPICAL TID RF: 0 docusate sodium 100 mg Capsule 100 mg PO BID RF: 0 furosemide [Lasix] 20 mg Tablet 20 mg PO BID RF: 0 diltiazem HCl 180 mg Capsule,Ext.Rel 24h Degradable 180 mg PO DAILY RF: 0 risperidone 0.5 mg Tablet 0.5 mg PO HS RF: 0 Spiriva with HandiHaler 18 mcg Capsule, W/Inhalation Device 1 cap INHALATION DAILY RF: 0 levalbuterol tartrate [Xopenex HFA] 45 mcg/actuation Hfa Aerosol Inhaler 2 inh INHALATION Q6H PRN (Reason: Shortness Of Breath Or Wheezing) RF: 0 Calcium 600 with Vitamin D3 600 mg(1,500mg) -400 unit Tablet,Chewable 1 tab PO BID RF: 0 Stand-Alone Forms: [facility] Discharge Orders: Discharge Order (Routine); Ordered 01/31/19 Ordered By: Maria Elena Hannah Admission Data Admit Date/Time: 01/28/19 02:09 Attending Provider: Enrique Walls Admit Provider: Dhruv Ford Primary Care Provider: Magnus PARDO Other Providers: Danna Keyes ; Madie Kumar ; Flory Keyes Service: Medical Other Interventions: Discharge Summary Assessment (RN) Last Done: 01/31/19 11:17 DC Date/Time DO NOT enter until pt leaves facility: 01/31/19 14:15 Supervising Physician Co-Signing Physician Notes I personally examined the patient and verified all chiang points of history and exam, discussed case, and agree with decision making with Dr Hannah No complaints about breathing. Vitals noted, in general he is awake and alert pleasant no distress. Resting comfortably. Lungs slightly coarse without any focal rales rhonchi or wheezes good effort. Skin shows no rashes no pallor or icterus. Respiratory failure/hypoxiaappears to have severe baseline lung disease with a lot of interstitial lung disease. After discussion with his physician at the present yesterday, it sounds like he is back to his baseline. With further observation it clearly is a trend there is been no backsliding. He is stable for transfer back to [facility] with above-noted instructions. Resident Activity Tracking Resident Involvement: Resident Care Provided Care Provided: Adult Hospital Medicine
[2019-01-31] MEDS: DOCUSATE SODIUM 100 MG CAP PO SCH (08:53)
[2019-01-31] MEDS: ASPIRIN 81 MG ECTAB PO SCH (08:53)
[2019-01-31] MEDS: predniSONE 20 MG TAB PO SCH (08:53)
[2019-01-31] MEDS: CALCIUM 600MG + VIT D 400 IU TAB PO SCH (08:53)
[2019-01-31] MEDS: AZITHROMYCIN 250 MG TAB PO SCH (08:54)
[2019-01-31] MEDS: ENOXAPARIN INJ 40 MG/0.4 ML SYR SQ SCH (08:54)
[2019-01-31] MEDS: FUROSEMIDE 20 MG TAB PO SCH (11:00)
[2019-02-01] MEDS ORDERED: ALENDRONATE SODIUM 70 MG TAB PO SCH (06:30)
== END 2019-01-31 14:15 | DRG 189 ==
LOC: ED 21:37 → SUATTDRO 01-28 02:09 → 2S 01-28 02:09 → 4W 01-30 15:27